=== PATIENT | male | born 1960 | race Caucasian/White ===

== ENCOUNTER 2020-06-23 10:40 | Outpatient (REF) | payer MEDICAID, SELFPAY | END 2020-06-23 10:41 | disposition home or self-care (01) | LOC: HO.LAB 10:40 | PROVIDERS: PCP Family Medicine; Visit Provider Internal Medicine | DX: Z20.828 Contact with and (suspected) exposure to other viral communicable diseases (principal) | CPT/HCPCS: C9803; U0003 ==

== ENCOUNTER 2020-09-19 00:33 | Emergency (ER) | payer MEDICAID, SELFPAY ==
--- NOTE | ~2020-09-19 | XR_ITS ---
EXAMINATION: CHEST 1 VIEW CLINICAL INFORMATION: Shortness of breath. COMPARISON: 07/22/2019. TECHNIQUE: An AP view of the chest is provided. FINDINGS: The cardiac silhouette is not enlarged. The mediastinal and hilar contours are unremarkable. There are neither pleural effusions nor pneumothoraces. There is mild atelectasis at each lung base. There are no consolidations. The osseous structures are unremarkable. XR/XR chest 1V IMPRESSION: No consolidations. Mild bibasilar atelectasis.
[2020-09-19 03:09] VITALS: BP 134/84; PULSE 80; RESP 18; TEMP 36.7; O2SAT 95; BMI 29.5
--- NOTE | 2020-09-19 03:33 | ED.GENADULT ---
HPI - General Adult General Chief complaint: General Medical Stated complaint: Trapped gas/Sob Time Seen by Provider: 09/19/20 03:32 Source: patient Mode of arrival: ambulatory Limitations: no limitations History of Present Illness HPI narrative: 60-year-old male presented with burping that is causing shortness of breath, patient stated that symptoms started 6 hours ago, lasted for about 10 minutes, now he feels better, decline chest pain, but was associated gasping for air and shortness of breath, pain resolved spontaneously, nothing made the pain worse or better, patient had similar presentation in the past he said it happen about once a year. Patient also complaining of constipation for the past 3 days, no abdominal pain, no nausea, no vomiting. Related Data Allergies Allergy/AdvReac Type Severity Reaction Status Date / Time No Known Allergies Allergy Unverified 04/30/20 15:32 Review of Systems Review of Systems: All other systems are reviewed and are negative Constitutional: Reports as per HPI and Reports no additional constitutional complaints Eyes: Reports as per HPI and Reports no additional eye complaints Reports system reviewed and no additional complaints, except as documented Cardiovascular: Reports as per HPI and Reports no additional cardiovascular complaints Respiratory: Reports as per HPI and Reports no additional respiratory complaints Gastrointestinal: Reports as per HPI and Reports no additional gastrointestinal complaints Genitourinary: Reports no additional female genitourinary complaints Musculoskeletal: Reports no additional musculoskeletal complaints Skin/Breast: Reports system reviewed and no additional complaints, except as docu Psychiatric: Reports no additional psychiatric complaints Endocrine: Reports no additional endocrine complaints Hematologic/Lymphatic: Reports no additional hematologic/lymphatic complaints Allergic/Immunologic: Reports no additional allergic/immunologic complaints Reports system reviewed and no additional complaints, except as documented and Reports Abnormal speech present [facility] Past Medical History Medical History COVID-19 High cholesterol Social History Social History Advance Directives: No Advance Directives Information Provided: No Physical Exam Vital Signs: Vital Signs: Last Vital Signs Temp 98.1 F 09/19/20 03:09 Pulse 80 09/19/20 03:09 Resp 18 09/19/20 03:09 BP 134/84 09/19/20 03:09 Pulse Ox 95 09/19/20 03:09 Body Mass Index 29.5 Vital signs have been reviewed as normal and appeared to be correct. Blood pressure in the high range. Heart rate normal. Respiration rate normal. Temperature normal. Oxygen saturation normal. Appearance: Alert. Oriented X3. No acute distress. Head: Normal external exam. Normocephalic. Atraumatic. No Mota signs noted. No raccoon eyes noted Eyes: PERRLA. EOMI. Conjunctiva and sclera normal. Eyelids normal. ENT: TM's Normal. Pharynx normal. Uvula midline. Moist mucous membranes. No trismus noted. No drooling noted. No muffled voice noted. Neck: Normal inspection. Neck supple. FROM. No adenopathy. Thyroid Normal. No meningeal signs. No neck mass noted. CVS: Normal heart rate and rhythm. Heart sound normal. No murmurs noted. Pulses normal throughout. Respiratory: No respiratory distress. Painless inspiration. Breath sounds normal. No wheezes/rales/rhonchi noted. Chest nontender. No accessory muscle usage noted or decreased air movement noted. Abdomen: Soft and nontender. Bowel sounds normal in all 4 quadrants. No distention noted. No organomegaly noted. No visible injury noted. Back: No CVA tenderness. Full range of motion noted. Skin: Skin warm and dry. Normal skin color. Normal skin turgor. No rashes/lesions/lacerations noted. Extremities: No lower extremity edema. Extremities exhibit normal range of motion. Extremities nontender. Neuro: Oriented X 3. No motor deficit. No sensory deficit. Reflexes normal. Course Course Course Narrative: Assessment and plan. 60-year-old male presented after having burping that made him short of breath for about 10 minutes, patient gets this episode once a year normally today was concerned, patient had cardiac workup was unremarkable with unremarkable chest x-ray, patient now is asymptomatic. constipation with no abd pain, or N/V. Medical Decision Making Lab Data Lab results reviewed: Yes I reviewed the patient's lab results. Result diagrams: 09/19/20 04:47 09/19/20 04:47 Labs: Lab Results 09/19/20 09/19/20 09/19/20 Range/Units 04:47 04:47 04:47 WBC 7.9 (4.8-10.8) X10*3/uL RBC 4.89 (4.60-5.80) X10*6/uL Hgb 14.5 (14.0-18.0) g/dl Hct 42.0 (42-52) % MCV 85.9 (80-98) fL MCH 29.7 (27.0-33.0) pg MCHC 34.5 (31.0-36.0) g/dl RDW 12.5 (11.0-16.0) % Plt Count 297 (160-400) X10*3/uL MPV 9.4 (9.4-12.4) fL Immature Gran % (Auto) 0.5 H (0.0-0.4) % Neut % (Auto) 57.6 (45-73) % Lymph % (Auto) 29.2 (20-40) % [place] % (Auto) 7.7 (2-11) % Eos % (Auto) 4.4 H (0-4) % Baso % (Auto) 0.6 (0-2) % Lymph # (Auto) 2.3 (1.2-4.9) X10*3/uL [place] # (Auto) 0.6 (0.1-1.2) X10*3/uL Eos # (Auto) 0.4 (0.0-0.4) X10*3/uL Baso # (Auto) 0.1 (0.0-0.2) X10*3/uL Abs Immat Gran (auto) 0.04 H (0.00-0.03) X10*3/uL Absolute Neuts (auto) 4.5 (2.0-8.3) X10*3/uL Absolute Nucleated RBC 0.000 (0.0-0.012) X10*3/uL Nucleated RBC % (auto) 0.0 (0.0-0.2) /100WBC Sodium 137 (135-145) mmol/L Potassium 3.7 (3.3-5.1) mmol/L Chloride 105 (96-108) mmol/L Carbon Dioxide 22 (22-29) mmol/L Anion Gap 14 (12-20) BUN 16 (9-16) mg/dL Creatinine 0.87 (0.5-1.4) mg/dL Estim Creat Clear Calc 93.6 Estimated GFR > 60 Random Glucose 104 (60-115) mg/dL Calcium 8.3 L (8.4-10.2) mg/dL Total Bilirubin 0.3 (0.0-1.0) mg/dL Direct Bilirubin 0.2 (0.0-0.5) mg/dL AST 21 (5-37) U/L ALT 27 (0-40) U/L Alkaline Phosphatase 79 (39-117) U/L Troponin I High Sens < 3.5 (<3.5-35.0) ng/L B-Natriuretic Peptide < 10 (<100) pg/mL Total Protein 6.8 (6.5-8.0) g/dL Albumin 4.0 (3.5-5.0) g/dL Lipase 24 (8-78) U/L Urine Color Urine Appearance Urine pH (5.0-8.0) Ur Specific [place] (1.005-1.025) Urine Protein (NEG-TRACE) MG/DL Urine Glucose (UA) (NEG) MG/DL Urine Ketones (NEG) MG/DL Urine Blood (NEG) Urine Nitrite (NEG) Ur Leukocyte Esterase (NEG) Urine RBC (0) /HPF Urine WBC (0-4) /HPF Ur Squamous Epith Cells /LPF Urine Bacteria /LPF Urine Mucus /LPF 09/19/20 Range/Units 05:04 WBC (4.8-10.8) X10*3/uL RBC (4.60-5.80) X10*6/uL Hgb (14.0-18.0) g/dl Hct (42-52) % MCV (80-98) fL MCH (27.0-33.0) pg MCHC (31.0-36.0) g/dl RDW (11.0-16.0) % Plt Count (160-400) X10*3/uL MPV (9.4-12.4) fL Immature Gran % (Auto) (0.0-0.4) % Neut % (Auto) (45-73) % Lymph % (Auto) (20-40) % [place] % (Auto) (2-11) % Eos % (Auto) (0-4) % Baso % (Auto) (0-2) % Lymph # (Auto) (1.2-4.9) X10*3/uL [place] # (Auto) (0.1-1.2) X10*3/uL Eos # (Auto) (0.0-0.4) X10*3/uL Baso # (Auto) (0.0-0.2) X10*3/uL Abs Immat Gran (auto) (0.00-0.03) X10*3/uL Absolute Neuts (auto) (2.0-8.3) X10*3/uL Absolute Nucleated RBC (0.0-0.012) X10*3/uL Nucleated RBC % (auto) (0.0-0.2) /100WBC Sodium (135-145) mmol/L Potassium (3.3-5.1) mmol/L Chloride (96-108) mmol/L Carbon Dioxide (22-29) mmol/L Anion Gap (12-20) BUN (9-16) mg/dL Creatinine (0.5-1.4) mg/dL Estim Creat Clear Calc Estimated GFR Random Glucose (60-115) mg/dL Calcium (8.4-10.2) mg/dL Total Bilirubin (0.0-1.0) mg/dL Direct Bilirubin (0.0-0.5) mg/dL AST (5-37) U/L ALT (0-40) U/L Alkaline Phosphatase (39-117) U/L Troponin I High Sens (<3.5-35.0) ng/L B-Natriuretic Peptide (<100) pg/mL Total Protein (6.5-8.0) g/dL Albumin (3.5-5.0) g/dL Lipase (8-78) U/L Urine Color YELLOW Urine Appearance CLEAR Urine pH 6.0 (5.0-8.0) Ur Specific [place] 1.020 (1.005-1.025) Urine Protein NEG (NEG-TRACE) MG/DL Urine Glucose (UA) NEG (NEG) MG/DL Urine Ketones NEG (NEG) MG/DL Urine Blood NEG (NEG) Urine Nitrite NEG (NEG) Ur Leukocyte Esterase NEG (NEG) Urine RBC 0 (0) /HPF Urine WBC 0-2 (0-4) /HPF Ur Squamous Epith Cells TRACE /LPF Urine Bacteria NONE /LPF Urine Mucus TRACE /LPF Imaging Data Chest x-ray: Radiologist's impression: No consolidations. Mild bibasilar atelectasis. Discharge Plan Discharge Clinical Impression: Atypical chest pain Constipation Qualifiers: Constipation type: unspecified constipation type Qualified Code(s): K59.00 - Constipation, unspecified Patient Disposition: Home, Self-Care Instructions: Constipation (ED) Referrals: Natalie Posadas MD [Primary Care Provider] - 2 days
[2020-09-19 04:00] VITALS: BP 126/81; PULSE 73; RESP 16; O2SAT 98
[2020-09-19 04:50] LABS: MANUAL DIFF FLAG NO
[2020-09-19 04:52] LABS: Basophils Absolute Auto 0.1 X10*3/uL (0.0-0.2); Basophils Percent Auto 0.6 % (0-2); Eosinophils Absolute Auto 0.4 X10*3/uL (0.0-0.4); Eosinophils Percent Auto 4.4 % (0-4); Hemoglobin 14.5 g/dl (14.0-18.0); Imm Gran Abs Auto 0.04 X10*3/uL (0.00-0.03); Imm Gran Pct Auto 0.5 % (0.0-0.4); Lymphocytes Absolute Auto 2.3 X10*3/uL (1.2-4.9); Lymphocytes Percent Auto 29.2 % (20-40); Mean Corpuscular HGB Conc 34.5 g/dl (31.0-36.0); Mean Corpuscular Hemoglobin 29.7 pg (27.0-33.0); Mean Corpuscular Volume 85.9 fL (80-98); Mean Platelet Volume 9.4 fL (9.4-12.4); Monocytes Absolute Auto 0.6 X10*3/uL (0.1-1.2); Monocytes Percent Auto 7.7 % (2-11); Neutrophils Absolute Auto 4.5 X10*3/uL (2.0-8.3); Neutrophils Percent Auto 57.6 % (45-73); Platelet Count 297 X10*3/uL (160-400); Red Blood Count 4.89 X10*6/uL (4.60-5.80); Red Cell Distribution Width 12.5 % (11.0-16.0); White Blood Count 7.9 X10*3/uL (4.8-10.8)
[2020-09-19] MEDS: Milk of Magnesia 30 ML ORAL.SUSP PO (04:59)
[2020-09-19] MEDS: 0.9 % Sodium Chloride 1,000 ML 999 ML IVCONT (05:00)
[2020-09-19 05:09] LABS: Appearance Urine CLEAR; Color Urine YELLOW; Glucose Urine UA NEG (NEG); Leukocyte Esterase Urine NEG (NEG); Nitrite Urine NEG (NEG); UACC CULT NO; Urine Blood NEG (NEG); Urine Ketones NEG (NEG); Urine Protein NEG (NEG-TRACE)
[2020-09-19 05:13] LABS: Alanine Aminotransferase 27 U/L (0-40); Alkaline Phosphatase 79 U/L (39-117); Anion Gap 14 (12-20); Aspartate Amino Transferase 21 U/L (5-37); Bilirubin Direct 0.2 mg/dL (0.0-0.5); Bilirubin Total 0.3 mg/dL (0.0-1.0); Blood Urea Nitrogen 16 mg/dL (9-16); Calcium 8.3 mg/dL (8.4-10.2); Carbon Dioxide 22 mmol/L (22-29); Chloride 105 mmol/L (96-108); Creatinine Clr Calc Pharmacy 93.6; Estimated Glomerular Filt Rate > 60; Glucose Random 104 mg/dL (60-115); Lipase 24 U/L (8-78); Potassium 3.7 mmol/L (3.3-5.1); Sodium 137 mmol/L (135-145); Total Protein 6.8 g/dL (6.5-8.0)
[2020-09-19 05:14] LABS: WBC Urine 0-2 /HPF (0-4)
[2020-09-19 05:15] LABS: Mucus Urine TRACE /LPF; RBC Urine 0 /HPF (0); Squamous Epithelial Cell Urine TRACE /LPF
[2020-09-19 05:18] LABS: B Type Natriuretic Peptide < 10 pg/mL (<100); Troponin-I High Sensitivity < 3.5 ng/L (<3.5-35.0)
[2020-09-19 06:00] VITALS: BP 124/76; PULSE 68; RESP 18; TEMP 36.7; O2SAT 97
== END 2020-09-19 07:00 | disposition home or self-care (01) ==
PROVIDERS: Emergency Provider Emergency Medicine; PCP Family Medicine
DX: R07.89 Other chest pain (principal); K59.00 Constipation, unspecified; Z86.16 Personal history of COVID-19
CPT/HCPCS: 36415; 71045; 80048; 80076; 81001; 83690; 83880; 84484; 85025; 96360; 99284

== ENCOUNTER 2021-12-06 11:47 | Emergency (ER) | payer MEDICAID, SELFPAY ==
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
--- NOTE | ~2021-12-06 | XR_ITS ---
EXAMINATIONS: XR hand wrist LT CLINICAL INFORMATION: Reason for Exam fall, hand pain COMPARISON: None VIEWS: Frontal lateral and oblique scaphoid view FINDINGS: There is no evidence of acute fracture or dislocation. The distal radius is intact. The radiocarpal, intercarpal and carpal/metacarpal joints are normal. Ulnar styloid is intact. The scapholunate joint is normal. The lunate is properly positioned. The oibsio-gays-yihzircc access is normal. The scaphoid bone is a properly articulating. XR/XR hand wrist LT IMPRESSION: No fracture or dislocation.
--- NOTE | ~2021-12-06 | XR_ITS ---
EXAMINATION: XR knee LT 4V CLINICAL INFORMATION: Reason for Exam left knee pain COMPARISON: None available at the time of this dictation. TECHNIQUE: frontal, lateral, tunnel and patella sunrise views FINDINGS: BONES: No fracture or dislocation is present. JOINTS: Narrowing of joint spaces and developed osteophytes from the edges of articular surfaces suggest degenerative osteoarthritis. SOFT TISSUE: Normal XR/XR knee LT 4V IMPRESSION: Mild DJD. No fracture or dislocation.
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
[2021-12-06 12:03] VITALS: BP 119/63; PULSE 96; RESP 19; TEMP 36.8; O2SAT 95; BMI 33.0
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
[2021-12-06 13:46] LABS: MANUAL DIFF FLAG NO
[2021-12-06 13:49] LABS: Basophils Percent Auto 0.4 % (0-2); Eosinophils Absolute Auto 0.2 X10*3/uL (0.0-0.4); Eosinophils Percent Auto 1.6 % (0-4); Hematocrit 42.6 % (42.0-52.0); Hemoglobin 14.5 g/dl (14.0-18.0); Imm Gran Abs Auto 0.04 X10*3/uL (0.00-0.03); Imm Gran Pct Auto 0.4 % (0.0-0.4); Lymphocytes Absolute Auto 1.6 X10*3/uL (1.2-4.9); Lymphocytes Percent Auto 16.8 % (20-40); Mean Corpuscular Hemoglobin 29.3 pg (27.0-33.0); Mean Corpuscular Volume 86.1 fL (80.0-98.0); Mean Platelet Volume 9.6 fL (9.4-12.4); Monocytes Absolute Auto 0.6 X10*3/uL (0.1-1.2); Monocytes Percent Auto 6.3 % (2-11); Neutrophils Percent Auto 74.5 % (45-73); Platelet Count 286 X10*3/uL (160-400); Red Blood Count 4.95 X10*6/uL (4.60-5.80); Red Cell Distribution Width 12.8 % (11.0-16.0); White Blood Count 9.4 X10*3/uL (4.8-10.8)
[2021-12-06 14:05] LABS: Alanine Aminotransferase 30 U/L (0-40); Albumin Level 4.2 g/dL (3.5-5.0); Alkaline Phosphatase 96 U/L (39-117); Anion Gap 10 (12-20); Aspartate Amino Transferase 25 U/L (5-37); Bilirubin Total 0.5 mg/dL (0.0-1.0); Blood Urea Nitrogen 18 mg/dL (9-16); Calcium 9.5 mg/dL (8.4-10.2); Carbon Dioxide 26 mmol/L (22-29); Chloride 110 mmol/L (96-108); Creatinine Clr Calc Pharmacy 92.2; Estimated Glomerular Filt Rate > 60; Glucose Random 111 mg/dL (60-115); INTERNATIONAL NORM RATIO 1.1 (0.9-1.1); Potassium 4.1 mmol/L (3.3-5.1); Prothrombin Time 12.4 SEC (9.9-13.0); Sodium 142 mmol/L (135-145)
[2021-12-06 14:23] VITALS: BP 118/77; PULSE 85; RESP 19; TEMP 36.8; O2SAT 96
[2021-12-06] MEDS: Morphine Sulfate 2 MG/ML CARTRIDGE IVPUSH (14:57)
[2021-12-06] MEDS: iohexoL 350 MG/ML 100 ML INFUS..BTL IV (15:07)
[2021-12-06 15:37] VITALS: BP 129/84; PULSE 83; RESP 20; TEMP 36.8; O2SAT 95
== END 2021-12-06 16:48 | disposition home or self-care (01) ==
PROVIDERS: Physician Assistant; Emergency Provider Emergency Medicine; PCP Family Medicine
DX: S89.92XA Unspecified injury of left lower leg, initial encounter (principal); S49.92XA Unspecified injury of left shoulder and upper arm, initial encounter; S30.811A Abrasion of abdominal wall, initial encounter; R10.32 Left lower quadrant pain; M25.522 Pain in left elbow; M19.012 Primary osteoarthritis, left shoulder; M25.562 Pain in left knee; M25.512 Pain in left shoulder; M54.2 Cervicalgia; V29.40XA Motorcycle driver injured in collision with unspecified motor vehicles in traffic accident, initial encounter; Y93.9 Activity, unspecified; Y92.410 Unspecified street and highway as the place of occurrence of the external cause; Y99.9 Unspecified external cause status
CPT/HCPCS: 36415; 70450; 71260; 72125; 73030; 73080; 73110; 73130; 73564; 74177; 80053; 83735; 85025; 85610; 96374; 99284; J2270; Q9967

== ENCOUNTER 2022-02-17 11:14 | Emergency (ER) | payer OTHER, MEDICAID, SELFPAY ==
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
[2022-02-17 12:07] VITALS: BP 106/64; PULSE 94; RESP 18; TEMP 36.7; O2SAT 96; BMI 32.3
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
[2022-02-17 16:46] VITALS: BP 129/85; PULSE 71; RESP 18; TEMP 36.4; O2SAT 99
== END 2022-02-17 16:55 | disposition home or self-care (01) ==
PROVIDERS: Emergency Provider Emergency Medicine; PCP Family Medicine
DX: M25.561 Pain in right knee (principal); M25.562 Pain in left knee; Z79.899 Other long term (current) drug therapy
CPT/HCPCS: 73560; 99283

== ENCOUNTER 2022-03-07 17:04 | Emergency (ER) | payer MEDICAID, SELFPAY ==
--- NOTE | ~2022-03-07 | XR_ITS ---
EXAMINATION: XR CHEST CLINICAL INFORMATION: Chest pain COMPARISON: Chest x-ray 09/19/2020 TECHNIQUE: Frontal view of the chest was obtained. FINDINGS: Mild curvilinear subsegmental atelectasis or scarring in the left lower lung. No airspace consolidation. No pleural effusion or pneumothorax. Cardiomediastinal silhouette is within normal limits. No evidence pulmonary edema. Suggestion of mild bronchial wall thickening in the right lower lung. No acute osseous injury. XR/XR chest 1V IMPRESSION: 1. Suggestion of mild bronchial wall thickening in the right lower lung. No airspace consolidation or effusions.
--- NOTE | 2022-03-07 17:10 | ECG_ITS ---
Test Reason : cp Blood Pressure : / mmHG Vent. Rate : 097 BPM Atrial Rate : 097 BPM P-R Int : 200 ms QRS Dur : 084 ms QT Int : 342 ms P-R-T Axes : 053 -77 071 degrees QTc Int : 434 ms Normal sinus rhythm Possible Left atrial enlargement Left axis deviation Possible Lateral infarct , age undetermined Abnormal ECG When compared with ECG of 22-JUL-2019 20:12, No significant change was found Referred By: Generic ED Physician Electronically Signed By:SANCHEZ STOKES
[2022-03-07 17:15] VITALS: BP 107/67; PULSE 91; RESP 18; TEMP 36.7; O2SAT 95; BMI 33.2
[2022-03-07 17:26] LABS: MANUAL DIFF FLAG NO
[2022-03-07 17:29] LABS: Basophils Percent Auto 0.4 % (0-2); Eosinophils Absolute Auto 0.2 X10*3/uL (0.0-0.4); Eosinophils Percent Auto 2.5 % (0-4); Hematocrit 42.6 % (42.0-52.0); Hemoglobin 14.5 g/dl (14.0-18.0); Imm Gran Abs Auto 0.06 X10*3/uL (0.00-0.03); Imm Gran Pct Auto 0.9 % (0.0-0.4); Lymphocytes Absolute Auto 1.5 X10*3/uL (1.2-4.9); Lymphocytes Percent Auto 21.3 % (20-40); Mean Corpuscular Hemoglobin 29.2 pg (27.0-33.0); Mean Corpuscular Volume 85.9 fL (80.0-98.0); Mean Platelet Volume 9.6 fL (9.4-12.4); Monocytes Absolute Auto 0.7 X10*3/uL (0.1-1.2); Monocytes Percent Auto 9.4 % (2-11); Neutrophils Absolute Auto 4.5 x10*3/uL (2.0-8.3); Neutrophils Percent Auto 65.5 % (45-73); Platelet Count 272 X10*3/uL (160-400); Red Blood Count 4.96 X10*6/uL (4.60-5.80); Red Cell Distribution Width 12.8 % (11.0-16.0); White Blood Count 6.9 X10*3/uL (4.8-10.8)
[2022-03-07 17:43] LABS: Alanine Aminotransferase 80 U/L (0-40); Albumin Level 4.5 g/dL (3.5-5.0); Alkaline Phosphatase 155 U/L (39-117); Anion Gap 12 (12-20); Aspartate Amino Transferase 56 U/L (5-37); Bilirubin Total 0.5 mg/dL (0.0-1.0); Blood Urea Nitrogen 11 mg/dL (9-16); Calcium 8.8 mg/dL (8.4-10.2); Carbon Dioxide 25 mmol/L (22-29); Chloride 106 mmol/L (96-108); Estimated Glomerular Filt Rate > 60; Glucose Random 166 mg/dL (60-115); Potassium 3.7 mmol/L (3.3-5.1); Sodium 139 mmol/L (135-145); Total Protein 7.5 g/dL (6.5-8.0)
[2022-03-07 17:45] LABS: COVID-19 Test Negative (Negative)
[2022-03-07 17:49] LABS: Troponin-I High Sensitivity < 3.5 ng/L (<3.5-35.0)
--- NOTE | 2022-03-07 20:20 | ED.CHESTPAIN ---
HPI - Chest Pain General Chief Complaint: Chest Pain Stated Complaint: chest pain/possible pneumonia/possible tumor Time Seen by Provider: 03/07/22 20:15 Source: patient Mode of arrival: ambulatory Limitations: no limitations History of Present Illness HPI narrative: Patient is a 61 year old male presenting to the emergency department today with chest pain when he coughs. Patient states that when he coughs, the center of his chest hurts. Patient denies any dizziness, lightheadedness, abdominal pain, nausea, vomiting, fever, chills, blurry vision, double vision, loss of vision, difficulty breathing, shortness of breath, back pain, night sweats, pain with urination, increased urinary frequency, increased urinary urgency, blood in his urine or stool, syncope or a near syncopal episode, recent trauma or falls, bowel incontinence, bladder incontinence, bowel retention, bladder retention, or any other complaints at this time. Pain radiation: none Treatment prior to arrival: none Related Data Previous Rx's Medication Instructions Recorded acetaminophen 650 mg 650 mg PO Q8H 5 days #15 tabs 02/17/22 tablet,extended release (Tylenol 8 Hour) ibuprofen 800 mg tablet 800 mg PO Q8H #60 tabs 02/17/22 Allergies Allergy/AdvReac Type Severity Reaction Status Date / Time No Known Allergies Allergy Verified 02/17/22 12:07 Review of Systems Constitutional: Constitutional: Reports no additional constitutional complaints, Denies chills, Denies fever(s) and Denies night sweats Eyes: Eyes: Reports no additional eye complaints, Denies blurry vision, Denies change in vision, Denies diplopia, Denies eye discharge, Denies loss of vision and Denies eye pain ENT: Denies dizziness Cardiovascular: Cardiovascular: Reports no additional cardiovascular complaints, Reports chest pain (with cough), Denies lightheadedness, Denies Loss of Consciousness and Denies dyspnea Respiratory: Respiratory: Reports no additional respiratory complaints, Reports cough and Denies dyspnea Gastrointestinal: Gastrointestinal: Reports no additional gastrointestinal complaints, Denies abdominal pain, Denies melena, Denies hematochezia, Denies change in bowel habits and Denies change in stool character Genitourinary: Genitourinary: Reports no additional male genitourinary complaints, Denies hematuria, Denies oliguria, Denies difficulty urinating, Denies dysuria, Denies urinary frequency, Denies urinary hesitancy, Denies urinary incontinence and Denies urinary urgency Musculoskeletal: Musculoskeletal: Reports no additional musculoskeletal complaints, Denies numbness and Denies tingling Neurologic: Denies dizziness, Denies loss of vision, Denies numbness and Denies tingling Psychiatric: Psychiatric: Reports no additional psychiatric complaints Endocrine: Endocrine: Reports no additional endocrine complaints Hematologic/Lymphatic: Hematologic/Lymphatic: Reports no additional hematologic/lymphatic complaints Allergic/Immunologic: Allergic/Immunologic: Reports no additional allergic/immunologic complaints [facility] Past Medical History Attestation statement: The following information was validated with the patient. Source: old records reviewed Medical History COVID-19 High cholesterol Social History Social History Alcohol intake: never Advance Directives: No Advance Directives Information Provided: No Physical Exam Vital Signs: Vital Signs: Last Vital Signs Temp 98.5 F 03/07/22 20:25 Pulse 83 03/07/22 20:25 Resp 18 03/07/22 20:25 BP 117/73 03/07/22 20:25 Pulse Ox 97 03/07/22 20:25 O2 Del Method 03/07/22 20:25 BMI result Body Mass Index 33.2 Const: General: cooperative, no acute distress, alert and awake Nutritional Appearance: well nourished Orientation/consciousness: patient oriented x3 Limitations: no limitations HEENT: Head: Yes normal to inspection and Yes atraumatic Ears: hearing grossly normal bilaterally and external ears normal General nose exam: Normal external nose present, no nasal discharge noted and no epistaxis Face and sinus: Yes normal facial exam, No abrasion and No laceration Mouth: Normal oral and palatal mucosa present, no drooling and no muffled voice Eyes: General: appearance normal, both eyes and all related structures Periorbital: periorbital findings normal Eyelids: Yes eyelids normal Conjunctivae: conjunctivae normal Pupils: Equal, round and reactive pupils present EOM: EOMs intact bilaterally Neck: Neck: Yes normal visual inspection, Yes full ROM and Yes no lymphadenopathy Chest: Chest palpation & inspection: normal inspection of the chest Resp: Effort & Inspection: normal respiratory effort and able to speak in complete sentences Auscultation: clear to auscultation bilaterally Cardio: Rate: regular rate Rhythm: regular rhythm GI: Inspection: Yes normal to inspection Neuro: General: patient oriented x3 and moves all extremities Cranial nerves: Yes Equal, round and reactive pupils present Cognition (Neuro): normal cognition Motor exam (neuro): 5/5 motor strength present throughout Sensory Exam: Normal double simultaneous stimulation for sensation Coordination: [id number] test normal Extrem: General: Yes normal to inspection, Yes full ROM and Yes capillary refill normal Psych: Appearance: grossly normal Mental Status: mental status grossly normal Affect: normal affect Attitude: cooperative Thought process: Normal thought process present Thought content: Normal thought content present Insight: Good insight present (Psych) MDM - Chest Pain MDM Narrative Medical decision making narrative: Patient is a 61 year old male presenting to the emergency department today with chest pain after coughing. Patient's physical exam was unremarkable. Patient's blood work showed slightly elevated LFTs but was otherwise unremarkable.Patient's EKG was unremarkable. Patient's chest x-ray showed no acute process. I explained my physical exam findings as well as all test results to the patient. I answered all questions asked by the patient. I stressed the importance of the patient taking his medication as prescribed. I stressed the importance of the patient following up with his primary care provider. I stressed the importance of the patient returning to the emergency department immediately if his symptoms were to worsen or if he were to develop any dizziness, shortness of breath, difficulty breathing, chest pain, blurry vision, loss of vision, nausea, vomiting, abdominal pain, fever, chills, back pain, or any other complaints. Patient verbalized agreement and understanding with this treatment plan and discharge. Differential Diagnosis Differential diagnosis: Likely atypical chest pain and costochondritis Medical Records Data Attestation: I reviewed the patient's medical records. Lab Data Attestation: I reviewed the patient's lab results. Result diagrams: 03/07/22 17:21 03/07/22 17:21 Labs: Lab Results 03/07/22 03/07/22 03/07/22 Range/Units 17:18 17:18 17:21 WBC 6.9 (4.8-10.8) X10*3/uL RBC 4.96 (4.60-5.80) X10*6/uL Hgb 14.5 (14.0-18.0) g/dl Hct 42.6 (42.0-52.0) % MCV 85.9 (80.0-98.0) fL MCH 29.2 (27.0-33.0) pg MCHC 34.0 (31.0-36.0) g/dl RDW 12.8 (11.0-16.0) % Plt Count 272 (160-400) X10*3/uL MPV 9.6 (9.4-12.4) fL Immature Gran % (Auto) 0.9 H (0.0-0.4) % Neut % (Auto) 65.5 (45-73) % Lymph % (Auto) 21.3 (20-40) % [place] % (Auto) 9.4 (2-11) % Eos % (Auto) 2.5 (0-4) % Baso % (Auto) 0.4 (0-2) % Lymph # (Auto) 1.5 (1.2-4.9) X10*3/uL [place] # (Auto) 0.7 (0.1-1.2) X10*3/uL Eos # (Auto) 0.2 (0.0-0.4) X10*3/uL Baso # (Auto) 0.0 (0.0-0.2) X10*3/uL Abs Immat Gran (auto) 0.06 H (0.00-0.03) X10*3/uL Absolute Neuts (auto) 4.5 (2.0-8.3) x10*3/uL Absolute Nucleated RBC 0.000 (0.0-0.012) X10*3/uL Nucleated RBC % (auto) 0.0 (0.0-0.2) /100WBC Sodium (135-145) mmol/L Potassium (3.3-5.1) mmol/L Chloride (96-108) mmol/L Carbon Dioxide (22-29) mmol/L Anion Gap (12-20) BUN (9-16) mg/dL Creatinine (0.5-1.4) mg/dL Estim Creat Clear Calc Estimated GFR Random Glucose (60-115) mg/dL Calcium (8.4-10.2) mg/dL Total Bilirubin (0.0-1.0) mg/dL AST (5-37) U/L ALT (0-40) U/L Alkaline Phosphatase (39-117) U/L Troponin I High Sens < 3.5 (<3.5-35.0) ng/L Total Protein (6.5-8.0) g/dL Albumin (3.5-5.0) g/dL COVID-19 (ARGELIA) Negative (Negative) COVID-19 Clin Com See Note 03/07/22 Range/Units 17:21 WBC (4.8-10.8) X10*3/uL RBC (4.60-5.80) X10*6/uL Hgb (14.0-18.0) g/dl Hct (42.0-52.0) % MCV (80.0-98.0) fL MCH (27.0-33.0) pg MCHC (31.0-36.0) g/dl RDW (11.0-16.0) % Plt Count (160-400) X10*3/uL MPV (9.4-12.4) fL Immature Gran % (Auto) (0.0-0.4) % Neut % (Auto) (45-73) % Lymph % (Auto) (20-40) % [place] % (Auto) (2-11) % Eos % (Auto) (0-4) % Baso % (Auto) (0-2) % Lymph # (Auto) (1.2-4.9) X10*3/uL [place] # (Auto) (0.1-1.2) X10*3/uL Eos # (Auto) (0.0-0.4) X10*3/uL Baso # (Auto) (0.0-0.2) X10*3/uL Abs Immat Gran (auto) (0.00-0.03) X10*3/uL Absolute Neuts (auto) (2.0-8.3) x10*3/uL Absolute Nucleated RBC (0.0-0.012) X10*3/uL Nucleated RBC % (auto) (0.0-0.2) /100WBC Sodium 139 (135-145) mmol/L Potassium 3.7 (3.3-5.1) mmol/L Chloride 106 (96-108) mmol/L Carbon Dioxide 25 (22-29) mmol/L Anion Gap 12 (12-20) BUN 11 (9-16) mg/dL Creatinine 0.81 (0.5-1.4) mg/dL Estim Creat Clear Calc 105.0 Estimated GFR > 60 Random Glucose 166 H D (60-115) mg/dL Calcium 8.8 D (8.4-10.2) mg/dL Total Bilirubin 0.5 (0.0-1.0) mg/dL AST 56 H (5-37) U/L ALT 80 H (0-40) U/L Alkaline Phosphatase 155 H D (39-117) U/L Troponin I High Sens (<3.5-35.0) ng/L Total Protein 7.5 (6.5-8.0) g/dL Albumin 4.5 (3.5-5.0) g/dL COVID-19 (ARGELIA) (Negative) COVID-19 Clin Com Imaging Data Chest x-ray: Attestation: I personally reviewed and interpreted this imaging study as follows: My impression: No acute process. Radiologist's impression: EXAMINATION: XR CHEST CLINICAL INFORMATION: Chest pain COMPARISON: Chest x-ray 09/19/2020 TECHNIQUE: Frontal view of the chest was obtained. FINDINGS: Mild curvilinear subsegmental atelectasis or scarring in the left lower lung. No airspace consolidation. No pleural effusion or pneumothorax. Cardiomediastinal silhouette is within normal limits. No evidence pulmonary edema. Suggestion of mild bronchial wall thickening in the right lower lung. No acute osseous injury. XR/XR chest 1V IMPRESSION: ? 1. Suggestion of mild bronchial wall thickening in the right lower lung. No airspace consolidation or effusions. ? Dictated By: Payam Pa Signed By: Electronically signed by Payam?Thierno 03/07/22 8128 ECG Data ECG #1: Attestation: I personally reviewed and interpreted this ECG as follows: ECG interpretation date: 03/07/22 ECG interpretation time: 17:13 Prior ECG tracings: available for review Interpretation: Vent. Rate: 097 BPM ? ? Atrial Rate: 097 BPM P-R Int: 200 ms? QRS Dur: 084 ms QT Int: 342 ms ? ? ? P-R-T Axes: 053 -77 071 degrees QTc Int: 434 ms ? Normal sinus rhythm Possible Left atrial enlargement Left axis deviation Possible Lateral infarct , age undetermined Abnormal ECG When compared with ECG of 22-JUL-2019 20:12, No significant change was found DD/ [id number] Discharge Plan Discharge Clinical Impression: Atypical chest pain, Viral illness Patient Disposition: Home, Self-Care Instructions: Viral Syndrome (ED) Additional Instructions: Follow up with your primary care provider. Return to the emergency department immediately if your symptoms worsen or if you develop any dizziness, shortness of breath, difficulty breathing, chest pain, blurry vision, loss of vision, nausea, vomiting, abdominal pain, fever, chills, back pain, or any other complaints. Prescriptions: No Action ibuprofen 800 mg tablet 800 mg PO Q8H Qty: 60 0RF acetaminophen [Tylenol 8 Hour] 650 mg tablet extended release 650 mg PO Q8H 5 Days Qty: 15 0RF Referrals: Natalie Posadas MD [Primary Care Provider] - (Follow up with your PCP. ) Print Language: Turkmen
[2022-03-07 20:25] VITALS: BP 117/73; PULSE 83; RESP 18; TEMP 36.9; O2SAT 97
== END 2022-03-07 20:59 | disposition home or self-care (01) ==
PROVIDERS: Emergency Provider Emergency Medicine; PCP Family Medicine
DX: B34.9 Viral infection, unspecified (principal); R07.89 Other chest pain; Z20.822 Contact with and (suspected) exposure to COVID-19; Z79.899 Other long term (current) drug therapy
CPT/HCPCS: 71045; 80053; 84484; 85025; 87635; 93005; 99283; 99284

== ENCOUNTER → 2022-04-06 22:47 | Outpatient (REF) | payer MEDICAID, SELFPAY | LOC: HO.SL 22:47 | PROVIDERS: PCP Family Medicine; Visit Provider Family Medicine | DX: G47.33 Obstructive sleep apnea (adult) (pediatric) (principal) | CPT/HCPCS: 95810 ==

== ENCOUNTER → 2022-04-24 19:30 | Outpatient (REF) | payer MEDICAID, SELFPAY | LOC: HO.SL 19:30 | PROVIDERS: PCP Family Medicine; Visit Provider Family Medicine | DX: G47.33 Obstructive sleep apnea (adult) (pediatric) (principal) | CPT/HCPCS: 95811 ==

== ENCOUNTER 2022-09-20 17:30 | Outpatient (REF) | payer MEDICAID, SELFPAY ==
--- NOTE | ~2022-09-20 | MR_ITS ---
EXAMINATION: MR BRAIN WITHOUT AND WITH CONTRAST CLINICAL INFORMATION: Chronic right-sided headache. Occipital headache. COMPARISON: CT head from 12/06/2021. TECHNIQUE: MRI of the brain was obtained using routine sequences without and following the administration of 10 mL of Gadavist intravenous contrast. FINDINGS: No focal restricted diffusion is demonstrated to suggest acute or subacute cerebral ischemia. No evidence of acute or chronic hemorrhagic products on heme-sensitive imaging. Scattered periventricular and deep white matter T2 FLAIR hyperintensities consistent with mild underlying microangiopathy. Proportional prominence of the ventricles and sulcal spaces without evidence of obstructive hydrocephalus. No abnormal mass effect. No midline shift. Normal appearance of the pituitary gland. Normal positioning of the cerebellar tonsils. There appears to be fusiform aneurysmal dilatation of the supraclinoid segment of the right ICA. Otherwise, normal arterial and venous vascular flow voids are present. No abnormal contrast enhancement. Normal, homogeneous marrow signal. Mild mucosal thickening of the paranasal sinuses. No signal abnormalities within the mastoids. MR/MR head/brain wo/w con IMPRESSION: 1. No acute intracranial abnormalities. No abnormal intracranial enhancement. 2. Mild underlying microangiopathy and generalized cerebral volume loss. 3. Apparent fusiform aneurysmal dilatation of the supraclinoid segment of the right ICA. If clinically indicated, this may be better characterized with dedicated MRA or CTA.
== END 2022-09-20 17:31 | disposition home or self-care (01) ==
LOC: HO.MRI 17:30
PROVIDERS: PCP Family Medicine; Visit Provider Family Medicine
DX: R51.9 Headache, unspecified (principal); G47.31 Primary central sleep apnea
CPT/HCPCS: 70553; A9585

== ENCOUNTER 2022-09-29 19:28 | Outpatient (REF) | payer MEDICAID, SELFPAY ==
--- NOTE | ~2022-09-29 | MR_ITS ---
EXAMINATION: MRA HEAD WITHOUT CONTRAST CLINICAL INFORMATION: Carotid artery aneurysm. COMPARISON: Head MRA September 20, 2022 TECHNIQUE: MRA of the head was performed without contrast utilizing 3-D [id number] technique. FINDINGS: The bilateral internal carotid arteries demonstrate fusiform ectasia. The supraclinoid right ICA demonstrates short segment fusiform aneurysmal dilatation measuring up to 7 mm best seen on series 3 image 71/64. The right M1 segment is normal in caliber without stenosis. Fusiform dilatation is also seen involving the left [employer] and left supraclinoid ICA and M1 MCA segment junction. There is fusiform aneurysmal dilatation of the inferior division of the left M2 MCA segment. There is a small saccular aneurysm measuring 2 mm projecting medially from the left MCA bifurcation. The intradural vertebral arteries and basilar artery appear patent. There is no abnormal arterialized flow on the source images. No mass effect is seen. A diffusion sequence was also acquired and appears normal. MR/MR angio head wo con IMPRESSION: Fusiform aneurysmal dilatation of the supraclinoid right ICA measuring up to 7 mm. Fusiform aneurysmal dilatation also seen involving the left supraclinoid ICA and left M1 MCA segment junction, and inferior division of the left M2 MCA segment. Small 2 mm saccular aneurysm projecting medially from the left MCA bifurcation.
== END 2022-09-29 19:29 | disposition home or self-care (01) ==
LOC: HO.MRI 19:28
PROVIDERS: PCP Family Medicine; Visit Provider Family Medicine
DX: I67.1 Cerebral aneurysm, nonruptured (principal)
CPT/HCPCS: 70544

== ENCOUNTER → 2022-11-16 19:30 | Outpatient (REF) | payer MEDICAID, SELFPAY | LOC: HO.SL 19:30 | PROVIDERS: PCP Family Medicine; Visit Provider Family Medicine | DX: G47.33 Obstructive sleep apnea (adult) (pediatric) (principal) | CPT/HCPCS: 95811 ==

== ENCOUNTER 2023-09-28 11:57 | Outpatient (REF) | payer MEDICAID, SELFPAY ==
[2023-09-28 13:32] LABS: Estimated Average Glucose 114 mg/dL; Hemoglobin A1C 150.3819 umol/L; Hemoglobin A1c % 5.6 % (<6.0)
[2023-09-28 13:54] LABS: Alanine Aminotransferase 18 U/L (0-40); Albumin Level 4.3 g/dL (3.5-5.0); Alkaline Phosphatase 84 U/L (39-117); Anion Gap 11 (12-20); Aspartate Amino Transferase 15 U/L (5-37); Bilirubin Total 0.4 mg/dL (0.0-1.0); Blood Urea Nitrogen 14 mg/dL (9-16); Calcium 9.3 mg/dL (8.4-10.2); Carbon Dioxide 25 mmol/L (22-29); Chloride 108 mmol/L (96-108); Estimated Glomerular Filt Rate > 60; Glucose Random 88 mg/dL (60-115); Potassium 3.7 mmol/L (3.3-5.1); Sodium 140 mmol/L (135-145); Total Protein 7.5 g/dL (6.5-8.0)
== END 2023-09-28 11:58 | disposition home or self-care (01) ==
LOC: HO.HHCL 11:57
PROVIDERS: Visit Provider Family Medicine
DX: G47.31 Primary central sleep apnea (principal); E03.9 Hypothyroidism, unspecified; R73.03 Prediabetes
CPT/HCPCS: 36415; 80053; 83036; 84439; 84443

== ENCOUNTER 2023-10-04 09:07 | Outpatient (REF) | payer MEDICAID, SELFPAY ==
[2023-10-04 12:04] LABS: Cholesterol 169 mg/dL (<200); HDL Cholesterol 40 mg/dL (>40); LDL Cholesterol Calculated 107 mg/dL (<100); Triglycerides 113 mg/dL (<150)
[2023-10-04 12:25] LABS: Reflex LDLD? No
== END 2023-10-04 09:08 | disposition home or self-care (01) ==
LOC: HO.HHCL 09:07
PROVIDERS: Visit Provider Family Medicine
DX: E78.5 Hyperlipidemia, unspecified (principal); K21.9 Gastro-esophageal reflux disease without esophagitis
CPT/HCPCS: 36415; 80061; 87338

== ENCOUNTER 2024-06-19 11:35 | Emergency (ER) | payer MEDICAID, SELFPAY ==
--- NOTE | ~2024-06-19 | CT_ITS ---
EXAMINATION: CT ANGIOGRAM NECK. CT ANGIOGRAM BRAIN. CLINICAL INFORMATION: Headache. COMPARISON: Correlated to MRA brain dated September 29, 2022 TECHNIQUE: Contiguous axial images through the brain using 5 mm collimation without IV contrast. Sagittal and coronal reformatted images acquired. Contiguous axial images from the thoracic aortic arch to the cerebral vertex using 3.0 and 0.6 mm collimation following the IV contrast administration. Total of 70 cc Omnipaque 350 strength given IV without reported immediate complications. Sagittal and coronal reformatted images acquired. Maximum intensity projections. The degree of stenosis determined by NASCET criteria. This CT examination was performed using dose optimization techniques as appropriate, variously including the following: *Automated exposure control *Adjustment of mA and/or kV according to patient size (this includes techniques or standardized protocols for targeted exams where dose is matched to indication/reason for exam; i.e. extremities or head) *Use of iterative reconstruction technique DLP: 2351 mGy-cm FINDINGS: CT non-IV brain: No acute intracranial hemorrhage, mass effect, midline shift, hydrocephalus or herniation. Guzman-white matter differentiation is normal. Posterior cranial fossa contents demonstrated no acute intracranial hemorrhage or mass effect. Bony calvarium is intact. Skull base is intact. No air-fluid levels in the included paranasal sinuses. Tympanic cavities and mastoid cells are aerated. Edentulus, maxilla. CT angiogram neck: Thoracic aortic arch is patent without focal stenosis or intimal flap. 3.8 cm diameter of the distal main pulmonary artery. Right CCA: Normal patency. No focal stenosis. No intimal flap. Right ICA: Normal patency. Tortuosity. No focal stenosis. No intimal flap. Left CCA: Normal patency. No focal stenosis. No intimal flap. Tortuosity. Left ICA: Tortuosity. No focal stenosis. No intimal flap. V1 and V2 segments of the vertebral arteries are patent coordinating directly from the subclavian arteries without focal stenosis or intimal flap. Codominant vertebral arteries. CT angiogram brain: Anterior cerebral circulation: ICAs: 6 mm dilatation of the supraclinoid segment right ICA. 5 mm dilatation of the supraclinoid segment, left ICA. No focal stenosis. No intimal flap. MCA's: 3 mm saccular abnormality at the bifurcation/trifurcation the left MCA. No focal stenosis. No intimal flap. ACAs: No focal stenosis or abrupt cut off. No vascular abnormality. Anterior communicant artery is patent. Ophthalmic arteries are patent bilaterally. Posterior communicating arteries are robust and patent, bilaterally. Posterior cerebral circulation: V3/V4 segments of the vertebral arteries are patent without focal stenosis or intimal flap. Posterior inferior cerebellar arteries are patent without vascular abnormality. Basilar artery is patent without focal stenosis or intimal flap. Superior cerebellar arteries are patent. biztalk developer: Hypoplastic/atrophic P1 segments bilaterally. No focal stenosis or abrupt cut off. Ancillary findings: Normal patency of the main cerebral venous sinuses. No abnormal enhancement within the intra-axial or the extra-axial compartment of the cranium. Bilateral pulmonary patchy groundglass. Cervical spondylosis C3-4. ` CT/CT angio head neck IMPRESSION: Stable, 6 mm, fusiform aneurysm, supraclinoid segments both ICA. Stable, 3 mm saccular aneurysm, bifurcation/trifurcation left MCA. No high degree stenosis or dissection in the vessels of the neck. 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 No acute intracranial hemorrhage or acute brain abnormality by CT. Electronically signed by: Cornell Hope MD 06/19/2024 01:00 PM EST
[2024-06-19 11:42] VITALS: BP 124/77; PULSE 80; RESP 16; TEMP 36.4; O2SAT 98; BMI 31.5
--- NOTE | 2024-06-19 11:46 | ECG_ITS ---
Test Reason : HEADACHE Blood Pressure : / mmHG Vent. Rate : 073 BPM Atrial Rate : 073 BPM P-R Int : 230 ms QRS Dur : 092 ms QT Int : 386 ms P-R-T Axes : 045 -77 069 degrees QTc Int : 425 ms Sinus rhythm with 1st degree A-V block Left axis deviation Nonspecific T wave abnormality Abnormal ECG When compared with ECG of 07-MAR-2022 17:13, WA interval has increased Referred By: Leatha Gutierrez Electronically Signed By:LAURA MANRIQUE MD
--- NOTE | 2024-06-19 11:48 | ED.HA ---
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 His is present at bedside. Patients headache worsened when he woke up this morning. Endorses acute worsening blurry vision this morning as well. Patient called his PCP and was instructed to the ED since he has a history of aneurysms in the brain. They were concerned about one of these aneurysms acutely rupturing. He also endorses posterior right sided neck pain that is present every time he gets a headache. Endorses a constant sensation of dizziness that does not change with position. Denies any trauma, recent falls, or photophobia. He took tramadol today and ibuprofen yesterday to help with the pain which has had little effect. Denies N/V, abd pain, SOB or chest pain. Related Data Home Medications ?Medication ?Instructions ?Recorded ?Confirmed atorvastatin 10 mg tablet 10 mg PO BEDTIME 08/01/22 blood pressure monitor (Blood 08/01/22 Pressure Kit) ergocalciferol (vitamin D2) 1,000 1,250 mcg PO QWEEK 08/01/22 unit capsule hydrocortisone 1 % topical cream 1 appl topical TID PRN 08/01/22 (Anti-Itch (hydrocortisone)) lidocaine 5 % topical patch 1 patch topical DAILY 08/01/22 (Lidoderm) melatonin 3 mg capsule 3 mg PO BEDTIME PRN 08/01/22 naloxone 4 mg/actuation nasal 4 mg intranasal Q2M PRN 08/01/22 spray (Narcan) polyvinyl alcohol 1.4 % eye drops 1 drp ophthalmic (eye) BID-QID PRN 08/01/22 (Artificial Tears (polyvinyl alcohol)) tizanidine 4 mg capsule 4 mg PO .q6-8hrs PRN 08/01/22 tramadol 50 mg tablet 50 mg PO Q8H PRN 08/01/22 Previous Rx's ?Medication ?Instructions ?Recorded acetaminophen 650 mg 650 mg PO Q8H 5 days #15 tabs 02/17/22 tablet,extended release (Tylenol 8 Hour) ibuprofen 800 mg tablet 800 mg PO Q8H #60 tabs 02/17/22 Allergies Allergy/AdvReac Type Severity Reaction Status Date / Time No Known Allergies Allergy Verified 06/19/24 11:44 Review of Systems Constitutional: Constitutional: Reports no additional constitutional complaints, Denies chills, Denies fever(s), Denies frequent falls, Reports headache(s), Denies night sweats and Denies weakness Eyes: Eyes: Reports blurry vision, Denies change in vision, Denies diplopia, Denies eye discharge, Denies loss of vision and Denies eye pain ENT: Reports dizziness, Reports headache(s) and Reports neck pain (posterior ) Cardiovascular: Cardiovascular: Reports no additional cardiovascular complaints, Denies chest pain, Denies lightheadedness, Denies Loss of Consciousness and Denies dyspnea Respiratory: Respiratory: Reports no additional respiratory complaints and Denies dyspnea Gastrointestinal: Gastrointestinal: Reports no additional gastrointestinal complaints, Denies abdominal pain, Denies melena, Denies hematochezia, Denies change in bowel habits and Denies change in stool character Genitourinary: Genitourinary: Reports no additional male genitourinary complaints, Denies hematuria, Denies oliguria, Denies difficulty urinating, Denies dysuria, Denies urinary frequency, Denies urinary hesitancy, Denies urinary incontinence and Denies urinary urgency Musculoskeletal: Musculoskeletal: Reports no additional musculoskeletal complaints, Reports neck pain (posterior ), Denies numbness and Denies tingling Neurologic: Reports dizziness, Denies frequent falls, Reports headache(s), Denies lack of coordination, Denies loss of vision, Denies numbness, Denies seizure-like activity, Denies Sensory deficit (Neuro), Denies tingling and Denies weakness Psychiatric: Psychiatric: Reports no additional psychiatric complaints Endocrine: Endocrine: Reports no additional endocrine complaints Hematologic/Lymphatic: Hematologic/Lymphatic: Reports no additional hematologic/lymphatic complaints Allergic/Immunologic: Allergic/Immunologic: Reports no additional allergic/immunologic complaints PMFSH Past Medical History Attestation statement: The following information was validated with the patient. (patient's validated all information provided by the patient) Source: old records reviewed, obtained from family (patient's provided additional history and confirmed the history provided by the patient.) and nursing notes reviewed Medical History High cholesterol COVID-19 Social History Social History Alcohol intake: former Smoked in Last 30 Days: No Advance Directives: No Do you have a plan to hurt others: No Plan Physical Exam Vital Signs: Vital Signs: Last Vital Signs Temp 97.7 F 06/19/24 13:40 Pulse 69 06/19/24 13:40 Resp 18 06/19/24 13:40 BP 118/78 06/19/24 13:40 Pulse Ox 95 06/19/24 13:40 O2 Del Method Room Air 06/19/24 13:40 BMI result Body Mass Index 31.5 Const: General: cooperative, no acute distress, alert and awake Nutritional Appearance: well nourished Orientation/consciousness: patient oriented x3 Limitations: no limitations HEENT: Head: Yes normal to inspection and Yes atraumatic Ears: hearing grossly normal bilaterally and external ears normal General nose exam: Normal external nose present, no nasal discharge noted and no epistaxis Face and sinus: Yes normal facial exam, No abrasion and No laceration Mouth: Normal oral and palatal mucosa present, no drooling and no muffled voice Eyes: General: appearance normal, both eyes and all related structures Periorbital: periorbital findings normal Eyelids: Yes eyelids normal Conjunctivae: conjunctivae normal Pupils: Equal, round and reactive pupils present EOM: EOMs intact bilaterally Neck: Neck: Yes normal visual inspection, Yes full ROM and Yes no lymphadenopathy Chest: Chest palpation & inspection: normal inspection of the chest Resp: Effort & Inspection: normal respiratory effort and able to speak in complete sentences GI: Inspection: Yes normal to inspection Neuro: General: patient oriented x3 and moves all extremities Cranial nerves: Yes Equal, round and reactive pupils present Cognition (Neuro): normal cognition Motor exam (neuro): 5/5 motor strength present throughout, Pronator motor function not present, no tremors and no fasciculations noted Sensory Exam: Normal double simultaneous stimulation for sensation; No Sensory deficit (Neuro) Coordination: [id number] test normal and Romberg test negative Romberg Test: Negative Pupils: Normal pupillary reactivity/response: bilateral Extrem: General: Yes normal to inspection, Yes full ROM and Yes capillary refill normal Psych: Appearance: grossly normal Mental Status: mental status grossly normal Affect: normal affect Attitude: cooperative Thought process: Normal thought process present Thought content: Normal thought content present Insight: Good insight present (Psych) Course Course Course Narrative: This is a Rapid Medical Examination (RME) performed by Mitzi Gutierrez PA-C in triage. Full HPI, ROS, assessment and treatment plan per primary provider in the Main ED. 64 yo male here for eval of worst WATSON of life which woke him from his sleep at 0630 this morning. located posteriorly. no thinners. assoc sensitivity to light and sound. + PEERLA. exam nonfocal. Plan: labs, imaging Medications Administered Discontinued Medications Generic Name Dose Route Start Last Admin Trade Name Kayley PRN Reason Stop Dose Admin Hydromorphone HCl 1 mg 06/19/24 13:28 06/19/24 13:36 Hydromorphone Hcl 1 Mg/Ml Syringe IVPUSH 06/19/24 13:29 1 mg ONCE ONE Administration Protocol Iohexol 100 ml 06/19/24 12:01 06/19/24 12:01 Iohexol 350 Mg/Ml 100 Ml Infus..Btl IV 06/19/24 12:02 70 ml ONCE ONE Administration Medical Decision Making Medical Decision Making [facility] Narrative: Patient is a 64 year old assigned male at with a history of multiple aneurysms presenting to the emergency department today with a headache. Patient's physical exam was unremarkable. Patient's blood work was unremarkable. Patient's CT and CTA of the head and neck showed no acute change in the patient's known, multiple, stable, aneurysms. I explained my physical exam findings as well as all test results to the patient and the patient's . I answered all questions asked by the patient and the patient's . Patient received IV Dilaudid which, upon re-evaluation, he stated it helped his symptoms significantly. I stressed the importance of the patient taking his medication as directed (either prescribed or as the over the counter packaging recommends). I stressed the importance of the patient following up with his primary care provider. I stressed the importance of the patient returning to the emergency department immediately if his symptoms were to worsen or if he were to develop any dizziness, shortness of breath, difficulty breathing, chest pain, blurry vision, loss of vision, nausea, vomiting, abdominal pain, fever, chills, back pain, or any other complaints. Patient and the patient's verbalized agreement and understanding with this treatment plan and discharge. Differential Diagnosis Differential Diagnoses: The differential diagnosis associated with the presentation includes Headache Aneurysmal rupture Admission/Observation Consideration of admission/observation: Escalation of care including admission/observation considered Patient would have been admitted to the hospital had his work up had any findings where hospital admission was appropriate and his clinical presentation warranted hospital admission. Lab Data [facility] Lab Attestation statement: I reviewed the patient's lab results. My interpretation of these results are in the [facility] Rationale portion of this note. 06/19/24 11:58 06/19/24 11:58 Labs: Lab Results 06/19/24 Range/Units 11:58 WBC 7.6 (4.8-10.8) X10*3/uL RBC 5.30 (4.60-5.80) X10*6/uL Hgb 15.7 (14.0-18.0) g/dl Hct 45.5 (42.0-52.0) % MCV 85.8 (80.0-98.0) fL MCH 29.6 (27.0-33.0) pg MCHC 34.5 (31.0-36.0) g/dl RDW 12.8 (11.0-16.0) % Plt Count 437 H D (160-400) X10*3/uL MPV 8.9 L (9.4-12.4) fL Immature Gran % (Auto) 0.8 H (0.0-0.4) % Neut % (Auto) 58.1 (45-73) % Lymph % (Auto) 29.2 (20-40) % Emanuel % (Auto) 7.7 (2-11) % Eos % (Auto) 3.3 (0-4) % Baso % (Auto) 0.9 (0-2) % Lymph # (Auto) 2.2 (1.2-4.9) X10*3/uL Emanuel # (Auto) 0.6 (0.1-1.2) X10*3/uL Eos # (Auto) 0.3 (0.0-0.4) X10*3/uL Baso # (Auto) 0.1 (0.0-0.2) X10*3/uL Abs Immat Gran (auto) 0.06 H (0.00-0.03) X10*3/uL Absolute Neuts (auto) 4.4 (2.0-8.3) x10*3/uL Absolute Nucleated RBC 0.000 (0.0-0.012) X10*3/uL Nucleated RBC % (auto) 0.0 (0.0-0.2) /100WBC Hold Purple Top SEE NOTE PT 12.3 (10.9-12.4) SEC INR 1.1 (0.9-1.1) Sodium 139 (135-145) mmol/L Potassium 3.9 (3.3-5.1) mmol/L Chloride 105 (96-108) mmol/L Carbon Dioxide 23 (22-29) mmol/L Anion Gap 15 (12-20) BUN 14 (9-16) mg/dL Creatinine 0.93 (0.5-1.4) mg/dL Estim Creat Clear Calc 85.8 Estimated GFR > 60 Random Glucose 107 (60-115) mg/dL Calcium 9.5 (8.4-10.2) mg/dL Magnesium 2.0 (1.6-2.6) mg/dL Total Bilirubin 0.8 (0.0-1.0) mg/dL AST 27 (5-37) U/L ALT 34 (0-40) U/L Alkaline Phosphatase 89 (39-117) U/L Troponin I High Sens < 2.7 (<3.5-35.0) ng/L Total Protein 7.6 (6.5-8.0) g/dL Albumin 4.4 (3.5-5.0) g/dL Lipase 19 (8-78) U/L Independent Interpretation I performed an independent interpretation of an: CT Scan Interpretation: My interpretation is in agreement with the radiologist's impression of this imaging study. EXAMINATION: CT ANGIOGRAM NECK. CT ANGIOGRAM BRAIN. CLINICAL INFORMATION: Headache. COMPARISON: Correlated to MRA brain dated September 29, 2022 TECHNIQUE: Contiguous axial images through the brain using 5 mm collimation without IV contrast. Sagittal and coronal reformatted images acquired. Contiguous axial images from the thoracic aortic arch to the cerebral vertex using 3.0 and 0.6 mm collimation following the IV contrast administration. Total of 70 cc Omnipaque 350 strength given IV without reported immediate complications. Sagittal and coronal reformatted images acquired. Maximum intensity projections. The degree of stenosis determined by NASCET criteria. This CT examination was performed using dose optimization techniques as appropriate, variously including the following: *Automated exposure control *Adjustment of mA and/or kV according to patient size (this includes techniques or standardized protocols for targeted exams where dose is matched to indication/reason for exam; i.e. extremities or head) *Use of iterative reconstruction technique DLP: 2351 mGy-cm FINDINGS: CT non-IV brain: No acute intracranial hemorrhage, mass effect, midline shift, hydrocephalus or herniation. Guzman-white matter differentiation is normal. Posterior cranial fossa contents demonstrated no acute intracranial hemorrhage or mass effect. Bony calvarium is intact. Skull base is intact. No air-fluid levels in the included paranasal sinuses. Tympanic cavities and mastoid cells are aerated. Edentulus, maxilla. CT angiogram neck: Thoracic aortic arch is patent without focal stenosis or intimal flap.3.8 cm diameter of the distal main pulmonary artery. Right CCA: Normal patency. No focal stenosis. No intimal flap. Right ICA: Normal patency. Tortuosity. No focal stenosis. No intimal flap. Left CCA: Normal patency. No focal stenosis. No intimal flap. Tortuosity. Left ICA: Tortuosity. No focal stenosis. No intimal flap. V1 and V2 segments of the vertebral arteries are patent coordinating directly from the subclavian arteries without focal stenosis or intimal flap. Codominant vertebral arteries. CT angiogram brain: Anterior cerebral circulation: ICAs: 6 mm dilatation of the supraclinoid segment right ICA. 5 mm dilatation of the supraclinoid segment, left ICA. No focal stenosis. No intimal flap. MCA's: 3 mm saccular abnormality at the bifurcation/trifurcation the left MCA. No focal stenosis. No intimal flap. ACAs: No focal stenosis or abrupt cut off. No vascular abnormality. Anterior communicant artery is patent. Ophthalmic arteries are patent bilaterally. Posterior communicating arteries are robust and patent, bilaterally. Posterior cerebral circulation: V3/V4 segments of the vertebral arteries are patent without focal stenosis or intimal flap. Posterior inferior cerebellar arteries are patent without vascular abnormality. Basilar artery is patent without focal stenosis or intimal flap. Superior cerebellar arteries are patent. 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 No focal stenosis or abrupt cut off. Ancillary findings: Normal patency of the main cerebral venous sinuses. No abnormal enhancement within the intra-axial or the extra-axial compartment of the cranium. Bilateral pulmonary patchy groundglass. Cervical spondylosis C3-4. CT/CT angio head neck IMPRESSION: Stable, 6 mm, fusiform aneurysm, supraclinoid segments both ICA. Stable, 3 mm saccular aneurysm, bifurcation/trifurcation left MCA. No high degree stenosis or dissection in the vessels of the neck. 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 No acute intracranial hemorrhage or acute brain abnormality by CT. Electronically signed by: Cornell Hope MD 06/19/2024 01:00 PM [facility] Dictated By: Cornell Dang MD Signed By: Electronically signed by Cornell Martinez MD 06/19/24 1300 Radiology Impression Discussion of test interpretation with radiology: I have reviewed the radiologist's reading. Critical Care Time Critical Care Time Critical Care Time: Yes Total Critical Care Time: 34 Attestation: I spent 34 minutes of Critical Care Time with this patient. This does not include time spent on separately reported billable procedures. Discharge Plan Discharge Clinical Impression: Headache, Aneurysm Patient Disposition: Home, Self-Care Instructions: Acute Headache (DC) Additional Instructions: All of you aneurysms are STABLE and the same as they have always been. Follow up with your primary care provider. Return to the emergency department immediately if your symptoms worsen or if you develop any dizziness, shortness of breath, difficulty breathing, chest pain, blurry vision, loss of vision, nausea, vomiting, abdominal pain, fever, chills, back pain, or any other complaints. Prescriptions: No Action ibuprofen 800 mg tablet 800 mg PO Q8H Qty: 60 0RF acetaminophen [Tylenol 8 Hour] 650 mg tablet extended release 650 mg PO Q8H 5 Days Qty: 15 0RF ergocalciferol (vitamin D2) 1,000 unit capsule 1,250 mcg PO QWEEK atorvastatin 10 mg tablet 10 mg PO BEDTIME (DME) blood pressure monitor [Blood Pressure Kit] Kit See Rx Instructions .ROUTE Rx Instructions: As directed polyvinyl alcohol [Artificial Tears (polyvin alc)] 1.4 % drops 1 drp ophthalmic (eye) BID-QID PRN melatonin 3 mg capsule 3 mg PO BEDTIME PRN tizanidine 4 mg capsule 4 mg PO .q6-8hrs PRN lidocaine [Lidoderm] 5 % adhesive patch,medicated 1 patch topical DAILY Rx Instructions: leave on most painful area for up to 12 hrs hydrocortisone [Anti-Itch (HC)] 1 % cream 1 appl topical TID PRN naloxone [Narcan] 4 mg/actuation spray,non-aerosol 4 mg intranasal Q2M PRN Rx Instructions: spray 1 dose into ONE nostril; alternate nostrils w each dose until help arrives tramadol 50 mg tablet 50 mg PO Q8H PRN Referrals: Natalie Posadas MD [Primary Care Provider] - Interventions: ED Discharge Assessment Last Done: 06/19/24 13:40 Discharge Date/Time: 06/19/24 13:41 Print Language: Salvadorean
--- NOTE | 2024-06-19 11:57 | PC.NURSE ---
Brought from triage to ED 6 with patient reporting awoke with worst headache of his life. 20g IV placed in right AC, brought to CT. gait even and steady, speech clear and appropriate. Reports sensitivity to lights and sounds. States had the headache yesterday but woke up today and it was much worse. Denies vision changes
[2024-06-19] MEDS: iohexoL 350 MG/ML 100 ML INFUS..BTL IV (12:01)
[2024-06-19 12:06] LABS: MANUAL DIFF FLAG NO
[2024-06-19 12:11] LABS: Basophils Absolute Auto 0.1 X10*3/uL (0.0-0.2); Basophils Percent Auto 0.9 % (0-2); Eosinophils Absolute Auto 0.3 X10*3/uL (0.0-0.4); Eosinophils Percent Auto 3.3 % (0-4); Hematocrit 45.5 % (42.0-52.0); Hemoglobin 15.7 g/dl (14.0-18.0); Imm Gran Abs Auto 0.06 X10*3/uL (0.00-0.03); Imm Gran Pct Auto 0.8 % (0.0-0.4); Lymphocytes Absolute Auto 2.2 X10*3/uL (1.2-4.9); Lymphocytes Percent Auto 29.2 % (20-40); Mean Corpuscular HGB Conc 34.5 g/dl (31.0-36.0); Mean Corpuscular Hemoglobin 29.6 pg (27.0-33.0); Mean Corpuscular Volume 85.8 fL (80.0-98.0); Mean Platelet Volume 8.9 fL (9.4-12.4); Monocytes Absolute Auto 0.6 X10*3/uL (0.1-1.2); Monocytes Percent Auto 7.7 % (2-11); Neutrophils Absolute Auto 4.4 x10*3/uL (2.0-8.3); Neutrophils Percent Auto 58.1 % (45-73); Platelet Count 437 X10*3/uL (160-400); Red Cell Distribution Width 12.8 % (11.0-16.0); White Blood Count 7.6 X10*3/uL (4.8-10.8)
[2024-06-19 12:17] LABS: INTERNATIONAL NORM RATIO 1.1 (0.9-1.1); Prothrombin Time 12.3 SEC (10.9-12.4)
[2024-06-19 12:28] LABS: Alanine Aminotransferase 34 U/L (0-40); Albumin Level 4.4 g/dL (3.5-5.0); Alkaline Phosphatase 89 U/L (39-117); Anion Gap 15 (12-20); Aspartate Amino Transferase 27 U/L (5-37); Bilirubin Total 0.8 mg/dL (0.0-1.0); Blood Urea Nitrogen 14 mg/dL (9-16); Calcium 9.5 mg/dL (8.4-10.2); Carbon Dioxide 23 mmol/L (22-29); Chloride 105 mmol/L (96-108); Creatinine Clr Calc Pharmacy 85.8; Estimated Glomerular Filt Rate > 60; Glucose Random 107 mg/dL (60-115); Lipase 19 U/L (8-78); Potassium 3.9 mmol/L (3.3-5.1); Sodium 139 mmol/L (135-145); Total Protein 7.6 g/dL (6.5-8.0)
[2024-06-19 12:41] LABS: Troponin-I High Sensitivity < 2.7 ng/L (<3.5-35.0)
[2024-06-19 13:29] VITALS: BP 118/78; PULSE 69; RESP 17; TEMP 36.5; O2SAT 95
[2024-06-19 13:36] VITALS: RESP 20
[2024-06-19] MEDS: HYDROmorphone HCl 1 MG/ML SYRINGE IVPUSH (13:36)
[2024-06-19 13:40] VITALS: BP 118/78; PULSE 69; RESP 18; TEMP 36.5; O2SAT 95
== END 2024-06-19 13:41 | disposition home or self-care (01) ==
PROVIDERS: Physician Assistant Medical; Emergency Provider Emergency Medicine; PCP Family Medicine
DX: R51.9 Headache, unspecified (principal); I72.9 Aneurysm of unspecified site; E78.5 Hyperlipidemia, unspecified; Z79.02 Long term (current) use of antithrombotics/antiplatelets; Z79.899 Other long term (current) drug therapy
CPT/HCPCS: 36415; 70496; 70498; 80053; 83690; 83735; 84484; 85025; 85610; 93005; 96374; 99284; J1171; Q9967

== ENCOUNTER → 2024-06-19 11:46 | Outpatient (BNV) | payer MEDICAID, SELFPAY | PROVIDERS: Emergency Provider Emergency Medicine; PCP Family Medicine; Visit Provider Internal Medicine Cardiovascular Disease | DX: R94.31 Abnormal electrocardiogram [ECG] [EKG] (principal) | CPT/HCPCS: 93010 ==

== ENCOUNTER 2024-08-21 13:49 | Outpatient (AMB) | payer MEDICAID, SELFPAY ==
--- NOTE | 2024-08-21 13:51 | MHC.OFFVIS ---
Vital Signs 08/21/24 14:02 Height 5 ft 6 in Weight 198 lb 2 oz BMI 32.0 BP 131/81 Blood Pressure Location Lt brachial Position Sitting Pulse 84 Intake Visit Reasons: repeat colonoscopy Intake Note: This patient presents for recall colonoscopy screening. Pt c/o; reports no rectal bleeding, pain or constipation. 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 Required: No Accompanied by: Spouse Allergies No Known Allergies Allergy (Verified 08/21/24 14:03) Medication List - Last Reconciled 08/21/24 by See Chong MD acetaminophen ER (Tylenol 8 Hour) 650 mg PO Q8H 5 days atorvastatin 10 mg PO BEDTIME blood pressure monitor (Blood Pressure Kit) As directed ergocalciferol (vitamin D2) 1,250 mcg PO QWEEK hydrocortisone 1% (Anti-Itch (hydrocortisone)) 1 appl topical TID PRN ibuprofen 800 mg PO Q8H lidocaine 5% (Lidoderm) 1 patch topical DAILY melatonin 3 mg PO BEDTIME PRN naloxone 4 mg/actuation (Narcan) 4 mg intranasal Q2M PRN polyvinyl alcohol 1.4% (Artificial Tears (polyvinyl alcohol)) 1 drp ophthalmic (eye) BID-QID PRN tizanidine 4 mg PO .q6-8hrs PRN tramadol 50 mg PO Q8H PRN HPI HPI repeat colonoscopy: Details: 64-year-old male here to schedule for screening colonoscopy. His last colonoscopy was in 2014. He had a small adenoma at that time. He currently denies any significant GI complaints. He says he has good bowel movements. He denies any family history of colon cancer He has other medical problems including an intracranial aneurysm and is being followed closely by a neurosurgeon. She does describe chronic headaches. He also has hypertension and sleep apnea. He says he does not use his CPAP all the time. [facility] Medical History (Updated 08/21/24 @ 14:12 by See Chong MD) Colon cancer screening High cholesterol COVID-19 Surgical History Hx of hernia repair (~09/16/14) History of back surgery History of colonoscopy (~06/04/15) Family History Father Diabetes mellitus Mother Diabetes mellitus Other Bone cancer Family history unknown Throat cancer Social History Alcohol intake: former Review of Systems Const Denies chills and Denies fever(s) Card Denies chest pain, Denies dyspnea and Denies dyspnea on exertion Resp Denies cough, Denies dyspnea and Denies dyspnea on exertion GI Denies hematochezia and Denies change in bowel habits Denies hematuria and Denies difficulty urinating Musc Denies back pain and Denies limited range of motion Neuro Denies focal weakness and Denies convulsions Psych Denies depression and Denies mood swings Physical Exam Vital Signs: Last Vital Signs Pulse 84 08/21/24 14:02 BP 131/81 08/21/24 14:02 BMI result Body Mass Index 32.0 Const General: comfortable and no acute distress Nutritional Appearance: overweight Orientation/consciousness: patient oriented x3 Neck Neck: Yes no lymphadenopathy Resp Auscultation: clear to auscultation bilaterally Cardio Rhythm: regular rhythm GI Other: Has a protuberant abdomen Palpation (GI): Soft to palpation, nontender and no guarding Neuro General: patient oriented x3 Assessment & Plan Assessment & Plan (1) Colon cancer screening: Code(s): Z12.11 - Encounter for screening for malignant neoplasm of colon Category: Medical Plan: He is due for colon cancer screening. I explained the technique of colonoscopy. I explained the risks including but not limited to bleeding and perforation, as well as the benefits and alternatives. He understands and wants to proceed. Coding Level of Care Code New Pt Level 3 (38987) Diagnoses Colon cancer screening Z12.11
[2024-08-21 14:02] VITALS: BP 131/81; PULSE 84; BMI 32.0
== END 2024-08-21 14:08 | disposition home or self-care (01) ==
PROVIDERS: PCP Family Medicine; Visit Provider Surgery
DX: Z12.11 Encounter for screening for malignant neoplasm of colon (principal)
CPT/HCPCS: 99203

== ENCOUNTER → 2024-08-21 13:49 | Outpatient (BNVA) | payer MEDICAID, SELFPAY | PROVIDERS: PCP Family Medicine; Visit Provider Surgery | DX: Z12.11 Encounter for screening for malignant neoplasm of colon (principal) | CPT/HCPCS: 99202 ==

== ENCOUNTER 2024-08-29 07:22 | Outpatient (REF) | payer MEDICAID, SELFPAY | END 2024-08-29 07:23 | disposition home or self-care (01) | LOC: HO.HKASLDS 07:22 | PROVIDERS: PCP Family Medicine; Visit Provider Physician Assistant Medical | DX: G25.81 Restless legs syndrome (principal); G47.00 Insomnia, unspecified; Z86.69 Personal history of other diseases of the nervous system and sense organs | CPT/HCPCS: 99212 ==

== ENCOUNTER 2024-08-29 07:22 | Outpatient (AMB) | payer MEDICAID, SELFPAY ==
--- NOTE | 2024-08-29 08:26 | HO.NEPHOV ---
Vital Signs 08/29/24 08:30 Height 5 ft 6 in Weight 201 lb 6 oz BMI 32.5 BP 110/60 Blood Pressure Location Lt brachial Pulse 69 Pulse Source Pulse Oximeter Pulse Oximetry (%) 98 Oxygen Delivery Method Room Air Intake Visit Reasons: NPV / CONSTANTINO Intake Note: Patient presents for a new patient evaluation for CONSTANTINO. Patient is scheduled for a Colonscopy and will need Neurology clearance. 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 He has daily occipital headaches, which migrate to the top of the head, he takes Tramadol 50mg, Motrin 800mg, and has some relief for a couple of hours, but they always come back. When he is emotionally agitated, they are severe. He has a history of stable aneurysms. He complaints of bodily aches, and daily excessive fatigue. He has insomnia go to bed at 10pm and has difficulty falling asleep until midnight to 3am. He usually takes a nap for 1 hour daily. He denies snoring, gasps for air sometimes, denies apneas or abnormal sleep behaviors. He has anxiety, and removes his mask. His memory is poor, forgets where his bike is placed, and brings the incorrect items home when he goes shopping, despite asking him to bring a specific named items. He still does all his finances. helps him with all his ADL, bathing, dressing, cooking, cleaning. Will send him to RLS tingling, numbness, muscle spasm, daily but worse at night, Labs: EkG CT [facility] Medical History (Updated 08/29/24 @ 09:12 by Pam Lazcano PA-C) Colon cancer screening High cholesterol COVID-19 Surgical History Hx of hernia repair (~02/03/15) History of back surgery History of colonoscopy (~06/04/15) Family History Father Diabetes mellitus Mother Diabetes mellitus Other Bone cancer Family history unknown Throat cancer Social History Alcohol intake: former Physical Exam Vital Signs: Last Vital Signs Pulse 69 08/29/24 08:30 BP 110/60 08/29/24 08:30 Pulse Ox 98 08/29/24 08:30 Oxygen Delivery Method Room Air 08/29/24 08:30 BMI result Body Mass Index 32.5 Results Reviewed Nephrology Results: Hgb 15.7 g/dl (14.0-18.0) 06/19/24 WBC 7.6 X10*3/uL (4.8-10.8) 06/19/24 Plt Count 437 X10*3/uL (160-400) H 06/19/24 Sodium 139 mmol/L (135-145) 06/19/24 Potassium 3.9 mmol/L (3.3-5.1) 06/19/24 Chloride 105 mmol/L (96-108) 06/19/24 Carbon Dioxide 23 mmol/L (22-29) 06/19/24 BUN 14 mg/dL (9-16) 06/19/24 Creatinine 0.93 mg/dL (0.5-1.4) 06/19/24 Calcium 9.5 mg/dL (8.4-10.2) 06/19/24 Assessment & Plan Assessment & Plan (1) RLS (restless legs syndrome): Code(s): G25.81 - Restless legs syndrome Category: Medical (2) Insomnia: Code(s): G47.00 - Insomnia, unspecified Category: Medical Qualifiers: Insomnia type: unspecified Qualified Code(s): G47.00 - Insomnia, unspecified (3) Hx of migraines: Code(s): Z86.69 - Personal history of other diseases of the nervous system and sense organs Category: Medical Orders: Orders Ferritin Today G2.81 - Restless legs syndrome Vitamin B12 and Folate Today G2. - Restless legs syndrome Vitamin D 25-OH Total Today G2. - Restless legs syndrome Methylmalonic Acid Today G2.81 - Restless legs syndrome Homocysteine Today G25.81 - Restless legs syndrome RT home sleep study Today G25.81 - Restless legs syndrome, G47.00 - Insomnia, unspecified Medications: New melatonin-pyridoxal phos (B6) 2.5 mg- 338 mcg one tablet at night 1 tab sublingual BEDTIME 30 tabs 1RF Z86.69 - Personal history of other diseases of the nervous system and sense organs gabapentin take one to three capsules at bedtime for restless leg syndrome. Do not exceed 300mg per night. 100 mg PO BEDTIME 30 caps 1RF Restless Legs Syndrome MDD 300mg G25.81 - Restless legs syndrome magnesium oxide may take one tablet at bedtime for restless leg syndrome 400 mg PO DAILY 30 tabs 1RF restless legs MDD 400mg G25.81 - Restless legs syndrome Coding Level of Care Code Est Pt Level 4 (50240) Diagnoses RLS (restless legs syndrome) G25.81 Insomnia, unspecified type G47.00 Insomnia type: unspecified Hx of migraines Z86.69 Time Spent (min) 30 Sleep Questionnaire Difficulty falling asleep: Yes Difficulty staying asleep?: Yes Number of arousals: 2-3 Snoring: No Witnessed apneas: No Gasping arousals: Yes Nocturia: Yes GERD: Yes (Belches loudly.) Vivid dreams: Yes Acting out dreams: Yes Abnormal behavior in sleep: No Abnormal movements in sleep: Yes (He moves his legs all the time.) Morning headaches: Yes (sometimes in the afternoon, or evening.) Excessive daytime sleepiness: Yes Daytime naps: Yes Restless legs: Yes Hallucinations: No Sleep paralysis: Yes Drop attacks: No Sleep Study: Yes (2022) CPAP: Yes
[2024-08-29 08:30] VITALS: BP 110/60; PULSE 69; O2SAT 98; BMI 32.5
[2024-08-29 09:19] VITALS: BMI 32.5
--- NOTE | 2024-08-29 09:19 | MHC.OFFVIS ---
Vital Signs 08/29/24 08:30 08/29/24 09:19 Height 5 ft 6 in Weight 201 lb 6 oz BMI 32.5 32.5 BP 110/60 Blood Pressure Location Lt brachial Pulse 69 Pulse Source Pulse Oximeter Pulse Oximetry (%) 98 Oxygen Delivery Method Room Air Intake Visit Reasons: NPV / CONSTANTINO Allergies No Known Allergies Allergy (Verified 08/29/24 08:28) Medication List - Last Reconciled 08/29/24 by Pam Lazcano PA-C acetaminophen ER (Tylenol 8 Hour) 650 mg PO Q8H 5 days atorvastatin 10 mg PO BEDTIME blood pressure monitor (Blood Pressure Kit) As directed gabapentin 100 mg PO BEDTIME MDD 300mg ibuprofen 800 mg PO Q8H tramadol 50 mg PO Q8H PRN HPI Comments Details: 64 [place] old male here for sleep evaluation per PCP. History of stable aneurysm, MRA 03/2024, CTA Head and Neck 01/2024 L. MCA Internal Carotids, Bifurcation, not a high degree of stenosis. He is having daily migraines, takes tramadol 50mg and motrin 800mg, they subside for a couple of hours, and then begin in the occipital lobe and migrate to the top of his head, they are sharp like a knife. He goes to bed at 10pm, but has difficulty falling asleep, he falls asleep between midnigtht to 3am, says he has insomnia so he watches TV. Excessive daytime fatigue. He feels claustrophobic and does not use his mask at night, says he has trouble and needs a new mask and is willing to try another one that fits better. He denies vision changes, and has low pressure glaucoma, vertigo, dizziness, balance or gait issues. He had an MRA [facility] 03/2024, shows stable 6mm aneurysm at the LMCA. RLS: His legs cause him to stay up at night, numbness, tingling, pain and a prickling sensation. He often has to get up and jumps out of the chair or bed to straighten his legs d/t pain. Will f/u after HST, to evaluate for PLMD disorder if it does not improve with Gabapentin. [facility] Medical History Colon cancer screening High cholesterol COVID-19 Surgical History Hx of hernia repair (~09/16/14) History of back surgery History of colonoscopy (~06/04/15) Family History Father Diabetes mellitus Mother Diabetes mellitus Other Bone cancer Family history unknown Throat cancer Social History Alcohol intake: former Physical Exam Vital Signs: Last Vital Signs Pulse 69 08/29/24 08:30 BP 110/60 08/29/24 08:30 Pulse Ox 98 08/29/24 08:30 Oxygen Delivery Method Room Air 08/29/24 08:30 BMI result Body Mass Index 32.5 Const General: cooperative, comfortable and no acute distress Nutritional Appearance: average body habitus Orientation/consciousness: patient oriented x3 Eyes Pupils: Equal, round and reactive pupils present Neck Neck: Yes full ROM (pain on extension >flexion) and Yes supple Resp Effort & Inspection: normal respiratory effort and able to speak in complete sentences Neuro General: patient oriented x3 and moves all extremities Cranial nerves: Yes CN's II-XII intact bilaterally, Yes Facial sensation intact/muscles of mastication intact, Yes Equal, round and reactive pupils present, Yes Normal accommodation reflex present, Yes Bilaterally intact EOM present, Yes Nystagmus not present, Yes Normal facial strength present, Yes Midline tongue present, Yes Ability to bilaterally rotate head present (Discomfort with ROM to L.) and Yes Ability to bilaterally elevate shoulders present Cognition (Neuro): normal cognition Gait exam (Neuro): Normal gait present Motor exam (neuro): 5/5 motor strength present throughout and Normal motor muscle tone present throughout Deep tendon reflexes (DTR's): Right triceps reflex intensity grade: 2+, Left triceps reflex intensity grade: 2+, Rt Biceps (C5, C6): 2+, Left biceps reflex intensity grade: 2+, Right brachioradialis reflex intensity grade: 2+, Left brachioradialis reflex intensity grade: 2+, Right patellar reflex intensity grade: 2+, Left patellar reflex intensity grade: 2+, Right ankle reflex intensity grade: 2+ and Left ankle reflex intensity grade: 2+ Coordination: [id number] test normal Psych Appearance: grossly normal Speech and movement: Normal speech and movement present Affect: normal affect Attitude: cooperative Thought content: Normal thought content present Insight: Good insight present (Psych) Judgement: Good judgement present (Psych) Results Reviewed Results Reviewed: MrA aneurysm 07/2024 stable - CT January 2024 aneurysm Bifurcation 3mm in L. MCA no high degree of stenosis Assessment & Plan Assessment & Plan (1) RLS (restless legs syndrome): Code(s): G25.81 - Restless legs syndrome Category: Medical (2) Insomnia: Code(s): G47.00 - Insomnia, unspecified Category: Medical Qualifiers: Insomnia type: unspecified Qualified Code(s): G47.00 - Insomnia, unspecified (3) Hx of migraines: Code(s): Z86.69 - Personal history of other diseases of the nervous system and sense organs Category: Medical Plan Migraines Continue taking Tramadol, stop taking motrin daily as it can cause GI Bleeds. RLS Start Gabapentin 100-300mg PO as needed at bedtime, you may take 1-3 capsules based on your symptoms. HST Repeat home sleep study, as evaluation of sleep is needed. Insomnia Melatonin + B6 daily at bedtime with Magnesium 400mg PO. Follow up in 3 months after HST. Orders: Orders Ferritin Today G25.81 - Restless legs syndrome Vitamin B12 and Folate Today G25.81 - Restless legs syndrome Vitamin D 25-OH Total Today G25.81 - Restless legs syndrome Methylmalonic Acid Today G25.81 - Restless legs syndrome Homocysteine Today G25.81 - Restless legs syndrome RT home sleep study Today G25.81 - Restless legs syndrome, G47.00 - Insomnia, unspecified Medications: New melatonin-pyridoxal phos (B6) 2.5 mg- 338 mcg one tablet at night 1 tab sublingual BEDTIME 30 tabs 1RF Z86.69 - Personal history of other diseases of the nervous system and sense organs gabapentin take one to three capsules at bedtime for restless leg syndrome. Do not exceed 300mg per night. 100 mg PO BEDTIME 30 caps 1RF Restless Legs Syndrome MDD 300mg G25.81 - Restless legs syndrome magnesium oxide may take one tablet at bedtime for restless leg syndrome 400 mg PO DAILY 30 tabs 1RF restless legs MDD 400mg G25.81 - Restless legs syndrome Coding Level of Care Code Est Pt Level 4 (92426) Diagnoses RLS (restless legs syndrome) G25.81 Insomnia, unspecified type G47.00 Insomnia type: unspecified Hx of migraines Z86.69
== END 2024-08-29 09:08 | disposition home or self-care (01) ==
PROVIDERS: PCP Family Medicine; Visit Provider Physician Assistant Medical
DX: G25.81 Restless legs syndrome (principal); G47.00 Insomnia, unspecified; Z86.69 Personal history of other diseases of the nervous system and sense organs
CPT/HCPCS: 99214

== ENCOUNTER 2024-09-25 10:45 | Outpatient (REF) | payer MEDICAID, SELFPAY ==
--- OUTSIDE RECORDS SUMMARY | 2024-09-25 12:34 | XMS_ITS | Encounter Summary ---
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 Role Phone Natalie Posadas MD Primary Care Provider [phone] Reason for Visit * Reason Comments Med Refill Encounter Details Date Type Department Care Team (Late Contact Info) Description 04/24/2023 Refill [facility] MEDICINE [address] [place] [address] [phone] Natalie Posadas MD [address] [place] [address] [phone] Pain Social History Tobacco Use Types Packs/Day Years Used Date Smoking Tobacco: Every Day Cigarettes 2 30 Smokeless Tobacco: Never Depression Answer Date Recorded Patient Health Questionnaire-9 Score 0 09/15/2022 Depression Answer Date Recorded Patient Health Questionnaire-2 Score 0 09/15/2022 Sex and Gender Information Value Date Recorded Sex Assigned at Male 06/13/2022 10:16 AM EDT Legal Sex Male 10:16 AM EDT Gender Identity Male 06/13/2022 10:16 AM EDT Sexual Orientation Straight 08/12/2022 9: 04 AM EST documented as of this encounter Plan of Treatment Upcoming Encounters Date Type Department Care Team (Late Contact Info) Description 10/07/2024 10:30 AM EST Office Visit [address] [phone] Natalie Posadas MD [address] [place] [address] [phone] 10/16/2024 9:15 AM EST Office Visit [address] [phone] Natalie Posadas MD [address] [place] [address] 10/25/2024 10:30 AM EDT Office Visit [facility] OPTOMETRY [address] [place] [address], OD [address] [place] [address] 11/26/2024 10:00 AM EDT Clinical Support [facility] PEDS [address] [place], [place] [phone] Jing Washington, [place] [address] [place] [address] documented as of this encounter Visit Diagnoses Diagnosis Pain Generalized pain documented in this encounter Additional Health Concerns Assessment Noted Time PHQ-9 Depression Total Score: 0 09/15/19 23 11:23 AM EST documented as of this encounter Care Teams Lettuce Cutter Relationship Specialty Start Date End Date Natalie Posadas MD [address] [place] [address] PCP - General Family Medicine 08/14/18 documented as of this encounter
--- OUTSIDE RECORDS SUMMARY | 2024-09-25 12:34 | XMS_ITS | Encounter Summary ---
Author Organization [employer] Address [address] [facility] 7t [place] [address] Care Team Providers Care Eyelet Riveter Name Role Phone Natalie Posadas MD Primary Care Provider [phone] Reason for Visit * Reason Comments Care Coordination SDOH/pt1 Encounter Details Date Type Department Care Team (Latest Contact Info) Description 09/03/2024 Patient Outreach [facility] [address] [place], [place] [phone] Natalie Posadas MD 230 [place], [place] [phone] Care Coordination (SDOH/pt1) Social History Tobacco Use Types Packs/Day Years Used Date Smoking Tobacco: Former Cigarettes 2 30 Smokeless Tobacco: Never Alcohol Use Standard Drinks/Week Comments Not Currently 0 (1 standard drink = 0.6 oz pur e alcohol) Depression Answer Date Recorded Patient Health Questionnaire-9 Score 3 08/06/2024 Patient Health Questionnaire-9 Score 3 08/06/2024 Last PHQ-9: Questionnaire Data Not on file 1 10/07/2023 Housing Stability Answer Date Recorded What is your housing situation today? I have jessica kendall 09/28/[address] you li ve. Do you have problems with any of the following? None of the above 09/28/2023 Food Insecurity Answer Date Recorded Within the past 12 months, y ou worried that your food would run out before you got money to buy more: Never True 09/28/2023 Within the past 12 months,th e food you bought just didn't last and you didn't have enough money to get more: Never True Transportation Answer Date Recorded In the past 12 months, has l ack of transportation kept you from medical appts, meetings, work or from getting things needed for daily living? No 09/28/2023 Utilities Answer Date Recorded In the past 12 months, has t he electric, gas, oil or water company threatened to shut off services in your home? No 09/28/2023 Depression Answer Date Recorded Patient Health Questionnaire-2 Score 2 08/06/2024 Sex and Gender Information Value Date Recorded Sex Assigned at Male 06/13/2022 10:16 AM EDT Legal Sex Male 10:16 AM EDT Gender Identity Male 06/13/2022 10:16 AM EDT Sexual Orientation Straight 08/12/2022 9: 04 AM EST documented as of this encounter Progress Notes * Deann Villalobos - 09/03/2024 12:26 PM EST CHW Deann Villalobos submitted PT1 to for the [facility], once approved will help schedule pt1 for appt on 09/11/24 for RN Visit. CHW will remind patient of appt. No other SDOH needed atthis time. documented in this encounter Plan of Treatment Upcoming Encounters Date Type Department Care Team (Late st Contact Info) Description 10/07/2024 10:30 AM EST Office Visit [facility] [address] [place] [address] Natalie Posadas MD [address] [place] [address] 10/16/2024 9:15 AM EST Office Visit [facility] [address] [place] [address] Natalie Posadas MD [address] [place] [address] 10/25/2024 10:30 AM EDT Office Visit [facility] [address] [place] [address], OD 230 [place] [address] 11/26/2024 10:00 AM EDT Clinical Support [facility] 505 [place] [address] Jing Washington, RN 505 [place] [address] documented as of this encounter Visit Diagnoses Not on filedocumented in this encounter Additional Health Concerns Assessment Noted Time PHQ-9 Depression Total Score: 3 08/06/ 24 8:58 AM EST documented as of this encounter Care Teams Eyelet Riveter Relationship Specialty Start Date End Date Natalie Posadas MD [address] [place] [address] PCP - General Family Medicine 08/14/18 documented as of this encounter
--- OUTSIDE RECORDS SUMMARY | 2024-09-25 12:34 | XMS_ITS | Encounter Summary ---
Author Organization [employer] Address [address] 7[address] [place] [address] Care Team Providers Care Awning Installer Name Role Phone Natalie Posadas MD Primary Care Provider [phone] Encounter Details Date Type Department Care Team ([facility] st Contact Info) Description 08/16/2024 Orders Only [facility] [address] [place], [place] [phone] Natalie Posadas MD 230 [place], [place] [phone] Elevated BP without diagnosis of hypertension (Primary Dx) Social History Tobacco Use Types Packs/Day Years [...] Description 10/07/2024 10:30 AM EST Office Visit [facility] [address] [place] [phone] Natalie Posadas MD 230 [place] [address] 10/16/2024 9:15 AM EST Office Visit [facility] [address] [place] [phone] Natalie Posadas MD 230 [place] [address] 10/25/2024 10:30 AM EDT Office Visit [facility] [address] [place] [address], OD 230 [place] [address] 11/26/2024 10:00 AM EDT Clinical Support [facility] 505 [place] [address] Jing Washington, CUAUHTEMOC 505 [place] [address] documented as of this encounter Visit Diagnoses Diagnosis Elevated BP without diagnosis of hypertension- Primary documented in this encounter Additional Health Concerns Assessment Noted Time PHQ-9 Depression Total Score: 3 08/06/20 8:58 AM EST documented as of this encounter Care Teams Awning Installer Relationship Specialty Start Date End Date Natalie Posadas MD [address] [place] [address] PCP - General Family Medicine 08/14/18 documented as of this encounter
--- OUTSIDE RECORDS SUMMARY | 2024-09-25 12:34 | XMS_ITS | Encounter Summary ---
Author Organization [employer] Address [address] [facility] [address] [facility] [address] 7t [place] [address] Care Team Providers Care Engine Test Cell Technician Name Role Phone Natalie Posadas MD Primary Care Provider [phone] Reason for Visit * Reason Onset Date Comments Care Management 09/25/2024 C3CM- f/u call Encounter Details Date Type Department Care Team (Late st Contact Info) Description 09/25/2024 Telephone [facility] 230 [place] [address] Madhuri Barakat RN 505 [place] [address] Care Management (C3CM- f/u call) Social History Tobacco Use Types Packs/Day Years [...] AM EST documented as of this encounter Miscellaneous Notes * Telephone Encounter - Madhuri Barakat RN - 09/25/2024 11:51 AM EST CM Madhuri Barakat RN and CHW Deann Villalobos placed outbound call to patient. Patient's name, and address confirmed. Patient states is doing well with no recent illnesses or emergency room visits.Patient states the visit with Neurology- home sleep study- is scheduled on 10/17/24. CM confirmed in [facility] that visit is on 10/17/24 at 1:00pm. Patient denies need for PT1 at this time. Per patient, colonoscopy is not yet scheduled. He states he has to complete cardiac testing prior to the colonoscopy. He states the appts are scheduled but unable to provide details at this time stating the appts are written down in his calendar which is at his home. He agrees to contact this afternoon to provide details. Patient also requesting that CM reach out to his niece, Esther Martinez, to follow up on the [employer] services request. He is unsure if she has reached out to any of [employer] agencies yet. Patient unable to provide CM with his niece's contact information. He states he will return call to this afternoon. No further questions or concerns. CM reinforced direct contact information or CHW for any additional questions or concerns. Education provided on Walk[facility]In Urgent Care located in [facility] of [facility]. Patient provided with after-hours line for [facility], , which offer night time triage service and option to transfer to supervisor contact lens provider if needed. Patient verbalizes understanding, and able to repeat back to story writer. A follow up call will be placed within 10 days, patientagrees with plan. ADELITA called General Surgery to f/u on the colonoscopy. CM spoke with Iram. She states there is anote in the patient's chart which states that Neurology is okay with going ahead with the procedure. They are waiting on clearance from PCP in order to schedule the colonoscopy. CM advised that patient is scheduled for a Pre-Op appt on 10/07 with PCP. Will follow up with the office after the Pre-Op a ppt. She verbalizes understanding. Patient will also need to complete an EKG. Patient informed to walk in to [facility] to complete, no appt needed (see RN note from 09/17/24). CM will inform patient of this when call is returned. documented in this encounter Plan of Treatment Upcoming Encounters Date Type Department Care Team (Late st Contact Info) Description 10/07/2024 10:30 AM EST Office Visit [facility] [address] [place] [address] Natalie Posadas MD 230 [place] [address] 10/16/2024 9:15 AM EST Office Visit [facility] [address] [place] [address] Natalie Posadas MD 230 [place] [address] 10/25/2024 10:30 AM EDT Office Visit [facility] [address] [place] [address] OD 230 [place] [address] 11/26/2024 10:00 AM EDT Clinical Support [facility]EDS 505 [place], [place] [phone] Jing Washington, CUAUHTEMOC 505 [place] [address] documented as of this encounter Visit Diagnoses Not on filedocumented in this encounter Additional Health Concerns Assessment Noted Time PHQ-9 Depression Total Score: 3 08/06/20 24 8:58 AM EST documented as of this encounter Care Teams Engine Test Cell Technician Relationship Specialty Start Date End Date Natalie Posadas MD [address] [place] [address] PCP - General Family Medicine 08/14/18 documented as of this encounter
--- OUTSIDE RECORDS SUMMARY | 2024-09-25 12:34 | XMS_ITS | Encounter Summary ---
Author Organization [employer] Address [address] [facility] 7t [place] [address] Care Team Providers Care Publicity Writer Name Role Phone Natalie Posadas MD Primary Care Provider [phone] Reason for Visit * Reason Comments Care Coordination Appt reminder Encounter Details Date Type Department Care Team (Latest Contact Info) Description 09/10/2024 Patient Outreach [facility] 230 [place], [place] [phone] Natalie Posadas MD 230 [place], [place] [phone] Care Coordination (Appt reminder) Social History Tobacco Use Types Packs/Day Years [...] encounter Progress Notes * Deann Villalobos - 09/10/2024 9:36 AM EST CHW Deann Villalobos placed call to patient to remind of appt reminder on 09/11/24 at 945am in [facility], PT1 will grape picker patient at 915am. Patient understood and will attend appt. documented in this encounter Plan of Treatment Upcoming Encounters Date Type Department Care Team (Late st Contact Info) Description 10/07/2024 10:30 AM EST Office Visit [facility] [address] [place] [address] Natalie Posadas MD [address] [place] [address] 10/16/2024 9:15 AM EST Office Visit [facility] [address] [place] [address] Natalie Posadas MD [address] [place] [address] 10/25/2024 10:30 AM EDT Office Visit [facility] [address] [place] [address], OD 230 [place] [address] 11/26/2024 10:00 AM EDT Clinical Support [facility] MED & PEDS 505 [place] [address] Jing Washington, RN 505 [place] [address] documented as of this encounter Visit Diagnoses Not on filedocumented in this encounter Additional Health Concerns Assessment Noted Time PHQ-9 Depression Total Score: 3 08/06/ 24 8:58 AM EST documented as of this encounter Care Teams Publicity Writer Relationship Specialty Start Date End Date Natalie Posadas MD [address] [place] [address] PCP - General Family Medicine 08/14/18 documented as of this encounter
--- OUTSIDE RECORDS SUMMARY | 2024-09-25 12:34 | XMS_ITS | Encounter Summary ---
Author Organization [employer] Address [address] [facility] [address] [address] 7t [place] [address] Care Team Providers Care Customer Support Executive Name Role Phone Natalie Posadas MD Primary Care Provider [phone] Reason for Visit * Reason Comments Med Refill Encounter Details Date Type Department Care Team ([facility] st Contact Info) Description 01/25/2024 Refill [facility] 230 [place], [place] [phone] Natalie Posadas MD 230 [place], [place] [phone] Pain Social History Tobacco Use Types Packs/Day Years Used Date Smoking Tobacco: Former Cigarettes 2 30 Smokeless Tobacco: Never Alcohol Use Standard Drinks/Week Comments Not Currently 0 (1 standard drink = 0.6 oz pur e alcohol) Depression Answer Date Recorded Patient Health Questionnaire-9 Score 7 09/28/2023 Patient Health Questionnaire-9 Score 7 09/28/2023 Last PHQ-9: Questionnaire Data Not on file 0 09/28/2023 Housing Stability Answer Date Recorded What is [...] Date Recorded Patient Health Questionnaire-2 Score 2 09/28/2023 Sex and Gender Information Value Date Recorded Sex Assigned at Male 06/13/2022 10:16 AM EDT Legal Sex Male 10:16 AM EDT Gender Identity Male 06/13/2022 10:16 AM EDT Sexual Orientation Straight 08/12/2022 9: 04 AM EST documented as of this encounter Plan of Treatment Upcoming Encounters Date Type Department Care Team (Late st Contact Info) Description 10/07/2024 10:30 AM EST Office Visit [facility] [address] [place] [address] Natalie Posadas MD 230 [place] [address] 10/16/2024 9:15 AM EST Office Visit [facility] MEDICINE [address] [place] [address] Natalie Posdaas MD 230 [place] [address] 10/25/2024 10:30 AM EDT Office Visit [facility] OPTOMETRY [address] [place] [address], OD 230 [place] [address] 11/26/2024 10:00 AM EDT Clinical Support [facility] MED [facility] PEDS 505 [place] [address] Jing Washington, CUAUHTEMOC 505 [place] [address] documented as of this encounter Visit Diagnoses Diagnosis Pain Generalized pain documented in this encounter Additional Health Concerns Assessment Noted Time PHQ-9 Depression Total Score: 7 09/28/19 24 11:21 AM EST documented as of this encounter Care Teams Customer Support Executive Relationship Specialty Start Date End Date Natalie Posadas MD 230 [place] [address] PCP - General Family Medicine 08/14/18 documented as of this encounter
--- OUTSIDE RECORDS SUMMARY | 2024-09-25 12:34 | XMS_ITS | Encounter Summary ---
Author Organization [employer] Address [address] 7t [place] [address] Care Team Providers Care Copier Technician Name Role Phone Natalie Posadas MD Primary Care Provider [phone] Encounter Details Date Type Department Care Team ([facility] st Contact Info) Description 08/31/2024 Orders Only GENERIC EXTERNAL DATA DEPARTMENT Provider, Generic External Data Social History Tobacco Use Types Packs/Day Years [...] 10/07/2024 10:30 AM EST Office Visit [facility] [address] [place] [address] Natalie Posadas MD [address] [place] [address] 10/16/2024 9:15 AM EST Office Visit [facility] [address] [place] [address] Natalie Posadas MD 230 [place] [address] 10/25/2024 10:30 AM EDT Office Visit [facility] [address] [place] [address], OD 230 [place] [address] 11/26/2024 10:00 AM EDT Clinical Support [facility] 505 [place] [address] Jing Washington, CUAUHTEMOC 505 [place] [address] documented as of this encounter Procedures Procedure Name Priority Date/Time Associated Diagnosis Comments CANCELLED CHEMISTRY Routine 08/31/2024 9 :42 AM EST VITAMIN D,25-OH,TOTAL,IA Routine 08/31/2024 9:42 AM EST VITAMIN B12/FOLATE, SERUM PANEL Routine 08/31/2024 9:42 AM EST METHYLMALONIC ACID Routine 08/31/2024 9: 42 AM EST HOMOCYSTEINE Routine 08/31/2024 9:42 AM EST FERRITIN Routine 08/31/2024 9:42 AM EST documented in this encounter Results * Methylmalonic Acid (08/31/2024 9:42 AM EST) Methylmalonic Acid 199 69 - 390 nmol/L [facility] Comment: Serum methylmalonic acid (MMA) levels are used todiagnose and monitor several rare inborn errors ofmetabolism, including methylmalonic aciduria. Theenzymatic conversion of MMA to succinic acid requiresvitamin B12 (adenosyl-cobalamin) as a cofactor. SerumMMA levels are also used for assessing functionalvitamin B12 deficiency. Vitamin B12 is essential forfetal neurodevelopment, particularly early inpregnancy. Undiagnosed maternal vitamin B12 deficiencymay be associated with adverse / outcomes,such as neural tube defects and intrauterine growthrestriction.[employer] utilized Multi-Modal Decomposition(MMD) analysis to establish first and second trimester-specific MMA reference intervals in , as givenbelow:MMA, First trimester (<13 wks gestation): 58-167 nmol/LMMA, Second trimester (13-23 wks gestation):63-241 nmol/LThis test was developed and its analytical performancecharacteristics have been determined by [employer]. It has not been cleared or approved by theFDA. This assay has been validated pursuant to the CLIAregulations and is used for clinical purposes.THIS TEST WAS PERFORMED AT:[employer]/[facility] [place], [place] ??[id number] EDWARDS MD,PHD 08/31/2024 9:42 AM EST 08/31/2024 9:42 AM EST us Generic External Data Provider LAB BLOOD ORDERAB LES Final Result [facility] [address] [place] [phone] * (ABNORMAL) Homocysteine (08/31/2024 9:42 AM EST) Pathologist [facility] Homocysteine 15.0(A) <11.4 umol/L [facility] Comment:Homocysteine is incr eased by functional deficiency offolate or vitamin B12. Testing for methylmalonic aciddifferentiates between these deficiencies. Other causesof increased homocysteine include renal failure, folateantagonists such as methotrexate and phenytoin, andexposure to nitrous oxide.Lui Castillo, et al., Lor[employer] Procurement Director Med. 1999;131(5):331-9.THIS TEST WAS PERFORMED AT:[employer] [place] [id number] ARNOLD MD 08/31/2024 9:42 AM EST 08/31/2024 9:42 AM EST us Generic External Data Provider LAB BLOOD ORDERAB LES Final Result Performing Organization Address City/[facility]/ZIP Co de Phone Number [facility] [address] [place] [phone] * Cancelled Chemistry (08/31/2024 9:42 AM EST) [facility] Cancelled Chemistry SEE NOTE [facility] Comment:NO SPECIMEN RECEIVED FOR HGB A1C 08/31/2024 9:42 AM EST 08/31/2024 9:42 AM EST us Natalie Posadas MD HISTORICAL/NON ORDERABLE LABS Fi nal Result Performing Organization Address [facility]/ZIP Co de Phone Number [facility] [address] [place] [address] [phone] * Vitamin B12 (Cobalamin) and Folate Panel, Serum (08/31/2024 9:42 AM EST) Pathologist [facility] Vitamin B12 408 200 - 900 pg/mL [facility] Comment:NORMAL 200-900 PG/ML INDETERMINATE 160-199 PG/ML DEFICIENT < 160 PG/ML Folate 8.6 > or = 4.0 ng/mL [facility] Comment:Reference Values:> o r = 4.0 ng/mL< 4.0 ng/mL suggests folate deficiency Methotrexate, aminopterin and folinic acid(leucovorin) are chemotherapeutic agents whose molecularstructures are similar to folate; therefore, the Architectfolate assay cannot be used for patients using these drugs. 08/31/2024 9:42 AM EST 08/31/2024 9:42 AM EST Generic External Data Provider LAB BLOOD ORDERAB LES Final Result Performing Organization Address [facility] Co de Phone Number [facility] [address] [place] [phone] * (ABNORMAL) Vitamin D, 25-Hydroxy, Total, Immunoassay (08/31/2024 9:42 AM EST) Vitamin D 25-OH Total 16.9(L) >30 ng/mL [facility] Comment:Health Based Referen ce Values*< 20 ng/mL [id number] ng/mL Insufficient> 30 ng/mL Sufficient*Aramis GARVIN. N Engl J Med. 2007;357:266-280Care must be taken in interpreting Vitamin D results fromdifferent laboratories and methodologies. Published datademonstrated that results from patients undergoinghemodialysis may show a negative bias when tested withvarious automated 25-OH vitamin D assays when compared toLC-MS/MS.When testing samples from patients whose predominant form ofVitamin D is Vitamin D2, such as patients receiving VitaminD2 supplementation, results that are subtherapeutic shouldbe confirmed with another method such as LC-MS/MS. 08/31/2024 9:42 AM EST 08/31/2024 9:42 AM EST Generic External Data Provider LAB BLOOD ORDERAB LES Final Result Performing Organization Address [facility] Co de Phone Number [facility] [address] [place] [phone] * Ferritin (08/31/2024 9:42 AM EST) Ferritin 149 20 - 250 ng/mL [facility] 08/31/2024 9:42 AM EST 08/31/2024 9:42 AM EST us Generic External Data Provider LAB BLOOD ORDERAB LES Final Result Performing Organization Address City/State/[facility] Co de Phone Number [facility] [address] [place] [phone] documented in this encounter Visit Diagnoses Not on filedocumented in this encounter Additional Health Concerns Assessment Noted Time PHQ-9 Depression Total Score: 3 08/06/20 24 8:58 AM EST documented as of this encounter Care Teams Copier Technician Relationship Specialty Start Date End Date Natalie Posadas MD [address] [place] [address] PCP - General Family Medicine 08/14/18 documented as of this encounter
--- OUTSIDE RECORDS SUMMARY | 2024-09-25 12:34 | XMS_ITS | Encounter Summary ---
Author Organization [employer] Address [address] 7t [place] [address] Care Team Providers Care Map Compiler Name Role Phone Natalie Posadas MD Primary Care Provider [phone] Encounter Details Date Type Department Care Team ([facility] st Contact Info) Description 09/11/2024 Telephone [facility]S [address] [place], [place] [phone] Jing Washington, RN [address] [place] [address] Social History Tobacco Use Types Packs/Day Years [...] encounter Miscellaneous Notes * Telephone Encounter - Jing Washington RN - 09/11/2024 1:42 PM EST .What AMMONIA DISTILLER Tier would you like this patient to be? Are you ok with AMMONIA DISTILLER Televisit? Tier 1 = HIGH RISK, Monthly AMMONIA DISTILLER visits Tier 2 = MODerate RISK, Q3 Month visits Tier 3 = LOW RISK = Q4-6 month visits documented in this encounter Plan of Treatment Upcoming Encounters Date Type Department Care Team (Late st Contact Info) Description 10/07/2024 10:30 AM EST Office Visit [facility] 230 [place] [address] Natalie Posadas MD [address] [place] [address] 10/16/2024 9:15 AM EST Office Visit [facility] [address] [place] [address] Natalie Posadas MD [address] [place] [address] 10/25/2024 10:30 AM EDT Office Visit [facility] OPTOMETRY [address] [place] [address], OD 230 [place] [address] 11/26/2024 10:00 AM EDT Clinical Support [facility] MED [facility]EDS [address] [place] [address] Jnig Washington, RN [address] [place] [address] documented as of this encounter Visit Diagnoses Not on filedocumented in this encounter Additional Health Concerns Assessment Noted Time PHQ-9 Depression Total Score: 3 08/06/ 24 8:58 AM EST documented as of this encounter Care Teams Map Compiler Relationship Specialty Start Date End Date Natalie Posadas MD [address] [place] [address] PCP - General Family Medicine 08/14/18 documented as of this encounter
--- OUTSIDE RECORDS SUMMARY | 2024-09-25 12:34 | XMS_ITS | Encounter Summary ---
Author Organization [employer] Address [address] 7t [place] [address] Care Team Providers Care Bone Drier Name Role Phone Natalie Posadas MD Primary Care Provider [phone] Reason for Visit * Reason Onset Date Comments Clearance needed 09/05/2024 Encounter Details Date Type Department Care Team ([facility] st Contact Info) Description 09/05/2024 Telephone [facility] MEDICINE [address] [place], [place] [phone] Natalie Posadas MD [address] [place], [place] [phone] Clearance needed Social History Tobacco Use Types Packs/Day Years [...] encounter Miscellaneous Notes * Telephone Encounter - Uzma Martinez RN - 09/17/2024 8:52 AM EST Telephone call placed to pt. Informed of results below. Informed PCP recommends another EKG. Informed it is ordered, he can walk into [facility] anytime to get it done. They do it withoutan appointment. Will fax order to them. Pt agreeable. Also informed that he needs a preop for his colonoscopy. Booked for 10/07 with PCP. Mailed appt reminder. Pt verbalized understanding and denied having any further questions or concerns at this time. Details: Pre-Op Date of surgery: TBD Surgical procedure being done: colonoscopy Type of anesthesia: General Labs needed: Provider's discretion EKG: Yes, already ordered. Pt advised to have done at [facility] Surgeon's name: Dr Weinberg Last office note from surgeon requested: available on [facility] Office Appointment scheduled for 10/07/24 with Katharina. 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 Reviewed recent EKG, 1st degree AV block. Compared to previous EKG, WA interval has prolonged. I would like him to have another EKG. Please askhim to get EKG done at [facility] because his previous 2 EKGs were done at [facility]. Please schedule pre-op. Thank you. * Telephone Encounter - Brittany Rojas RN - 09/16/2024 11:56 AM EST Incoming phone call from Thalia at [facility] General Surgery. Thalia asking about below message regarding clearance for colonoscopy. Advised her of message below from [facility] nurse India given to nurse Alvaro at [facility] General Surgery this morning. Advised her that clearance is not finalized yet and that another message was sent to PCP this AM regarding clearance. PCP still to advise on CT scan/final clearance. * Telephone Encounter - India Daniel RN - 09/16/2024 11:20 AM EST TC placed to Alvaro at [facility] General Surgery who states that the pt still does not have an appt date and time for the colonoscopy. Appt will not be made until the pt has medical clearance. RN told Alvaro the PCP only had concerns with pt CONSTANTINO and daily use of NSAIDs. Alvaro would like PCP to look at CTA of Head Neck w/ and w/o Contrast and confirm that the results are ok to go forward with the colonoscopy. Alvaro informed that this will be sent to PCP for review and advisement. * Telephone Encounter - Robbie Naranjo - 09/05/2024 4:00 PM EST TC Alvaro with [facility] General Surgery. pt will be having a Colonoscopy and Alvaro wants to know if PCPcan provide Clearance for procedure or if pt would needs a pre-op .. Date of Procedure : TBD Anesthesia : MAC Alvaro reports that her office has pt's EKG and most recent blood work . documented in this encounter Plan of Treatment Upcoming Encounters Date Type Department Care Team (Late st Contact Info) Description 10/07/2024 10:30 AM EST Office Visit [facility] MEDICINE [address] [place] [address] Natalie Posadas MD [address] [place] [address] 10/16/2024 9:15 AM EST Office Visit [facility] MEDICINE [address] [place] [address] Natalie Posadas MD [address] [place] [address] 10/25/2024 10:30 AM EDT Office Visit [facility] OPTOMETRY [address] [place] [address] SeamusCarolyn rodriguez, OD 230 [place] [address] 11/26/2024 10:00 AM EDT Clinical Support [facility] MED & PEDS 505 [place] [address] Jing Washington, CUAUHTEMOC 505 [place] [address] documented as of this encounter Visit Diagnoses Not on filedocumented in this encounter Additional Health Concerns Assessment Noted Time PHQ-9 Depression Total Score: 3 08/06/20 24 8:58 AM EST documented as of this encounter Care Teams Bone Drier Relationship Specialty Start Date End Date Natalie Posadas MD [address] [place] [address] PCP - General Family Medicine 08/14/18 documented as of this encounter
--- OUTSIDE RECORDS SUMMARY | 2024-09-25 12:34 | XMS_ITS | Encounter Summary ---
Author Organization [employer] Address [address] 7t [place] [address] Care Team Providers Care Managing Manager Name Role Phone Natalie Posadas MD Primary Care Provider [phone] Reason for Visit * Reason Comments Care Coordination pt1 Encounter Details Date Type Department Care Team (Latest Contact Info) Description 08/26/2024 Patient Outreach [facility] MEDICINE [address] [place], [place] [phone] Natalie Posadas MD 230 [place], [place] [phone] Care Coordination (pt1) Social History Tobacco Use Types Packs/Day Years [...] encounter Progress Notes * Deann Villalobos - 08/26/2024 8:16 AM EST CHW Deann Villalobos scheduled pt1 for appt for [facility]-08/29/24 at 8:30am, CHW will remind patient of appt and transportation. documented in this encounter Plan of Treatment Upcoming Encounters Date Type Department Care Team (Late st Contact Info) Description 10/07/2024 10:30 AM EST Office Visit [facility] MEDICINE [address] [place] [address] Natalie Posadas MD [address] [place] [address] 10/16/2024 9:15 AM EST Office Visit [facility] MEDICINE [address] [place] [address] Natalie Posadas MD [address] [place] [address] 10/25/2024 10:30 AM EDT Office Visit [facility] OPTOMETRY [address] [place] [address], OD 230 [place] [address] 11/26/2024 10:00 AM EDT Clinical Support [facility] CH[facility] MED & PEDS 505 [place] [address] Jing Washington, RN 505 [place] [address] documented as of this encounter Visit Diagnoses Not on filedocumented in this encounter Additional Health Concerns Assessment Noted Time PHQ-9 Depression Total Score: 3 08/06/ 24 8:58 AM EST documented as of this encounter Care Teams Managing Manager Relationship Specialty Start Date End Date Natalie Posadas MD [address] [place] [address] PCP - General Family Medicine 08/14/18 documented as of this encounter
--- OUTSIDE RECORDS SUMMARY | 2024-09-25 12:34 | XMS_ITS | Encounter Summary ---
Author Organization [employer] Address [address] 7t [place] [address] Care Team Providers Care Divine Healer Name Role Phone Natalie Posadas MD Primary Care Provider [phone] Reason for Visit * Reason Comments Med Refill Encounter Details Date Type Department Care Team (Late st Contact Info) Description 05/29/2024 Refill [facility] OPTOMETRY [address] [place] [address] Seamus, Carolyn, OD [address] [place] [address] Social History Tobacco Use Types Packs/Day Years [...] Description 10/07/2024 10:30 AM EST Office Visit [facility] MEDICINE [address] [place] [address] Natalie Posadas MD 230 [place] [address] 10/16/2024 9:15 AM EST Office Visit [facility] MEDICINE [address] [place] [address] Natalie Posadas MD 230 [place] [address] 10/25/2024 10:30 AM EDT Office Visit [facility] OPTOMETRY [address] [place] [address], OD 230 [place] [address] 11/26/2024 10:00 AM EDT Clinical Support [facility] CHC MED & PEDS 505 [place] [address] Jing Washington, CUAUHTEMOC 505 [place] [address] documented as of this encounter Visit Diagnoses Not on filedocumented in this encounter Additional Health Concerns Assessment Noted Time PHQ-9 Depression Total Score: 7 09/28/19 24 11:21 AM EST documented as of this encounter Care Teams Divine Healer Relationship Specialty Start Date End Date Natalie Posadas MD 230 [place] [address] PCP - General Family Medicine 08/14/18 documented as of this encounter
--- OUTSIDE RECORDS SUMMARY | 2024-09-25 12:34 | XMS_ITS | Encounter Summary ---
Author Organization [employer] [facility] Address [address] [place] [address] 7t [place] [address] Care Team Providers Care Crown Perforator Operator Name Role Phone Natalie Posadas MD Primary Care Provider Reason for Visit * Reason Comments Med Refill Encounter Details Date Type Department Care Team ([facility] Contact Info) Description 12/26/2022 Refill [facility] MEDICINE 230 [place] [address] Natalie Posadas MD 230 [place], [place] [phone] Pain Social History Tobacco Use Types Packs/Day [...] Orientation Straight 08/12/2022 9: 04 AM EST COVID-19 Exposure Response Date Recorded In the last 10 days, have yo u been in contact with someone who was confirmed or suspected to have Coronavirus/COVID-19? No / Unsure 12/06/2022 9:40 AM EDT documented as of this encounter Plan of Treatment Upcoming Encounters Date Type Department Care Team ([facility] Contact Info) Description 10/07/2024 10:30 AM EST Office Visit [facility] MEDICINE [address] [place] [address] Natalie Posadas MD 230 [place] [address] 10/16/2024 9:15 AM EST Office Visit [facility] MEDICINE 230 [place] [address] Natalie Posadas MD 230 [place] [address] 10/25/2024 10:30 AM EDT Office Visit [facility] OPTOMETRY [address] [place] [address] Seamus, Carolyn, OD 230 [place] [address] 11/26/2024 10:00 AM EDT Clinical Support [facility] CHC MED & PEDS 505 [place], [place] [phone] Jing Washington, RN 505 [place], [place] [phone] documented as of this encounter Visit Diagnoses Diagnosis Pain Generalized pain documented in this encounter Additional Health Concerns Assessment Noted Time PHQ-9 Depression Total Score: 0 09/15/19 23 11:23 AM EST documented as of this encounter Care Teams Crown Perforator Operator Relationship Specialty Start Date End Date Natalie Posadas MD [address] [place] [address] PCP - General Family Medicine 08/14/18 documented as of this encounter
--- OUTSIDE RECORDS SUMMARY | 2024-09-25 12:34 | XMS_ITS | Encounter Summary ---
Author Organization [employer] Address [address] 7t [place] [address] Care Team Providers Care Envelope Sealer Operator Name Role Phone Natalie Posadas MD Primary Care Provider [phone] Reason for Visit * Reason Comments Med Refill Encounter Details Date Type Department Care Team ([facility] st Contact Info) Description 03/12/2024 Refill [facility] MEDICINE 230 [place], [place] [phone] Kelly Diego ANP 230 [place], [place] [phone] Pain Social History Tobacco Use Types Packs/Day [...] Office Visit [facility] MEDICINE [address] [place] [address] Natalie Posadas MD 230 [place] [address] 10/16/2024 9:15 AM EST Office Visit [facility] MEDICINE [address] [place] [address] Natalie Posadas MD 230 [place] [address] 10/25/2024 10:30 AM EDT Office Visit [facility] OPTOMETRY [address] [place] [address], OD 230 [place] [address] 11/26/2024 10:00 AM EDT Clinical Support [facility] CHC MED & PEDS 505 [place] [address] Jing Washington, CUAUHTEMOC 505 [place] [address] documented as of this encounter Visit Diagnoses Diagnosis Pain Generalized pain documented in this encounter Additional Health Concerns Assessment Noted Time PHQ-9 Depression Total Score: 7 09/28/19 24 11:21 AM EST documented as of this encounter Care Teams Envelope Sealer Operator Relationship Specialty Start Date End Date Natalie Posadas MD 230 [place] [address] PCP - General Family Medicine 08/14/18 documented as of this encounter
--- OUTSIDE RECORDS SUMMARY | 2024-09-25 12:34 | XMS_ITS | Encounter Summary ---
Author Organization [employer] Address [address] 7t [place] [address] Care Team Providers Care Judicial Clerk Name Role Phone Natalie Posadas MD Primary Care Provider [phone] Reason for Visit * Reason Onset Date Comments Care Management 09/03/2024 C3CM- f/u call Encounter Details Date Type Department Care Team (Late st Contact Info) Description 09/03/2024 Telephone [facility] MEDICINE 230 [place] [address] Madhuri Barakat RN [address] [place], [place] [phone] Care Management (C3CM- f/u call) Social History [...] the past 12 months, has t he [employer], gas, oil or water [employer] threatened to shut off services in your [...] Telephone Encounter - Madhuri Barakat RN - 09/03/2024 12:18 PM EST CM Madhuri Barakat RN and CHW Deann Villalobos placed outbound call to patient. Patient's name, and address confirmed. Patient states is doing well with no recent illnesses or emergency room visits.Patient states he attended visit on 08/29 as scheduled. Per patient, completed blood work/ labs which were ordered by his provided. He states he is waiting on results. He also states he was prescribedmedications but has not yet started taking them. He states he plans on starting the meds today. Patient also states the provider ordered a test which he will be completing in October. He is then scheduled to f/u on 11/28/24 at 10:00am. CM will request office notes to scan into chart. Per patient, on his way to [facility] pharmacy to make refill request for ibuprofen. He states he is not sure if he is due for Rx yet but will f/u with the pharmacy to inquire. Patient reports using CPAP machine at bedtime. He states the CPAP has helped improve his sleep somewhat. Per patient, BP has been well controlled. He denies any symptoms or concerns. Patient states he is unsure if he is currently following a Urolog ist. CM will f/u on this. Patient is requesting PT1 to scheduled visit on 09/11/24. CHW will assist and will f/u with patient to update on PT1. Per patient, has not called company yet to f/u on CATEGORY DEVELOPMENT MANAGER services. He states he plans on meeting with his niece to see if she can help him with this. Patient denies any further needs or concerns at this time. No further questions or concerns. CM reinforced direct contact information or CHW for any additional questions or concerns. Education provided on Walk[facility] Ur[facility] Care located in [facility] of [facility]. Patient provided with after-hours line for [facility], , which offer night time triage service and option to transfer to environmental monitoring specialist provider if needed. Patient verbalizes understanding, and able to repeat back to hand sign writer. A follow up call will be placed within 10 days, patientagrees with plan. documented in this encounter Plan of Treatment Upcoming Encounters Date Type Department Care Team ([facility] Contact Info) Description 10/07/2024 10:30 AM EST Office Visit [facility] MEDICINE [address] [place] [address] Natalie Posadas MD 230 [place] [address] 10/16/2024 9:15 AM EST Office Visit [facility] MEDICINE 230 [place] [address] Natalie Posadas MD 230 [place] [address] 10/25/2024 10:30 AM EDT Office Visit [facility] OPTOMETRY [address] [place] [address], OD 230 [place] [address] 11/26/2024 10:00 AM EDT Clinical Support [facility] CHC MED & PEDS 505 [place], [place] [phone] Jing Washington, RN 505 [place], [place] [phone] documented as of this encounter Visit Diagnoses Not on filedocumented in this encounter Additional Health Concerns Assessment Noted Time PHQ-9 Depression Total Score: 3 08/06/20 24 8:58 AM EST documented as of this encounter Care Teams Judicial Clerk Relationship Specialty Start Date End Date Natalie Posadas MD 230 [place] [address] PCP - General Family Medicine 08/14/18 documented as of this encounter
--- OUTSIDE RECORDS SUMMARY | 2024-09-25 12:34 | XMS_ITS | Encounter Summary ---
Author Organization [facility] Address [address] [place] [address] 7t [place] [address] Care Team Providers Care Electronic Equipment Trades Worker Name Role Phone Natalie Posadas MD Primary Care Provider [phone] Reason for Visit * Reason Comments Med Refill Encounter Details Date Type Department Care Team (Late Contact Info) Description 11/21/2022 Refill [facility] [address] [place] [address] Natalie Posadas MD [address] [place], [place] [phone] Pain Social History Tobacco Use Types Packs/Day [...] suspected to have Coronavirus/COVID-19? No / Unsure 11/23/2022 10:13 AM EDT documented as of this encounter Plan of Treatment Upcoming Encounters Date Type Department Care Team ([facility] Contact Info) Description 10/07/2024 10:30 AM EST Office Visit [facility] [address] [place] [address] Natalie Posadas MD [address] [place] [address] 10/16/2024 9:15 AM EST Office Visit [facility] [address] [place] [address] Natalie Posadas MD [address] [place] [address] 10/25/2024 10:30 AM EDT Office Visit [facility] OPTOMETRY [address] [place] [address] Seamus, Carolyn, OD 230 [place] [address] 11/26/2024 10:00 AM EDT Clinical Support [facility] MED & PEDS 505 [place], [place] [phone] Jing Washington, RN [address] [place], [place] [phone] documented as of this encounter Visit Diagnoses Diagnosis Pain Generalized pain documented in this encounter Additional Health Concerns Assessment Noted Time PHQ-9 Depression Total Score: 0 09/15/19 23 11:23 AM EST documented as of this encounter Care Teams Electronic Equipment Trades Worker Relationship Specialty Start Date End Date Natalie Posadas MD [address] [place] [address] PCP - General Family Medicine 08/14/18 documented as of this encounter
--- OUTSIDE RECORDS SUMMARY | 2024-09-25 12:34 | XMS_ITS | Encounter Summary ---
Author Organization [employer] Address [address] 7t [place] [address] Care Team Providers Care Animal Rides Manager Name Role Phone Natalie Posadas MD Primary Care Provider [phone] Reason for Visit * Reason Comments Med Refill Encounter Details Date Type Department Care Team ([facility] st Contact Info) Description 01/24/2023 Refill [facility] CHC MED & PEDS [address] [place], [place] [phone] Kelly Diego, ANP 230 [place] [address] Pain Social History Tobacco Use Types Packs/Day [...] suspected to have Coronavirus/COVID-19? No / Unsure 01/23/2023 9:21 AM EDT documented as of this encounter Miscellaneous Notes * Telephone Encounter - Karin Tate RN - 01/24/2023 2:55 PM EDT Pcp reordered after today's appt documented in this encounter Plan of Treatment Upcoming Encounters Date Type Department Care Team (Late st Contact Info) Description 10/07/2024 10:30 AM EST Office Visit [facility] MEDICINE 230 [place] [address] Natalie Posadas MD [address] [place] [address] 10/16/2024 9:15 AM EST Office Visit [facility] MEDICINE [address] [place] [address] Natalie Posadas MD [address] [place] [address] 10/25/2024 10:30 AM EDT Office Visit [facility] OPTOMETRY [address] [place] [address], OD 230 [place] [address] 11/26/2024 10:00 AM EDT Clinical Support [facility] CHC MED & PEDS 505 [place] [address] Jing Washington, CUAUHTEMOC [address] [place] [address] documented as of this encounter Visit Diagnoses Diagnosis Pain Generalized pain documented in this encounter Additional Health Concerns Assessment Noted Time PHQ-9 Depression Total Score: 0 09/15/19 23 11:23 AM EST documented as of this encounter Care Teams Animal Rides Manager Relationship Specialty Start Date End Date Natalie Posadas MD [address] [place] [address] PCP - General Family Medicine 08/14/18 documented as of this encounter
--- OUTSIDE RECORDS SUMMARY | 2024-09-25 12:34 | XMS_ITS | Encounter Summary ---
Author Organization [employer] [facility] Address [address] [facility] 7t [place] [address] Care Team Providers Care Fan Blade Truer Name Role Phone Natalie Posadas MD Primary Care Provider Encounter Details Date Type Department Care Team (Late Contact Info) Description 10/14/2022 Orders Only [facility] MEDICINE 230 [place], [place] [phone] Natalie Posadas MD [address] [place], [place] [phone] Right internal carotid artery aneurysm (Primary Dx); Chronic right-sided headache; Occipital headache Social History Tobacco Use Types Packs/Day Years [...] suspected to have Coronavirus/COVID-19? No / Unsure 10/12/2022 11:00 AM EST documented as of this encounter Plan of Treatment Upcoming Encounters Date Type Department Care Team (Late Contact Info) Description 10/07/2024 10:30 AM EST Office Visit [facility] MEDICINE [address] [place] [phone] Natalie Posadas MD 230 [place] [address] 10/16/2024 9:15 AM EST Office Visit [facility] MEDICINE 230 [place] [address] Natalie Posadas MD 230 [place] [address] 10/25/2024 10:30 AM EDT Office Visit [facility] OPTOMETRY [address] [place] [address] SeamusCarolyn rodriguez, OD 230 [place] [address] 11/26/2024 10:00 AM EDT Clinical Support [facility] CHC MED & PEDS 505 [place], [place] [phone] Jing Washington, RN 505 [place] [address] documented as of this encounter Visit Diagnoses Diagnosis Right internal carotid artery aneurysm- Primary Chronic right-sided headache Occipital headache Headache documented in this encounter Additional Health Concerns Assessment Noted Time PHQ-9 Depression Total Score: 0 09/15/19 23 11:23 AM EST documented as of this encounter Care Teams Fan Blade Truer Relationship Specialty Start Date End Date Natalie Posadas MD 230 [place] [address] PCP - General Family Medicine 08/14/18 documented as of this encounter
--- OUTSIDE RECORDS SUMMARY | 2024-09-25 12:34 | XMS_ITS | Encounter Summary ---
Author Organization [employer] Address [address] [place] [address] Care Team Providers Care Court Clerk Name Role Phone Natalie Posadas MD Primary Care Provider [phone] Reason for Visit * Reason Comments Care Coordination PT1 Encounter Details Date Type Department Care Team (Latest Contact Info) Description 09/05/2024 Patient Outreach [facility] [address] [place], [place] [phone] Natalie Posadas MD [address] [place], [place] [phone] Care Coordination (PT1) Social History Tobacco Use Types Packs/Day Years [...] encounter Progress Notes * Deann Villalobos - 09/05/2024 9:42 AM EST CHW Deann Villalobos scheduled PT1 for appt on 09/11/24 at 945am in [facility], CHW will call patient with appt reminder and details, documented in this encounter Plan of Treatment Upcoming Encounters Date Type Department Care Team (Late st Contact Info) Description 10/07/2024 10:30 AM EST Office Visit [facility] [address] [place] [address] Natalie Posadas MD [address] [place] [address] 10/16/2024 9:15 AM EST Office Visit [facility] [address] [place] [address] Natalie Posadas MD [address] [place] [address] 10/25/2024 10:30 AM EDT Office Visit [facility] [address] [place] [address], OD [address] [place] [address] 11/26/2024 10:00 AM EDT Clinical Support [facility] [address] [place] [address] Jing Washington, RN [address] [place] [address] documented as of this encounter Visit Diagnoses Not on filedocumented in this encounter Additional Health Concerns Assessment Noted Time PHQ-9 Depression Total Score: 3 08/06/20 24 8:58 AM EST documented as of this encounter Care Teams Court Clerk Relationship Specialty Start Date End Date Natalie Posadas MD [address] [place] [id number] PCP - General Family Medicine 08/14/18 documented as of this encounter
--- OUTSIDE RECORDS SUMMARY | 2024-09-25 12:34 | XMS_ITS | Clinical Summary ---
Author Organization [employer] Address [address] [place] [address] Care Team Providers Care Manager Labor Delivery Name Role Phone Natalie Posadas MD Primary Care Provider [phone] Allergies No known active allergies Medications ergocalciferol (Vitamin D-2) 1.25 MG (65797 UT) capsule Take 1 capsule by mouth once a week. 08/31/19 22 Active hydrocortisone 1 % cream apply by topical route every day to the affected area(s) 12/24/19 22 Active melatonin 3 MG tablet take 1 tablet by oral route 3 hours before your sleep study. May take 1 additional tablet in 1 hour. 12/24/19 22 Active naloxone (Narcan) 4 mg/0.1 mL nasal spray Administer 0.1 mL into affected nostril(s). 02/11/20 22 Active tiZANidine (Zanaflex) 4 MG tablet Take 1 tablet by mouth every 6 (six) hours. 12/24/19 22 Active Omeprazole 20 MG tablet delayed-releas e Take 20 mg by mouth if needed each day (hearburn / acid reflux). 30 tablet 3 09/28/19 24 Active atorvastatin (Lipitor) 10 MG tabletIndicati ons:Dyslipidem ia TAKE 1 TABLET BY MOUTH AT BEDTIME 90 tablet 1 04/17/20 24 Active lidocaine (Lidoderm) 5 % patch APPLY 1 PATCH TOPICALLY TO SKIN, LEAVE ON FOR 12 HOURS AND OFF FOR 12 HOURS DIRECTED 30 patch 11 06/07/20 24 Active latanoprost (Xalatan) 0.005 % ophthalmic solution Administer 1 drop into both eyes at bedtime. 2.5 mL 11 06/10/20 24 025 Active metoclopramide (Reglan) 10 MG tabletIndicati ons:Occipital headache Take 1 tablet (10 mg) by mouth if needed in the morning, at noon, in the evening, and at bedtime (for headaches) for up to 10 days. 40 tablet 06/26/20 24 Active polyvinyl alcohol (Liquifilm Tears) 1.4 % ophthalmic solution 2 to 4 times a day as needed 08/01/20 22 Active Blood Pressure Monitor misc Check BP daily 1 each 08/16/19 25 Active traMADol (Ultram) 50 MG tabletIndicati ons:Pain Take 1 tablet (50 mg) by mouth every 12 (twelve) hours if needed for severe pain. 56 tablet 09/11/19 25 Active ibuprofen 800 MG tabletIndicati ons:Pain TAKE 1 TABLET BY MOUTH EVERY 8 HOURS NEEDED FOR PAIN OR FEVER 30 tablet 1 09/16/19 25 Active ibuprofen 800 MG tabletIndicati ons:Pain TAKE 1 TABLET BY MOUTH EVERY 8 HOURS NEEDED FOR PAIN OR FEVER 30 tablet 1 07/19/20 24 025 Discontinued traMADol (Ultram) 50 MG tabletIndicati ons:Pain TAKE 1 TABLET BY MOUTH TWICE DAILY IN THE MORNING AND AT BEDTIME NEEDED FOR SEVERE PAIN 56 tablet 08/13/20 24 025 Discontinued(Re order (will not trigger notification to Pharmacy)) Active Problems Problem Noted Date Diagnosed Date Elevated BP without diagnosis of hypertension Assessment & Plan (08/12/2024 5:52 AM EST): -Goal BP < 130/80 per ACC/AHA guideline (Treatment threshold >=140/90) -Borderline BP -Continue working on lifestyle modifications -Recommended self-monitoring BP. -Continue current medications: -Treatment Hx: -Follow up in 3-6 mo, sooner if any problem arises GERD (gastroesophageal reflux disease) Skin lesion of back 01/25/2024 Assessment & Plan (01/25/2024 11:54 AM EDT): -advised warm compresses -return if it does not resolve for possible drainage -will prescribe abx Contracture of joint of finger of left hand 05/14 Assessment & Plan (05/26/2023 6:40 AM EDT): - likely Dupuytren's contracture - pt declines treatment because it does not affect his ADL/IADLs significantly - pt is aware of treatment options Contracture of joint of finger of right hand Assessment & Plan (05/26/2023 6:40 AM EDT): - likely Dupuytren's contracture - pt declines treatment because it does not affect his ADL/IADLs significantly - pt is aware of treatment options Glaucoma 05/23/2023 Assessment & Plan (05/26/2023 9:52 AM EDT): Primary open angle and anatomical narrow angle Seen by Dr. Padilla, [facility], on 12/21/22 Prescribed latanoprost gtt Chronic right-sided headache 10/12/2022 Assessment & Plan (08/06/2024 9:33 AM EST): - improved - continue using CPAP - aneurysm is small and stable, and is followed by neurosurgeon and periodic imaging Assessment & Plan (01/25/2024 11:43 AM EDT): - improved - continue using CPAP - aneurysm is small and stable, and is followed by neurosurgeon and periodic imaging Assessment & Plan (09/30/2023 7:19 AM EST): - improved - continue using CPAP - aneurysm is small and stable, and is followed by neurosurgeon and periodic imaging Assessment & Plan (01/24/2023 2:27 PM EDT): -headache is improving -recent MRI/MRA shows small aneurysm -pt states he has family history of aneurysm -will refer to a neurosurgeon Assessment & Plan (10/12/2022 3:32 PM EST): -headache is improving -recent MRI/MRA shows small aneurysm -pt states he has family history of aneurysm -will refer to a neurosurgeon Occipital headache 10/12/2022 Assessment & Plan (08/06/2024 9:35 AM EST): - Evaluated by Neurosurgeon for Intracranial Aneurysm, initial visit in 2022, following annually. ; was recommended to follow-up in 1 year for evaluation - 03/04/24 MRA/MRV at [facility] 1. 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 2. 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 - 06/19/24 CTA at [facility] Stable, 6 mm, fusiform aneurysm, supraclinoid segments both ICA. Stable, 3 mm saccular aneurysm, bifurcation/trifurcation left MCA. No high degree stenosis or dissection in the vessels of the neck. 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 No acute intracranial hemorrhage or acute brain abnormality by CT. -His posterior headache is likely due to cervical degenerative disc disease. -Pt has been declining a referral to garnishment specialist or physical therapy. -Continue judicious use of tramadol and NSAIDs. - improve adherence to CPAP for central sleep apnea - patient is interested in seeing a neurologist for further evaluation and management of headache Assessment & Plan (06/26/2024 10:06 AM EST): Neuro exam unremarkable today No WATSON red flags: no fever, no neurologic deficit, no pattern change, no recent onset of new WATSON since hospitalization, no papilledema, WATSON not preceded by sneezing, coughing, or exercise. Pt will continue on Tramadol twice daily for pain and Ibuprofen 800 mg TID PRN Will start Reglan today 4 x daily prn for WATSON today, Also encouraged adequate hydration 2-3L Pt will f/u with PCP in 3 months for pain control Assessment & Plan (01/25/2024 11:43 AM EDT): 10/27/22, Seen by Neurosurgeon for Intracranial Aneurysm; was recommended to follow-up in 1 year for evaluation Evaluation with MRI in 3-5 years His posterior headache is likely due to cervical degenerative disc disease. Pt declined a referral to garnishment specialist or physical therapy. Continue judicious use of tramadol and NSAIDs. Assessment & Plan (09/30/2023 7:20 AM EST): 10/27/22, Seen by Neurosurgeon for Intracranial Aneurysm; was recommended to follow-up in 1 year for evaluation Evaluation with MRI in 3-5 years His posterior headache is likely due to cervical degenerative disc disease. Pt declined a referral to garnishment specialist or physical therapy. Continue judicious use of tramadol and NSAIDs. Assessment & Plan (05/26/2023 9:45 AM EDT): 10/27/22, Seen by Neurosurgeon for Intracranial Aneurysm; was recommended to follow-up in 1 year for evaluation Evaluation with MRI in 3-5 years His posterior headache is likely due to cervical degenerative disc disease. Pt declined a referral to garnishment specialist or physical therapy. Continue judicious use of tramadol and NSAIDs. Assessment & Plan (01/24/2023 2:40 PM EDT): 10/27/22, Seen by Neurosurgeon for Intracranial Aneurysm; was recommended to follow-up in 1 year for evaluation Evaluation with MRI in 3-5 years Right internal carotid artery aneurysm Assessment & Plan (08/12/2024 5:44 AM EST): -small aneurysm seen on MRI/MRA in Sep 2022 -stable appearance on MRA/MRV in February 2024 -Pt does not have HTN, does not smoke cigarette, or drink alcohol -Pt states his sister has aneurysm -Seen by neurosurgeon in Mar 2024. Recommended follow-up in 1 year and MRA in 3- 5 years. Assessment & Plan (01/25/2024 11:43 AM EDT): -small aneurysm seen on MRI/MRA in Sep 2022 -Pt does not have HTN, does not smoke cigarette, or drink alcohol -Pt states his sister has aneurysm -Seen by neurosurgeon on 10/27/22. Recommended follow-up in 1 year and MRA in 3-5 years. Assessment & Plan (09/30/2023 7:21 AM EST): -small aneurysm seen on MRI/MRA in Sep 2022 -Pt does not have HTN, does not smoke cigarette, or drink alcohol -Pt states his sister has aneurysm -Seen by neurosurgeon on 10/27/22. Recommended follow-up in 1 year and MRA in 3-5 years. Assessment & Plan (01/31/2023 4:51 PM EDT): -small aneurysm seen on MRI/MRA in Sep 2022 -Pt does not have HTN, does not smoke cigarette, or drink alcohol -Pt states his sister has aneurysm -Seen by neurosurgeon on 10/27/22. Recommended follow-up in 1 year and MRA in 3-5 years. Assessment & Plan (10/12/2022 3:34 PM EST): -small aneurysm seen on MRI/MRA in Sep 2022 -Pt does not have HTN, does not smoke cigarette, or drink alcohol -Pt states his sister has aneurysm -will refer to a neurosurgeon for further evaluation and management Vitamin D deficiency 09/15/2022 Primary central sleep apnea 09/15/2022 Assessment & Plan (08/06/2024 10:59 AM EST): - Sleep Titration Study on 04/28/22 showed Central Sleep Apnea and obstructive sleep apnea -Recommended BiPAP use (his insurance is not willing to cover the cost of BiPAP currently) -Pt had Sleep Study Titration on 11/16/22. Recommended to start CPAP at 10cm of water -Continue CPAP (finally started in Aug 2023), improve adherence -Recommended seeing sleep time study analyst so he can get a more comfortable mask for his CPAP machine Assessment & Plan (01/25/2024 11:42 AM EDT): - Sleep Titration Study on 04/28/22 showed Central Sleep Apnea and obstructive sleep apnea -Recommended BiPAP use (his insurance is not willing to cover the cost of BiPAP currently) -Pt had Sleep Study Titration on 11/16/22. Recommended to start CPAP at 10cm of water -Continue CPAP (finally started in Aug 2023) Assessment & Plan (09/30/2023 7:20 AM EST): - Sleep Titration Study on 04/28/22 showed Central Sleep Apnea and obstructive sleep apnea -Recommended BiPAP use (his insurance is not willing to cover the cost of BiPAP currently) -Pt had Sleep Study Titration on 11/16/22. Recommended to start CPAP at 10cm of water -Continue CPAP (finally started in Aug 2023) Assessment & Plan (05/26/2023 9:40 AM EDT): - Sleep Titration Study on 04/28/22 showed Central Sleep Apnea and obstructive sleep apnea -Recommended BiPAP use (his insurance is not willing to cover the cost of BiPAP currently) -Referred to Sleep Medicine Clinic. Pt was advised to reschedule appt. -Pt had Sleep Study Titration on 11/16/22. Recommended to Start CPAP at 10cm of water -Check the status of CPAP and/or appt with sleep medicine clinic Assessment & Plan (01/24/2023 2:39 PM EDT): - Sleep Titration Study on 04/28/22 showed Central Sleep Apnea and obstructive sleep apnea -Recommended BiPAP use (his insurance is not willing to cover the cost of BiPAP currently) -Referred to Sleep Medicine Clinic. Pt was advised to reschedule appt. -Pt had Sleep Study Titration on 11/16/22. Recommended to Start CPAP at 10cm of water Assessment & Plan (10/12/2022 11:49 AM EST): - Sleep Titration Study on 04/28/22 showed Central Sleep Apnea and obstructive sleep apnea -Recommended BiPAP use (his insurance is not willing to cover the cost of BiPAP currently) -Referred to Sleep Medicine Clinic. Pt was advised to reschedule appt. Assessment & Plan (09/15/2022 12:51 PM EST): - Sleep Titration Study on 04/28/22 showed Central Sleep Apnea and obstructive sleep apnea -Recommended BiPAP use (his insurance is not willing to cover the cost of BiPAP currently) -Referred to Sleep Medicine Clinic. Pt was advised to reschedule appt. Subclinical hypothyroidism 09/15/2022 Assessment & Plan (09/30/2023 7:22 AM EST): - seen by steam hoist operator on 11/19/21, their impression was subclinical hypothyroidism, no graves disease - repeat TSH was 4.69 by steam hoist operator and pt has not been on levothyroxine - recommended to consider treatment if TSH >10 Assessment & Plan (05/26/2023 9:49 AM EDT): - seen by steam hoist operator on 11/19/21, their impression was subclinical hypothyroidism, no graves disease - repeat TSH was 4.69 by steam hoist operator and pt has not been on levothyroxine - recommended to consider treatment if TSH >10 Assessment & Plan (10/12/2022 3:35 PM EST): - seen by steam hoist operator on 11/19/21, their impression was subclinical hypothyroidism, no graves disease - repeat TSH was 4.69 and pt is not on medications at this time - plan to is repeat TSH in a few months and consider treatment if TSH >10 Possibly related to his current active issue of headache, weight loss. Will recheck lab since he has lost weight Assessment & Plan (09/15/2022 1:10 PM EST): - seen by steam hoist operator on 11/19/21, their impression was subclinical hypothyroidism, no graves disease - repeat TSH was 4.69 and pt is not on medications at this time - plan to is repeat TSH in a few months and consider treatment if TSH >10 Possibly related to his current active issue of headache, weight loss. Will recheck lab since he has lost weight Tubular adenoma of colon 09/17/2015 Assessment & Plan (08/12/2024 5:44 AM EST): - last colonoscopy in 2014 and had a polypectomy, tubular adenoma - patient was recommended to repeat in 2024 by GI (we called GI office, and they recommended 2024) Assessment & Plan (09/30/2023 7:26 AM EST): - last colonoscopy in 2014 and had a polypectomy, tubular adenoma - patient was recommended to repeat in 2024 by GI (we called GI office, and they recommended 2024) BPH (benign prostatic hyperplasia) 05/14/2015 Osteoarthritis 05/14/2015 Assessment & Plan (09/30/2023 7:22 AM EST): - continue staying physically active - continue judicious and responsible use of tramadol Assessment & Plan (01/24/2023 2:26 PM EDT): - continue staying physically active - continue judicious and responsible use of tramadol Assessment & Plan (09/15/2022 12:54 PM EST): - continue staying physically active - continue judicious and responsible use of tramadol Obesity 01/12/2015 Assessment & Plan (01/24/2023 2:25 PM EDT): - continue working on lifestyle modificaitons Assessment & Plan (09/15/2022 12:55 PM EST): - continue working on lifestyle modificaitons Prediabetes 02/24/2014 Assessment & Plan (08/12/2024 5:45 AM EST): -Discussed about lifestyle modifications Assessment & Plan (09/30/2023 7:22 AM EST): - A1C 6.0% on 05/24/23. 6.1% on 10/12/22 - continue working on lifestyle modifications - annual screening Assessment & Plan (05/26/2023 9:47 AM EDT): - A1C 6.0% on 05/24/23. 6.1% on 10/12/22 - continue working on lifestyle modifications - annual screening Assessment & Plan (01/31/2023 4:52 PM EDT): - A1c 6.1% on 10/12/22, increased from 5.7% on 06/02/22 - continue working on lifestyle modifications - annual screening Assessment & Plan (10/12/2022 11:57 AM EST): - A1c 6.1% on 10/12/22, slight increase from 5.7% on 06/02/22 - continue working on lifestyle modifications Assessment & Plan (09/15/2022 12:54 PM EST): - 06/02/22 A1C 5.7% - continue working on lifestyle modifications Chronic bilateral low back pain without sciatica 05/16/2012 Assessment & Plan (09/30/2023 7:23 AM EST): - exacerbated after accidents in November and February 2022 - continue judicious and responsible use of tramadol - continue staying physically active Assessment & Plan (05/26/2023 9:50 AM EDT): - exacerbated after accidents in November and February 2022 - continue judicious and responsible use of tramadol - continue staying physically active Assessment & Plan (01/24/2023 2:25 PM EDT): - exacerbated after accidents in November and February 2022 - continue judicious and responsible use of tramadol - continue staying physically active Assessment & Plan (10/12/2022 3:35 PM EST): - seen by steam hoist operator on 11/19/21, their impression was subclinical hypothyroidism, no graves disease - repeat TSH was 4.69 and pt is not on medications at this time - plan to is repeat TSH in a few months and consider treatment if TSH >10 Assessment & Plan (09/15/2022 1:07 PM EST): - exacerbated after accidents in November and February 2022 - continue judicious and responsible use of tramadol - continue staying physically active Dyslipidemia 05/16/2012 Assessment & Plan (08/12/2024 5:46 AM EST): Current medication: atorvastatin 10 mg qhs since Apr 2019 Last lipid profile: 10/04/23, reminded about lab before next appt Treatment Hx: He reported that he gets itching when he takes simvasatin at night, but no symptom when he takes in the morning. Switched from simvastatin to atorvastatin in Apr 2019 Continue working on lifestyle modifications Assessment & Plan (09/30/2023 7:23 AM EST): Current medication: atorvastatin 10 mg qhs since Apr 2019 Last lipid profile: 06/02/22 TC 173; TG 165; HDL 37; LDL 108 Treatment Hx: He reported that he gets itching when he takes simvasatin at night, but no symptom when he takes in the morning. Switched from simvastatin to atorvastatin in Apr 2019 Continue working on lifestyle modifications Assessment & Plan (05/26/2023 9:55 AM EDT): Current medication: atorvastatin 10 mg qhs since Apr 2019 Last lipid profile: 06/02/22 TC 173; TG 165; HDL 37; LDL 108 Treatment Hx: He reported that he gets itching when he takes simvasatin at night, but no symptom when he takes in the morning. Switched from simvastatin to atorvastatin in Apr 2019 Continue working on lifestyle modifications Assessment & Plan (01/31/2023 4:52 PM EDT): Current medication: atorvastatin 10 mg qhs since Apr 2019 Last lipid profile: 06/02/22 TC 173; TG 165; HDL 37; LDL 108 Treatment Hx: He reported that he gets itching when he takes simvasatin at night, but no symptom when he takes in the morning. Switched from simvastatin to atorvastatin in Apr 2019 Continue working on lifestyle modifications Assessment & Plan (09/15/2022 12:57 PM EST): Current medication: atorvastatin 10 mg qhs since Apr 2019 Last lipid profile: 06/02/22 TC 173; TG 165; HDL 37; LDL 108 Treatment Hx: He reported that he gets itching when he takes simvasatin at night, but no symptom when he takes in the morning. Switched from simvastatin to atorvastatin in Apr 2019 Continue working on lifestyle modifications Resolved Problems Problem Noted Date Diagnosed Date Resolved Date Acute headache 06/19/2024 08/12/2024 Assessment & Plan (06/19/2024 11:18 AM EST): In light of patient's history and severity of headache I presented case to emergency room of [facility] and refer patient to the emergency room, I offer to call ambulance patient declines, he reports he will go wit his brother in law Encounters Date Type Department Care Team Description 09/25/2024 Telephone [facility] [address] [place] [address] [phone] Madhuri Barakat, RN Care Management (C3CM- f/u call) 09/18/2024 Patient Outreach [address] [address] Natalie Posadas MD Care Coordination (Appt reminder) 09/16/2024 Orders Only [address] [place] [address] Natalie Posadas MD Preop examination (Primary Dx); AV block, 1st degree 09/14/[address] [address] Natalie Posadas MD Pain 09/12/[address] [address] Madhuri Barakat RN Care Management (C3- f/u call) 09/11/2024 10:00 AM EST Clinical Support [facility] [address] [place] [address] Jing Washington, bottler helper right-sided headache 09/11/2024 Telephone [facility] [address] [place] [address] Jing Washington, [place] 09/11/2024 Refill [facility] [address] [place] [address] Jing Wahsington, [place] Pain 09/11/2024 Travel 09/10/2024 Patient Outreach [address] [address] Natalie Posadas MD Care Coordination (Appt reminder) 09/05/[address] [address] Natalie Posadas MD Clearance needed 09/05/2024 Patient Outreach [address] [address] Natalie Posadas MD Care Coordination (PT1) 09/03/2024 Patient Outreach [address] [address] Natalie Posadas MD Care Coordination (SDOH/pt1) 09/03/[address] [address] Madhuri Barakat RN Care Management (C3CM- f/u call) 08/31/2024 Orders Only GENERIC EXTERNAL DATA DEPARTMENT Provider, Generic External Data 08/29/2024 Patient Outreach [facility] [place] [address] Natalie Posadas MD Care Coordination (Appt reminder) 08/26/2024 Patient Outreach [facility] [place] [address] Natalie Posadas MD Care Coordination (pt1) 08/22/2024 Telephone [facility] [place] [address] Madhuri Baarkat RN Care Management (C3CM- f/u call) 08/21/2024 Patient Outreach [facility] [place] [address] Natalie Posadas MD Care Coordination (PT1) 08/16/2024 Orders Only [facility] [place] [address] Natalie Posadas MD Elevated BP without diagnosis of hypertension (Primary Dx) 08/12/2024 Telephone [facility] [place] [address] Natalie Posadas MD 08/12/20[address] [place] [address] Madhuri Barakat RN Care Management (C3CM- f/u call) 08/12/2024 Patient Outreach [address] [address] Natalie Posadas MD Care Coordination (SDOH) 08/07/2024 Refill [facility] [place] [address] Natalie Posadas MD Pain 08/06/2024 9:15 AM EST Office Visit [facility] [place] [address] Natalie Posadas MD Chronic right-sided headache (Primary Dx); Primary central sleep apnea; Benign prostatic hyperplasia, unspecified whether lower urinary tract symptoms present; Prediabetes; Dyslipidemia; Occipital headache; Colon cancer screening; Right internal carotid artery aneurysm; Tubular adenoma of colon; Class 1 obesity due to excess calories with serious comorbidity and body mass index (BMI) of 32.0 to 32.9 in adult; Dietary counseling; Exercise counseling; Elevated BP without diagnosis of hypertension; Vitamin D deficiency; History of Helicobacter pylori infection 08/06/2024 Telephone [facility] [address] [place] [address] Natalie Posadas MD 08/06/2024 Travel 07/31/2024 10:40 AM EST Office Visit [facility] [address] [place] [phone] Aundrea Lui NP Cough in adult patient 07/30/[address] [address] Madhuri Barakat, [place] Care Management ([facility]- f/u call) 07/26/2024 Patient Outreach [address] [address] Natalie Posadas MD Care Coordination (SDMO) 07/22/[address] [address] Madhuri Barakat RN chart prep 07/18/2024 Patient Outreach [address] [address] Natalie Posadas MD Care Coordination (CM/CHW outreach) 07/18/2024 Refill [facility] [address] [place] [address] Natalie Posadas MD Pain 07/16/2024 Refill [facility] [address] [place] [address] Natalie Posadas MD Pain 07/10/2024 Patient Outreach [facility] [address] [place] [address] Natalie Posadas MD Care Coordination (CM/CHW outreach) 07/03/2024 Refill [facility] [address] [place] [address] Natalie Posadas MD Pain 07/02/2024 Patient Outreach [facility] [address] [place] [phone] Natalie Posadas MD Care Coordination (CM/CHW outreach) 06/26/2024 9:15 AM EST Office Visit [facility] [address] [place] [address] Apryl Decker MD Occipital headache (Primary Dx) 06/26/2024 Travel from Last 3 Months Immunizations Name Administration Dates Next Due Influenza Injectable Quadriv alant Preservative Free IIV4 MDCK 07/01/2020 Influenza injectable quadriv alent preservative free 05/21/2021,08/20/2018 Influenza, IIV3, injectable 08/27/2009 Influenza, Split (incl. shelli fied surface antigen) 07/08/2013 Moderna Covid-19 Vaccine 12+ 08/17/2021,01/14/20 21,12/08/2020 Moderna Covid-19 Vaccine 6+ Bivalent 08/12/2022 Pneumococcal Conjugate PCV 20 01/24/2023 Pneumococcal Polysaccharide PPSV23 07/25/2017 TD (adult), 2 Lf tetanus tox oid, preservative free, adsorbed 09/28/2023,10/01/2008 Tdap 07/08/2013 Zoster, Recombinant 05/22/2020,03/19/2020 Family History Medical History Relation Name Comments Asthma Brother Coronary artery disease Brother Diabetes Brother Hypertension Brother Lung cancer Brother Bone cancer Mother Asthma Sister Diabetes Sister Hypertension Sister Lung cancer Sister Relation Name Status Comments Brother Mother Sister Social History Tobacco Use Types Packs/Day Years Used Date Smoking Tobacco: Former Cigarettes 2 30 Smokeless Tobacco: Never Tobacco Cessation:Counseling Given: Not Answered Alcohol Use Standard Drinks/Week Comments Not Currently [...] Orientation Straight 08/12/2022 9: 04 AM EST Last Filed Vital Signs Vital Sign Reading Time Taken Comments Blood Pressure 130/90 08/06/2024 9:37 AM EST Pulse 64 08/06/2024 9:37 AM EST Temperature 36.3 ??C (97.3 ??F) 08/06/2024 8:58 AM ES T Respiratory Rate 15 08/06/2024 8:58 AM EST Oxygen Saturation 97% 08/06/2024 8:58 AM EST Inhaled Oxygen Concentration - - Weight 90.6 kg (199 lb 12.8 oz) 08/06/2024 8:58 AM EST Height 167.6 cm (5' 6 ) 06/26/2024 9:02 AM EST Body Mass Index 32.25 06/26/2024 9:02 AM EST Plan of Treatment Upcoming Encounters Date Type Department Care Team (Late st Contact Info) Description 10/07/2024 10:30 AM EST Office Visit [facility] [address] [place] [address] Natalie Posadas MD [address] [place] [address] 10/16/2024 9:15 AM EST Office Visit [address] [address] Natalie Posadas MD [address] [place] [address] 10/25/2024 10:30 AM EDT Office Visit [facility] OPTOMETRY [address] [place] [address] Seamus, Carolyn, OD [address] [place] [address] 11/26/2024 10:00 AM EDT Clinical Support [facility] PEDS [address] [place] [address] Jing Washington, RN [address] [place] [address] Health Maintenance Due Date Last Done Comments CT Colonography 1962 FIT DNA/Cologuard 1962 FIT 1962 FOBT 1962 Sigmoidoscopy 1962 Colonoscopy 06/03/2020 06/03/2015 Colorectal Cancer Screening 06/03/2020 COVID-19 Vaccine ( season) 2024 08/12/2022, 08/17/2021, 01/13/2021, Additional history exists Influenza Vaccine (#1) 2024 , 07/01/2020, 08/20/2018, Additional history exists Diabetes: Hemoglobin A1C 09/28/2024 024, 05/24/2023, 06/02/2022, Additional history exists SDOH Screening 09/28/2024 09/28/2023 Alcohol/Substance Use Screening 08/06/2025 08/06/2024 Depression Screening 08/06/2025 08/06/2024, 08/06/20 Tobacco Screening 08/06/2025 08/06/2024 Lipid Panel 08/31/2029 08/31/2024, 09/15, 06/02/2022, Additional history exists DTaP/Tdap/Td Vaccines (3 - Td or Tdap) 09/28/2033 09/28/2023, 07/08/2013, 10/01/2008 RSV Patients and Patients Aged 60 years or older (1 - 1-dose 75+ series) 2037 Zoster Vaccines Completed 05/22/2020, 03/19/2020 HIV Screening Completed 06/02/2022 Hepatitis C Screening Completed 06/02/2022 Pneumococcal Vaccine: 50+ Years Completed 01/24/2023, 07/25/2017 HIB Vaccines Aged Out No longer eligi ble based on patient's age to complete this topic HPV Vaccines Aged Out No longer eligi ble based on patient's age to complete this topic Hepatitis A Vaccines Aged Out No long er eligible based on patient's age to complete this topic Hepatitis B Vaccines Aged Out No long er eligible based on patient's age to complete this topic IPV Vaccines Aged Out No longer eligi ble based on patient's age to complete this topic Meningococcal Vaccine Aged Out No raymundo sabrina eligible based on patient's age to complete this topic RSV under 20 months Aged Out No longe r eligible based on patient's age to complete this topic Rotavirus Vaccines Aged Out No longer eligible based on patient's age to complete this topic Procedures Procedure Name Priority Date/Time Associated Diagnosis Comments POCT STEPHEN-14 URINE DRUG SCREEN Routine 09/11/2024 9:54 AM EST Chronic right-sided headache CANCELLED CHEMISTRY Routine 08/31/2024 9 :42 AM EST METHYLMALONIC ACID Routine 08/31/2024 9: 42 AM EST HOMOCYSTEINE Routine 08/31/2024 9:42 AM EST VITAMIN B12/FOLATE, SERUM PANEL Routine 08/31/2024 9:42 AM EST VITAMIN D,25-OH,TOTAL,IA Routine 08/31/2024 9:42 AM EST FERRITIN Routine 08/31/2024 9:42 AM EST TSH W/REFLEX TO FT4 Routine 08/31/2024 9 :42 AM EST Elevated BP without diagnosis of hypertension LIPID PANEL WITH REFLEX TO DIRECT LDL Routine 08/31/2024 9:42 AM EST Dyslipidemia ALBUMIN, RANDOM URINE W/CREATININE Routine 08/31/2024 9:38 AM EST Elevated BP without diagnosis of hypertension POCT INFLUENZA B (ID NOW RAPID MOLECULAR) Routine 07/31/2024 11:39 AM EST Cough in adult patient POCT INFLUENZA A (ID NOW RAPID MOLECULAR) Routine 07/31/2024 11:37 AM EST Cough in adult patient POCT RAPID COVID ANTIGEN Routine 07/31/2024 11:36 AM EST Cough in adult patient HEMOGLOBIN A1C Routine 09/28/2023 12:00 PM EST Prediabetes ZZZ HISTORICAL HEPATITIS C AB W/REFL TO HCV RNA, QN, PCR Routine 06/02/2022 10:20 AM EDT HIV 1/2 ANTIGEN/ANTIBODY, FOURTH GENERATION W/RFL Routine 06/02/2022 10:20 AM EDT HM COLONOSCOPY Routine 06/03/2015 from Last 3 Months or Most Recently Relevant to Health Maintenance Results * POCT STEPHEN-14 Urine Drug Screen (09/11/2024 9:54 AM EST) Urine Urine specimen obtained by clean catch procedure / Unknown 09/11/2024 9:54 AM EST Narrative Jing Washington RN - 09/11/2024 9:54 AM EST negative for THC, MOP, OXY, PETER, MET, AMP, BZO, BAR, MTD, BUPG, TCA, MDMA, PCP, PPX. Lot# [id number] Exp: 07-20-25 Natalie Posadas MD POINT OF CARE TEST ENTER/EDIT OR DERABLES Final Result * Cancelled Chemistry (08/31/2024 9:42 AM EST) Cancelled Chemistry SEE NOTE [facility] Comment:NO SPECIMEN RECEIVED FOR HGB A1C 08/31/2024 9:42 AM EST 08/31/2024 9:42 AM EST Natalie Posadas MD HISTORICAL/NON ORDERABLE LABS Fi nal Result Performing Organization Address [facility]/ZIP Co de Phone Number [facility] [address] [place] [address] [phone] * (ABNORMAL) Vitamin D, 25-Hydroxy, Total, Immunoassay (08/31/2024 9:42 AM EST) Vitamin D 25-OH Total 16.9(L) >30 ng/mL [facility] Comment:Health Based Referen ce Values*< 20 ng/mL Tzafkrnpj49-52 ng/mL Insufficient> 30 ng/mL Sufficient*Aramis GARVIN. N [...] ORDERAB LES Final Result Performing Organization Address City/[facility]/ZIP Co de Phone Number [facility] [address] [place] [address] [phone] * Vitamin B12 (Cobalamin) and Folate Panel, Serum (08/31/2024 9:42 AM EST) Vitamin B12 408 200 - 900 pg/mL [facility] Comment:NORMAL 200-900 PG/ML INDETERMINATE 160-199 PG/ML DEFICIENT < 160 PG/ML Folate 8.6 > or = 4.0 ng/mL [facility] Comment:Reference Values:> o r = 4.0 ng/mL< 4.0 ng/mL suggests folate deficiency Methotrexate, aminopterin and folinic acid(leucovorin) are chemotherapeutic agents whose molecularstructures are similar to folate; therefore, the Architectfolate assay cannot be used for patients using these drugs. 08/31/2024 9:42 AM EST 08/31/2024 9:42 AM EST us Generic External Data Provider LAB BLOOD ORDERAB LES Final Result Performing Organization Address [facility] Co de Phone Number [facility] [address] [place] [phone] * TSH with Reflex to Free T4 (08/31/2024 9:42 AM EST) TSH reflex Free T4 3.18 0.32 - 4.0 uIU/mL [facility] Blood 08/31/2024 9:42 AM EST 08/31/2024 9:42 AM EST us Natalie Posadas MD LAB BLOOD ORDERABLES Final Resul t Performing Organization Address [facility] Phone Number [facility] [address] [place] [phone] * (ABNORMAL) Lipid Panel with Reflex to Direct LDL (08/31/2024 9:42 AM EST) Triglycerides 88 <150 mg/dL [facility] Comment:Desirable Triglyceri de: less than 150 mg/dLBorderline High Triglyceride 150-199 mg/dLHigh Triglyceride: 200-499 mg/dLVery High Triglyceride: greater than or equal to 5OO mg/dL Cholesterol 175 <200 mg/dL [facility] Comment:Desirable Cholestero l: less than 200 mg/dLBorderline High Cholesterol: 200-239 mg/dLHigh Cholesterol: greater than 239 mg/dL LDL Cholesterol Calculated 116(H) <100 mg/dL [facility] Comment:Desirable LDL: less than 100 mg/dLNear Optimal/Above Optimal LDL: 110- 129 mg/dLBorderline High LDL: 130-159 mg/dLHigh LDL: 160-189 mg/dLVery High LDL: greater than or equal to 190 mg/dL HDL Cholesterol 42 >40 mg/dL [facility] Comment:Desirable HDL: great er than 40 mg/dL Note: This HDL assay may give artificially low results in patients with liver disease. Blood 08/31/2024 9:42 AM EST 08/31/2024 9:42 AM EST us Natalie Posadas MD LAB BLOOD ORDERABLES Final Resul t [facility] [address] [place], [place] [phone] * Methylmalonic Acid (08/31/2024 9:42 AM EST) Methylmalonic Acid 199 69 - 390 nmol/L [facility] Comment: Serum methylmalonic acid (MMA) [...] outcomes,such as neural tube defects and intrauterine growthrestriction.[employer] utilized Multi-Modal Decomposition(MMD) analysis to establish first and second trimester-specific MMA reference intervals in , as givenbelow:MMA, First trimester (<13 wks gestation): 58-167 nmol/LMMA, Second trimester (13-23 wks gestation):63-241 nmol/LThis test was developed and its analytical performancecharacteristics have been determined by [employer]. It has not been cleared or approved by theFDA. This assay has been validated pursuant to the CLIAregulations and is used for clinical purposes.THIS TEST WAS PERFORMED AT:[id number] [place], [place] ??[id number] EDWARDS MD,PHD 08/31/2024 9:42 AM EST 08/31/2024 9:42 AM EST us Generic External Data Provider LAB BLOOD ORDERAB LES Final Result Performing Organization Address [facility]/ZIP Co de Phone Number [facility] [address] [place] [phone] * (ABNORMAL) Homocysteine (08/31/2024 9:42 AM EST) Homocysteine 15.0(A) <11.4 umol/L [facility] Comment:Homocysteine is incr eased by functional deficiency offolate or vitamin B12. Testing for methylmalonic aciddifferentiates between these deficiencies. Other causesof increased homocysteine include renal failure, folateantagonists such as methotrexate and phenytoin, andexposure to nitrous oxide.Lui Castillo, et al., [employer] Med. 1999;131(5):331-9.THIS TEST WAS PERFORMED AT:[employer] [place] [id number] ARNOLD MD 08/31/2024 9:42 AM EST 08/31/2024 9:42 AM EST us Generic External Data Provider LAB BLOOD ORDERAB LES Final Result Performing Organization Address [facility] Co de Phone Number [facility] [address] [place] [phone] * Ferritin (08/31/2024 9:42 AM EST) Ferritin 149 20 - 250 ng/mL [facility] 08/31/2024 9:42 AM EST 08/31/2024 9:42 AM EST us Generic External Data Provider LAB BLOOD ORDERAB LES Final Result Performing Organization Address City/[facility]/ZIP Co de Phone Number [facility] [address] [place] [phone] * Albumin, Random Urine W/Creatinine (08/31/2024 9:38 AM EST) Creatinine, Urine 90.15 mg/dL [facility] Microalbumin Urine <5.0 mg/L [facility] Microalbum Creatinine Ratio Ur TNP <30 ug/mg cr [facility] Comment:Unable to calculate albumin/creatinine ratio due to lowmicroalbumin or creatinine result. Urine 08/31/2024 9:38 AM EST 08/31/2024 10:30 AM EST Natalie Posadas MD LAB URINE ORDERABLES Final Resul t Performing Organization Address [facility]/ZIP Co de Phone Number [facility] [address] [place] [phone] * Influenza B (ID NOW Rapid Molecular) (07/31/2024 11:39 AM EST) Influenza B Negative Negative, Indeterminate [facility] Swab 07/31/2024 11:3 9 AM EST us Aundrea Lui NP POINT OF CARE TEST ENTER/EDIT O RDERABLES Final Result Performing Organization Address [facility] Co de Phone Number [facility] [address] [place] [phone] * Influenza A (ID NOW Rapid Molecular) (07/31/2024 11:37 AM EST) Influenza A Negative Negative, Indeterminate [facility] Swab 07/31/2024 11:3 7 AM EST us Aundrea Lui BREAST WORKER POINT OF CARE TEST ENTER/EDIT O RDERABLES Final Result Performing Organization Address [facility] Co de Phone Number [facility] [address] [place] [phone] * POCT Rapid COVID Ag (07/31/2024 11:36 AM EST) Rapid COVID Ag Negative Swab 07/31/2024 11:3 6 AM EST us Aundrea Lui NP POINT OF CARE TEST ENTER/EDIT O RDERABLES Final Result * Hemoglobin A1c (09/28/2023 12:00 PM EST) Hemoglobin A1c 5.6 <6.0 % [facility] Comment:Hemoglobin A1C Refer ence Range Adults: 4.8 - 6.0 % Non diabetic: < 6.0 % Goal: < 7.0 %Additional Action Suggested: > 8.0 %Note: Hemoglobin A1c results are invalid for patients with abnormal amounts of HbF. Blood transfusions may impact the HbA1c concentration in the patient sample. Estimated Average Glucose 114 mg/dL [facility] Comment:eAG = Estimated ave rage glucose which is %A1C expressed asaverage glucose, using the formula of the Y4Q-QefukevBykeycr Glucose study (ADAG), Diabetes Care, Vol.31,#8,Mar. 2007 Blood Venous blood specimen / Unknown 09/28/2023 12:00 PM EST 09/28/2023 1:03 PM EST Natalie Posadas MD LAB BLOOD ORDERABLES Final Resul t [facility] [address] [place] [phone] * HEPATITIS C AB W/REFL TO HCV RNA, QN, PCR (06/02/2022 10:20 AM EDT) HEPATITIS C ANTIBODY NON-REACTI VE NON-REACT GREGORY [facility]GACY LABS INDEX 0.08 <1.00 [facility] Comment: ?? HCV antibody was non-reactive. There is no laboratory ?? evidence of HCV infection. ?? In most cases, no further action is required. However, if recent HCV exposure is suspected, a test for HCV RNA (test code 19137) is suggested. ?? For additional information please refer to http://[employer]/faq/JKF08s5 (This link is being provided for informational/ educational purposes only.) ?? 06/02/2022 10:2 0 AM EDT Natalie Posadas MD HISTORICAL/NON ORDERABLE LABS Fi nal Result [facility]GACY LABS * HIV 1/2 ANTIGEN/ANTIBODY,FOURTH GENERATION W/RFL (06/02/2022 10:20 AM EDT) HIV-1/2 ANTIGEN AND ANTIBODIES, 4TH GENERATION W/ REFLEX NON-REACT GREGORY NON-REACT GREGORY [facility] Comment: HIV-1 antigen and HIV-1/HIV-2 antibodies were not detected. There is no laboratory evidence of HIV infection. ?? PLEASE NOTE: This information has been disclosed to you from records whose confidentiality may be protected by state law. ??If your state requires such protection, then the state law prohibits you from making any further disclosure of the information without the specific written consent of the person to whom it pertains, or as otherwise permitted by law. A general authorization for the release of medical or other information is NOT sufficient for this purpose. ? For additional information please refer to http://[employer]/faq/DXC918 (This link is being provided for informational/ educational purposes only.) ? The performance of this assay has not been clinically validated in patients less than 2 years old. ?? 06/02/2022 10:2 0 AM EDT Natalie Posadas MD LAB BLOOD ORDERABLES Final Resul t CONVERTED [facility]GACY LABS * Hm Colonoscopy (06/03/2015) Colonoscopy Normal Normal 06/03/2015 See Chong MD HEALTH MAINTENANCE Edited Re sult - Final from Last 3 Months or Most Recently Relevant to Health Maintenance Insurance [facility] C3 Care Teams Manager Labor Delivery Relationship Specialty Start Date End Date Natalie Posadas MD [address] [place] [phone] PCP - General Family Medicine 08/14/18
--- OUTSIDE RECORDS SUMMARY | 2024-09-25 12:34 | XMS_ITS | Encounter Summary ---
Author Organization Phone [employer] Address [address] [facility] [address] [place] [address] Care Team Providers Care Brick Setter Name Role Phone Natalie Posadas MD Primary Care Provider [phone] Reason for Visit * Reason Comments Med Refill Encounter Details Date Type Department Care Team (Late st Contact Info) Description 11/18/2022 Refill [facility] [address] [place], [place] [phone] Natalie Posadas MD [address] [place], [place] [phone] Pain Social History Tobacco Use Types Packs/Day [...] Telephone Encounter - Karin Tate RN - 11/18/2022 9:25 AM EDT Already sent to [facility] [employer] nurse * Telephone Encounter - Charity Canalesona - 11/18/2022 9:18 AM EDT Patient walked in requesting medication refill of Tramadol 50MG. He doesn't have any left and it was supposed to be refilled on the 3rd of the month. documented in this encounter Plan of Treatment Upcoming Encounters Date Type Department Care Team (Late st Contact Info) Description 10/07/2024 10:30 AM EST Office Visit [facility] [address] [place] [address] Natalie Posadas MD [address] [place] [address] 10/16/2024 9:15 AM EST Office Visit [facility] [address] [place] [address] Natalie Posadas MD [address] [place] [address] 10/25/2024 10:30 AM EDT Office Visit [facility] OPTOMETRY [address] [place] [address] Seamus, Carolyn, OD [address] [place] [address] 11/26/2024 10:00 AM EDT Clinical Support [facility] [address] [place], [place] [phone] Jing Washington, RN [address] [place] [address] documented as of this encounter Visit Diagnoses Diagnosis Pain Generalized pain documented in this encounter Additional Health Concerns Assessment Noted Time PHQ-9 Depression Total Score: 0 09/15/19 23 11:23 AM EST documented as of this encounter Care Teams Brick Setter Relationship Specialty Start Date End Date Natalie Posadas MD [address] [place] [address] PCP - General Family Medicine 08/14/18 documented as of this encounter
--- OUTSIDE RECORDS SUMMARY | 2024-09-25 12:34 | XMS_ITS | Encounter Summary ---
Author Organization [employer] Address [address] [facility] [address] [place] [address] Care Team Providers Care Rn New Graduate Name Role Phone Natalie Posadas MD Primary Care Provider [phone] Reason for Visit * Reason Comments Care Coordination Appt reminder Encounter Details Date Type Department Care Team (Latest Contact Info) Description 08/29/2024 Patient Outreach [facility] [address] [place], [place] [phone] Natalie Posadas MD [address] [place], [place] [phone] Care Coordination (Appt reminder) Social History Tobacco [...] encounter Progress Notes * Deann Villalobos - 08/29/2024 8:13 AM EST CHW Deann Villalobos placed call to patient to remind of sleep appt for today at 830 in sleep and neuro in [facility]. Patient stated nephew brought him to the appt. CHW will f/u with patient within 10 days. documented in this encounter Plan of Treatment Upcoming Encounters Date Type Department Care Team (Late st Contact Info) Description 10/07/2024 10:30 AM EST Office Visit [facility] [address] [place] [address] Natalie Posadas MD [address] [place] [address] 10/16/2024 9:15 AM EST Office Visit [facility] [address] [place] [address] Natalie Posadas MD [address] [place] [address] 10/25/2024 10:30 AM EDT Office Visit [facility] OPTOMETRY [address] [place] [address] Seamus, Carolyn, OD [address] [place] [address] 11/26/2024 10:00 AM EDT Clinical Support [facility] [address] [place] [address] Jing Washington, RN [address] [place] [address] documented as of this encounter Visit Diagnoses Not on filedocumented in this encounter Additional Health Concerns Assessment Noted Time PHQ-9 Depression Total Score: 3 08/06/20 24 8:58 AM EST documented as of this encounter Care Teams Rn New Graduate Relationship Specialty Start Date End Date Natalie Posadas MD [address] [place] [phone] PCP - General Family Medicine 08/14/18 documented as of this encounter
--- OUTSIDE RECORDS SUMMARY | 2024-09-25 12:34 | XMS_ITS | Encounter Summary ---
Author Organization [employer] Address [address] [facility] [place] [address] Care Team Providers Care [employer] Safety Program Coordinator Name Role Phone Natalie Posadas MD Primary Care Provider [phone] Reason for Visit * Reason Onset Date Comments Med Refill 09/11/2024 Encounter Details Date Type Department Care Team ([facility] Contact Info) Description 09/11/2024 Refill [facility] [address] [place], [place] [phone] Jing Washington, RN [address] [place] [address] Pain Social History Tobacco Use Types Packs/Day [...] Description 10/07/2024 10:30 AM EST Office Visit [facility] [address] [place] [phone] Natalie Posadas MD [address] [place] [address] 10/16/2024 9:15 AM EST Office Visit [facility] [address] [place] [address] Natalie Posadas MD [address] [place] [address] 10/25/2024 10:30 AM EDT Office Visit [facility] OPTOMETRY [address] [place] [address], OD [address] [place] [address] 11/26/2024 10:00 AM EDT Clinical Support [facility] [address] [place] [address] Jing Washington, [employer] [address] [place] [address] documented as of this encounter Visit Diagnoses Diagnosis Pain Generalized pain documented in this encounter Additional Health Concerns Assessment Noted Time PHQ-9 Depression Total Score: 3 08/06/20 8:58 AM EST documented as of this encounter Care Teams [employer] Safety Program Coordinator Relationship Specialty Start Date End Date Natalie Posadas MD [address] [place] [address] PCP - General Family Medicine 08/14/18 documented as of this encounter
--- OUTSIDE RECORDS SUMMARY | 2024-09-25 12:34 | XMS_ITS | Encounter Summary ---
Author Organization [employer] Address [address] 7t [place] [address] Care Team Providers Care Tag Marker Name Role Phone Natalie Posadas MD Primary Care Provider [phone] Encounter Details Date Type Department Care Team (Latest Contact Info) Description 09/11/2024 Travel Social History Tobacco Use Types Packs/Day Years [...] 10:30 AM EST Office Visit [facility] 230 [place] [address] Natalie Posadas MD 230 [place] [address] 10/16/2024 9:15 AM EST Office Visit [facility] [address] [place] [address] Natalie Posadas MD 230 [place] [address] 10/25/2024 10:30 AM EDT Office Visit [facility] [address] [place] [address] Seamus, Carolyn, OD 230 [place] [address] 11/26/2024 10:00 AM EDT Clinical Support [facility] 505 [place] [address] Jing Washington, CUAUHTEMOC 505 [place] [address] documented as of this encounter Visit Diagnoses Not on filedocumented in this encounter Additional Health Concerns Assessment Noted Time PHQ-9 Depression Total Score: 3 08/06/20 24 8:58 AM EST documented as of this encounter Care Teams Tag Marker Relationship Specialty Start Date End Date Natalie Posadas MD [address] [place] [address] PCP - General Family Medicine 08/14/18 documented as of this encounter
--- OUTSIDE RECORDS SUMMARY | 2024-09-25 12:34 | XMS_ITS | Encounter Summary ---
Author Organization [employer] Address [address] 7t [place] [address] Care Team Providers Care Hot Wound Spring Production Supervisor Name Role Phone Natalie Posadas MD Primary Care Provider [phone] Reason for Visit * Reason Comments controlled substance treatment Encounter Details Date Type Department Care Team (Latest Contact Info) Description 09/11/2024 10:00 AM EST Clinical Support [facility] 505 [place], [place] [phone] Jing Washington, CUAUHTEMOC 505 [place] [address] Chronic right-sided headache Social History Tobacco Use Types Packs/Day [...] as of this encounter Progress Notes * Jing Washington RN - 09/11/2024 10:00 AM EST 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 Prescribed tramadol 50mg PO q12h PRN. States has been taking as prescribed. Pt denies use of nicotine/ETOH/street drugs/marijuana. Currently rates pain a 03/23, states and states took Tramadol this am. States Tramadol is usually 50% effective at alleviating pain. Current pain site is headand neck. States he uses heat, Motrin PRN. No questions/ concerns at this time. 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 Rx last filled on 08/13/24. Pill count performed. Pt has 0 pills at this time, 0 expected. Medication is not overused by patient. Utox performed, negative for all tested substance, as expected. 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 P: Patient to continue taking medication only as prescribed; Next PROVISIONING ANALYST RV appointment scheduled for 11/26/24 @ 10a. F/u with PCP 10/16/24. F/U sooner PRN. Patient verbalized understanding and agreed to plan. documented in this encounter Plan of Treatment Upcoming Encounters Date Type Department Care Team (Late st Contact Info) Description 10/07/2024 10:30 AM EST Office Visit [facility] 230 [place] [address] Natalie Posadas MD 230 [place] [address] 10/16/2024 9:15 AM EST Office Visit [facility] 230 [place] [address] Natalie Posadas MD [address] [place] [address] 10/25/2024 10:30 AM EDT Office Visit [facility] OPTOMETRY [address] [place] [address] Seamus, Carolyn, OD 230 [place] [address] 11/26/2024 10:00 AM EDT Clinical Support [facility] 505 [place] [address] Jing Washington, RN 505 [place] [address] documented as of this encounter Procedures Procedure Name Priority Date/Time Associated Diagnosis Comments POCT STEPHEN-14 URINE DRUG SCREEN Routine 09/11/2024 9:54 AM EST Chronic right-sided headache documented in this encounter Results * POCT STEPHEN-14 Urine Drug Screen (09/11/2024 9:54 AM EST) Urine Urine specimen obtained by clean catch procedure / Unknown 09/11/2024 9:54 AM EST Narrative Jing Washington RN - 09/11/2024 9:54 AM EST negative for THC, MOP, OXY, PETER, MET, AMP, BZO, BAR, MTD, BUPG, TCA, MDMA, PCP, PPX. Lot# [id number] Exp: 07-20-25 Natalie Posadas MD POINT OF CARE TEST ENTER/EDIT OR DERABLES Final Result documented in this encounter Visit Diagnoses Diagnosis Chronic right-sided headache documented in this encounter Additional Health Concerns Assessment Noted Time PHQ-9 Depression Total Score: 3 08/06/20 24 8:58 AM EST documented as of this encounter Care Teams Hot Wound Spring Production Supervisor Relationship Specialty Start Date End Date Natalie Posadas MD [address] [place] [address] PCP - General Family Medicine 08/14/18 documented as of this encounter
--- OUTSIDE RECORDS SUMMARY | 2024-09-25 12:35 | XMS_ITS | Encounter Summary ---
Author Organization [employer] Address [address] 7[address] [place] [address] Care Team Providers Care Rehabilitation Program Coordinator Name Role Phone Natalie Posadas MD Primary Care Provider [phone] Encounter Details Date Type Department Care Team ([facility] st Contact Info) Description 09/16/2024 Orders Only [facility] [address] [place], [place] [phone] Natalie Posadas MD 230 [place] [address] Preop examination (Primary Dx); AV block, 1st degree Social History Tobacco Use Types Packs/Day Years [...] Description 10/07/2024 10:30 AM EST Office Visit [facility] 230 [place] [address] Natalie Posadas MD [address] [place] [address] 10/16/2024 9:15 AM EST Office Visit [facility] 230 [place] [address] Natalie Posadas MD 230 [place] [address] 10/25/2024 10:30 AM EDT Office Visit [facility] OPTOMETRY [address] [place] [address], OD 230 [place] [address] 11/26/2024 10:00 AM EDT Clinical Support [facility] 505 [place], [place] [phone] Jing Washington, CUAUHTEMOC 505 [place], [place] Scheduled Orders Name Type Priority Associated Diagnoses Orde r Schedule ECG 12 lead ECG Routine Preop examination AV block, 1st degree Ordered: 09/16/2024 documented as of this encounter Visit Diagnoses Diagnosis Preop examination- Primary Unspecified pre-operative examination AV block, 1st degree First degree atrioventricular block documented in this encounter Additional Health Concerns Assessment Noted Time PHQ-9 Depression Total Score: 3 08/06/20 24 8:58 AM EST documented as of this encounter Care Teams Rehabilitation Program Coordinator Relationship Specialty Start Date End Date Natalie Posadas MD 230 [place] [address] PCP - General Family Medicine 08/14/18 documented as of this encounter
--- OUTSIDE RECORDS SUMMARY | 2024-09-25 12:35 | XMS_ITS | Encounter Summary ---
Author Organization [employer] Address [address] 7t [place] [address] Care Team Providers Care Brazing Furnace Feeder Name Role Phone Natalie Posadas MD Primary Care Provider [phone] Reason for Visit * Reason Comments Med Refill Encounter Details Date Type Department Care Team ([facility] st Contact Info) Description 07/03/2024 Refill [facility] 230 [place], [place] [phone] Natalie Posadas MD [address] [place], [place] [phone] Pain Social History Tobacco Use Types Packs/Day [...] EST Office Visit [facility] [address] [place] [address] Natalie Posadas MD 230 [place] [address] 10/16/2024 9:15 AM EST Office Visit [facility] [address] [place] [address] Natalie Posadas MD 230 [place] [address] 10/25/2024 10:30 AM EDT Office Visit [facility] OPT[facility] [address] [place] [address], OD 230 [place] [address] 11/26/2024 10:00 AM EDT Clinical Support [facility] 505 [place] [address] Jing Washington, CUAUHTEMOC 505 [place] [address] documented as of this encounter Visit Diagnoses Diagnosis Pain Generalized pain documented in this encounter Additional Health Concerns Assessment Noted Time PHQ-9 Depression Total Score: 7 09/28/19 24 11:21 AM EST documented as of this encounter Care Teams Brazing Furnace Feeder Relationship Specialty Start Date End Date Natalie Posadas MD [address] [place] [address] PCP - General Family Medicine 08/14/18 documented as of this encounter
--- OUTSIDE RECORDS SUMMARY | 2024-09-25 12:35 | XMS_ITS | Encounter Summary ---
Author Organization [employer] Address [address] 7t [place] [address] Care Team Providers Care Tile Installer Name Role Phone Natalie Posadas MD Primary Care Provider [phone] Encounter Details Date Type Department Care Team (Late st Contact Info) Description 12/01/2023 Telephone [facility] OPTOMETRY [address] [place] [address] Seamus, Carolyn, OD [address] [place] [address] Social History Tobacco Use Types Packs/Day Years [...] encounter Miscellaneous Notes * Telephone Encounter - Yudy Ro - 12/01/2023 3:26 PM EDT Called Patient inform him about appt. At [facility] [address] Padilla Appt. 12/05/2023 @ 10:5am documented in this encounter Plan of Treatment Upcoming Encounters Date Type Department Care Team (Late st Contact Info) Description 10/07/2024 10:30 AM EST Office Visit [facility] [address] [place] [address] Natalie Posadas MD 230 [place] [address] 10/16/2024 9:15 AM EST Office Visit [facility] 230 [place] [address] Natalie Posadas MD 230 [place] [address] 10/25/2024 10:30 AM EDT Office Visit [facility] OPTOMETRY [address] [place] [address] Seamus, Carolyn, OD 230 [place] [address] 11/26/2024 10:00 AM EDT Clinical Support [facility] 505 [place] [address] Jing Washington, RN [address] [place] [address] documented as of this encounter Visit Diagnoses Not on filedocumented in this encounter Additional Health Concerns Assessment Noted Time PHQ-9 Depression Total Score: 7 09/28/19 24 11:21 AM EST documented as of this encounter Care Teams Tile Installer Relationship Specialty Start Date End Date Natalie Posadas MD 230 [place] [address] PCP - General Family Medicine 08/14/18 documented as of this encounter
--- OUTSIDE RECORDS SUMMARY | 2024-09-25 12:35 | XMS_ITS | Encounter Summary ---
Author Organization [employer] Address [address] 7t [place] [address] Care Team Providers Care Academic Registrar Name Role Phone Natalie Posadas MD Primary Care Provider [phone] Reason for Visit * Reason Comments Med Refill Encounter Details Date Type Department Care Team ([facility] st Contact Info) Description 09/14/2024 Refill [facility] 230 [place], [place] [phone] Natalie Posadas MD 230 [place], [place] [phone] Pain Social History Tobacco Use Types Packs/Day [...] EST Office Visit [facility] [address] [place] [address] Natalie Posadas MD 230 [place] [address] 10/16/2024 9:15 AM EST Office Visit [facility] [address] [place] [address] Natalie Posadas MD 230 [place] [address] 10/25/2024 10:30 AM EDT Office Visit [facility] OPTOMETRY [address] [place] [address], OD 230 [place] [address] 11/26/2024 10:00 AM EDT Clinical Support [facility] 505 [place] [address] Jing Washington, CUAUHTEMOC 505 [place] [address] documented as of this encounter Visit Diagnoses Diagnosis Pain Generalized pain documented in this encounter Additional Health Concerns Assessment Noted Time PHQ-9 Depression Total Score: 3 08/06/20 8:58 AM EST documented as of this encounter Care Teams Academic Registrar Relationship Specialty Start Date End Date Natalie Posadas MD [address] [place] [address] PCP - General Family Medicine 08/14/18 documented as of this encounter
--- OUTSIDE RECORDS SUMMARY | 2024-09-25 12:35 | XMS_ITS | Encounter Summary ---
Author Organization [employer] Address [address] 7t [place] [address] Care Team Providers Care Sap Solution Manager Consultant Name Role Phone Natalie Posadas MD Primary Care Provider [phone] Reason for Visit * Reason Comments Med Refill Encounter Details Date Type Department Care Team ([facility] st Contact Info) Description 11/24/[address] [facility] 230 [place], [place] [phone] Natalie Posadas MD 230 [place], [place] [phone] Pain Social History Tobacco Use Types Packs/Day [...] Description 10/07/2024 10:30 AM EST Office Visit [facility] [address] [place] [address] Natalie Posadas MD 230 [place] [address] 10/16/2024 9:15 AM EST Office Visit [facility] [address] [place] [address] Natalie Posadas MD 230 [place] [address] 10/25/2024 10:30 AM EDT Office Visit [facility] [address] [place] [address], OD 230 [place] [address] 11/26/2024 10:00 AM EDT Clinical Support [facility] 505 [place] [address] Jing Washington, CUAUHTEMOC 505 [place] [address] documented as of this encounter Visit Diagnoses Diagnosis Pain Generalized pain documented in this encounter Additional Health Concerns Assessment Noted Time PHQ-9 Depression Total Score: 7 09/28/19 24 11:21 AM EST documented as of this encounter Care Teams Sap Solution Manager Consultant Relationship Specialty Start Date End Date Natalie Posadas MD 230 [place] [address] PCP - General Family Medicine 08/14/18 documented as of this encounter
--- OUTSIDE RECORDS SUMMARY | 2024-09-25 12:35 | XMS_ITS | Encounter Summary ---
Author Organization [employer] Address [address] 7t [place] [address] Care Team Providers Care Knifer Up Name Role Phone Natalie Posadas MD Primary Care Provider [phone] Reason for Visit * Reason Comments Med Refill Encounter Details Date Type Department Care Team ([facility] st Contact Info) Description 09/17/2023 Refill [facility] 230 [place], [place] [phone] Natalie Posadas MD 230 [place], [place] [phone] Pain Social History Tobacco Use Types Packs/Day Years Used Date Smoking Tobacco: Every Day Cigarettes 2 30 Smokeless Tobacco: Never Depression Answer Date Recorded Patient Health Questionnaire-9 Score 0 09/15/2022 Housing Stability Answer Date Recorded What is your housing situation today? I have jessica kendall 05/31/[address] you li ve. Do you have problems with any of the following? None of the above 05/31/2023 Food Insecurity Answer Date Recorded Within the past 12 months, y ou worried that your food would run out before you got money to buy more: Never True 05/31/2023 Within the past 12 months,th e food you bought just didn't last and you didn't have enough money to get more: Never True Transportation Answer Date Recorded In the past 12 months, has l ack of transportation kept you from medical appts, meetings, work or from getting things needed for daily living? No 05/31/2023 Utilities Answer Date Recorded In the past 12 months, has t he electric, gas, oil or water company threatened to shut off services in your home? No 05/31/2023 Depression Answer Date Recorded Patient Health Questionnaire-2 [...] Description 10/07/2024 10:30 AM EST Office Visit [facility] 230 [place] [address] Natalie Posadas MD 230 [place] [address] 10/16/2024 9:15 AM EST Office Visit [address] [address] Natalie Posadas MD 230 [place] [address] 10/25/2024 10:30 AM EDT Office Visit [facility] OPT[facility] [address] [place] [address] Seamus, Carolyn, OD 230 [place] [address] 11/26/2024 10:00 AM EDT Clinical Support [facility] 505 [place] [address] Jing Washington, CUAUHTEMOC 505 [place] [address] documented as of this encounter Visit Diagnoses Diagnosis Pain Generalized pain documented in this encounter Additional Health Concerns Assessment Noted Time PHQ-9 Depression Total Score: 0 09/15/19 23 11:23 AM EST documented as of this encounter Care Teams Knifer Up Relationship Specialty Start Date End Date Natalie Posadas MD [address] [place] [address] PCP - General Family Medicine 08/14/18 documented as of this encounter
--- OUTSIDE RECORDS SUMMARY | 2024-09-25 12:35 | XMS_ITS | Encounter Summary ---
Author Organization [employer] Address [address] [facility] 7t [place] [address] Care Team Providers Care Web Administrator Name Role Phone Natalie Posadas MD Primary Care Provider [phone] Reason for Visit * Reason Comments Care Coordination Appt reminder Encounter Details Date Type Department Care Team (Latest Contact Info) Description 09/18/2024 Patient Outreach [facility] 230 [place], [place] [phone] Natalie Posadas MD 230 [place], [place] [phone] Care Coordination (Appt reminder) Social History Tobacco [...] encounter Progress Notes * Deann Villalobos - 09/18/2024 10:26 AM EST CHW Deann Villalobos placed outbound call to patient introducing herself from [facility] CM Department, in regard to remind patient of appt for 09/19/23 @ 12PM with [facility] neurology [address]. Patient's name and was confirmed. Patient is aware and confirmed will be available and has no barriers on attending this appointment. Patient verbalized understanding and agrees with plan. documented in this encounter Plan of Treatment Upcoming Encounters Date Type Department Care Team ([facility] st Contact Info) Description 10/07/2024 10:30 AM EST Office Visit [facility] [address] [place] [address] Natalie Posadas MD [address] [place] [address] 10/16/2024 9:15 AM EST Office Visit [facility] [address] [place] [address] Natalie Posadas MD 230 [place] [address] 10/25/2024 10:30 AM EDT Office Visit [facility] OPT[facility] [address] [place] [address], OD 230 [place] [address] 11/26/2024 10:00 AM EDT Clinical Support [facility] 505 [place] [address] Jing Washington, RN 505 [place] [address] documented as of this encounter Visit Diagnoses Not on filedocumented in this encounter Additional Health Concerns Assessment Noted Time PHQ-9 Depression Total Score: 3 08/06/20 24 8:58 AM EST documented as of this encounter Care Teams Web Administrator Relationship Specialty Start Date End Date Natalie Posadas MD 230 [place] [address] PCP - General Family Medicine 08/14/18 documented as of this encounter
--- OUTSIDE RECORDS SUMMARY | 2024-09-25 12:35 | XMS_ITS | Encounter Summary ---
Author Organization [employer] Address [address] 7[address] [place] [address] Care Team Providers Care Substance Abuse Therapist Name Role Phone Natalie Posadas MD Primary Care Provider [phone] Reason for Visit * Reason Comments Med Refill Encounter Details Date Type Department Care Team (Late st Contact Info) Description 09/12/2023 Refill [facility] [address] [place], [place] [phone] Natalie Posadas MD [address] [facility] [place], [place] [phone] Pain Social History Tobacco Use Types Packs/Day [...] 10:30 AM EST Office Visit [facility] 230 [place] [address] Natalie Posadas MD [address] [place] [address] 10/16/2024 9:15 AM EST Office Visit [facility] [address] [place] [address] Natalie Posadas MD [address] [place] [address] 10/25/2024 10:30 AM EDT Office Visit [facility] OPT[facility]RY [address] [place] [address], OD 230 [place] [address] 11/26/2024 10:00 AM EDT Clinical Support [facility] 505 [place] [address] Jing Washington, CUAUHTEMOC 505 [place] [address] documented as of this encounter Visit Diagnoses Diagnosis Pain Generalized pain documented in this encounter Additional Health Concerns Assessment Noted Time PHQ-9 Depression Total Score: 0 09/15/19 23 11:23 AM EST documented as of this encounter Care Teams Substance Abuse Therapist Relationship Specialty Start Date End Date Natalie Posadas MD [address] [place] [address] PCP - General Family Medicine 08/14/18 documented as of this encounter
--- OUTSIDE RECORDS SUMMARY | 2024-09-25 12:35 | XMS_ITS | Encounter Summary ---
Author Organization [employer] Address [address] 7t [place] [address] Care Team Providers Care Cash Clerk Name Role Phone Natalie Posadas MD Primary Care Provider [phone] Reason for Visit * Reason Onset Date Comments Care Management 09/12/2024 C3CM- f/u call Encounter Details Date Type Department Care Team (Late st Contact Info) Description 09/12/2024 Telephone [facility] MEDICINE [address] [place] [address] Madhuri Barakat RN [address] [place], [place] [phone] Care Management (C3CM- f/u call) Social History [...] Telephone Encounter - Madhuri Barakat RN - 09/12/2024 11:03 AM EST CM Madhuri Barakat RN placed outbound call to patient. Patient's name, and address confirmed. Patient states is doing well with no recent illnesses or emergency room visits. Patient states he was contacted with lab results from 08/29/24. He states he started the medications that were prescribed by his specialist. He denies any concerns with meds. CM informed patient the tramadol was sent to [facility] yesterday. Per patient, picked up Rx yesterday. ADELITA advised patient that GI called PCP's office recently regarding clearance for the colonoscopy. Awaiting PCP response. In regards to request for LINE PRODUCER services, patient states he is waiting to speak with his niece to see if she can call the company to help set this up. He agrees to contact CM if in need of additional assistance with obtaining the LINE PRODUCER hours. He agrees. No further questions or concerns. CM reinforced direct contact information for any additional questions or concerns. Education provided on [facility]. Patient provided with after-hours line for [facility], , which offer night time triage service and option to transfer to communications billing analyst provider if needed. Patient verbalizes understanding, and able to r epeat back to securities underwriter. A follow up call will be placed within 10 days, patient agrees with plan. documented in this encounter Plan of Treatment Upcoming Encounters Date Type Department Care Team (Late st Contact Info) Description 10/07/2024 10:30 AM EST Office Visit [facility] [address] [place] [address] Natalie Posadas MD 230 [place] [address] 10/16/2024 9:15 AM EST Office Visit [facility] [address] [place] [address] Nataile Posadas MD [address] [place] [address] 10/25/2024 10:30 AM EDT Office Visit [facility] OPTOMETRY [address] [place] [address] SeamusCarolyn rodriguez, OD 230 [place] [address] 11/26/2024 10:00 AM EDT Clinical Support [facility] MED [facility] PEDS 505 [place] [address] Jing Washington, CUAUHTEMOC 505 [place] [address] documented as of this encounter Visit Diagnoses Not on filedocumented in this encounter Additional Health Concerns Assessment Noted Time PHQ-9 Depression Total Score: 3 08/06/20 24 8:58 AM EST documented as of this encounter Care Teams Cash Clerk Relationship Specialty Start Date End Date Natalie Posadas MD 230 [place] [address] PCP - General Family Medicine 08/14/18 documented as of this encounter
[2024-09-25 14:16] LABS: Estimated Average Glucose 117 mg/dL; Hemoglobin A1C 155.7542 umol/L; Hemoglobin A1c % 5.7 % (<6.0); Total Hemoglobin (HGBA1C) 3985.7425 umol/L
[2024-09-25 14:55] LABS: Vitamin D 25-OH Total 55.3 ng/mL (>30)
== END 2024-09-25 10:46 | disposition home or self-care (01) ==
LOC: HO.HHCL 10:45
PROVIDERS: Visit Provider Family Medicine
DX: R73.03 Prediabetes (principal); E55.9 Vitamin D deficiency, unspecified
CPT/HCPCS: 36415; 82306; 83036

== ENCOUNTER → 2024-10-08 11:23 | Outpatient (REF) | payer MEDICAID, SELFPAY ==
--- NOTE | ~2024-10-08 | XR_ITS ---
EXAMINATION: XR CHEST 2 VIEWS HISTORY: exertional dyspnea, CONSTANTINO, crackles on right lung base COMPARISON: Comparison is made with the prior examination dated 03/07/2022. FINDINGS: PA and lateral views of the chest are submitted. There are linear opacities at both lung bases without change, consistent with scarring. No new focal airspace opacity is identified. There is no pleural effusion, pneumothorax, or pulmonary vascular congestion. The heart is normal in size. The bones are intact. XR/XR chest 2V IMPRESSION: Bibasilar scarring. No acute cardiopulmonary abnormality. Electronically signed by: Madi Cueva MD 10/09/2024 07:58 AM [facility]
--- NOTE | 2024-10-08 11:31 | ECG_ITS ---
Test Reason : PRE OP Blood Pressure : */* mmHG Vent. Rate : 93 BPM Atrial Rate : 93 BPM P-R Int : 214 ms QRS Dur : 94 ms QT Int : 384 ms P-R-T Axes : 48 -83 75 degrees QTcB Int : 477 ms Sinus rhythm with 1st degree A-V block Left anterior fascicular block Abnormal ECG When compared with ECG of 19-Jun-2024 12:04, QT has lengthened Referred By: Natalie Posadas Electronically Signed By: SANCHEZ STOKES
--- OUTSIDE RECORDS SUMMARY | 2024-10-08 14:01 | XMS_ITS | Encounter Summary ---
Author Organization [employer] Address [address] 7[address] [place] [address] Care Team Providers Care Whizzer Name Role Phone Natalie Posadas MD Primary Care Provider [phone] Reason for Visit * Reason Comments Med Refill Encounter Details Date Type Department Care Team ([facility] st Contact Info) Description 09/14/2024 Refill [facility] MEDICINE 230 [place], [place] [phone] Natalie Posadas MD [address] [place], [place] [phone] Pain Social History Tobacco Use Types Packs/Day [...] Care Team (Late st Contact Info) Description 10/16/2024 9:15 AM EST Office Visit [facility] MEDICINE 230 [place] [address] Natalie Posadas MD [address] [place] [address] 10/25/2024 10:30 AM EDT Office Visit [facility] OPTOMETRY [address] [place] [address] Seamus, Carolyn, OD 230 [place] [address] 11/26/2024 10:00 AM EDT Clinical Support [facility] MED & PEDS 505 [place] [address] Jing Washington, CUAUHTEMOC 505 [place] [address] documented as of this encounter Visit Diagnoses Diagnosis Pain Generalized pain documented in this encounter Additional Health Concerns Assessment Noted Time PHQ-9 Depression Total Score: 3 08/06/20 24 8:58 AM EST documented as of this encounter Care Teams Whizzer Relationship Specialty Start Date End Date Natalie Posadas MD [address] [place] [address] PCP - General Family Medicine 08/14/18 documented as of this encounter
--- OUTSIDE RECORDS SUMMARY | 2024-10-08 14:01 | XMS_ITS | Encounter Summary ---
Author Organization [employer] Address [address] 7[address] [place] [address] Care Team Providers Care Neon Glass Blower Name Role Phone Natalie Posadas MD Primary Care Provider [phone] Reason for Visit * Reason Onset Date Comments Care Management 09/12/2024 C3CM- f/u call Encounter Details Date Type Department Care Team (Late st Contact Info) Description 09/12/2024 Telephone [facility]ICINE [address] [place] [address] Madhuri Barakat RN [address] [place], [place] [phone] Care Management (C3CM- f/u call) Social History [...] PCP response. In regards to request for PAINTER SPRAY services, patient states he is waiting to speak with his niece to see if she can call the company to help set this up. He agrees to contact CM if in need of additional assistance with obtaining the PAINTER SPRAY hours. He agrees. No further questions or concerns. CM reinforced direct contact information for any additional questions or concerns. Education provided on [facility]. Patient provided with after-hours line for [facility], , which offer night time triage service and option to transfer to institutional research coordinator provider if needed. Patient verbalizes understanding, and able to r epeat back to literary writer. A follow up call will be placed within 10 days, patient agrees with plan. documented in this encounter Plan of Treatment Upcoming Encounters Date Type Department Care Team (Late st Contact Info) Description 10/16/2024 9:15 AM EST Office Visit [facility] MEDICINE [address] [place] [address] Natalie Posadas MD 230 [place] [address] 10/25/2024 10:30 AM EDT Office Visit [facility] OPTOMETRY [address] [place] [address] Seamus, Carolyn, OD 230 [place] [address] 11/26/2024 10:00 AM EDT Clinical Support [facility] MED [facility] PEDS 505 [place], [place] [phone] Jing Washington, RN 505 [place], [place] [phone] documented as of this encounter Visit Diagnoses Not on filedocumented in this encounter Additional Health Concerns Assessment Noted Time PHQ-9 Depression Total Score: 3 08/06/20 24 8:58 AM EST documented as of this encounter Care Teams Neon Glass Blower Relationship Specialty Start Date End Date Natalie Posadas MD 230 [place] [address] PCP - General Family Medicine 08/14/18 documented as of this encounter
--- OUTSIDE RECORDS SUMMARY | 2024-10-08 14:01 | XMS_ITS | Encounter Summary ---
Author Organization [employer] Address [address] 7t [place] [address] Care Team Providers Care Foreign Exchange Services Manager Name Role Phone Natalie Posadas MD Primary Care Provider [phone] Reason for Visit * Reason Onset Date Comments Care Management 09/25/2024 C3CM- f/u call Encounter Details Date Type Department Care Team (Late st Contact Info) Description 09/25/2024 Telephone [facility] MEDICINE 230 [place] [address] Madhuri Barakat RN 505 [place] [address] Care Management (C3CM- f/u call) Social History [...] is scheduled on 10/17/24. CM confirmed in [facility] that visit is on 10/17/24 at 1:00pm. [...] Esther Martinez, to follow up on the MACHINE WIPER services request. He is unsure if she has reached out to any of MACHINE WIPER agencies yet. Patient unable to provide CM with his niece's contact information. He states he will return call to this afternoon. No further questions or concerns. CM reinforced direct contact information or CHW for any additional questions or concerns. Education provided on [facility]In Urgent Care located in [facility] of [facility]. Patient provided with after-hours line for [facility], , which offer night time triage service and option to transfer to bail bonding agent provider if needed. Patient verbalizes understanding, and able to repeat back to designer/writer. A follow up call will be placed within 10 days, patientagrees with plan. CM called General Surgery to f/u on the [...] EKG. Patient informed to walk in to [facility] to complete, no appt needed (see RN note from 09/17/24). CM will inform patient of this when call is returned. documented in this encounter Plan of Treatment Upcoming Encounters Date Type Department Care Team (Late st Contact Info) Description 10/16/2024 9:15 AM EST Office Visit [facility] MEDICINE 230 [place] [address] Natalie Posadas MD 230 [place] [address] 10/25/2024 10:30 AM EDT Office Visit [facility] OPTOMETRY [address] [place] [address] Seamus, Carolyn, OD 230 [place] [address] 11/26/2024 10:00 AM EDT Clinical Support [facility] CH[facility] MED & PEDS 505 [place] [address] Jing Washington, CUAUHTEMOC 505 [place] [address] documented as of this encounter Visit Diagnoses Not on filedocumented in this encounter Additional Health Concerns Assessment Noted Time PHQ-9 Depression Total Score: 3 08/06/20 24 8:58 AM EST documented as of this encounter Care Teams Foreign Exchange Services Manager Relationship Specialty Start Date End Date Natalie Posadas MD [address] [place] [address] PCP - General Family Medicine 08/14/18 documented as of this encounter
--- OUTSIDE RECORDS SUMMARY | 2024-10-08 14:01 | XMS_ITS | Encounter Summary ---
Author Organization [employer] Address [address] 7t [place] [address] Care Team Providers Care Entry Level Recruiter Name Role Phone Natalie Posadas MD Primary Care Provider [phone] Reason for Visit * Reason Comments Med Refill Encounter Details Date Type Department Care Team ([facility] st Contact Info) Description 09/17/2023 Refill [facility] [address] [place], [place] [phone] Natalie Posadas MD 230 [place], [place] [phone] Pain Social History Tobacco Use Types Packs/Day [...] Description 10/16/2024 9:15 AM EST Office Visit [facility] [address] [place] [address] Natalie Posadas MD [address] [place] [address] 10/25/2024 10:30 AM EDT Office Visit [facility] OPTOMETRY [address] [place] [address], OD 230 [place] [address] 11/26/2024 10:00 AM EDT Clinical Support [facility] 505 [place], [place] [phone] Jing Washington, RN 505 [place] [address] documented as of this encounter Visit Diagnoses Diagnosis Pain Generalized pain documented in this encounter Additional Health Concerns Assessment Noted Time PHQ-9 Depression Total Score: 0 09/15/19 23 11:23 AM EST documented as of this encounter Care Teams Entry Level Recruiter Relationship Specialty Start Date End Date Natalie Posadas MD 230 [place] [address] PCP - General Family Medicine 08/14/18 documented as of this encounter
--- OUTSIDE RECORDS SUMMARY | 2024-10-08 14:01 | XMS_ITS | Encounter Summary ---
Author Organization [employer] Address [address] 7t [place] [address] Care Team Providers Care Roll Panner Name Role Phone Natalie Posadas MD Primary Care Provider [phone] Encounter Details Date Type Department Care Team (Late st Contact Info) Description 12/01/2023 Telephone [facility] OPTOMETRY [address] [place] [address] Seamus, Carolyn, OD [address] [place] [address] Social History Tobacco Use Types Packs/Day Years [...] Called Patient inform him about appt. At [facility] [address] Padilla Appt. 12/05/2023 @ 10:5am documented in this encounter Plan of Treatment Upcoming Encounters Date Type Department Care Team (Late st Contact Info) Description 10/16/2024 9:15 AM EST Office Visit [facility] MEDICINE 230 [place] [address] Natalie Posadas MD 230 [place] [address] 10/25/2024 10:30 AM EDT Office Visit [facility] OPTOMETRY [address] [place] [address], OD 230 [place] [address] 11/26/2024 10:00 AM EDT Clinical Support [facility] CHC MED & PEDS 505 [place] [address] Jing Washington, RN 505 [place] [address] documented as of this encounter Visit Diagnoses Not on filedocumented in this encounter Additional Health Concerns Assessment Noted Time PHQ-9 Depression Total Score: 7 09/28/19 24 11:21 AM EST documented as of this encounter Care Teams Roll Panner Relationship Specialty Start Date End Date Natalie Posadas MD [address] [place] [address] PCP - General Family Medicine 08/14/18 documented as of this encounter
--- OUTSIDE RECORDS SUMMARY | 2024-10-08 14:01 | XMS_ITS | Encounter Summary ---
Author Organization [employer] Address [address] 7t [place] [address] Care Team Providers Care Cage Clerk Name Role Phone Natalie Posadas MD Primary Care Provider [phone] Reason for Visit * Reason Comments Med Refill Encounter Details Date Type Department Care Team ([facility] st Contact Info) Description 03/12/2024 Refill [facility] [address] [place], [place] [phone] Kelly Diego ANP 230 [place], [place] [phone] Pain Social History Tobacco Use Types Packs/Day [...] Description 10/16/2024 9:15 AM EST Office Visit [facility] [address] [place] [address] Natalie Posadas MD 230 [place] [address] 10/25/2024 10:30 AM EDT Office Visit [facility] OPTOMETRY [address] [place] [address] Seamus, Carolyn, OD 230 [place] [address] 11/26/2024 10:00 AM EDT Clinical Support [facility] CH[facility] MED & PEDS 505 [place] [address] Jing Washington, RN 505 [place] [address] documented as of this encounter Visit Diagnoses Diagnosis Pain Generalized pain documented in this encounter Additional Health Concerns Assessment Noted Time PHQ-9 Depression Total Score: 7 09/28/19 24 11:21 AM EST documented as of this encounter Care Teams Cage Clerk Relationship Specialty Start Date End Date Natalie Posadas MD [address] [place] [address] PCP - General Family Medicine 08/14/18 documented as of this encounter
--- OUTSIDE RECORDS SUMMARY | 2024-10-08 14:01 | XMS_ITS | Encounter Summary ---
Author Organization [employer] Address [address] [facility] [address] [place] [address] Care Team Providers Care Software Test Engineer Name Role Phone Natalie Posadas MD Primary Care Provider [phone] Reason for Visit * Reason Comments Med Refill Encounter Details Date Type Department Care Team ([facility] st Contact Info) Description 11/24/2023 Refill [facility] MEDICINE [address] [place], [place] [phone] Natalie Posadas MD 230 [place], [place] [phone] Pain Social History Tobacco Use Types Packs/Day [...] Description 10/16/2024 9:15 AM EST Office Visit [facility] MEDICINE 230 [place] [address] Natalie Posadas MD [address] [place] [address] 10/25/2024 10:30 AM EDT Office Visit [facility] OPTOMETRY [address] [place] [address] Seamus, Carolyn, OD 230 [place] [address] 11/26/2024 10:00 AM EDT Clinical Support [facility] CHC MED & PEDS 505 [place] [address] Jing Washington, CUAUHTEMOC 505 [place] [address] documented as of this encounter Visit Diagnoses Diagnosis Pain Generalized pain documented in this encounter Additional Health Concerns Assessment Noted Time PHQ-9 Depression Total Score: 7 09/28/19 24 11:21 AM EST documented as of this encounter Care Teams Software Test Engineer Relationship Specialty Start Date End Date Natalie Posadas MD [address] [place] [address] PCP - General Family Medicine 08/14/18 documented as of this encounter
--- OUTSIDE RECORDS SUMMARY | 2024-10-08 14:01 | XMS_ITS | Encounter Summary ---
Author Organization [employer] Address [address] [place] [address] Care Team Providers Care Construction Plumber Name Role Phone Natalie Posadas MD Primary Care Provider [phone] Reason for Visit * Reason Comments Med Refill Encounter Details Date Type Department Care Team (Late st Contact Info) Description 09/12/2023 Refill [facility] MED [facility] PEDS [address] [place], [place] [phone] Natalie Posadas MD 230 [facility] [place], [place] [phone] Pain Social History Tobacco Use Types Packs/Day [...] Description 10/16/2024 9:15 AM EST Office Visit [facility] 230 [place] [address] Natalie Posadas MD 230 [place] [address] 10/25/2024 10:30 AM EDT Office Visit [facility] OPTOMETRY [address] [place] [address], OD 230 [place] [address] 11/26/2024 10:00 AM EDT Clinical Support [facility] MED [facility] PEDS 505 [place] [address] Jing Washington, RN 505 [place] [address] documented as of this encounter Visit Diagnoses Diagnosis Pain Generalized pain documented in this encounter Additional Health Concerns Assessment Noted Time PHQ-9 Depression Total Score: 0 09/15/19 23 11:23 AM EST documented as of this encounter Care Teams Construction Plumber Relationship Specialty Start Date End Date Natalie Posadas MD [address] [place] [address] PCP - General Family Medicine 08/14/18 documented as of this encounter
--- OUTSIDE RECORDS SUMMARY | 2024-10-08 14:01 | XMS_ITS | Encounter Summary ---
Author Organization [employer] Address [address] [place] [address] Care Team Providers Care Stone Derrickman And Rigger Name Role Phone Natalie Posadas MD Primary Care Provider Reason for Visit * Reason Comments controlled substance treatment Encounter Details Date Type Department Care Team (Latest Contact Info) Description 09/11/2024 10:00 AM EST Clinical Support [facility] MED & PEDS 505 [place], [place] [phone] Jing Washington, CUAUHTEMOC 505 [place] [address] Chronic right-sided headache Social History Tobacco Use [...] RN - 09/11/2024 10:00 AM EST 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 Prescribed tramadol 50mg PO q12h PRN. States has been taking as prescribed. Pt denies use of nicotine/ETOH/street drugs/marijuana. Currently rates pain a 03/23, states and states took Tramadol this am. States Tramadol is usually 50% effective at alleviating pain. Current pain site is headand neck. States he uses heat, Motrin PRN. No questions/ concerns at this time. 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 Rx last filled on 08/13/24. Pill count performed. Pt has 0 pills at this time, 0 expected. Medication is not overused by patient. Utox performed, negative for all tested substance, as expected. .Fentanyl testing: negative Lot# [id number] Exp: 07-28-25 A: HOUSE WIRER HELPER Contract Revisit: Opioid dependence related to chronic pain. P: Patient to continue taking medication only as prescribed; Next HOUSE WIRER HELPER RV appointment scheduled for 11/26/24 @ 10a. F/u with PCP 10/16/24. F/U sooner PRN. Patient verbalized understanding and agreed to plan. documented in this encounter Plan of Treatment Upcoming Encounters Date Type Department Care Team (Late st Contact Info) Description 10/16/2024 9:15 AM EST Office Visit [facility] MEDICINE 230 [place] [address] Natalie Posadas MD 230 [place] [address] 10/25/2024 10:30 AM EDT Office Visit [facility] OPTOMETRY [address] [place] [address], OD 230 [place] [address] 11/26/2024 10:00 AM EDT Clinical Support [facility] MED & PEDS [address] [place] [address] Jing Washington, RN 505 [place] [address] documented as of this encounter Procedures Procedure Name Priority Date/Time Associated Diagnosis Comments POCT STEPHEN-14 URINE DRUG SCREEN Routine 09/11/2024 9:54 AM EST Chronic right-sided headache documented in this encounter Results * POCT STEPHEN-14 Urine Drug Screen (09/11/2024 9:54 AM EST) Urine Urine specimen obtained by clean catch procedure / Unknown 09/11/2024 9:54 AM EST Narrative Jing Washington, CUAUHTEMOC - 09/11/2024 9:54 AM EST negative for THC, MOP, OXY, PETER, MET, AMP, BZO, BAR, MTD, BUPG, TCA, MDMA, PCP, PPX. Lot# [id number] Exp: 07-20-25 Natalie Posadas MD POINT OF CARE TEST ENTER/EDIT OR DERABLES Final Result documented in this encounter Visit Diagnoses Diagnosis Chronic right-sided headache documented in this encounter Additional Health Concerns Assessment Noted Time PHQ-9 Depression Total Score: 3 08/06/20 24 8:58 AM EST documented as of this encounter Care Teams Stone Derrickman And Rigger Relationship Specialty Start Date End Date Natalie Posadas MD [address] [place] [address] PCP - General Family Medicine 08/14/18 documented as of this encounter
--- OUTSIDE RECORDS SUMMARY | 2024-10-08 14:01 | XMS_ITS | Encounter Summary ---
Author Organization [employer] Address [address] [facility] 7t [place] [address] Care Team Providers Care Hair Stylist Name Role Phone Natalie Posadas MD Primary Care Provider Reason for Visit * Reason Comments Care Coordination Appt reminder Encounter Details Date Type Department Care Team (Latest Contact Info) Description 09/18/2024 Patient Outreach [facility] MEDICINE 230 [place], [place] [phone] Natalie Posadas MD 230 [place], [place] [phone] Care Coordination (Appt reminder) Social History Tobacco [...] outbound call to patient introducing herself from [facility] CM Department, in regard to remind patient of appt for 09/19/23 @ 12PM with [facility] neurology [address] [place] [address] [address]. Patient's name and was confirmed. Patient is aware and confirmed will be available and has no barriers on attending this appointment. Patient verbalized understanding and agrees with plan. documented in this encounter Plan of Treatment Upcoming Encounters Date Type Department Care Team ([facility] st Contact Info) Description 10/16/2024 9:15 AM EST Office Visit [facility] MEDICINE 230 [place] [address] Natalie Posadas MD 230 [place] [address] 10/25/2024 10:30 AM EDT Office Visit [facility] OPTOMETRY [address] [place] [address] OD 230 [place] [address] 11/26/2024 10:00 AM EDT Clinical Support [facility] CHC MED & PEDS [address] [place] [address] Jing Washington, RN 505 [place] [address] documented as of this encounter Visit Diagnoses Not on filedocumented in this encounter Additional Health Concerns Assessment Noted Time PHQ-9 Depression Total Score: 3 08/06/ 24 8:58 AM EST documented as of this encounter Care Teams Hair Stylist Relationship Specialty Start Date End Date Natalie Posadas MD [address] [place] [address] PCP - General Family Medicine 08/14/18 documented as of this encounter
--- OUTSIDE RECORDS SUMMARY | 2024-10-08 14:01 | XMS_ITS | Encounter Summary ---
Author Organization [employer] Address [address] [facility] [address] 7t [place] [address] Care Team Providers Care Professor Of Exercise Science Name Role Phone Natalie Posadas MD Primary Care Provider [phone] Encounter Details Date Type Department Care Team ([facility] st Contact Info) Description 09/16/2024 Orders Only [facility] MEDICINE 230 [place], [place] [phone] Natalie Posadas MD 230 [place] [address] Preop examination (Primary Dx); AV block, 1st [...] Description 10/16/2024 9:15 AM EST Office Visit [facility] MEDICINE 230 [place] [address] Natlaie Posadas MD 230 [place] [address] 10/25/2024 10:30 AM EDT Office Visit [facility] OPTOMETRY [address] [place] [address] Seamus, Carolyn, OD 230 [place] [address] 11/26/2024 10:00 AM EDT Clinical Support [facility] CHC MED & PEDS 505 [place], [place] [phone] Jing Washington, CUAUHTEMOC 505 [place] [address] Scheduled Orders Name Type Priority Associated Diagnoses [...] documented as of this encounter Care Teams Professor Of Exercise Science Relationship Specialty Start Date End Date Natalie Posadas MD 230 [place] [address] PCP - General Family Medicine 08/14/18 documented as of this encounter
--- OUTSIDE RECORDS SUMMARY | 2024-10-08 14:01 | XMS_ITS | Encounter Summary ---
Author Organization [employer] Address [address] [facility] [address] 7t [place] [address] Care Team Providers Care Application Coordinator Name Role Phone Natalie Posadas MD Primary Care Provider [phone] Reason for Visit * Reason Onset Date Comments Clearance needed 09/05/2024 Encounter Details Date Type Department Care Team ([facility] st Contact Info) Description 09/05/2024 Telephone [facility] MEDICINE 230 [place], [place] [phone] Natalie Posadas MD 230 [place], [place] [phone] Clearance needed Social History Tobacco Use Types [...] it is ordered, he can walk into [facility] anytime to get it done. They do [...] ordered. Pt advised to have done at [facility] Surgeon's name: Dr Weinberg Last office note from surgeon requested: available on [facility] Office Appointment scheduled for 10/07/24 with Katharina. 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 Reviewed recent EKG, 1st degree AV block. Compared to previous EKG, AR interval has prolonged. I would like him to have another EKG. Please askhim to get EKG done at [facility] because his previous 2 EKGs were done at [facility]. Please schedule pre-op. Thank you. * Telephone Encounter - Brittany Rojas RN - 09/16/2024 11:56 AM EST Incoming phone call from Thalia at [facility] General Surgery. Thalia asking about below message regarding clearance for colonoscopy. Advised her of message below from [facility] nurse India given to nurse Alvaro at [facility] General Surgery this morning. Advised her that clearance is not finalized yet and that another message was sent to PCP this AM regarding clearance. PCP still to advise on CT scan/final clearance. * Telephone Encounter - India Daniel RN - 09/16/2024 11:20 AM EST TC placed to Alvaro at [facility] General Surgery who states that the pt [...] 09/05/2024 4:00 PM EST TC Alvaro with [facility] General Surgery. pt will be having a [...] Description 10/16/2024 9:15 AM EST Office Visit [facility] MEDICINE 230 [place] [address] Natalie Posadas MD 230 [place], [place] 10/25/2024 10:30 AM EDT Office Visit [facility] OPTOMETRY [address] [place] [address], OD 230 [place] [address] 11/26/2024 10:00 AM EDT Clinical Support [facility] CHC MED & PEDS 505 [place], [place] [phone] Jing Washington, RN 505 [place] [address] documented as of this encounter Visit Diagnoses Not on filedocumented in this encounter Additional Health Concerns Assessment Noted Time PHQ-9 Depression Total Score: 3 08/06/20 24 8:58 AM EST documented as of this encounter Care Teams Application Coordinator Relationship Specialty Start Date End Date Natalie Posadas MD 230 [place], [place] PCP - General Family Medicine 08/14/18 documented as of this encounter
--- OUTSIDE RECORDS SUMMARY | 2024-10-08 14:01 | XMS_ITS | Encounter Summary ---
Author Organization [employer] Address [address] [facility] [address] 7t [place] [address] Care Team Providers Care Hydroelectric Plant Electrical Engineer Name Role Phone Natalie Posadas MD Primary Care Provider [phone] Reason for Visit * Reason Comments Med Refill Encounter Details Date Type Department Care Team (Late st Contact Info) Description 05/29/2024 Refill [facility] OPTOMETRY [address] [place] [address] Seamus, Carolyn, OD [address] [place] [address] Social History Tobacco Use Types Packs/Day Years [...] Description 10/16/2024 9:15 AM EST Office Visit [facility] MEDICINE 230 [place] [address] Natalie Posadas MD 230 [place] [address] 10/25/2024 10:30 AM EDT Office Visit [facility] OPTOMETRY [address] [place] [address] Seamus, Carolyn, OD 230 [place] [address] 11/26/2024 10:00 AM EDT Clinical Support [facility] CHC MED & PEDS 505 [place] [address] Jing Washington, RN 505 [place] [address] documented as of this encounter Visit Diagnoses Not on filedocumented in this encounter Additional Health Concerns Assessment Noted Time PHQ-9 Depression Total Score: 7 09/28/19 24 11:21 AM EST documented as of this encounter Care Teams Hydroelectric Plant Electrical Engineer Relationship Specialty Start Date End Date Natalie Posadas MD [address] [place] [address] PCP - General Family Medicine 08/14/18 documented as of this encounter
--- OUTSIDE RECORDS SUMMARY | 2024-10-08 14:01 | XMS_ITS | Encounter Summary ---
Author Organization [employer] Address [address] [facility] 7t [place] [address] Care Team Providers Care Glost Tile Shader Name Role Phone Natalie Posadas MD Primary Care Provider [phone] Reason for Visit * Reason Comments Care Coordination Appt reminder Encounter Details Date Type Department Care Team (Latest Contact Info) Description 09/10/2024 Patient Outreach [facility] MEDICINE 230 [place], [place] [phone] Natalie Posadas MD 230 [place], [place] [phone] Care Coordination (Appt reminder) Social History Tobacco [...] appt reminder on 09/11/24 at 945am in [facility], PT1 will pickling grader patient at 915am. Patient understood and will attend appt. documented in this encounter Plan of Treatment Upcoming Encounters Date Type Department Care Team (Late st Contact Info) Description 10/16/2024 9:15 AM EST Office Visit [facility] MEDICINE 230 [place] [address] Natalie Posadas MD 230 [place] [address] 10/25/2024 10:30 AM EDT Office Visit [facility] OPTOMETRY [address] [place] [address], OD 230 [place] [address] 11/26/2024 10:00 AM EDT Clinical Support [facility] CHC MED & PEDS 505 [place] [address] Jing Washington, RN 505 [place] [address] documented as of this encounter Visit Diagnoses Not on filedocumented in this encounter Additional Health Concerns Assessment Noted Time PHQ-9 Depression Total Score: 3 08/06/ 24 8:58 AM EST documented as of this encounter Care Teams Glost Tile Shader Relationship Specialty Start Date End Date Natalie Posadas MD 230 [place] [address] PCP - General Family Medicine 08/14/18 documented as of this encounter
--- OUTSIDE RECORDS SUMMARY | 2024-10-08 14:01 | XMS_ITS | Encounter Summary ---
Author Organization [employer] Address [address] [facility] [address] 7t [place] [address] Care Team Providers Care Telemetry Tech Name Role Phone Natalie Posadas MD Primary Care Provider [phone] Encounter Details Date Type Department Care Team ([facility] st Contact Info) Description 09/11/2024 Telephone [facility] CHC MED & PEDS 505 [place], [place] [phone] Jing Washington, RN 505 [place] [address] Social History Tobacco Use Types Packs/Day Years [...] RN - 09/11/2024 1:42 PM EST .What FAMILY LAW PARALEGAL Tier would you like this patient to be? Are you ok with FAMILY LAW PARALEGAL Televisit? Tier 1 = HIGH RISK, Monthly FAMILY LAW PARALEGAL visits Tier 2 = MODerate RISK, Q3 Month visits Tier 3 = LOW RISK = Q4-6 month visits documented in this encounter Plan of Treatment Upcoming Encounters Date Type Department Care Team (Late st Contact Info) Description 10/16/2024 9:15 AM EST Office Visit [facility] MEDICINE 230 [place] [address] Natalie Posadas MD 230 [place] [address] 10/25/2024 10:30 AM EDT Office Visit [facility] OPTOMETRY [address] [place] [address], SERGIO 230 [place] [address] 11/26/2024 10:00 AM EDT Clinical Support [facility] CHC MED & PEDS 505 [place], [place] [phone] Jing Washington, CUAUHTEMOC 505 [place] [address] documented as of this encounter Visit Diagnoses Not on filedocumented in this encounter Additional Health Concerns Assessment Noted Time PHQ-9 Depression Total Score: 3 08/06/20 24 8:58 AM EST documented as of this encounter Care Teams Telemetry Tech Relationship Specialty Start Date End Date Natalie Posadas MD 230 [place] [address] PCP - General Family Medicine 08/14/18 documented as of this encounter
--- OUTSIDE RECORDS SUMMARY | 2024-10-08 14:01 | XMS_ITS | Encounter Summary ---
Author Organization [employer] Address [address] [facility] [address] 7t [place] [address] Care Team Providers Care Escrow Assistant Name Role Phone Natalie Posadas MD Primary Care Provider [phone] Reason for Visit * Reason Onset Date Comments Med Refill 09/11/2024 Encounter Details Date Type Department Care Team ([facility] Contact Info) Description 09/11/2024 Refill [facility] CHC MED & PEDS 505 [place], [place] [phone] Jing Washington, RN 505 [place] [address] Pain Social History Tobacco Use Types Packs/Day [...] Description 10/16/2024 9:15 AM EST Office Visit [facility] MEDICINE 230 [place] [address] Natalie Posadas MD 230 [place] [address] 10/25/2024 10:30 AM EDT Office Visit [facility] OPTOMETRY [address] [place] [address] Seamus, Carolyn, OD 230 [place] [address] 11/26/2024 10:00 AM EDT Clinical Support [facility] CHC MED & PEDS 505 [place] [address] Jing Washington, CUAUHTEMOC 505 [place] [address] documented as of this encounter Visit Diagnoses Diagnosis Pain Generalized pain documented in this encounter Additional Health Concerns Assessment Noted Time PHQ-9 Depression Total Score: 3 08/06/20 24 8:58 AM EST documented as of this encounter Care Teams Escrow Assistant Relationship Specialty Start Date End Date Natalie Posadas MD [address] [place] [address] PCP - General Family Medicine 08/14/18 documented as of this encounter
--- OUTSIDE RECORDS SUMMARY | 2024-10-08 14:01 | XMS_ITS | Encounter Summary ---
Author Organization [employer] Address [address] [facility] [address] 7t [place] [address] Care Team Providers Care Plastic Frame Inserter Name Role Phone Natalie Posadas MD Primary Care Provider [phone] Encounter Details Date Type Department Care Team [...] 9:15 AM EST Office Visit [facility] MEDICINE 230 [place] [address] Natalie Posadas MD 230 [place] [address] 10/25/2024 10:30 AM EDT Office Visit [facility] OPTOMETRY 267 [place] [address] Seamus, Carolyn, OD 230 [place] [address] 11/26/2024 10:00 AM EDT Clinical Support [facility] CHC MED & PEDS 505 [place] [address] Jing Washington, RN 505 [place] [address] documented as of this encounter Visit Diagnoses Not on filedocumented in this encounter Additional Health Concerns Assessment Noted Time PHQ-9 Depression Total Score: 3 08/06/20 24 8:58 AM EST documented as of this encounter Care Teams Plastic Frame Inserter Relationship Specialty Start Date End Date Natalie Posadas MD 230 [place] [address] PCP - General Family Medicine 08/14/18 documented as of this encounter
--- OUTSIDE RECORDS SUMMARY | 2024-10-08 14:01 | XMS_ITS | Encounter Summary ---
Author Organization [employer] Address [address] [facility] [address] 7t [place] [address] Care Team Providers Care Soda Dialyzer Name Role Phone Natalie Posadas MD Primary Care Provider Reason for Visit * Reason Comments Med Refill Encounter Details Date Type Department Care Team ([facility] st Contact Info) Description 01/25/2024 Refill [facility] MEDICINE 230 [place], [place] [phone] Natalie Posadas MD 230 [place], [place] [phone] Pain Social History Tobacco Use Types Packs/Day [...] Description 10/16/2024 9:15 AM EST Office Visit [facility] MEDICINE 230 [place] [address] Natalie Posadas MD 230 [place] [address] 10/25/2024 10:30 AM EDT Office Visit [facility] OPTOMETRY [address] [place] [address] Seamus, Carolyn, OD 230 [place] [address] 11/26/2024 10:00 AM EDT Clinical Support [facility] CHC MED & PEDS 505 [place] [address] Jing Washington, CUAUHTEMOC 505 [place] [address] documented as of this encounter Visit Diagnoses Diagnosis Pain Generalized pain documented in this encounter Additional Health Concerns Assessment Noted Time PHQ-9 Depression Total Score: 7 09/28/19 24 11:21 AM EST documented as of this encounter Care Teams Soda Dialyzer Relationship Specialty Start Date End Date Natalie Posadas MD [address] [place] [address] PCP - General Family Medicine 08/14/18 documented as of this encounter
--- OUTSIDE RECORDS SUMMARY | 2024-10-08 14:02 | XMS_ITS | Encounter Summary ---
Author Organization [employer] [facility] Address [address] [place] [address] 7t [place] [address] Care Team Providers Care Electronic Data Processing Auditor Name Role Phone Natalie Posadas MD Primary Care Provider [phone] Reason for Visit * Reason Comments Med Refill Encounter Details Date Type Department Care Team (Late Contact Info) Description 04/24/2023 Refill [facility] MEDICINE 230 [place], [place] [phone] Natalie Posadas MD [address] [place] [address] [phone] Pain Social History Tobacco Use Types Packs/Day [...] Department Care Team (Late Contact Info) Description 10/16/2024 9:15 AM EST Office Visit [facility] MEDICINE 230 [place] [address] Natalie Posadas MD 230 [place], [place] [phone] 10/25/2024 10:30 AM EDT Office Visit [facility] [address] [place] [address], OD 230 [place] [address] 11/26/2024 10:00 AM EDT Clinical Support [facility] MED & PEDS [address] [place], [place] [phone] Jing Washington, RN 505 [place], [place] [phone] documented as of this encounter Visit Diagnoses Diagnosis Pain Generalized pain documented in this encounter Additional Health Concerns Assessment Noted Time PHQ-9 Depression Total Score: 0 09/15/19 23 11:23 AM EST documented as of this encounter Care Teams Electronic Data Processing Auditor Relationship Specialty Start Date End Date Natalie Posadas MD 230 [place] [address] PCP - General Family Medicine 08/14/18 documented as of this encounter
--- OUTSIDE RECORDS SUMMARY | 2024-10-08 14:02 | XMS_ITS | Encounter Summary ---
Author Organization [employer] [facility] Address [address] [facility] 7t [place] [address] Care Team Providers Care Motorized Squad Commanding Officer Name Role Phone Natalie Posadas MD Primary Care Provider [phone] Encounter Details Date Type Department Care Team (Late Contact Info) Description 10/14/2022 Orders Only [facility] MEDICINE 230 [place], [place] [phone] Natalie Posadas MD 230 [place], [place] [phone] Right internal carotid artery aneurysm (Primary Dx); [...] Description 10/16/2024 9:15 AM EST Office Visit [facility] MEDICINE [address] [place] [phone] Natalie Posadas MD 230 [place] [address] 10/25/2024 10:30 AM EDT Office Visit [facility] OPTOMETRY [address] [place] [address] Seamus, Carolyn, OD 230 [place] [address] 11/26/2024 10:00 AM EDT Clinical Support [facility] CHC MED & PEDS 505 [place], [place] [phone] Jing Washington, RN 505 [place] [address] documented as of this encounter Visit Diagnoses Diagnosis Right internal carotid artery aneurysm- Primary Chronic right-sided headache Occipital headache Headache documented in this encounter Additional Health Concerns Assessment Noted Time PHQ-9 Depression Total Score: 0 09/15/19 23 11:23 AM EST documented as of this encounter Care Teams Motorized Squad Commanding Officer Relationship Specialty Start Date End Date Natalie Posadas MD 230 [place] [address] PCP - General Family Medicine 08/14/18 documented as of this encounter
--- OUTSIDE RECORDS SUMMARY | 2024-10-08 14:02 | XMS_ITS | Encounter Summary ---
Author Organization [employer] Address [address] 7t [place] [address] Care Team Providers Care Delivery And Installation Subcontractor Name Role Phone Natalie Posadas MD Primary Care Provider [phone] Encounter Details Date Type Department Care Team (Latest Contact Info) Description 10/07/2024 Travel Social History Tobacco Use Types Packs/Day [...] Recorded What is your housing situation today? Not on asiya e 10/07/[address] you li ve. Do you have problems with any of the following? None of the above 10/07/2024 Food Insecurity Answer Date Recorded Within the past 12 months, y ou worried that your food would run out before you got money to buy more: Never True 10/07/2024 Within the past 12 months,th e food you bought just didn't last and you didn't have enough money to get more: Never True Transportation Answer Date Recorded In the past 12 months, has l ack of transportation kept you from medical appts, meetings, work or from getting things needed for daily living? No 10/07/2024 Utilities Answer Date Recorded In the past 12 months, has t he electric, gas, oil or water company threatened to shut off services in your home? No 10/07/2024 Depression Answer Date Recorded Patient Health Questionnaire-2 Score 2 08/06/2024 Internet Access Answer Date Recorded Internet Access Q1 Yes 10/07/2024 Internet Access Q2 Not on file 10/07/2024 Sex and Gender Information Value Date Recorded [...] [facility] MEDICINE 230 [place] [address] Natalie Posadas MD 230 [place] [address] 10/25/2024 10:30 AM EDT Office Visit [facility] OPTOMETRY [address] [place] [address] Seamus, Carolyn, OD 230 [place] [address] 11/26/2024 10:00 AM EDT Clinical Support [facility] CHC MED & PEDS 505 [place] [address] Jing Washington, RN 505 [place] [address] documented as of this encounter Visit Diagnoses Not on filedocumented in this encounter Additional Health Concerns Assessment Noted Time PHQ-9 Depression Total Score: 3 08/06/20 24 8:58 AM EST documented as of this encounter Care Teams Delivery And Installation Subcontractor Relationship Specialty Start Date End Date Natalie Posadas MD 230 [place] [address] PCP - General Family Medicine 08/14/18 documented as of this encounter
--- OUTSIDE RECORDS SUMMARY | 2024-10-08 14:02 | XMS_ITS | Encounter Summary ---
Author Organization [employer] Address [address] [facility] 7t [place] [address] Care Team Providers Care Gunnery/Ordnance Officer Name Role Phone Natalie Posadas MD Primary Care Provider [phone] Reason for Visit * Reason Comments Med Refill Encounter Details Date Type Department Care Team (Late st Contact Info) Description 11/18/2022 Refill [facility] MEDICINE 230 [place], [place] [phone] Natalie Posadas MD 230 [place], [place] [phone] Pain Social History Tobacco Use Types Packs/Day [...] 11/18/2022 9:25 AM EDT Already sent to DEFENSIVE LINE COACH nurse * Telephone Encounter - Charity Canalesona [...] Description 10/16/2024 9:15 AM EST Office Visit [facility] MEDICINE 230 [place] [address] Natalie Posadas MD 230 [place] [address] 10/25/2024 10:30 AM EDT Office Visit [facility] OPTOMETRY [address] [place] [address], OD 230 [place] [address] 11/26/2024 10:00 AM EDT Clinical Support [facility] CHC MED & PEDS 505 [place], [place] [phone] Jing Washington, RN 505 [place], [place] [phone] documented as of this encounter Visit Diagnoses Diagnosis Pain Generalized pain documented in this encounter Additional Health Concerns Assessment Noted Time PHQ-9 Depression Total Score: 0 09/15/19 23 11:23 AM EST documented as of this encounter Care Teams Gunnery/Ordnance Officer Relationship Specialty Start Date End Date Natalie Posadas MD 230 [place] [address] PCP - General Family Medicine 08/14/18 documented as of this encounter
--- OUTSIDE RECORDS SUMMARY | 2024-10-08 14:02 | XMS_ITS | Encounter Summary ---
Author Organization [employer] [facility] Address [address] [place] [address] 7t [place] [address] Care Team Providers Care Telephone Sterilizer Name Role Phone Natalie Posadas MD Primary Care Provider [phone] Reason for Visit * Reason Comments Med Refill Encounter Details Date Type Department Care Team (Late Contact Info) Description 11/21/2022 Refill [facility] MEDICINE [address] [place] [address] Natalie Posadas MD [address] [place], [place] [phone] Pain Social History Tobacco Use Types Packs/Day [...] Upcoming Encounters Date Type Department Care Team ([facility] [address] Contact Info) Description 10/16/2024 9:15 AM EST Office Visit [facility] MEDICINE [address] [place] [phone] Natalie Posadas MD [address] [place] [address] 10/25/2024 10:30 AM EDT Office Visit [facility] OPTOMETRY [address] [place] [address], OD [address] [place] [address] 11/26/2024 10:00 AM EDT Clinical Support [facility] MED [facility] PEDS [address] [place], [place] [phone] Jing Washington, RN [address] [place], [place] [phone] documented as of this encounter Visit Diagnoses Diagnosis Pain Generalized pain documented in this encounter Additional Health Concerns Assessment Noted Time PHQ-9 Depression Total Score: 0 09/15/19 23 11:23 AM EST documented as of this encounter Care Teams Telephone Sterilizer Relationship Specialty Start Date End Date Natalie Posadas MD [address] [place], [place] [phone] PCP - General Family Medicine 08/14/18 documented as of this encounter
--- OUTSIDE RECORDS SUMMARY | 2024-10-08 14:02 | XMS_ITS | Encounter Summary ---
Author Organization [employer] Address [address] [place] [address] Care Team Providers Care Sales Support Advisor Name Role Phone Natalie Posadas MD Primary Care Provider [phone] Reason for Visit * Reason Onset Date Comments Chart Prep 10/02/2024 Encounter Details Date Type Department Care Team ([facility] st Contact Info) Description 10/02/2024 Telephone [facility] MEDICINE [address] [place], [place] [phone] Natalie Posadas MD [address] [place], [place] [phone] Chart Prep Social History Tobacco Use Types Packs/Day Years [...] encounter Miscellaneous Notes * Telephone Encounter - Mily Gonzalez MA - 10/02/2024 10:27 AM EST Chart Prep Labs: not done Images: not applicable Vaccines due: Covid Due and Flu Due Referrals: General Surgery Completed, Neurology Pending appointment on 10/09/2024 @2PM, and Sleep Medicine Pending appointment on n/a requested notes by fax if an appt was kept. Screenings: Colonoscopy Overdue care gaps: SDOH documented in this encounter Plan of Treatment Upcoming Encounters Date Type Department Care Team (Late st Contact Info) Description 10/16/2024 9:15 AM EST Office Visit [facility] MEDICINE [address] [place] [address] Natalie Posadas MD [address] [place] [address] 10/25/2024 10:30 AM EDT Office Visit [facility] OPTOMETRY [address] [place] [address] OD [address] [place] [address] 11/26/2024 10:00 AM EDT Clinical Support [facility] MED & PEDS [address] [place] [address] Jing Washington, RN [address] [place] [address] documented as of this encounter Visit Diagnoses Not on filedocumented in this encounter Additional Health Concerns Assessment Noted Time PHQ-9 Depression Total Score: 3 08/06/20 24 8:58 AM EST documented as of this encounter Care Teams Sales Support Advisor Relationship Specialty Start Date End Date Natalie Posadas MD [address] [place] [phone] PCP - General Family Medicine 08/14/18 documented as of this encounter
--- OUTSIDE RECORDS SUMMARY | 2024-10-08 14:02 | XMS_ITS | Encounter Summary ---
Author Organization [employer] [facility] Address [address] [place] [address] 7t [place] [address] Care Team Providers Care Coil Cutter Name Role Phone Natalie Posadas MD Primary Care Provider [phone] Reason for Visit * Reason Comments Med Refill Encounter Details Date Type Department Care Team (Late Contact Info) Description 12/26/2022 Refill [facility] MEDICINE [address] [place] [address] Natalie Posadas MD [address] [place], [place] [phone] Pain Social History Tobacco Use Types Packs/Day [...] Upcoming Encounters Date Type Department Care Team ([facility] Contact Info) Description 10/16/2024 9:15 AM EST Office Visit [facility] MEDICINE [address] [place] [phone] Natalie Posadas MD [address] [place] [address] 10/25/2024 10:30 AM EDT Office Visit [facility] OPTOMETRY [address] [place] [address], OD [address] [place] [address] 11/26/2024 10:00 AM EDT Clinical Support [facility] MED & PEDS [address] [place], [place] [phone] Jing Washington, RN [address] [place], [place] [phone] documented as of this encounter Visit Diagnoses Diagnosis Pain Generalized pain documented in this encounter Additional Health Concerns Assessment Noted Time PHQ-9 Depression Total Score: 0 09/15/19 23 11:23 AM EST documented as of this encounter Care Teams Coil Cutter Relationship Specialty Start Date End Date Natalie Posadas MD [address] [place], [place] [phone] PCP - General Family Medicine 08/14/18 documented as of this encounter
--- OUTSIDE RECORDS SUMMARY | 2024-10-08 14:02 | XMS_ITS | Encounter Summary ---
Author Organization [employer] Address [address] [place] [address] Care Team Providers Care Spot Remover Name Role Phone Natalie Posadas MD Primary Care Provider [phone] Encounter Details Date Type Department Care Team (Late st Contact Info) Description 10/07/2024 10:30 AM EST Office Visit [facility] MEDICINE [address] [place], [place] [phone] Natalie Posadas MD [address] [place], [place] [phone] Tubular adenoma of colon (Primary Dx); Preop examination; Gastroesophageal reflux disease, unspecified whether esophagitis present; Benign prostatic hyperplasia, unspecified whether lower urinary tract symptoms present; Primary central sleep apnea; Occipital headache; Right internal carotid artery aneurysm; Dyslipidemia; Pain; Respiratory crackles at right lung base Social History Tobacco Use Types Packs/Day Years [...] AM EST documented as of this encounter Last Filed Vital Signs Vital Sign Reading Time Taken Comments Blood Pressure 116/81 10/07/2024 10:13 AM EST Pulse 92 10/07/2024 10:13 AM EST Temperature 36.2 ??C (97.1 ??F) 10/07/2024 1 0:13 AM EST Respiratory Rate 17 10/07/2024 10:1 3 AM EST Oxygen Saturation - - Inhaled Oxygen Concentration - - Weight 88.4 kg (194 lb 12.8 oz) 025 10:13 AM EST Height 167.6 cm (5' 6 ) 10/07/2024 10:1 3 AM EST Body Mass Index 31.44 10/07/2024 10:13 AM EST documented in this encounter Miscellaneous Notes * Assessment & Plan Note - Pilo Thomas - 10/07/2024 10:41 AM ESTAssociated Problem(s): Dyslipidemia Current medication: atorvastatin 10 mg qhs since Apr 2019 Last lipid profile: 10/04/23, reminded about lab before next appt Treatment Hx: He reported that he gets itching when he takes simvasatin at night, but no symptom when he takes in the morning. Switched from simvastatin to atorvastatin in Apr 2019 Continue working on lifestyle modifications * Assessment & Plan Note - Pilo Thomas - 10/07/2024 10:41 AM ESTAssociated Problem(s): Tubular adenoma of colon - last colonoscopy in 2014 and had a polypectomy, tubular adenoma - patient was recommended to repeat in 2024 by GI (we called GI office, and they recommended 2024) * Assessment & Plan Note - Pilo Thomas - 10/07/2024 10:40 AM ESTAssociated Problem(s): Right internal carotid artery aneurysm -small aneurysm seen on MRI/MRA in Sep 2022 -stable appearance on MRA/MRV in February 2024 -Pt does not have HTN, does not smoke cigarette, or drink alcohol -Pt states his sister has aneurysm -Seen by neurosurgeon in Mar 2024. Recommended follow-up in 1 year and MRA in 3- 5 years * Assessment & Plan Note - Pilo Thomas - 10/07/2024 10:40 AM ESTAssociated Problem(s): Primary central sleep apnea - Sleep Titration Study on 04/28/22 showed Central Sleep Apnea and obstructive sleep apnea -Recommended BiPAP use (his insurance is not willing to cover the cost of BiPAP currently) -Pt had Sleep Study Titration on 11/16/22. Recommended to start CPAP at 10cm of water -Continue CPAP (finally started in Aug 2023), improve adherence -Seen by sleep medicine specialist on 08/29/24 repeating home sleep study * Assessment & Plan Note - Pilo Thomas - 10/07/2024 10:39 AM ESTAssociated Problem(s): Occipital headache - Evaluated by Neurosurgeon for Intracranial Aneurysm, initial visit in 2022, following annually. ;was recommended to follow-up in 1 year for evaluation - 03/04/24 MRA/MRV at [facility] 1. 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 2. 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 - 06/19/24 CTA at [facility] Stable, 6 mm, fusiform aneurysm, supraclinoid [...] -Pt has been declining a referral to independent living specialist or physical therapy. -Continue judicious use of tramadol and NSAIDs. -Saw neurologist on 08/29/24; prescribed vitamin B6, gabapentin, and Magnesium oxide; Pt has not started medication yet, but pt was advised to try medications. - improve adherence to CPAP for central sleep apnea documented in this encounter Plan of Treatment Upcoming Encounters Date Type Department Care Team (Late st Contact Info) Description 10/16/2024 9:15 AM EST Office Visit [facility] MEDICINE [address] [place] [address] Natalie Posadas MD [address] [place] [address] 10/25/2024 10:30 AM EDT Office Visit [facility] OPTOMETRY [address] [place] [address], [place] [address] [place] [address] 11/26/2024 10:00 AM EDT Clinical Support [facility] CH[facility] MED & PEDS [address] [place] [address] Jing Washington, RN [address] [place] [address] Scheduled Orders Name Type Priority Associated Diagnoses Orde r Schedule XR Chest 2 Views Imaging Routine Respiratory crackles at right lung base Expected: 10/07/2024, Expires: 10/07/2025 documented as of this encounter Visit Diagnoses Diagnosis Tubular adenoma of colon- Primary Benign neoplasm of colon Preop examination Unspecified pre-operative examination Gastroesophageal reflux disease, unspecified whether esophagitis present Benign prostatic hyperplasia, unspecified whether lower urinary tract symptoms present Primary central sleep apnea Occipital headache Headache Right internal carotid artery aneurysm Dyslipidemia Other and unspecified hyperlipidemia Pain Generalized pain Respiratory crackles at right lung base documented in this encounter Additional Health Concerns Assessment Noted Time PHQ-9 Depression Total Score: 3 08/06/20 24 8:58 AM EST documented as of this encounter Care Teams Spot Remover Relationship Specialty Start Date End Date Natalie Posadas MD [address] [place] [address] PCP - General Family Medicine 08/14/18 documented as of this encounter
--- OUTSIDE RECORDS SUMMARY | 2024-10-08 14:02 | XMS_ITS | Clinical Summary ---
Author Organization [employer] Address [address] [place] [address] Care Team Providers Care Acid Adjuster Name Role Phone Natalie Posadas MD Primary Care Provider [phone] Allergies No known active allergies Medications ergocalciferol (Vitamin D-2) 1.25 MG (55253 UT) capsule Take 1 capsule by mouth once a week. 08/31/19 22 Active hydrocortisone 1 % cream apply by topical route every day to the affected area(s) 12/24/19 22 Active naloxone (Narcan) 4 mg/0.1 mL nasal spray Administer 0.1 mL into affected nostril(s). 02/11/20 22 Active latanoprost (Xalatan) 0.005 % ophthalmic solution Administer 1 drop into both eyes at bedtime. 2.5 mL 11 06/10/20 24 025 Active polyvinyl alcohol (Liquifilm Tears) 1.4 % ophthalmic solution 2 to 4 times a day as needed 08/01/20 22 Active Blood Pressure Monitor [facility] [place] Check BP daily 1 each 08/16/19 25 Active atorvastatin (Lipitor) 10 MG tabletIndicati ons:Dyslipidem ia TAKE 1 TABLET BY MOUTH AT BEDTIME 90 tablet 3 10/07/19 25 Active ibuprofen 800 MG tabletIndicati ons:Pain TAKE 1 TABLET BY MOUTH EVERY 8 HOURS NEEDED FOR PAIN OR FEVER. 30 tablet 1 10/07/19 25 Active traMADol (Ultram) 50 MG tabletIndicati ons:Pain Take 1 tablet (50 mg) by mouth every 12 (twelve) hours if needed for severe pain. 56 tablet 10/07/19 25 Active lidocaine (Lidoderm) 5 % patch Apply 1 patch topically Once per day. Remove & discard patch within 12 hours or as directed by MD. 30 patch 11 10/07/19 25 Active melatonin 3 MG tablet take 1 tablet by oral route 3 hours before your sleep study. May take 1 additional tablet in 1 hour. 12/24/19 025 Discontinued(Me d list cleanup (will not trigger notification to Pharmacy)) tiZANidine (Zanaflex) 4 MG tablet Take 1 tablet by mouth every 6 (six) hours. 12/24/19 025 Discontinued(Me d list cleanup (will not trigger notification to Pharmacy)) Omeprazole 20 MG tablet delayed-releas e Take 20 mg by mouth if needed each day (hearburn / acid reflux). 30 tablet 3 09/28/19 025 Discontinued(Me d list cleanup (will not trigger notification to Pharmacy)) atorvastatin (Lipitor) 10 MG tabletIndicati ons:Dyslipidem ia TAKE 1 TABLET BY MOUTH AT BEDTIME 90 tablet 1 04/17/20 025 Discontinued(Re order (will not trigger notification to Pharmacy)) lidocaine (Lidoderm) 5 % patch APPLY 1 PATCH TOPICALLY TO SKIN, LEAVE ON FOR 12 HOURS AND OFF FOR 12 HOURS DIRECTED 30 patch 11 06/07/20 025 Discontinued(Re order (will not trigger notification to Pharmacy)) metoclopramide (Reglan) 10 MG tabletIndicati ons:Occipital headache Take 1 tablet (10 mg) by mouth if needed in the morning, at noon, in the evening, and at bedtime (for headaches) for up to 10 days. 40 tablet 06/26/20 025 Discontinued(Me d list cleanup (will not trigger notification to Pharmacy)) ibuprofen 800 MG tabletIndicati ons:Pain TAKE 1 TABLET BY MOUTH EVERY 8 HOURS NEEDED FOR PAIN OR FEVER 30 tablet 1 07/19/20 24 025 Discontinued traMADol (Ultram) 50 MG tabletIndicati ons:Pain TAKE 1 TABLET BY MOUTH TWICE DAILY IN THE MORNING AND AT BEDTIME NEEDED FOR SEVERE PAIN 56 tablet 08/13/20 24 025 Discontinued(Re order (will not trigger notification to Pharmacy)) traMADol (Ultram) 50 MG tabletIndicati ons:Pain Take 1 tablet (50 mg) by mouth every 12 (twelve) hours if needed for severe pain. 56 tablet 09/11/19 25 025 Discontinued(Re order (will not trigger notification to Pharmacy)) ibuprofen 800 MG tabletIndicati ons:Pain TAKE 1 TABLET BY MOUTH EVERY 8 HOURS NEEDED FOR PAIN OR FEVER 30 tablet 1 09/16/19 25 025 Discontinued(Re order (will not trigger notification [...] anatomical narrow angle Seen by Dr. Padilla, [facility], on 12/21/22 Prescribed latanoprost gtt Chronic right-sided [...] neurosurgeon Occipital headache 10/12/2022 Assessment & Plan (10/07/2024 10:55 AM EST): - Evaluated by Neurosurgeon for Intracranial Aneurysm, initial visit in 2022, following annually. ; was recommended to follow-up in 1 year for evaluation - 03/04/24 MRA/MRV at [facility] 1. 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 2. 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 - 06/19/24 CTA at [facility] Stable, 6 mm, fusiform aneurysm, supraclinoid [...] -Pt has been declining a referral to computer support specialist or physical therapy. -Continue judicious use of tramadol and NSAIDs. -Saw neurologist on 08/29/24; prescribed vitamin B6, gabapentin, and Magnesium oxide; Pt has not started medication yet, but pt was advised to try medications. - improve adherence to CPAP for central sleep apnea Assessment & Plan (08/06/2024 9:35 AM EST): - Evaluated by Neurosurgeon for Intracranial Aneurysm, initial visit in 2022, following annually. ; was recommended to follow-up in 1 year for evaluation - 03/04/24 MRA/MRV at [facility] 1. 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 2. 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 - 06/19/24 CTA at [facility] Stable, 6 mm, fusiform aneurysm, supraclinoid [...] -Pt has been declining a referral to computer support specialist or physical therapy. -Continue judicious use [...] disc disease. Pt declined a referral to computer support specialist or physical therapy. Continue judicious use of tramadol and NSAIDs. Assessment & Plan (09/30/2023 7:20 AM EST): 10/27/22, Seen by Neurosurgeon for Intracranial Aneurysm; was recommended to follow-up in 1 year for evaluation Evaluation with MRI in 3-5 years His posterior headache is likely due to cervical degenerative disc disease. Pt declined a referral to computer support specialist or physical therapy. Continue judicious use of tramadol and NSAIDs. Assessment & Plan (05/26/2023 9:45 AM EDT): 10/27/22, Seen by Neurosurgeon for Intracranial Aneurysm; was recommended to follow-up in 1 year for evaluation Evaluation with MRI in 3-5 years His posterior headache is likely due to cervical degenerative disc disease. Pt declined a referral to computer support specialist or physical therapy. Continue judicious use of tramadol and NSAIDs. Assessment & Plan (01/24/2023 2:40 PM EDT): 10/27/22, Seen by Neurosurgeon for Intracranial Aneurysm; was recommended to follow-up in 1 year for evaluation Evaluation with MRI in 3-5 years Right internal carotid artery aneurysm Assessment & Plan (10/07/2024 10:40 AM EST): -small aneurysm seen on MRI/MRA in Sep 2022 -stable appearance on MRA/MRV in February 2024 -Pt does not have HTN, does not smoke cigarette, or drink alcohol -Pt states his sister has aneurysm -Seen by neurosurgeon in Mar 2024. Recommended follow-up in 1 year and MRA in 3- 5 years Assessment & Plan (08/12/2024 5:44 AM EST): [...] central sleep apnea 09/15/2022 Assessment & Plan (10/07/2024 10:53 AM EST): - Sleep Titration Study on [...] specialist on 08/29/24 repeating home sleep study Assessment & Plan (08/06/2024 10:59 AM EST): - Sleep Titration Study on 04/28/22 showed Central Sleep Apnea and obstructive sleep apnea -Recommended BiPAP use (his insurance is not willing to cover the cost of BiPAP currently) -Pt had Sleep Study Titration on 11/16/22. Recommended to start CPAP at 10cm of water -Continue CPAP (finally started in Aug 2023), improve adherence -Recommended seeing sleep park interpretive specialist so he can get a more comfortable [...] (09/30/2023 7:22 AM EST): - seen by applications engineer on 11/19/21, their impression was subclinical hypothyroidism, no graves disease - repeat TSH was 4.69 by applications engineer and pt has not been on levothyroxine - recommended to consider treatment if TSH >10 Assessment & Plan (05/26/2023 9:49 AM EDT): - seen by applications engineer on 11/19/21, their impression was subclinical hypothyroidism, no graves disease - repeat TSH was 4.69 by applications engineer and pt has not been on levothyroxine - recommended to consider treatment if TSH >10 Assessment & Plan (10/12/2022 3:35 PM EST): - seen by applications engineer on 11/19/21, their impression was subclinical hypothyroidism, [...] (09/15/2022 1:10 PM EST): - seen by applications engineer on 11/19/21, their impression was subclinical hypothyroidism, [...] adenoma of colon 09/17/2015 Assessment & Plan (10/07/2024 10:41 AM EST): - last colonoscopy in 2014 and had a polypectomy, tubular adenoma - patient was recommended to repeat in 2024 by GI (we called GI office, and they recommended 2024) Assessment & Plan (08/12/2024 5:44 AM EST): [...] (10/12/2022 3:35 PM EST): - seen by applications engineer on 11/19/21, their impression was subclinical hypothyroidism, [...] physically active Dyslipidemia 05/16/2012 Assessment & Plan (10/07/2024 10:41 AM EST): Current medication: atorvastatin 10 mg qhs since Apr 2019 Last lipid profile: 10/04/23, reminded about lab before next appt Treatment Hx: He reported that he gets itching when he takes simvasatin at night, but no symptom when he takes in the morning. Switched from simvastatin to atorvastatin in Apr 2019 Continue working on lifestyle modifications Assessment & Plan (08/12/2024 5:46 AM EST): [...] I presented case to emergency room of [facility] and refer patient to the emergency room, I offer to call ambulance patient declines, he reports he will go wit his brother in law Encounters Date Type Department Care Team Description 10/07/2024 10:30 AM EST Office Visit [facility] [address] [place] [phone] Natalie Posadas MD Tubular adenoma of colon (Primary Dx); Preop examination; Gastroesophageal reflux disease, unspecified whether esophagitis present; Benign prostatic hyperplasia, unspecified whether lower urinary tract symptoms present; Primary central sleep apnea; Occipital headache; Right internal carotid artery aneurysm; Dyslipidemia; Pain; Respiratory crackles at right lung base 10/07/2024 Travel 10/02/[address] [address] Natalie Posadas MD Chart Prep 09/25/[address] [address] Madhuri Barakat, CUAUHT[place]OC Care Management (C3CM- f/u call) 09/18/2024 Patient Outreach [address] [address] Natalie Posadas MD Care Coordination (Appt reminder) 09/16/2024 Orders Only [address] [address] Natalie Posadas MD Preop examination (Primary Dx); AV block, 1st degree 09/14/[address] [address] Natalie Posaads MD Pain 09/12/[address] [address] Madhuri Barakat RN Care Management (C3CM- f/u call) 09/11/2024 10:00 AM EST Clinical Support [facility] [address] [place] [address] Jing Washington, embroidery operator right-sided headache 09/11/2024 Telephone [facility] [address] [place] [address] Jing Washington, RN 09/11/2024 Refill [facility] [address] [place] [address] Jing Washington, [place] Pain 09/11/2024 Travel 09/10/2024 Patient Outreach [address] [address] Natalie Posadas MD Care Coordination (Appt reminder) 09/05/[address] [address] Natalie Posadas MD Clearance needed 09/05/2024 Patient Outreach [place] [address] [facility] [place] [address] Natalie Posadas MD Care Coordination (PT1) 09/03/2024 Patient Outreach [facility] Jose Alfredo [facility] [place] [address] Natalie Posadas MD Care Coordination (SDOH/pt1) 09/03/2024 [address] [place] [address] Madhuri Barakat RN Care Management (C3CM- f/u call) 08/31/2024 Orders Only GENERIC EXTERNAL DATA DEPARTMENT Provider, Generic External Data 08/29/2024 Patient Outreach [facility] Jose Alfredo [facility] [place] [address] Natalie Posadas MD Care Coordination (Appt reminder) 08/26/2024 Patient Outreach [address] [place] [address] Natalie Posadas MD Care Coordination (pt1) 08/22/2024 [address] [place] [address] Madhuri Barakat RN Care Management (C3CM- f/u call) 08/21/2024 Patient Outreach [address] [place] [address] Natalie Posadas MD Care Coordination (PT1) 08/16/2024 Orders Only [facility] Jose Alfredo [facility] [place] [address] Natalie Posadas MD Elevated BP without diagnosis of hypertension (Primary Dx) 08/12/[address] [address] Natalie Posadas MD 08/12/[address] [address] Madhuri Barakat RN Care Management (C3CM- f/u call) 08/12/2024 Patient Outreach [address] [address] Natalie Posadas MD Care Coordination (SDOH) 08/07/2024 Refill [facility] [address] [place] [address], [place] [address] Natalie Posadas MD Pain 08/06/2024 9:15 AM EST Office Visit [facility] [address] [place], [place] [address] [address] Natalie Posadas MD Chronic right-sided headache (Primary [...] History of Helicobacter pylori infection 08/06/2024 Telephone [facility] [address] [place] [address] Natalie Posadas MD 08/06/2024 Travel 07/31/2024 10:40 AM EST Office Visit [facility] [address] [place] [phone] Aundrea Lui NP Cough in adult patient 07/30/[address] [address] Madhuri Barakat, [place] Care Management (C3CM- f/u call) 07/26/2024 Patient Outreach [address] [address] Natalie Posadas MD Care Coordination (SDOH) 07/22/[address] [address] Madhuri Barakat RN chart prep 07/18/2024 Patient Outreach [address] [address] Natalie Posadas MD Care Coordination (CM/CHW outreach) 07/18/2024 Refill [facility] [address] [place] [address] Natalie Posadas MD Pain 07/16/2024 Refill [facility] [address] [place] [address] Natalie Posadas MD Pain 07/10/2024 Patient Outreach [place] [address] [place] [address] Natalie Posadas MD Care Coordination (CM/CHW outreach) from Last 3 Months Immunizations Name Administration [...] 10/07/2024 10:1 3 AM EST Oxygen Saturation 97% 08/06/2024 8:58 AM EST Inhaled Oxygen Concentration - - Weight 88.4 kg (194 lb 12.8 oz) 025 10:13 AM EST Height 167.6 cm (5' 6 ) 10/07/2024 10:1 3 AM EST Body Mass Index 31.44 10/07/2024 10:13 AM EST Plan of Treatment Upcoming Encounters Date Type Department Care Team (Late st Contact Info) Description 10/16/2024 9:15 AM EST Office Visit [facility] [address] [place] [address] Natalie Posadas MD [address] [place] [address] 10/25/2024 10:30 AM EDT Office Visit [facility] OPTOMETRY [address] [place] [address] OD [address] [place] [address] 11/26/2024 10:00 AM EDT Clinical Support [facility] [address] [facility] [place] [address] Jing Washington, RN [address] [place] [address] Health Maintenance Due Date Last Done Comments CT Colonography 1962 FIT DNA/Cologuard 1962 FIT 1962 FOBT 1962 Sigmoidoscopy 1962 Colonoscopy 06/03/2020 06/03/2015 Colorectal Cancer Screening 06/03/2020 COVID-19 Vaccine ( season) 2024 08/12/2022, 08/17/2021, 01/13/2021, Additional history exists Influenza Vaccine (#1) 2024 , 07/01/2020, 08/20/2018, Additional history exists SDOH Screening 09/28/2024 09/28/2023 Alcohol/Substance Use Screening 08/06/2025 08/06/2024 Depression Screening 08/06/2025 08/06/2024, 08/06/20 Tobacco Screening 08/06/2025 08/06/2024 Diabetes: Hemoglobin A1C 09/25/2025 025, 09/28/2023, 05/24/2023, Additional history exists Lipid Panel 08/31/2029 08/31/2024, 09/15, 06/02/2022, Additional [...] Procedure Name Priority Date/Time Associated Diagnosis Comments HEMOGLOBIN A1C Routine 09/25/2024 10:49 AM EST Prediabetes VITAMIN D,25-OH,TOTAL,IA Routine 09/25/2024 10:49 AM EST Vitamin D deficiency POCT STEPHEN-14 URINE DRUG SCREEN Routine 09/11/2024 [...] 11:36 AM EST Cough in adult patient ZZZ HISTORICAL HEPATITIS C AB W/REFL TO HCV RNA, QN, PCR Routine 06/02/2022 10:20 AM EDT HIV 1/2 ANTIGEN/ANTIBODY, FOURTH GENERATION W/RFL Routine 06/02/2022 10:20 AM EDT HM COLONOSCOPY Routine 06/03/2015 from Last 3 Months or Most Recently Relevant to Health Maintenance Results * Vitamin D, 25-Hydroxy, Total, Immunoassay (09/25/2024 10:49 AM EST) Only the most recent of2 resultswithin the time period is included. Vitamin D 25-OH Total 55.3 >30 ng/mL [facility] Comment:Health Based Referen ce Values*< 20 ng/mL [id number] ng/mL Insufficient> 30 ng/mL Sufficient*Aramis GARVIN. N [...] confirmed with another method such as LC-MS/MS. Blood Venous blood specimen / Unknown 09/25/2024 10:49 AM EST 09/25/2024 1:42 PM EST Natalie Posadas MD LAB BLOOD ORDERABLES Final Resul t Performing Organization Address [facility] Co de Phone Number [facility] [address] [place] [phone] * Hemoglobin A1c (09/25/2024 10:49 AM EST) Hemoglobin A1c 5.7 <6.0 % [facility] Comment:Hemoglobin A1C Refer ence Range Adults: 4.8 - 6.0 % Non diabetic: < 6.0 % Goal: < 7.0 %Additional Action Suggested: > 8.0 %Note: Hemoglobin A1c results are invalid for patients with abnormal amounts of HbF. Blood transfusions may impact the HbA1c concentration in the patient sample. Estimated Average Glucose 117 mg/dL [facility] Comment:eAG = Estimated ave rage glucose which is %A1C expressed asaverage glucose, using the formula of the Q0F-SfjwdjbVdrmemh Glucose study (ADAG), Diabetes Care, Vol.31,#8,Mar. 2007 Blood Venous blood specimen / Unknown 09/25/2024 10:49 AM EST 09/25/2024 1:42 PM EST Natalie Posadas MD LAB BLOOD ORDERABLES Final Resul t Performing Organization Address [facility] Co de Phone Number [facility] [address] [place] [phone] * POCT STEPHEN-14 Urine Drug Screen (09/11/2024 9:54 AM EST) Urine Urine specimen obtained by clean catch procedure / Unknown 09/11/2024 9:54 AM EST Narrative Jing Washington RN - 09/11/2024 9:54 AM EST negative for THC, MOP, OXY, PETER, MET, AMP, BZO, BAR, MTD, BUPG, TCA, MDMA, PCP, PPX. Lot# [id number] Exp: 07-20-25 Natalie Posadas MD POINT OF CARE TEST ENTER/EDIT OR DERABLES Final Result * Cancelled Chemistry (08/31/2024 9:42 AM EST) Cancelled Chemistry SEE NOTE [facility] Comment:NO SPECIMEN RECEIVED FOR HGB A1C 08/31/2024 9:42 AM EST 08/31/2024 9:42 AM EST Natalie Posadas MD HISTORICAL/NON ORDERABLE LABS Fi nal Result Performing Organization Address [facility]/ZIP Co de Phone Number [facility] [address] [place] [address] [phone] * Vitamin B12 (Cobalamin) and Folate Panel, Serum (08/31/2024 9:42 AM EST) Pathologist [facility] Vitamin B12 408 200 - 900 pg/mL [facility] Comment:NORMAL 200-900 PG/ML INDETERMINATE 160-199 PG/ML DEFICIENT < 160 PG/ML Folate 8.6 > or = 4.0 ng/mL [facility] Comment:Reference Values:> o r = 4.0 [...] Organization Address [facility] Co de Phone Number [facility] [address] [place] [address] [phone] * TSH with Reflex to Free T4 (08/31/2024 9:42 AM EST) TSH reflex Free T4 3.18 0.32 - 4.0 uIU/mL [facility] Blood 08/31/2024 9:42 AM EST 08/31/2024 9:42 AM EST us Natalie Posadas MD LAB BLOOD ORDERABLES Final Resul t Performing Organization Address [facility] Co de Phone Number [facility] [address] [place] [phone] * (ABNORMAL) Lipid Panel with Reflex to Direct LDL (08/31/2024 9:42 AM EST) Triglycerides 88 <150 mg/dL [facility] Comment:Desirable Triglyceri de: less than 150 mg/dLBorderline High Triglyceride 150-199 mg/dLHigh Triglyceride: 200-499 mg/dLVery High Triglyceride: greater than or equal to 5OO mg/dL Cholesterol 175 <200 mg/dL [facility] Comment:Desirable Cholestero l: less than 200 mg/dLBorderline High Cholesterol: 200-239 mg/dLHigh Cholesterol: greater than 239 mg/dL LDL Cholesterol Calculated 116(H) <100 mg/dL [facility] Comment:Desirable LDL: less than 100 mg/dLNear Optimal/Above Optimal LDL: 110- 129 mg/dLBorderline High LDL: 130-159 mg/dLHigh LDL: 160-189 mg/dLVery High LDL: greater than or equal to 190 mg/dL HDL Cholesterol 42 >40 mg/dL [facility] Comment:Desirable HDL: great er than 40 mg/dL Note: This HDL assay may give artificially low results in patients with liver disease. Blood 08/31/2024 9:42 AM EST 08/31/2024 9:42 AM EST us Natalie Posadas MD LAB BLOOD ORDERABLES Final Resul t Performing Organization Address [facility] Co de Phone Number [facility] [address] [place] [phone] * Methylmalonic Acid (08/31/2024 9:42 AM EST) Methylmalonic Acid 199 69 - 390 nmol/L [facility] Comment: Serum methylmalonic acid (MMA) levels [...] outcomes,such as neural tube defects and intrauterine growthrestriction.JRapid utilized Multi-Modal Decomposition(MMD) analysis to establish first and second trimester-specific MMA reference intervals in , as givenbelow:MMA, First trimester (<13 wks gestation): 58-167 nmol/LMMA, Second trimester (13-23 wks gestation):63-241 nmol/LThis test was developed and its analytical performancecharacteristics have been determined by [employer]. It has not been cleared or approved by theFDA. This assay has been validated pursuant to the CLIAregulations and is used for clinical purposes.THIS TEST WAS PERFORMED AT:[id number] [place], [place] ??[id number] EDWARDS MD,PHD 08/31/2024 9:42 AM EST 08/31/2024 9:42 AM EST us Generic External Data Provider LAB BLOOD ORDERAB LES Final Result [facility] [address] [place] [phone] * (ABNORMAL) Homocysteine (08/31/2024 9:42 AM EST) Homocysteine 15.0(A) <11.4 umol/L [facility] Comment:Homocysteine is incr eased by functional deficiency offolate or vitamin B12. Testing for methylmalonic aciddifferentiates between these deficiencies. Other causesof increased homocysteine include renal failure, folateantagonists such as methotrexate and phenytoin, andexposure to nitrous oxide.Lui Castillo, et al., [employer] Analyst Med. 1999;131(5):331-9.THIS TEST WAS PERFORMED AT:[employer] [place] [id number] ARNOLD MD 08/31/2024 9:42 AM EST 08/31/2024 9:42 AM EST us Generic External Data Provider LAB BLOOD ORDERAB LES Final Result Performing Organization Address [facility] Co de Phone Number [facility] [address] [place] [phone] * Ferritin (08/31/2024 9:42 AM EST) Ferritin 149 20 - 250 ng/mL [facility] 08/31/2024 9:42 AM EST 08/31/2024 9:42 AM EST us Generic External Data Provider LAB BLOOD ORDERAB LES Final Result Performing Organization Address [facility] Phone Number [facility] [address] [place] [phone] * Albumin, Random Urine W/Creatinine (08/31/2024 9:38 AM EST) Creatinine, Urine 90.15 mg/dL [facility] Microalbumin Urine <5.0 mg/L [facility] Microalbum Creatinine Ratio Ur TNP <30 ug/mg cr [facility] Comment:Unable to calculate albumin/creatinine ratio due to lowmicroalbumin or creatinine result. Urine 08/31/2024 9:38 AM EST 08/31/2024 10:30 AM EST us Natalie Posadas MD LAB URINE ORDERABLES Final Resul t Performing Organization Address [facility] de Phone Number [facility] [address] [place] [phone] * Influenza B (ID NOW Rapid Molecular) (07/31/2024 11:39 AM EST) Pathologist [facility] Influenza B Negative Negative, Indeterminate [facility] Swab 07/31/2024 11:3 9 AM EST us Aundrea Lui WAREHOUSE LOGISTICS COORDINATOR POINT OF CARE TEST ENTER/EDIT O RDERABLES Final Result Performing Organization Address [facility]/ZIP Co de Phone Number [facility] [address] [place] [address] [phone] * Influenza A (ID NOW Rapid Molecular) (07/31/2024 11:37 AM EST) [facility] Influenza A Negative Negative, Indeterminate [facility] Swab 07/31/2024 11:3 7 AM EST us Aundrea Lui WAREHOUSE LOGISTICS COORDINATOR POINT OF CARE TEST ENTER/EDIT O RDERABLES Final Result Performing Organization Address City/[facility]/ZIP Co de Phone Number [facility] [address] [place] [address] [phone] * POCT Rapid COVID Ag (07/31/2024 11:36 AM EST) [facility] Rapid COVID Ag Negative Swab 07/31/2024 11:3 6 AM EST us Aundrea Lui WAREHOUSE LOGISTICS COORDINATOR POINT OF CARE TEST ENTER/EDIT O RDERABLES Final Result * HEPATITIS C AB W/REFL TO HCV RNA, QN, PCR (06/02/2022 10:20 AM EDT) [facility] HEPATITIS C ANTIBODY NON-REACTI VE NON-REACT GREGORY CONVERTED LEGACY LABS INDEX 0.08 <1.00 CONVERTED LEGACY LABS Comment: ?? HCV antibody was non-reactive. There is no laboratory ?? evidence of HCV infection. ?? In most cases, no further action is required. However, if recent HCV exposure is suspected, a test for HCV RNA (test code 44489) is suggested. ?? For additional information please refer to http://education.[employer]/faq/FOE43g8 (This link is being provided for informational/ [...] ? For additional information please refer to http://education.[employer]/faq/TAQ735 (This link is being provided for informational/ educational purposes only.) ? The performance of this assay has not been clinically validated in patients less than 2 years old. ?? 06/02/2022 10:2 0 AM EDT Natalie Posadas MD LAB BLOOD ORDERABLES Final Resul t CONVERTED LEGACY LABS * Hm Colonoscopy (06/03/2015) Colonoscopy Normal Normal 06/03/2015 us See Chong MD HEALTH MAINTENANCE Edited Re sult - Final from Last 3 Months or Most Recently Relevant to Health Maintenance Insurance [facility] C3 Care Teams Acid Adjuster Relationship Specialty Start Date End Date Natalie Posadas MD [address] [place] [phone] PCP - General Family Medicine 08/14/18
--- OUTSIDE RECORDS SUMMARY | 2024-10-08 14:02 | XMS_ITS | Encounter Summary ---
Author Organization [employer] Address [address] [facility] [address] [facility] [address] [place] [address] Care Team Providers Care Ict Support Engineer Name Role Phone Natalie Posadas MD Primary Care Provider [phone] Reason for Visit * Reason Comments Med Refill Encounter Details Date Type Department Care Team ([facility] st Contact Info) Description 01/24/2023 Refill [facility] CHC MED & PEDS [address] [place], [place] [phone] Kelly Diego, ANP [address] [place] [address] Pain Social History Tobacco Use Types Packs/Day [...] Description 10/16/2024 9:15 AM EST Office Visit [facility] MEDICINE [address] [place] [address] Natalie Posadas MD [address] [place], [place] [phone] 10/25/2024 10:30 AM EDT Office Visit [facility] OPTOMETRY [address] [place] [address], OD [address] [place] [address] 11/26/2024 10:00 AM EDT Clinical Support [facility] CHC MED & PEDS [address] [place], [place] [phone] Jing Washington, [place] [address] [place], [place] [phone] documented as of this encounter Visit Diagnoses Diagnosis Pain Generalized pain documented in this encounter Additional Health Concerns Assessment Noted Time PHQ-9 Depression Total Score: 0 09/15/19 23 11:23 AM EST documented as of this encounter Care Teams Ict Support Engineer Relationship Specialty Start Date End Date Natalie Posadas MD [address] [place] [address] PCP - General Family Medicine 08/14/18 documented as of this encounter
--- OUTSIDE RECORDS SUMMARY | 2024-10-08 14:02 | XMS_ITS | Encounter Summary ---
Author Organization [employer] Address [address] [place] [address] Care Team Providers Care Diamond Wheel Molder Name Role Phone Natalie Posadas MD Primary Care Provider [phone] Reason for Visit * Reason Comments Med Refill Encounter Details Date Type Department Care Team ([facility] st Contact Info) Description 07/03/2024 Refill [facility] MEDICINE [address] [place], [place] [phone] Natalie Posadas MD [address] [place], [place] [phone] Pain Social History Tobacco Use Types Packs/Day [...] 9:15 AM EST Office Visit [facility] MEDICINE [address] [place] [address] Natalie Posadas MD [address] [place] [address] 10/25/2024 10:30 AM EDT Office Visit [facility] OPTOMETRY [address] [place] [address] Seamus, Carolyn, OD [address] [place] [address] 11/26/2024 10:00 AM EDT Clinical Support [facility] CHC MED & PEDS [address] [place] [address] Jing Washington, [place] [address] [place] [address] documented as of this encounter Visit Diagnoses Diagnosis Pain Generalized pain documented in this encounter Additional Health Concerns Assessment Noted Time PHQ-9 Depression Total Score: 7 09/28/19 24 11:21 AM EST documented as of this encounter Care Teams Diamond Wheel Molder Relationship Specialty Start Date End Date Natalie Posadas MD [address] [place] [phone] PCP - General Family Medicine 08/14/18 documented as of this encounter
--- OUTSIDE RECORDS SUMMARY | 2024-10-08 14:02 | XMS_ITS | Encounter Summary ---
Author Organization [employer] Address [address] [place] [address] Care Team Providers Care Wall Man Name Role Phone Natalie Posadas MD Primary Care Provider [phone] Encounter Details Date Type Department Care Team ([facility] st Contact Info) Description 08/16/2024 Orders Only [facility] MEDICINE [address] [place], [place] [phone] Natalie Poasdas MD [address] [place], [place] [phone] Elevated BP without diagnosis of hypertension (Primary [...] Description 10/16/2024 9:15 AM EST Office Visit [facility] MEDICINE [address] [place] [address] Natalie Posadas MD [address] [place] [address] 10/25/2024 10:30 AM EDT Office Visit [facility] OPTOMETRY [address] [place] [address] Seamus, Carolyn, OD [address] [place] [address] 11/26/2024 10:00 AM EDT Clinical Support [facility] CHC MED & PEDS [address] [place] [address] Jing Washington, RN [address] [place] [address] documented as of this encounter Visit Diagnoses Diagnosis Elevated BP without diagnosis of hypertension- Primary documented in this encounter Additional Health Concerns Assessment Noted Time PHQ-9 Depression Total Score: 3 08/06/20 24 8:58 AM EST documented as of this encounter Care Teams Wall Man Relationship Specialty Start Date End Date Natalie Posadas MD [address] [place] [address] PCP - General Family Medicine 08/14/18 documented as of this encounter
== END ==
LOC: HO.CARD 11:23
PROVIDERS: PCP Family Medicine; Visit Provider Family Medicine
DX: Z01.818 Encounter for other preprocedural examination (principal); R09.89 Other specified symptoms and signs involving the circulatory and respiratory systems; I44.0 Atrioventricular block, first degree
CPT/HCPCS: 71046; 93005

== ENCOUNTER → 2024-10-08 11:31 | Outpatient (BNV) | payer MEDICAID, SELFPAY | PROVIDERS: PCP Family Medicine; Visit Provider Internal Medicine | DX: I44.0 Atrioventricular block, first degree (principal); I44.4 Left anterior fascicular block | CPT/HCPCS: 93010 ==

== ENCOUNTER → 2024-10-08 11:48 | Outpatient (BNV) | payer MEDICAID, SELFPAY | PROVIDERS: PCP Family Medicine; Visit Provider Radiology Diagnostic Radiology | DX: J98.4 Other disorders of lung (principal) | CPT/HCPCS: 71046 ==

== ENCOUNTER 2024-10-14 10:01 | Outpatient (REF) | payer MEDICAID, SELFPAY ==
--- OUTSIDE RECORDS SUMMARY | 2024-10-14 11:24 | XMS_ITS | Encounter Summary ---
Author Organization [employer] Address [address] [place] [address] Care Team Providers Care Business Relationship Manager Name Role Phone Natalie Posadas MD Primary Care Provider [phone] Reason for Visit * Reason Comments Med Refill Encounter Details Date Type Department Care Team ([facility] st Contact Info) Description 09/17/2023 Refill [facility] MEDICINE [address] [place], [place] [phone] Natalie Posadas MD [address] [place], [place] [phone] Pain Social History Tobacco Use Types Packs/Day [...] Description 10/16/2024 9:15 AM EST Office Visit [facility] MEDICINE [address] [place] [address] Natalie Posadas MD [address] [place] [address] 10/25/2024 10:30 AM EDT Office Visit [facility] OPTOMETRY [address] [place] [address], OD [address] [place] [address] 11/26/2024 10:00 AM EDT Clinical Support [facility] CHC MED & PEDS [address] [place], [place] [phone] Jing Washington, RN [address] [place] [address] documented as of this encounter Visit Diagnoses Diagnosis Pain Generalized pain documented in this encounter Additional Health Concerns Assessment Noted Time PHQ-9 Depression Total Score: 0 09/15/19 23 11:23 AM EST documented as of this encounter Care Teams Business Relationship Manager Relationship Specialty Start Date End Date Natalie Posadas MD [address] [place] [address] PCP - General Family Medicine 08/14/18 documented as of this encounter
--- OUTSIDE RECORDS SUMMARY | 2024-10-14 11:24 | XMS_ITS | Encounter Summary ---
Author Organization [employer] Address [address] [facility] [address] 7t [place] [address] Care Team Providers Care Professor Of Pathology Name Role Phone Natalie Posadas MD Primary Care Provider [phone] Encounter Details Date Type Department Care Team (Late st Contact Info) Description 10/07/2024 10:30 AM EST Office Visit [facility] [address] [place], [place] [phone] Natalie Posadas MD [address] [place], [place] [phone] Tubular adenoma of colon (Primary Dx); Preop examination; Gastroesophageal reflux disease, unspecified whether esophagitis present; Benign prostatic hyperplasia, unspecified whether lower urinary tract symptoms present; Primary central sleep apnea; Occipital headache; Right internal carotid artery aneurysm; Dyslipidemia; Pain; Respiratory crackles at right lung base; Dietary counseling; Exercise counseling; Class 1 obesity due to excess calories with serious comorbidity and body mass index (BMI) of 31.0 to 31.9 in adult Social History Tobacco Use Types Packs/Day Years [...] 10:13 AM EST documented in this encounter Progress Notes * Natalie Posaads MD - 10/07/2024 10:30 AM EST Subjective Mandeep Martinez is a 64 y.o. male who has sleep apnea (both central and obstructive), BPH, dyslipidemia, prediabetes, and tubular adenoma of colon, and patient presents for preop. Background: Our last encounter was 08/06/2024. Referred to neurologist for headache and to Dr. Chong for colonoscopy. Interval history: Seen by Dr. Chong for pre-procedural appointment on 08/21/24. Scheduling for colonoscopy. Today: Date of procedure: TBD Pre-operative diagnosis: tubular adenoma of colon Procedure: Colonoscopy Provider(s): Dr. Chong Anesthesia type: Modified sedation Pt has been in their usual state of health. No recent illness, fever, chest pain, or difficulty breathing. He denies using his CPAP machine, although he is advised to do so. He still has not done H. Pylori stool antigen test. He denies riding his bike as much and contributes it to his headaches. He has not been able to do his house chores, declining function. Pt has adequate support during preoperative period for preparation and post- operative period for recovery. Past Surgical History: 09/26/2014: HERNIA REPAIR; Right Comment: inguinal 1994: LUMBAR DISC SURGERY Comment: L4-L5 Cardiac Risk History of ischemic heart disease: NO (history of myocardial infarction or a positive exercise test, current complaint of chest pain considered to be secondary to myocardial ischemia, use of nitrate therapy, or ECG with pathological Q waves): History of heart failure: NO History of cerebrovascular disease: NO Diabetes mellitus requiring treatment with insulin: NO Preoperative serum creatinine >2.0 mg/dL : NO Activity tolerance >4 METS: NO, likely 3-4 METS climb up a flight of stairs, walk up a hill, walk at ground level at 4 miles per hour, or perform heavy work around the house. Bleeding Risk: Chronic anticoagulation: NO Daily aspirin: NO Blood clotting disorder: NO Pulmonary History: CONSTANTINO BMI > 40: NO Smoking History: Denies current/former tobacco use ETOH: None Substance Use: None Personal or family history of anesthesia reaction: NO PREOPERATIVE ASSESSMENT AND PLAN: - Provider considers procedure to be low - Reviewed cardiac risk factors based on RCRI. Patient has 0 risk factors corresponding to 0.4%riskof a major cardiac event during surgery. - Pt was advised to avoid NSAIDs starting 5-7 days before surgery - Pt may safely hold all other medications day of surgery - Patient may proceed with surgery and anesthesia without further risk stratification at this time - Pt will contact health center or surgeon with questions or concerns Addendum: - His recent EKG showed rate 93, sinus rhythm with 1st degree AV block, LAFB, and QTc has lengthened. QTc 477 ms - CXR showed bilateral scarring. - The risk of perioperative complications is still low; however, we will check with his gear design engineer since QTc has been lengthening and he is not taking any medication that is known to lengthen QT. Review of Systems Constitutional: Negative for activity change, appetite change and fever. Respiratory: Negative for chest tightness and shortness of breath. Cardiovascular: Negative for chest pain. Neurological: Positive for headaches. Objective Vitals: 10/07/24 1013 BP: 116/81 Pulse: 92 Resp: 17 Temp: 97.1 ??F (36.2 ??C) TempSrc: Temporal Weight: 194 lb 12.8 oz (88.4 kg) Height: 5' 6 (1.676 m) Physical Exam Constitutional: General: He is not in acute distress. Appearance: Normal appearance. He is not ill-appearing. HENT: Head: Normocephalic and atraumatic. Mouth/Throat: Mouth: Mucous membranes are moist. Eyes: Extraocular Movements: Extraocular movements intact. Pupils: Pupils are equal, round, and reactive to light. Cardiovascular: Rate and Rhythm: Normal rate and regular rhythm. Heart sounds: No murmur heard. Pulmonary: Effort: Pulmonary effort is normal. No respiratory distress. Breath sounds: Normal breath sounds. No wheezing or rhonchi. Skin: General: Skin is warm. Neurological: Mental Status: He is alert. Mental status is at baseline. Psychiatric: Mood and Affect: Mood normal. Results: Lab Results Component Value Date NA 139 06/19/2024 K 3.9 06/19/2024 CL 105 06/19/2024 CO2 23 06/19/2024 BUN 14 06/19/2024 CREATININE 0.93 06/19/2024 CRCLCALCPH 85.8 06/19/2024 EGFR >60 06/19/2024 GLUCOSE 107 06/19/2024 TOTALBILIRUB 0.8 06/19/2024 AST 27 06/19/2024 ALT 34 06/19/2024 TOTPROTEIN 7.6 06/19/2024 ALB 4.4 06/19/2024 ALP 89 06/19/2024 Lab Results Component Value Date TRIG 88 08/31/2024 CHOL 175 08/31/2024 LDLCHOLCAL 116 (H) 08/31/2024 HDL 42 08/31/2024 Lab Results Component Value Date HGBA1C 5.7 09/25/2024 MICROALBUR <5.0 08/31/2024 CREATUR 90.15 08/31/2024 MICROALBCREU TNP 08/31/2024 Lab Results Component Value Date WBC 7.6 06/19/2024 HGB 15.7 06/19/2024 HCT 45.5 06/19/2024 PLT 437 (H) 06/19/2024 MCV 85.8 06/19/2024 The 10-year ASCVD risk score (Fauzia HELM, et al., 2019) is: 8.6% Values used to calculate the score: Age: 64 years Sex: Male Is Non- : No Diabetic: No Tobacco smoker: No Systolic Blood Pressure: 116 mmHg Is BP treated: No HDL Cholesterol: 42 mg/dL Total Cholesterol: 175 mg/dL Assessment/Plan Problem List Items Addressed This Visit BPH (benign prostatic hyperplasia) Obesity Dyslipidemia Current medication: atorvastatin 10 mg qhs since Apr 2019 Last lipid profile: 10/04/23, reminded about lab before next appt Treatment Hx: He reported that he gets itching when he takes simvasatin at night, but no symptom when he takes in the morning. Switched from simvastatin to atorvastatin in Apr 2019 Continue working on lifestyle modifications Relevant Medications atorvastatin (Lipitor) 10 MG tablet Tubular adenoma of colon - Primary - last colonoscopy in 2014 and had a polypectomy, tubular adenoma - patient was recommended to repeat in 2024 by GI (we called GI office, and they recommended 2024) Primary central sleep apnea - Sleep Titration [...] specialist on 08/29/24 repeating home sleep study Right internal carotid artery aneurysm -small aneurysm seen on MRI/MRA in Sep 2022 -stable appearance on MRA/MRV in February 2024 -Pt does not have HTN, does not smoke cigarette, or drink alcohol -Pt states his sister has aneurysm -Seen by neurosurgeon in Mar 2024. Recommended follow-up in 1 year and MRA in 3- 5 years Occipital headache - Evaluated by Neurosurgeon for Intracranial Aneurysm, initial visit in 2022, following annually. ;was recommended to follow-up in 1 year for evaluation - 03/04/24 MRA/MRV at [facility] 1. 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 2. 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 - 06/19/24 CTA at [facility] Stable, 6 mm, fusiform aneurysm, supraclinoid [...] -Pt has been declining a referral to target protection specialist or physical therapy. -Continue judicious use of tramadol and NSAIDs. -Saw neurologist on 08/29/24; prescribed vitamin B6, gabapentin, and Magnesium oxide; Pt has not started medication yet, but pt was advised to try medications. - improve adherence to CPAP for central sleep apnea GERD (gastroesophageal reflux disease) Other Visit Diagnoses Preop examination Pain Relevant Medications ibuprofen 800 MG tablet traMADol (Ultram) 50 MG tablet Respiratory crackles at right lung base Relevant Orders XR Chest 2 Views (Completed) Dietary counseling Exercise counseling No Known Allergies Current Outpatient Medications Medication Instructions atorvastatin (Lipitor) 10 MG tablet TAKE 1 TABLET BY MOUTH AT BEDTIME Blood Pressure Monitor [facility] Check BP daily ergocalciferol (Vitamin D-2) 1.25 MG (53967 UT) capsule 1 capsule, Oral, Weekly hydrocortisone 1 % cream apply by topical route every day to the affected area(s) ibuprofen 800 MG tablet TAKE 1 TABLET BY MOUTH EVERY 8 HOURS NEEDED FOR PAIN OR FEVER. latanoprost (Xalatan) 0.005 % ophthalmic solution 1 drop, Both Eyes, Nightly lidocaine (Lidoderm) 5 % patch 1 patch, Apply externally, Daily, Remove & discard patch within 12 hours or as directed by MD. naloxone (Narcan) 4 mg/0.1 mL nasal spray 0.1 mL, Nasal polyvinyl alcohol (Liquifilm Tears) 1.4 % ophthalmic solution 2 to 4 times a day as needed traMADol (ULTRAM) 50 mg, Oral, Every 12 hours PRN Follow-up: 3 months or sooner if any problem arises. Scribe Attestation: IPilo, am serving as a scribe to document services personally performed by Natalie Posadas MD,based on the patient's response to questions by provider and provides statements to me. Physicians Attestation: INatalie, have reviewed the information by the scribe, Laurel Puentes, for accuracy and agree with its content. documented in this encounter Miscellaneous Notes * [...] study * Assessment & Plan Note - Plio Thomas - 10/07/2024 10:39 AM ESTAssociated Problem(s): Occipital headache - Evaluated by Neurosurgeon for Intracranial Aneurysm, initial visit in 2022, following annually. ;was recommended to follow-up in 1 year for evaluation - 03/04/24 MRA/MRV at [facility] 1. 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 2. 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 - 06/19/24 CTA at [facility] Stable, 6 mm, fusiform aneurysm, supraclinoid [...] -Pt has been declining a referral to target protection specialist or physical therapy. -Continue judicious use [...] Description 10/16/2024 9:15 AM EST Office Visit [facility] [address] [place] [address] Natalie Posadas MD [address] [place] [address] 10/25/2024 10:30 AM EDT Office Visit [facility] [address] [place] [address], OD [address] [place] [address] 11/26/2024 10:00 AM EDT Clinical Support [facility] [address] [place] [address] Jing [place], CUAUHTEMOC [address] [place] [address] documented as of this encounter Procedures Procedure Name Priority Date/Time Associated Diagnosis Comments XR CHEST 2 VIEWS Routine 10/08/2024 11:4 8 AM EST Respiratory crackles at right lung base documented in this encounter Results * XR Chest 2 Views (10/08/2024 11:48 AM EST) Anatomical Region Laterality Modality Chest Radiographic Sana ging 10/08/2024 11:4 8 AM EST Narrative 10/09/2024 8:01 AM EST ? [facility] ?[address] ?[place] [address] ?XRay Report ? Signed ? Patient: Juan,Mandeep ?MR#: [id number] ? : 1960 ?Acct:[id number] ? Age/Sex: 64 / M ?ADM Date: 02/25/25 ? Loc: HO.CARD ? Attending Dr: Natalie Posadas MD ? Ordering Physician: Natalie Posadas MD ?? Date of Service: 10/08/24 ?? Procedure(s): XR chest 2V ?? Accession Number(s): [id number] ? cc: Natalie Posadas MD ? EXAMINATION: ??XR CHEST 2 VIEWS ? HISTORY: exertional dyspnea, CONSTANTINO, crackles on right lung base ? COMPARISON: Comparison is made with the prior examination dated ?? 03/07/2022. ? FINDINGS: ??PA and lateral views of the chest are submitted. There are ?? linear opacities at both lung bases without change, consistent with ?? scarring. No new focal airspace opacity is identified. ??There is no ?? pleural effusion, pneumothorax, or pulmonary vascular congestion. ??The ?? heart is normal in size. ??The bones are intact. ? XR/XR chest 2V ?? IMPRESSION: ?? Bibasilar scarring. No acute cardiopulmonary abnormality. ? Electronically signed by: ??Madi Cueva MD ??10/09/2024 07:58 AM EST ? Dictated By: ?Madi Cueva MD ? Signed By: ?<Electronically signed by Madi Cueva MD in OV> ?10/09/24 0758 ? DD/ 1148 ? TD/TT: 10/08/24 1155 ? Vending Route Driver: ? Procedure Note Annalisa, Image - 10/09/2024 [place] [address] XRay Report Signed Patient: Kaleb Martinez#: [id number] : 1960cct:[id number] Age/Sex: 64 / MADM Date: 10/08/24 Loc: [facility] Attending Dr: Natalie Posadas MD Ordering Physician: Natalie Posadas MD Date of Service: 10/08/24 Procedure(s): XR chest 2V Accession Number(s): [id number] cc: Natalie Posadas MD EXAMINATION: XR CHEST 2 VIEWS HISTORY: exertional dyspnea, CONSTANTINO, crackles on right lung base COMPARISON: Comparison is made with the prior examination dated 03/07/2022. FINDINGS: PA and lateral views of the chest are submitted. There are linear opacities at both lung bases without change, consistent with scarring. No new focal airspace opacity is identified. There is no pleural effusion, pneumothorax, or pulmonary vascular congestion. The heart is normal in size. The bones are intact. XR/XR chest 2V IMPRESSION: Bibasilar scarring. No acute cardiopulmonary abnormality. Electronically signed by: Madi Cueva MD 10/09/2024 07:58 AM EST RP Dictated By: Madi Cueva MD Signed By: <Electronically signed by Madi Cueva MD in OV> 10/09/24 0758 DD/ 1148 TD/TT: 10/08/24 1155 Vending [address] Driver: Natalie Posadas MD IMG XR PROCEDURES Final Result documented in this encounter Visit Diagnoses Diagnosis Tubular adenoma of colon- Primary Benign neoplasm of colon Preop examination Unspecified pre-operative examination Gastroesophageal reflux disease, unspecified whether esophagitis present Benign prostatic hyperplasia, unspecified whether lower urinary tract symptoms present Primary central sleep apnea Occipital headache Headache Right internal carotid artery aneurysm Dyslipidemia Other and unspecified hyperlipidemia Pain Generalized pain Respiratory crackles at right lung base Dietary counseling Dietary surveillance and counseling Exercise counseling Class 1 obesity due to excess calories with serious comorbidity and body mass index (BMI) of 31.0 to 31.9 in adult documented in this encounter Additional Health Concerns Assessment Noted Time PHQ-9 Depression Total Score: 3 08/06/20 24 8:58 AM EST documented as of this encounter Care Teams Professor Of Pathology Relationship Specialty Start Date End Date Natalie Posadas MD [address] [place] [address] PCP - General Family Medicine 08/14/18 documented as of this encounter
--- OUTSIDE RECORDS SUMMARY | 2024-10-14 11:24 | XMS_ITS | Encounter Summary ---
Author Organization [employer] Address [address] [facility] 7t [place] [address] Care Team Providers Care Pest Control Applicator Name Role Phone Natalie Posadas MD Primary Care Provider [phone] Reason for Referral * Consultation (Urgent) - Authorized Specialty Diagnoses / Procedures Referred By Ever diaz Referred To Contact Cardiology Diagnoses Prolonged QT interval Preop examination Natalie Posadas MD [address] [place] [address] Phone: tel: fax: [facility] Referral ID Status Reason Start Date Expiration Date Visits Requested Visits Authorized [id number] Authorized Specialty Services Required 10/11/2024 10/11/2025 6 6 Reason for Visit * Reason Onset Date Comments Referral 10/11/2024 Encounter Details Date Type Department Care Team ([facility] st Contact Info) Description 10/11/[address] [facility] [address] [place] [address] Natalie Posadas MD [address] [place], [place] [phone] Referral Social History Tobacco Use Types Packs/Day Years [...] encounter Miscellaneous Notes * Telephone Encounter - India Daniel RN - 10/11/2024 2:06 PM EST TC placed to pt with [facility] language interpreter #[id number] to inform of PCP message regarding pt preoperative EKG.Pt informed of the findings including a prolonged QT wave. Pt advised that due to these findings a referral has been placed by PCP to [facility] cardiology for further review. Pt instructed to use CPAP machine nightly and have BASICP and MG labs drawn before next appt with PCP on 10/16/2024. Pt stated understanding to this information and had no further questions. * Telephone Encounter - Natalie Posadas MD - 10/11/2024 12:27 PM EST Preop EKG showed 1st degree AV block and prolonged QTc. He had 1st degree AV block in his last EKG in Jun 2024, but QT has lengthened He is not on any medication that can cause prolonged QT. Will refer to field sales representative for further work-up. documented in this encounter Plan of Treatment Upcoming Encounters Date Type Department Care Team (Late st Contact Info) Description 10/16/2024 9:15 AM EST Office Visit [facility] [address] [place] [address] Natalie Posadas MD [address] [place] [address] 10/25/2024 10:30 AM EDT Office Visit [facility] [address] [place] [address], OD [address] [place] [address] 11/26/2024 10:00 AM EDT Clinical Support [facility] [address] [place], [place] [phone] Jing Washington, RN [address] [place] [address] Scheduled Referrals Name Type Priority Associated Diagnoses Orde r Schedule Referral to Cardiology Outpatient Referral Urgent Prolonged QT interval Preop examination Expected: 10/11/2024 (Approximate), Expires: 10/11/2025 documented as of this encounter Visit Diagnoses Diagnosis Prolonged QT interval- Primary Nonspecific abnormal electrocardiogram (ECG) (EKG) Preop examination Unspecified pre-operative examination documented in this encounter Additional Health Concerns Assessment Noted Time PHQ-9 Depression Total Score: 3 08/06/20 24 8:58 AM EST documented as of this encounter Care Teams Pest Control Applicator Relationship Specialty Start Date End Date Natalie Posadas MD [address] [place] [address] PCP - General Family Medicine 08/14/18 documented as of this encounter
--- OUTSIDE RECORDS SUMMARY | 2024-10-14 11:24 | XMS_ITS | Encounter Summary ---
Author Organization [employer] [facility] Address [address] [place] [address] 7t [place] [address] Care Team Providers Care Teacher Theater Arts Name Role Phone Natalie Posadas MD Primary Care Provider [phone] Reason for Visit * Reason Comments Med Refill Encounter Details Date Type Department Care Team (Late Contact Info) Description 04/24/2023 Refill [facility] [address] [place], [place] [phone] Natalie Posadas MD [address] [place] [phone] Pain Social History Tobacco Use Types Packs/Day [...] 10/16/2024 9:15 AM EST Office Visit [facility] [address] [place] [address] Natalie Posadas MD [address] [place], [place] [phone] 10/25/2024 10:30 AM EDT Office Visit [facility] [address] [place] [address], OD [address] [place] [address] 11/26/2024 10:00 AM EDT Clinical Support [facility] [address] [place], [place] [phone] Jing Washington, RN [address] [place], [place] [phone] documented as of this encounter Visit Diagnoses Diagnosis Pain Generalized pain documented in this encounter Additional Health Concerns Assessment Noted Time PHQ-9 Depression Total Score: 0 09/15/19 23 11:23 AM EST documented as of this encounter Care Teams Teacher Theater Arts Relationship Specialty Start Date End Date Natalie Posadas MD [address] [place] [address] PCP - General Family Medicine 08/14/18 documented as of this encounter
--- OUTSIDE RECORDS SUMMARY | 2024-10-14 11:24 | XMS_ITS | Encounter Summary ---
Author Organization [employer] Address [address] [facility] [address] [place] [address] Care Team Providers Care Investigative Agent Name Role Phone Natalie Posadas MD Primary Care Provider [phone] Reason for Visit * Reason Comments Med Refill Encounter Details Date Type Department Care Team ([facility] st Contact Info) Description 01/24/2023 Refill [facility] [address] [place], [place] [phone] Kelly Diego, ANP [address] [place] [address] Pain Social History Tobacco Use Types Packs/Day [...] Description 10/16/2024 9:15 AM EST Office Visit [facility] [address] [place] [address] Natalie Posadas MD [address] [place], [place] [phone] 10/25/2024 10:30 AM EDT Office Visit [facility] [address] [place] [address], OD [address] [place] [address] 11/26/2024 10:00 AM EDT Clinical Support [facility] [address] [place], [place] [phone] Jing Washington, CUAUHTEMOC [address] [place], [place] [phone] documented as of this encounter Visit Diagnoses Diagnosis Pain Generalized pain documented in this encounter Additional Health Concerns Assessment Noted Time PHQ-9 Depression Total Score: 0 09/15/19 23 11:23 AM EST documented as of this encounter Care Teams Investigative Agent Relationship Specialty Start Date End Date Natalie Posadas MD [address] [place] [address] PCP - General Family Medicine 08/14/18 documented as of this encounter
--- OUTSIDE RECORDS SUMMARY | 2024-10-14 11:24 | XMS_ITS | Encounter Summary ---
Author Organization [employer] Address [address] [facility] [address] [place] [address] Care Team Providers Care Cone Picker Name Role Phone Natalie Posadas MD Primary Care Provider [phone] Reason for Visit * Reason Comments Care Coordination Appt reminder Encounter Details Date Type Department Care Team (Latest Contact Info) Description 09/18/2024 Patient Outreach [facility] [address] [place], [place] [phone] Natalie Posadas MD [address] [place], [place] [phone] Care Coordination (Appt reminder) Social History Tobacco [...] outbound call to patient introducing herself from [facility] CM Department, in regard to remind patient of appt for 09/19/23 @ 12PM with [facility] neurology [address] [place] [address] [address]. Patient's name and was confirmed. Patient is aware and confirmed will be available and has no barriers on attending this appointment. Patient verbalized understanding and agrees with plan. documented in this encounter Plan of Treatment Upcoming Encounters Date Type Department Care Team ([facility] st Contact Info) Description 10/16/2024 9:15 AM EST Office Visit [facility] [address] [place] [address] Natalie Posadas MD [address] [place] [address] 10/25/2024 10:30 AM EDT Office Visit [facility] [address] [place] [address] OD [address] [place] [address] 11/26/2024 10:00 AM EDT Clinical Support [facility] [address] [place] [address] Jing [place], RN [address] [place] [address] documented as of this encounter Visit Diagnoses Not on filedocumented in this encounter Additional Health Concerns Assessment Noted Time PHQ-9 Depression Total Score: 3 08/06/ 24 8:58 AM EST documented as of this encounter Care Teams Cone Picker Relationship Specialty Start Date End Date Natalie Posadas MD [address] [place] [address] PCP - General Family Medicine 08/14/18 documented as of this encounter
--- OUTSIDE RECORDS SUMMARY | 2024-10-14 11:24 | XMS_ITS | Encounter Summary ---
Author Organization [employer] Address [address] 7t [place] [address] Care Team Providers Care Bag End Sewer Name Role Phone Natalie Posadas MD Primary Care Provider [phone] Reason for Visit * Reason Onset Date Comments Chart Prep 10/02/2024 Encounter Details Date Type Department Care Team ([facility] st Contact Info) Description 10/02/2024 Telephone [facility] MEDICINE 230 [place], [place] [phone] Natalie Posadas MD 230 [place], [place] [phone] Chart Prep Social History Tobacco Use Types [...] 10/16/2024 9:15 AM EST Office Visit [facility] MEDICINE 230 [place] [address] Natalie Posadas MD 230 [place] [address] 10/25/2024 10:30 AM EDT Office Visit [facility] OPTOMETRY [address] [place] [address] OD 230 [place] [address] 11/26/2024 10:00 AM EDT Clinical Support [facility] CHC MED & PEDS 505 [place] [address] Jing Washington, RN 505 [place] [address] documented as of this encounter Visit Diagnoses Not on filedocumented in this encounter Additional Health Concerns Assessment Noted Time PHQ-9 Depression Total Score: 3 08/06/20 24 8:58 AM EST documented as of this encounter Care Teams Bag End Sewer Relationship Specialty Start Date End Date Natalie Posadas MD [address] [place] [address] PCP - General Family Medicine 08/14/18 documented as of this encounter
--- OUTSIDE RECORDS SUMMARY | 2024-10-14 11:24 | XMS_ITS | Encounter Summary ---
Author Organization [employer] Address [address] [facility] 7t [place] [address] Care Team Providers Care Laborer Construction Or Leak Gang Name Role Phone Natalie Posadas MD Primary Care Provider [phone] Reason for Visit * Reason Onset Date Comments Care Management 10/09/2024 C3CM- f/u call Encounter Details Date Type Department Care Team ([facility] st Contact Info) Description 10/09/2024 Telephone [facility] MEDICINE 230 [place] [address] Natalie Posadas MD 230 [place], [place] [phone] Care Management (C3CM- f/u call) Social History [...] Telephone Encounter - Madhuri Barakat RN - 10/09/2024 12:27 PM EST CM Madhuri Barakat RN and TYSON Villalobos placed outbound call to patient. Patient's name, and address confirmed. Patient c/o daily headaches. He reports taking tylenol, which he states provides relief for just a couple of hours and then symptoms return. Patient confirms attending Pre-Op apptwith PCP on 10/07/24. He states he completed an EKG and chest CXR yesterday at [facility] and has a f/u appt scheduled with PCP on 10/16/24 at 9:15am. He denies any barriers to attending visit. Patient denies any respiratory symptoms. He denies CP, SOB, cough, dizziness, nausea, vomiting or other symptoms atthis time. Per patient, will be getting in touch with his niece today so that she can f/u with CM re garding request for ENTRY LEVEL MACHINE OPERATOR services. CM reminded patient of his scheduled home sleep study on 10/17/24 at 1:00pm. Also informed patient that he is scheduled for his f/u with [facility] on 11/28/24 at 10:00am. Patient states he has written these down and denies any barriers to attending thosevisits. No further questions or concerns. CM reinforced direct contact information or CHW for any additional questions or concerns. Education provided on Walk-In Urgent Care located in [facility]. Patient provided with after-hours line for [facility], , which offer night time triage service and option to transfer to transcription manager provider if needed. Patient verbalizes understanding, and able to repeat back to creative services writer. A follow up call will be placed within 10 days, patientagrees with plan. CM received v/m from Esther Martinez, patient's niece. CM returned call to the number provided [phone]. No answer. Left v/m requesting return call. documented in this encounter Plan of Treatment Upcoming Encounters Date Type Department Care Team ([facility] st Contact Info) Description 10/16/2024 9:15 AM EST Office Visit [facility] MEDICINE [address] [place], [place] [phone] Natalie Posadas MD 230 [place] [address] 10/25/2024 10:30 AM EDT Office Visit [facility] OPTOMETRY [address] [place], [place] [phone] Carolyn [address], OD 230 [place] [address] 11/26/2024 10:00 AM EDT Clinical Support [facility] CHC MED & PEDS 505 [place], [place] [phone] Jing Washington, CUAUHTEMOC 505 [place], [place] [phone] documented as of this encounter Visit Diagnoses Not on filedocumented in this encounter Additional Health Concerns Assessment Noted Time PHQ-9 Depression Total Score: 3 08/06/ 24 8:58 AM EST documented as of this encounter Care Teams Laborer Construction Or Leak Gang Relationship Specialty Start Date End Date Natalie Posadas MD 230 [place] [address] PCP - General Family Medicine 08/14/18 documented as of this encounter
--- OUTSIDE RECORDS SUMMARY | 2024-10-14 11:24 | XMS_ITS | Encounter Summary ---
Author Organization [employer] Address [address] 7[address] [place] [address] Care Team Providers Care Grocery Packer Name Role Phone Natalie Posadas MD Primary Care Provider [phone] Reason for Visit * Reason Onset Date Comments Clearance needed 09/05/2024 Encounter Details Date Type Department Care Team ([facility] st Contact Info) Description 09/05/2024 Telephone [facility] MEDICINE 230 [place], [place] [phone] Natalie Posadas MD 230 [place], [place] [phone] Clearance needed Social History Tobacco Use Types [...] it is ordered, he can walk into [facility] anytime to get it done. They [...] ordered. Pt advised to have done at [facility] Surgeon's name: Dr Weinberg Last office note from surgeon requested: available on [facility] Office Appointment scheduled for 10/07/24 with Katharina. 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 Reviewed recent EKG, 1st degree AV block. Compared to previous EKG, [place] interval has prolonged. I would like him to have another EKG. Please askhim to get EKG done at [facility] because his previous 2 EKGs were done at [facility]. Please schedule pre-op. Thank you. * Telephone Encounter - Brittany Rojas RN - 09/16/2024 11:56 AM EST Incoming phone call from Thalia at [facility] General Surgery. Thalia asking about below message regarding clearance for colonoscopy. Advised her of message below from [facility] nurse India given to nurse Alvaro at [facility] General Surgery this morning. Advised her that clearance is not finalized yet and that another message was sent to PCP this AM regarding clearance. PCP still to advise on CT scan/final clearance. * Telephone Encounter - India Daniel RN - 09/16/2024 11:20 AM EST TC placed to Alvaro at [facility] General Surgery who states that the pt [...] 09/05/2024 4:00 PM EST TC Alvaro with [facility] General Surgery. pt will be having a [...] Description 10/16/2024 9:15 AM EST Office Visit [facility] MEDICINE 230 [place] [address] Natalie Posadas MD 230 [place], [place] 10/25/2024 10:30 AM EDT Office Visit [facility] OPTOMETRY [address] [place] [address], OD 230 [place] [address] 11/26/2024 10:00 AM EDT Clinical Support [facility] CHC MED & PEDS 505 [place], [place] [phone] Jing Washington, RN 505 [place] [address] documented as of this encounter Visit Diagnoses Not on filedocumented in this encounter Additional Health Concerns Assessment Noted Time PHQ-9 Depression Total Score: 3 08/06/20 24 8:58 AM EST documented as of this encounter Care Teams Grocery Packer Relationship Specialty Start Date End Date Natalie Posadas MD 230 [place], [place] PCP - General Family Medicine 08/14/18 documented as of this encounter
--- OUTSIDE RECORDS SUMMARY | 2024-10-14 11:24 | XMS_ITS | Encounter Summary ---
Author Organization [employer] Address [address] 7t [place] [address] Care Team Providers Care Operations Controller Name Role Phone Natalie Posadas MD Primary Care Provider [phone] Reason for Visit * Reason Comments Med Refill Encounter Details Date Type Department Care Team (Late st Contact Info) Description 05/29/2024 Refill [facility] OPTOMETRY [address] [place] [address] Seamus, Carolyn, OD [address] [place] [address] Social History Tobacco Use Types Packs/Day Years [...] Visit [facility] MEDICINE 230 [place] [address] Natalie Posadas MD 230 [place] [address] 10/25/2024 10:30 AM EDT Office Visit [facility] OPTOMETRY [address] [place] [address] Seamus, Carolyn, OD 230 [place] [address] 11/26/2024 10:00 AM EDT Clinical Support [facility] CHC MED & PEDS 505 [place] [address] Jing Washington, RN 505 [place] [address] documented as of this encounter Visit Diagnoses Not on filedocumented in this encounter Additional Health Concerns Assessment Noted Time PHQ-9 Depression Total Score: 7 09/28/19 24 11:21 AM EST documented as of this encounter Care Teams Operations Controller Relationship Specialty Start Date End Date Natalie Posadas MD [address] [place] [address] PCP - General Family Medicine 08/14/18 documented as of this encounter
--- OUTSIDE RECORDS SUMMARY | 2024-10-14 11:24 | XMS_ITS | Encounter Summary ---
Author Organization [employer] Address [address] 7t [place] [address] Care Team Providers Care Cryptographer Name Role Phone Natalie Posadas MD Primary Care Provider [phone] Encounter Details Date Type Department Care Team [...] Description 10/16/2024 9:15 AM EST Office Visit [facility] MEDICINE 230 [place] [address] Natalie Posadas MD 230 [place] [address] 10/25/2024 10:30 AM EDT Office Visit [facility] OPTOMETRY 267 [place] [address] Seamus, Carolyn, OD 230 [place] [address] 11/26/2024 10:00 AM EDT Clinical Support [facility] CHC MED & PEDS 505 [place] [address] Jing Washington, RN 505 [place] [address] documented as of this encounter Visit Diagnoses Not on filedocumented in this encounter Additional Health Concerns Assessment Noted Time PHQ-9 Depression Total Score: 3 08/06/20 24 8:58 AM EST documented as of this encounter Care Teams Cryptographer Relationship Specialty Start Date End Date Natalie Posadas MD 230 [place] [address] PCP - General Family Medicine 08/14/18 documented as of this encounter
--- OUTSIDE RECORDS SUMMARY | 2024-10-14 11:24 | XMS_ITS | Encounter Summary ---
Author Organization [employer] [facility] Address [address] [place] [address] 7t [place] [address] Care Team Providers Care Furnace Charger Name Role Phone Natalie Posadas MD Primary Care Provider Reason for Visit * Reason Comments Med Refill Encounter Details Date Type Department Care Team (Late Contact Info) Description 12/26/2022 Refill [facility] MEDICINE 230 [place] [address] Natalie Posadas MD 230 [place], [place] [phone] Pain Social History Tobacco Use Types Packs/Day [...] Upcoming Encounters Date Type Department Care Team ([facility] Contact Info) Description 10/16/2024 9:15 AM EST Office Visit [facility] MEDICINE [address] [place] [address] Natalie Posadas MD 230 [place] [address] 10/25/2024 10:30 AM EDT Office Visit [facility] OPTOMETRY [address] [place] [address], OD 230 [place] [address] 11/26/2024 10:00 AM EDT Clinical Support [facility] CHC MED & PEDS 505 [place], [place] [phone] Jing Washington, RN 505 [place], [place] [phone] documented as of this encounter Visit Diagnoses Diagnosis Pain Generalized pain documented in this encounter Additional Health Concerns Assessment Noted Time PHQ-9 Depression Total Score: 0 09/15/19 23 11:23 AM EST documented as of this encounter Care Teams Furnace Charger Relationship Specialty Start Date End Date Natalie Posadas MD 230 [place], [place] [phone] PCP - General Family Medicine 08/14/18 documented as of this encounter
--- OUTSIDE RECORDS SUMMARY | 2024-10-14 11:24 | XMS_ITS | Encounter Summary ---
Author Organization [employer] Address [address] [facility] [address] 7t [place] [address] Care Team Providers Care Stone Breaker Name Role Phone Natalie Posadas MD Primary Care Provider [phone] Reason for Visit * Reason Comments Med Refill Encounter Details Date Type Department Care Team ([facility] st Contact Info) Description 09/14/2024 Refill [facility] MEDICINE 230 [place], [place] [phone] Natalie Posadas MD 230 [place], [place] [phone] Pain Social History Tobacco Use Types Packs/Day [...] Description 10/16/2024 9:15 AM EST Office Visit [facility] MEDICINE 230 [place] [address] Natalie Posadas MD 230 [place] [address] 10/25/2024 10:30 AM EDT Office Visit [facility] OPTOMETRY [address] [place] [address] Seamus, Carolyn, OD 230 [place] [address] 11/26/2024 10:00 AM EDT Clinical Support [facility] CHC MED & PEDS 505 [place] [address] Jing Washington, CUAUHTEMOC 505 [place] [address] documented as of this encounter Visit Diagnoses Diagnosis Pain Generalized pain documented in this encounter Additional Health Concerns Assessment Noted Time PHQ-9 Depression Total Score: 3 08/06/20 24 8:58 AM EST documented as of this encounter Care Teams Stone Breaker Relationship Specialty Start Date End Date Natalie Posadas MD [address] [place] [address] PCP - General Family Medicine 08/14/18 documented as of this encounter
--- OUTSIDE RECORDS SUMMARY | 2024-10-14 11:24 | XMS_ITS | Encounter Summary ---
Author Organization [employer] Address [address] 7t [place] [address] Care Team Providers Care Inspector Type Name Role Phone Natalie Posadas MD Primary Care Provider [phone] Encounter Details Date Type Department Care Team ([facility] st Contact Info) Description 10/11/2024 Telephone [facility] MEDICINE 230 [place], [place] [phone] Natalie Posadas MD 230 [place] [address] Social History Tobacco Use Types Packs/Day Years [...] Telephone Encounter - Madhuri Barakat RN - 10/11/2024 11:24 AM EST CM received call from patient's niece, Esther. She states she did not receive the list of A&P MECHANIC agencynames that was mailed out to patient. CM provided her with local agency names and contact information. Advised that she please contact the respective offices to inquire on services and set up an apptfor evaluation. She agrees. She states she will not be the A&P MECHANIC for the patient as she has back issue s and will not be fully able to assist patient with needs. She states the plan is for her son to bethe patient's A&P MECHANIC. She agrees to f/u with CM if in need of additional assistance. documented in this encounter Plan of Treatment Upcoming Encounters Date Type Department Care Team (Late st Contact Info) Description 10/16/2024 9:15 AM EST Office Visit [facility] MEDICINE 230 [place] [address] Natalie Posadas MD 230 [place] [address] 10/25/2024 10:30 AM EDT Office Visit [facility] OPTOMETRY [address] [place] [address], OD 230 [place] [address] 11/26/2024 10:00 AM EDT Clinical Support [facility] CHC MED & PEDS 505 [place] [address] Jing Washington, RN 505 [place] [address] documented as of this encounter Visit Diagnoses Not on filedocumented in this encounter Additional Health Concerns Assessment Noted Time PHQ-9 Depression Total Score: 3 08/06/20 24 8:58 AM EST documented as of this encounter Care Teams Inspector Type Relationship Specialty Start Date End Date Natalie Posadas MD 230 [place] [address] PCP - General Family Medicine 08/14/18 documented as of this encounter
--- OUTSIDE RECORDS SUMMARY | 2024-10-14 11:24 | XMS_ITS | Encounter Summary ---
Author Organization [employer] Address [address] [facility] 7t [place] [address] Care Team Providers Care Pipeline Systems Operator Name Role Phone Natalie Posadas MD Primary Care Provider [phone] Reason for Visit * Reason Onset Date Comments Care Management 09/25/2024 C3CM- f/u call Encounter Details Date Type Department Care Team (Late st Contact Info) Description 09/25/[address] [facility] MEDICINE 230 [place] [address] Madhuri Barakat RN 505 [place] [address] Care Management (C3CM- f/u call) Social History [...] is scheduled on 10/17/24. CM confirmed in [facility] that visit is on 10/17/24 at 1:00pm. 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 He is unsure if she has reached out to any of CORRECTIONAL FOOD SERVICE SUPERVISOR agencies yet. Patient unable to provide CM with his niece's contact information. He states he will return call to this afternoon. No further questions or concerns. CM reinforced direct contact information or CHW for any additional questions or concerns. Education provided on Walk-In Urgent Care located in [facility]. Patient provided with after-hours line for [facility], , which offer night time triage service and option to transfer to electrical tryout person provider if needed. Patient verbalizes understanding, and able to repeat back to mortgage or loan underwriter. A follow up call will be [...] EKG. Patient informed to walk in [facility] to complete, no appt needed (see RN note from 09/17/24). CM will inform patient of this when call is returned. documented in this encounter Plan of Treatment Upcoming Encounters Date Type Department Care Team (Late st Contact Info) Description 10/16/2024 9:15 AM EST Office Visit [facility] MEDICINE 230 [place] [address] Natalie Posadas MD 230 [place] [address] 10/25/2024 10:30 AM EDT Office Visit [facility] OPTOMETRY [address] [place] [address] Seamus, Carolyn, OD 230 [place] [address] 11/26/2024 10:00 AM EDT Clinical Support [facility] CHC MED & PEDS 505 [place] [address] Jing Washington, CUAUHTEMOC 505 [place] [address] documented as of this encounter Visit Diagnoses Not on filedocumented in this encounter Additional Health Concerns Assessment Noted Time PHQ-9 Depression Total Score: 3 08/06/20 24 8:58 AM EST documented as of this encounter Care Teams Pipeline Systems Operator Relationship Specialty Start Date End Date Natalie Posadas MD 230 [place] [address] PCP - General Family Medicine 08/14/18 documented as of this encounter
--- OUTSIDE RECORDS SUMMARY | 2024-10-14 11:24 | XMS_ITS | Encounter Summary ---
Author Organization [facility] Address [address] [place] [address] 7t [place] [address] Care Team Providers Care Lining Feller Blindstitch Name Role Phone Natalie Posadas MD Primary Care Provider [phone] Reason for Visit * Reason Comments Med Refill Encounter Details Date Type Department Care Team (Late Contact Info) Description 11/21/2022 Refill [facility] MEDICINE 230 [place] [address] Natalie Posadas MD 230 [place], [place] [phone] Pain Social History Tobacco Use Types Packs/Day [...] Upcoming Encounters Date Type Department Care Team ([facility] Contact Info) Description 10/16/2024 9:15 AM EST Office Visit [facility] MEDICINE [address] [place] [address] Natalie Posadas MD 230 [place] [address] 10/25/2024 10:30 AM EDT Office Visit [facility] OPTOMETRY [address] [place] [address], OD 230 [place] [address] 11/26/2024 10:00 AM EDT Clinical Support [facility] CHC MED & PEDS 505 [place], [place] [phone] Jing Washington, RN 505 [place], [place] [address] documented as of this encounter Visit Diagnoses Diagnosis Pain Generalized pain documented in this encounter Additional Health Concerns Assessment Noted Time PHQ-9 Depression Total Score: 0 09/15/19 23 11:23 AM EST documented as of this encounter Care Teams Lining Feller Blindstitch Relationship Specialty Start Date End Date Natalie Posadas MD 230 [place], [place] [phone] PCP - General Family Medicine 08/14/18 documented as of this encounter
--- OUTSIDE RECORDS SUMMARY | 2024-10-14 11:24 | XMS_ITS | Encounter Summary ---
Author Organization [employer] Address [address] 7t [place] [address] Care Team Providers Care School Curriculum Developer Name Role Phone Natalie Posadas MD Primary Care Provider [phone] Reason for Visit * Reason Comments Med Refill Encounter Details Date Type Department Care Team ([facility] st Contact Info) Description 01/25/2024 Refill [facility] MEDICINE 230 [place], [place] [phone] Natalie Posadas MD 230 [place], [place] [phone] Pain Social History Tobacco Use Types Packs/Day [...] Description 10/16/2024 9:15 AM EST Office Visit [facility] MEDICINE 230 [place] [address] Natalie Posadas MD 230 [place] [address] 10/25/2024 10:30 AM EDT Office Visit [facility] OPTOMETRY [address] [place] [address] Seamus, Carolyn, OD 230 [place] [address] 11/26/2024 10:00 AM EDT Clinical Support [facility] CHC MED & PEDS 505 [place] [address] Jing Washington, CUAUHTEMOC 505 [place] [address] documented as of this encounter Visit Diagnoses Diagnosis Pain Generalized pain documented in this encounter Additional Health Concerns Assessment Noted Time PHQ-9 Depression Total Score: 7 09/28/19 24 11:21 AM EST documented as of this encounter Care Teams School Curriculum Developer Relationship Specialty Start Date End Date Natalie Posadas MD [address] [place] [address] PCP - General Family Medicine 08/14/18 documented as of this encounter
--- OUTSIDE RECORDS SUMMARY | 2024-10-14 11:24 | XMS_ITS | Encounter Summary ---
Author Organization [employer] Address [address] 7t [place] [address] Care Team Providers Care Engineer Exhauster Name Role Phone Natalie Posadas MD Primary Care Provider [phone] Encounter Details Date Type Department Care Team (Late st Contact Info) Description 12/01/2023 Telephone [facility] OPTOMETRY [address] [place] [address] Seamus, Carolyn, OD [address] [place] [address] Social History Tobacco Use Types Packs/Day Years [...] Called Patient inform him about appt. At [facility] [address] Padilla Appt. 12/05/2023 @ 10:5am documented in this encounter Plan of Treatment Upcoming Encounters Date Type Department Care Team (Late st Contact Info) Description 10/16/2024 9:15 AM EST Office Visit [facility] MEDICINE [address] [place] [address] Natalie Posadas MD 230 [place] [address] 10/25/2024 10:30 AM EDT Office Visit [facility] OPTOMETRY [address] [place] [address], OD 230 [place] [address] 11/26/2024 10:00 AM EDT Clinical Support [facility] CHC MED & PEDS 505 [place] [address] Jing Washington, RN 505 [place] [address] documented as of this encounter Visit Diagnoses Not on filedocumented in this encounter Additional Health Concerns Assessment Noted Time PHQ-9 Depression Total Score: 7 09/28/19 24 11:21 AM EST documented as of this encounter Care Teams Engineer Exhauster Relationship Specialty Start Date End Date Natalie Posadas MD 230 [place] [address] PCP - General Family Medicine 08/14/18 documented as of this encounter
--- OUTSIDE RECORDS SUMMARY | 2024-10-14 11:24 | XMS_ITS | Encounter Summary ---
Author Organization [employer] Address [address] 7[address] [place] [address] Care Team Providers Care Auto Parts Handler Name Role Phone Natalie Posadas MD Primary Care Provider [phone] Encounter Details Date Type Department Care Team ([facility] st Contact Info) Description 08/16/2024 Orders Only [facility] MEDICINE 230 [place], [place] [phone] Natalie Posadas MD 230 [place], [place] [phone] Elevated BP without diagnosis of hypertension (Primary [...] Description 10/16/2024 9:15 AM EST Office Visit [facility] MEDICINE 230 [place] [address] Natalie Posadas MD 230 [place] [address] 10/25/2024 10:30 AM EDT Office Visit [facility] OPTOMETRY [address] [place] [address] Seamus, Carolyn, OD 230 [place] [address] 11/26/2024 10:00 AM EDT Clinical Support [facility] CHC MED & PEDS 505 [place] [address] Jing Washington, RN 505 [place] [address] documented as of this encounter Visit Diagnoses Diagnosis Elevated BP without diagnosis of hypertension- Primary documented in this encounter Additional Health Concerns Assessment Noted Time PHQ-9 Depression Total Score: 3 08/06/20 24 8:58 AM EST documented as of this encounter Care Teams Auto Parts Handler Relationship Specialty Start Date End Date Natalie Posadas MD [address] [place] [address] PCP - General Family Medicine 08/14/18 documented as of this encounter
--- OUTSIDE RECORDS SUMMARY | 2024-10-14 11:24 | XMS_ITS | Encounter Summary ---
Author Organization [employer] Address [address] [address] 7t [place] [address] Care Team Providers Care Cattyman Name Role Phone Natalie Posadas MD Primary Care Provider [phone] Reason for Visit * Reason Comments Med Refill Encounter Details Date Type Department Care Team ([facility] st Contact Info) Description 11/24/2023 Refill [facility] MEDICINE 230 [place], [place] [phone] Natalie Posadas MD 230 [place], [place] [phone] Pain Social History Tobacco Use Types Packs/Day [...] EST Office Visit [facility] MEDICINE 230 [place] [address] Natalie Posadas MD 230 [place] [address] 10/25/2024 10:30 AM EDT Office Visit [facility] OPTOMETRY [address] [place] [address] Seamus, Carolyn, OD 230 [place] [address] 11/26/2024 10:00 AM EDT Clinical Support [facility] CHC MED & PEDS 505 [place] [address] Jing Washington, CUAUHTEMOC 505 [place] [address] documented as of this encounter Visit Diagnoses Diagnosis Pain Generalized pain documented in this encounter Additional Health Concerns Assessment Noted Time PHQ-9 Depression Total Score: 7 09/28/19 24 11:21 AM EST documented as of this encounter Care Teams Cattyman Relationship Specialty Start Date End Date Natalie Posadas MD [address] [place] [address] PCP - General Family Medicine 08/14/18 documented as of this encounter
--- OUTSIDE RECORDS SUMMARY | 2024-10-14 11:24 | XMS_ITS | Encounter Summary ---
Author Organization [employer] Address [address] 7[address] [place] [address] Care Team Providers Care Lip Reading Teacher Name Role Phone Natalie Posadas MD Primary Care Provider [phone] Reason for Visit * Reason Comments Med Refill Encounter Details Date Type Department Care Team (Late st Contact Info) Description 09/12/2023 Refill [facility] CHC MED & PEDS [address] [place], [place] [phone] Natalie Posadas MD 230 [facility] [place], [place] [phone] Pain Social History Tobacco Use Types Packs/Day [...] Description 10/16/2024 9:15 AM EST Office Visit [facility] MEDICINE 230 [place] [address] Natalie Posadas MD 230 [place] [address] 10/25/2024 10:30 AM EDT Office Visit [facility] OPTOMETRY [address] [place] [address], OD 230 [place] [address] 11/26/2024 10:00 AM EDT Clinical Support [facility] CHC MED & PEDS 505 [place] [address] Jing Washington, RN 505 [place] [address] documented as of this encounter Visit Diagnoses Diagnosis Pain Generalized pain documented in this encounter Additional Health Concerns Assessment Noted Time PHQ-9 Depression Total Score: 0 09/15/19 23 11:23 AM EST documented as of this encounter Care Teams Lip Reading Teacher Relationship Specialty Start Date End Date Natalie Posadas MD 230 [place] [address] PCP - General Family Medicine 08/14/18 documented as of this encounter
--- OUTSIDE RECORDS SUMMARY | 2024-10-14 11:24 | XMS_ITS | Encounter Summary ---
Author Organization [employer] Address [address] [facility] [address] 7t [place] [address] Care Team Providers Care Office Rep Name Role Phone Natalie Posadas MD Primary Care Provider [phone] Encounter Details Date Type Department Care Team ([facility] st Contact Info) Description 10/11/2024 Orders Only [facility] [place] MEDICINE 230 [place], [place] [phone] Natalie Posadas MD 230 [place] [address] Prolonged QT interval (Primary Dx); 1st degree AV block Social History Tobacco Use Types Packs/Day Years [...] Upcoming Encounters Date Type Department Care Team ([facility] st Contact Info) Description 10/16/2024 9:15 AM EST Office Visit [facility] MEDICINE 230 [place] [address] Natalie Posadas MD 230 [place] [address] 10/25/2024 10:30 AM EDT Office Visit [facility] OPTOMETRY [address] [place] [address], OD 230 [place] [address] 11/26/2024 10:00 AM EDT Clinical Support [facility] CHC MED & PEDS 505 [place], [place] [phone] Jing Washington, CUAUHTEMOC 505 [place] [address] Scheduled Orders Name Type Priority Associated Diagnoses Orde r Schedule Magnesium Lab Routine Prolonged QT interval Expected: 10/11/2024 (Approximate), Expires: 10/11/2025 Basic Metabolic Panel Lab Routine Prolonged QT interval Expected: 10/11/2024 (Approximate), Expires: 10/11/2025 documented as of this encounter Visit Diagnoses Diagnosis Prolonged QT interval- Primary Nonspecific abnormal electrocardiogram (ECG) (EKG) 1st degree AV block documented in this encounter Additional Health Concerns Assessment Noted Time PHQ-9 Depression Total Score: 3 08/06/20 24 8:58 AM EST documented as of this encounter Care Teams Office Rep Relationship Specialty Start Date End Date Natalie Posadas MD 230 [place] [address] PCP - General Family Medicine 08/14/18 documented as of this encounter
--- OUTSIDE RECORDS SUMMARY | 2024-10-14 11:24 | XMS_ITS | Encounter Summary ---
Author Organization [employer] Address [address] 7t [place] [address] Care Team Providers Care Materials Management Clerk Name Role Phone Natalie Posadas MD Primary Care Provider [phone] Reason for Visit * Reason Comments Med Refill Encounter Details Date Type Department Care Team ([facility] st Contact Info) Description 03/12/2024 Refill [facility] MEDICINE 230 [place], [place] [phone] Kelly Diego ANP 230 [place], [place] [phone] Pain Social History Tobacco Use Types Packs/Day [...] 10/16/2024 9:15 AM EST Office Visit [facility] MEDICINE 230 [place] [address] Natalie Posadas MD 230 [place] [address] 10/25/2024 10:30 AM EDT Office Visit [facility] OPTOMETRY [address] [place] [address] Seamus, Carolyn, OD 230 [place] [address] 11/26/2024 10:00 AM EDT Clinical Support [facility] CHC MED & PEDS 505 [place] [address] Jing Washington, RN 505 [place] [address] documented as of this encounter Visit Diagnoses Diagnosis Pain Generalized pain documented in this encounter Additional Health Concerns Assessment Noted Time PHQ-9 Depression Total Score: 7 09/28/19 24 11:21 AM EST documented as of this encounter Care Teams Materials Management Clerk Relationship Specialty Start Date End Date Natalie Posadas MD [address] [place] [address] PCP - General Family Medicine 08/14/18 documented as of this encounter
--- OUTSIDE RECORDS SUMMARY | 2024-10-14 11:24 | XMS_ITS | Encounter Summary ---
Author Organization [employer] Address [address] [facility] 7t [place] [address] Care Team Providers Care Quality Assurance/R&D Lab Technician Name Role Phone Natalie Posadas MD Primary Care Provider [phone] Reason for Visit * Reason Comments Care Coordination SDOH f/u Encounter Details Date Type Department Care Team (Latest Contact Info) Description 10/09/2024 Patient Outreach [facility] MEDICINE 230 [place], [place] [phone] Natalie Posadas MD 230 [place], [place] [phone] Care Coordination (SDOH f/u) Social History Tobacco Use Types Packs/Day Years [...] encounter Progress Notes * Deann Villalobos - 10/09/2024 12:39 PM EST CHW Deann Villalobos/ADELITA Barakat RN placed outbound call to patient to follow up on SDOH needs.Patient's name, and address confirmed. Patient states is doing well. No SDOH needed at this time. No further questions or concerns. CHW reinforced direct contact information or CM for any additional questions or concerns and extended clinic hours on Mondays and Wednesdays, and Walk-In Urgent Care Located in [facility] of [facility]. Patient provided with after-hours line for [facility], , which offer nighttime triage service and option to transfer to j2ee application developer provider ifneeded. Patient verbalizes understanding, and able to repeat back to news writer. A follow up call will be placed within 10 days, patient agrees with plan. documented in this encounter Plan of Treatment Upcoming Encounters Date Type Department Care Team (Late st Contact Info) Description 10/16/2024 9:15 AM EST Office Visit [facility] MEDICINE 230 [place] [address] Natalie Posadas MD 230 [place], [place] [phone] 10/25/2024 10:30 AM EDT Office Visit [facility] OPTOMETRY [address] [place] [address], OD 230 [place] [address] 11/26/2024 10:00 AM EDT Clinical Support [facility] CHC MED & PEDS 505 [place], [place] [phone] Jing Washington, CUAUHTEMOC 505 [place], [place] documented as of this encounter Visit Diagnoses Not on filedocumented in this encounter Additional Health Concerns Assessment Noted Time PHQ-9 Depression Total Score: 3 08/06/ 24 8:58 AM EST documented as of this encounter Care Teams Quality Assurance/R&D Lab Technician Relationship Specialty Start Date End Date Natalie Posadas MD 230 [place] [address] PCP - General Family Medicine 08/14/18 documented as of this encounter
--- OUTSIDE RECORDS SUMMARY | 2024-10-14 11:24 | XMS_ITS | Encounter Summary ---
Author Organization [employer] Address [address] 7t [place] [address] Care Team Providers Care Staffing Rn Name Role Phone Natalie Posadas MD Primary Care Provider [phone] Reason for Visit * Reason Onset Date Comments chart prep 10/09/2024 Encounter Details Date Type Department Care Team ([facility] st Contact Info) Description 10/09/2024 Telephone [facility] MEDICINE 230 [place], [place] [phone] Amarilis Barakat MA chart prep Social History Tobacco Use Types Packs/Day Years [...] encounter Miscellaneous Notes * Telephone Encounter - Amarilis Barakat MA - 10/09/2024 4:13 PM EST ..chart Prep Labs: not done Images: not applicable Vaccines due: Covid Due and Flu Due Referrals: Sleep Medicine Pending appointment on Screenings: Colonoscopy Overdue care gaps: SDOH documented in this encounter Plan of Treatment Upcoming Encounters Date Type Department Care Team (Late st Contact Info) Description 10/16/2024 9:15 AM EST Office Visit [facility] MEDICINE 230 [place] [address] Natalie Posadas MD 230 [place] [address] 10/25/2024 10:30 AM EDT Office Visit [facility] OPTOMETRY [address] [place] [address], OD 230 [place] [address] 11/26/2024 10:00 AM EDT Clinical Support [facility] CHC MED & PEDS 505 [place] [address] Jing Washington, RN 505 [place] [address] documented as of this encounter Visit Diagnoses Not on filedocumented in this encounter Additional Health Concerns Assessment Noted Time PHQ-9 Depression Total Score: 3 08/06/20 24 8:58 AM EST documented as of this encounter Care Teams Staffing Rn Relationship Specialty Start Date End Date Natalie Posadas MD 230 [place] [address] PCP - General Family Medicine 08/14/18 documented as of this encounter
--- OUTSIDE RECORDS SUMMARY | 2024-10-14 11:24 | XMS_ITS | Encounter Summary ---
Author Organization [employer] Address [address] [place] [address] Care Team Providers Care Safe Expert Name Role Phone Natalie Posadas MD Primary Care Provider [phone] Encounter Details Date Type Department Care Team ([facility] st Contact Info) Description 09/16/2024 Orders Only [facility] MEDICINE 230 [place], [place] [phone] Natalie Posadas MD 230 [place], [place] [phone] Preop examination (Primary Dx); AV block, 1st [...] 10/16/2024 9:15 AM EST Office Visit [facility] MEDICINE 230 [place] [address] Natalie Posadas MD 230 [place] [address] 10/25/2024 10:30 AM EDT Office Visit [facility] OPTOMETRY [address] [place] [address] Seamus, Carolyn, OD 230 [place] [address] 11/26/2024 10:00 AM EDT Clinical Support [facility] CHC MED & PEDS 505 [place], [place] [phone] Jing Washington, CUAUHTEMOC 505 [place] [address] Scheduled Orders Name Type Priority Associated Diagnoses [...] documented as of this encounter Care Teams Safe Expert Relationship Specialty Start Date End Date Natalie Posadas MD 230 [place] [address] PCP - General Family Medicine 08/14/18 documented as of this encounter
--- OUTSIDE RECORDS SUMMARY | 2024-10-14 11:25 | XMS_ITS | Encounter Summary ---
Author Organization [employer] Address [address] [facility] 7t [place] [address] Care Team Providers Care Foster Winder Name Role Phone Natalie Posadas MD Primary Care Provider [phone] Reason for Visit * Reason Comments Med Refill Encounter Details Date Type Department Care Team (Late st Contact Info) Description 11/18/2022 Refill [facility] MEDICINE 230 [place], [place] [phone] Natalie Posadas MD 230 [place], [place] [phone] Pain Social History Tobacco Use Types Packs/Day [...] 11/18/2022 9:25 AM EDT Already sent to FINISH CLEANER nurse * Telephone Encounter - Charity Canalesona [...] Description 10/16/2024 9:15 AM EST Office Visit [facility] MEDICINE 230 [place] [address] Natalie Posadas MD 230 [place] [address] 10/25/2024 10:30 AM EDT Office Visit [facility] OPTOMETRY [address] [place] [address], OD 230 [place] [address] 11/26/2024 10:00 AM EDT Clinical Support [facility] CHC MED & PEDS 505 [place], [place] [phone] Jing Washington, RN 505 [place], [place] [phone] documented as of this encounter Visit Diagnoses Diagnosis Pain Generalized pain documented in this encounter Additional Health Concerns Assessment Noted Time PHQ-9 Depression Total Score: 0 09/15/19 23 11:23 AM EST documented as of this encounter Care Teams Foster Winder Relationship Specialty Start Date End Date Natalie Posadas MD 230 [place] [address] PCP - General Family Medicine 08/14/18 documented as of this encounter
--- OUTSIDE RECORDS SUMMARY | 2024-10-14 11:25 | XMS_ITS | Encounter Summary ---
Author Organization [employer] Address [address] [facility] [place] [address] Care Team Providers Care Iron Carrier Name Role Phone Natalie Posadas MD Primary Care Provider Reason for Visit * Reason Comments Med Refill Encounter Details Date Type Department Care Team ([facility] st Contact Info) Description 07/03/2024 Refill [facility] MEDICINE 230 [place], [place] [phone] Natalie Posadas MD 230 [place], [place] [phone] Pain Social History Tobacco Use Types Packs/Day [...] Description 10/16/2024 9:15 AM EST Office Visit [facility] MEDICINE 230 [place] [address] Natalie Posadas MD 230 [place] [address] 10/25/2024 10:30 AM EDT Office Visit [facility] OPTOMETRY [address] [place] [address] Seamus, Carolyn, OD 230 [place] [address] 11/26/2024 10:00 AM EDT Clinical Support [facility] CHC MED & PEDS 505 [place] [address] Jing Washington, CUAUHTEMOC 505 [place] [address] documented as of this encounter Visit Diagnoses Diagnosis Pain Generalized pain documented in this encounter Additional Health Concerns Assessment Noted Time PHQ-9 Depression Total Score: 7 09/28/19 24 11:21 AM EST documented as of this encounter Care Teams Iron Carrier Relationship Specialty Start Date End Date Natalie Posadas MD [address] [place] [address] PCP - General Family Medicine 08/14/18 documented as of this encounter
--- OUTSIDE RECORDS SUMMARY | 2024-10-14 11:25 | XMS_ITS | Clinical Summary ---
Author Organization [employer] Address [address] [facility] [address] [place] [address] Care Team Providers Care Orthotics Prosthetics Assistant Name Role Phone Natalie Posadas MD Primary Care Provider [phone] Allergies No known active allergies Medications ergocalciferol (Vitamin D-2) 1.25 MG (05460 UT) capsule Take 1 capsule by mouth [...] needed 08/01/20 22 Active Blood Pressure Monitor [facility] Check BP daily 1 each 08/16/19 25 [...] or as directed by MD. 30 patch 10/07/19 25 Active melatonin 3 MG tablet [...] Discontinued traMADol (Ultram) 50 MG tabletIndicati ons:Pain Take 1 tablet (50 mg) by mouth every 12 (twelve) hours if needed for severe pain. 56 tablet 09/11/19 025 Discontinued(Re order (will not trigger notification [...] anatomical narrow angle Seen by Dr. Padilla, [facility], on 12/21/22 Prescribed latanoprost gtt Chronic right-sided [...] year for evaluation - 03/04/24 MRA/MRV at [facility] 1. 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 2. 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 - 06/19/24 CTA at [facility] Stable, 6 mm, fusiform [...] -Pt has been declining a referral to fulfillment specialist or physical therapy. -Continue judicious use [...] year for evaluation - 03/04/24 MRA/MRV at [facility] 1. 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 2. 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 - 06/19/24 CTA at [facility] Stable, 6 mm, fusiform [...] -Pt has been declining a referral to fulfillment specialist or physical therapy. -Continue judicious use [...] disc disease. Pt declined a referral to fulfillment specialist or physical therapy. Continue judicious use of tramadol and NSAIDs. Assessment & Plan (09/30/2023 7:20 AM EST): 10/27/22, Seen by Neurosurgeon for Intracranial Aneurysm; was recommended to follow-up in 1 year for evaluation Evaluation with MRI in 3-5 years His posterior headache is likely due to cervical degenerative disc disease. Pt declined a referral to fulfillment specialist or physical therapy. Continue judicious use of tramadol and NSAIDs. Assessment & Plan (05/26/2023 9:45 AM EDT): 10/27/22, Seen by Neurosurgeon for Intracranial Aneurysm; was recommended to follow-up in 1 year for evaluation Evaluation with MRI in 3-5 years His posterior headache is likely due to cervical degenerative disc disease. Pt declined a referral to fulfillment specialist or physical therapy. Continue judicious use [...] Aug 2023), improve adherence -Recommended seeing sleep technical training specialist so he can get a more [...] (09/30/2023 7:22 AM EST): - seen by electrical cad designer on 11/19/21, their impression was subclinical hypothyroidism, no graves disease - repeat TSH was 4.69 by electrical cad designer and pt has not been on levothyroxine - recommended to consider treatment if TSH >10 Assessment & Plan (05/26/2023 9:49 AM EDT): - seen by electrical cad designer on 11/19/21, their impression was subclinical hypothyroidism, no graves disease - repeat TSH was 4.69 by electrical cad designer and pt has not been on levothyroxine - recommended to consider treatment if TSH >10 Assessment & Plan (10/12/2022 3:35 PM EST): - seen by electrical cad designer on 11/19/21, their impression was subclinical hypothyroidism, [...] (09/15/2022 1:10 PM EST): - seen by electrical cad designer on 11/19/21, their impression was subclinical hypothyroidism, [...] (10/12/2022 3:35 PM EST): - seen by electrical cad designer on 11/19/21, their impression was subclinical hypothyroidism, [...] I presented case to emergency room of [facility] and refer patient to the emergency room, I offer to call ambulance patient declines, he reports he will go wit his brother in law Encounters Date Type Department Care Team Description 10/11/2024 Telephone [facility] [address] [place] [address] Natalie Posadas MD Referral 10/11/2024 Orders Only [facility] [address] [place] [address] Natalie Posadas MD Prolonged QT interval (Primary Dx); 1st degree AV block 10/11/2024 Telephone [facility] [address] [place] [address] Natalie Posadas MD 10/09/2024 Telephone [facility] [address] [place] [address] Amarilis Barakat MA chart prep 10/09/2024 Patient Outreach [address] [address] Natalie Posadas MD Care Coordination ([facility] f/u) 10/09/[address] [address] Natalie Posadas MD Care Management (C3CM- f/u call) 10/07/2024 10:30 AM EST Office Visit [address] [address] Natalie Posadas MD Tubular adenoma of colon [...] (BMI) of 31.0 to 31.9 in adult 10/07/2024 Travel 10/02/[address] [address] Natalie Posadas MD Chart Prep 09/25/[address] [address] Madhuri Barakat RN Care Management (C3- f/u call) 09/18/2024 Patient Outreach [address] [address] Natalie Posadas MD Care Coordination (Appt reminder) 09/16/2024 Orders Only [address] [address] Natalie Posadas MD Preop examination (Primary Dx); AV block, 1st degree 09/14/[address] [address] Natalie Posadas MD Pain 09/12/[address] [address] Madhuri Barakat RN Care Management (C3CM- f/u call) 09/11/2024 10:00 AM EST Clinical Support [facility] [address] [place] [address] Jing Washington, back shoe operator right-sided headache 09/11/2024 Telephone [facility] [address] [place] [address] Jing Washington, RN 09/11/2024 Refill [facility] [address] [place] [address] Jing Washington, [place] Pain 09/11/2024 Travel 09/10/2024 Patient Outreach [address] [address] Natalie Posadas MD Care Coordination (Appt reminder) 09/05/[address] [address] Natalie Posadas MD Clearance needed 09/05/2024 Patient Outreach [address] [address] Natalie Posadas MD Care Coordination (PT1) 09/03/2024 Patient Outreach [address] [address] Natalie Posadas MD Care Coordination (SDOH/pt1) 09/03/[address] [address] Madhuri Barakat RN Care Management (C3CM- f/u call) 08/31/2024 Orders Only GENERIC EXTERNAL DATA DEPARTMENT Provider, Generic External Data 08/29/2024 Patient Outreach [address] [address] Natalie Posadas MD Care Coordination (Appt reminder) 08/26/2024 Patient Outreach [address] [address] Natalie Posadas MD Care Coordination (pt1) 08/22/[address] [address] Madhuri Barakat RN Care Management (C3CM- f/u call) 08/21/2024 Patient Outreach [address] [address] Natalie Posadas MD Care Coordination (PT1) 08/16/2024 Orders Only [address] [address] Natalie Posadas MD Elevated BP without diagnosis of hypertension (Primary Dx) 08/12/[address] [address] Natalie Posadas MD 08/12/[address] [address] Madhuri Barakat, RN Care Management (C3CM- f/u call) 08/12/2024 Patient Outreach [address] [address] Natalie Posadas MD Care Coordination (SDOH) 08/07/[address] [address] Natalie Posadas MD Pain 08/06/2024 9:15 AM EST Office Visit [address] [address] Natalie Posadas MD Chronic right-sided headache (Primary [...] History of Helicobacter pylori infection 08/06/[address] [phone] Natalie Posadas MD 08/06/2024 Travel 07/31/2024 10:40 AM EST Office Visit [facility] [address] [place] [phone] Aundrea Lui, NELY Cough in adult patient 07/30/[address] [address] Madhuri Barakat RN Care Management (C3CM- f/u call) 07/26/2024 Patient Outreach [facility] [address] [place] [address] Natalie Posadas MD Care Coordination ([facility]) 07/22/2024 Telephone [facility] [address] [place] [address] Madhuri Barakat RN chart prep 07/18/2024 Patient Outreach [facility] [address] [place] [address] [phone] Natalie Posadas MD Care Coordination (CM/CHW outreach) 07/18/2024 Refill [facility] [address] [place] [address] Natalie Posadas MD Pain 07/16/2024 Refill [facility] [address] [place] [address] Natalie Posadas MD Pain from Last 3 Months Immunizations Name Administration [...] Visit [facility] [address] [place] [address] Natalie Posadas MD [address] [place] [address] 10/25/2024 10:30 AM EDT Office Visit [facility] [address] [place] [address], OD [address] [place] [address] 11/26/2024 10:00 AM EDT Clinical Support [facility] [address] [place], [place] [phone] Jing Washington, RN [address] [place] [address] Health Maintenance Due Date Last Done Comments CT Colonography 1960 FIT DNA/Cologuard 1960 FIT 1960 FOBT 1960 Sigmoidoscopy 1960 Colonoscopy 06/03/2020 06/03/2015 Colorectal Cancer Screening 06/03/2020 COVID-19 Vaccine ( season) 2024 08/12/2022, 08/17/2021, 01/13/2021, Additional history exists Influenza Vaccine (#1) 2024 , 07/01/2020, 08/20/2018, Additional history exists SDOH Screening 09/28/2024 09/28/2023 Alcohol/Substance Use Screening 08/06/2025 08/06/2024 Depression Screening 08/06/2025 08/06/2024, 08/06/20 24 Diabetes: Hemoglobin A1C 09/25/2025 025, 09/28/2023, 05/24/2023, Additional history exists Tobacco Screening 10/11/2025 10/11/2024 Lipid Panel 08/31/2029 08/31/2024, /08/2023, 06/02/2022, Additional history exists DTaP/Tdap/Td Vaccines (3 [...] EST Respiratory crackles at right lung base HEMOGLOBIN A1C Routine 09/25/2024 10:49 AM EST [...] Recently Relevant to Health Maintenance Results * XR Chest 2 Views (10/08/2024 11:48 AM EST) Anatomical Region Laterality Modality Chest Radiographic Sana ging 10/08/2024 11:4 8 AM EST Narrative 10/09/2024 8:01 AM EST ? [facility] ?[address] ?[place] [address] ?XRay Report ? Signed ? Patient: Juan,Mandeep ?MR#: [id number] ? : 1960 ?Acct:[id number] ? Age/Sex: 64 / M ?ADM Date: 10/08/24 ? Loc: HO.CARD ? Attending Dr: Natalie Posadas MD ? Ordering Physician: Natalie Posadas MD ?? Date of Service: 10/08/24 ?? Procedure(s): XR chest 2V ?? Accession Number(s): [id number] ? cc: Natalie Posadas MD ? EXAMINATION: [...] ??Madi Cueva MD ??10/09/2024 07:58 AM EST ?? RP ? Dictated By: ?Madi Cueva MD ? Signed By: ?<Electronically signed by Madi Cueva MD in OV> ?10/09/24 0758 ? DD/ 1148 ? TD/TT: 10/08/24 1155 ? Station Helper: ? Procedure Note John Fang - 10/09/[address] [address] XRay Report Signed Patient: Mandeep Martinez#: [id number] : 2Acct:[id number] Age/Sex: 64 / MADM Date: 10/08/24 Loc: HO.CARD Attending Dr: Natalie Posadas MD Ordering Physician: Natalie Posadas MD Date of Service: 10/08/24 Procedure(s): XR chest 2V Accession Number(s): [id number] cc: Natalie Posadas MD EXAMINATION: XR CHEST [...] 10/09/24 0758 DD/ 1148 TD/TT: 10/08/24 1155 Station Helper: Natalie Posadas MD IMG XR PROCEDURES Final Result * Vitamin D, 25-Hydroxy, Total, Immunoassay (09/25/2024 10:49 AM EST) Only the most recent of2 resultswithin the time period is included. Vitamin D 25-OH Total 55.3 >30 ng/mL [facility] Comment:Health Based Referen ce Values*< 20 ng/mL Iuqsujsos41-22 ng/mL Insufficient> 30 ng/mL Sufficient*Aramis GARVIN. N [...] Resul t Performing Organization Address [facility] Co de Phone Number [facility] [address] [place] [phone] * Hemoglobin A1c (09/25/2024 10:49 AM EST) Hemoglobin A1c 5.7 <6.0 % [facility] Comment:Hemoglobin A1C Refer ence Range Adults: 4.8 - 6.0 % Non diabetic: < 6.0 % Goal: < 7.0 %Additional Action Suggested: > 8.0 %Note: Hemoglobin A1c results are invalid for patients with abnormal amounts of HbF. Blood transfusions may impact the HbA1c concentration in the patient sample. Estimated Average Glucose 117 mg/dL [facility] Comment:eAG = Estimated ave rage glucose which is %A1C expressed asaverage glucose, using the formula of the Q2O-BcfrfksYbkugpb Glucose study (ADAG), Diabetes Care, Vol.31,#8,Aug. 2007 Blood Venous blood specimen / Unknown 09/25/2024 10:49 AM EST 09/25/2024 1:42 PM EST us Natalie Posadas MD LAB BLOOD ORDERABLES Final Resul t Performing Organization Address [facility] Co de Phone Number [facility] [address] [place] [phone] * POCT STEPHEN-14 Urine Drug Screen (09/11/2024 9:54 AM EST) Urine Urine specimen obtained by clean catch procedure / Unknown 09/11/2024 9:54 AM EST Narrative Jing Washington RN - 09/11/2024 9:54 AM EST negative for THC, MOP, OXY, PETER, MET, AMP, BZO, BAR, MTD, BUPG, TCA, MDMA, PCP, PPX. Lot# [id number] Exp: 07-20-25 Natalie Posadas MD POINT OF CARE TEST ENTER/EDIT OR DERABLES Final Result * Cancelled Chemistry (08/31/2024 9:42 AM EST) Cancelled Chemistry SEE NOTE [facility] Comment:NO SPECIMEN RECEIVED FOR HGB A1C 08/31/2024 9:42 AM EST 08/31/2024 9:42 AM EST Natalie Posadas MD HISTORICAL/NON ORDERABLE LABS Fi nal Result Performing Organization Address [facility]/ZIP Co de Phone Number [facility] [address] [place] [address] [phone] * Vitamin B12 (Cobalamin) and Folate Panel, Serum (08/31/2024 9:42 AM EST) Vitamin B12 408 200 - 900 pg/mL [facility] Comment:NORMAL 200-900 PG/ML INDETERMINATE 160-199 PG/ML DEFICIENT < 160 PG/ML Folate 8.6 > or = 4.0 ng/mL [facility] Comment:Reference Values:> o r = 4.0 ng/mL< 4.0 ng/mL suggests folate deficiency Methotrexate, aminopterin and folinic acid(leucovorin) are chemotherapeutic agents whose molecularstructures are similar to folate; therefore, the Architectfolate assay cannot be used for patients using these drugs. 08/31/2024 9:42 AM EST 08/31/2024 9:42 AM EST Generic External Data Provider LAB BLOOD ORDERAB LES Final Result Performing Organization Address [facility]/ZIP Co de Phone Number [facility] [address] [place] [address] [phone] * TSH with Reflex to Free T4 (08/31/2024 9:42 AM EST) TSH reflex Free T4 3.18 0.32 - 4.0 uIU/mL [facility] Blood 08/31/2024 9:42 AM EST 08/31/2024 9:42 AM EST Natalie Posadas MD LAB BLOOD ORDERABLES Final Resul t Performing Organization Address [facility] Co de Phone Number [facility] [address] [place] [phone] * (ABNORMAL) Lipid Panel with Reflex to Direct LDL (08/31/2024 9:42 AM EST) Triglycerides 88 <150 mg/dL [facility] Comment:Desirable Triglyceri de: less than 150 mg/dLBorderline High Triglyceride 150-199 mg/dLHigh Triglyceride: 200-499 mg/dLVery High Triglyceride: greater than or equal to 5OO mg/dL Cholesterol 175 <200 mg/dL [facility] Comment:Desirable Cholestero l: less than 200 mg/dLBorderline High Cholesterol: 200-239 mg/dLHigh Cholesterol: greater than 239 mg/dL LDL Cholesterol Calculated 116(H) <100 mg/dL [facility] Comment:Desirable LDL: less than 100 mg/dLNear Optimal/Above Optimal LDL: 110- 129 mg/dLBorderline High LDL: 130-159 mg/dLHigh LDL: 160-189 mg/dLVery High LDL: greater than or equal to 190 mg/dL HDL Cholesterol 42 >40 mg/dL [facility] Comment:Desirable HDL: great er than 40 mg/dL Note: This HDL assay may give artificially low results in patients with liver disease. Blood 08/31/2024 9:42 AM EST 08/31/2024 9:42 AM EST Natalie Posadas MD LAB BLOOD ORDERABLES Final Resul t Performing Organization Address [facility]/ZIP Co de Phone Number [facility] [address] [place] [phone] * Methylmalonic Acid (08/31/2024 9:42 AM EST) Methylmalonic Acid 199 69 - 390 nmol/L [facility] Comment: Serum methylmalonic acid (MMA) [...] outcomes,such as neural tube defects and intrauterine growthrestriction.[employer] utilized Multi-Modal Decomposition(MMD) analysis to establish first and second trimester-specific MMA reference intervals in , as givenbelow:MMA, First trimester (<13 wks gestation): 58-167 nmol/LMMA, Second trimester (13-23 wks gestation):63-241 nmol/LThis test was developed and its analytical performancecharacteristics have been determined by [employer]. It has not been cleared or approved by theFDA. This assay has been validated pursuant to the CLIAregulations and is used for clinical purposes.THIS TEST WAS PERFORMED AT:[employer] [place], [place] ??[id number] EDWARDS MD,PHD 08/31/2024 9:42 AM EST 08/31/2024 9:42 AM EST us Generic External Data Provider LAB BLOOD ORDERAB LES Final Result [facility] [address] [place] [address] [phone] * (ABNORMAL) Homocysteine (08/31/2024 9:42 AM EST) Homocysteine 15.0(A) <11.4 umol/L [facility] Comment:Homocysteine is incr eased by functional deficiency offolate or vitamin B12. Testing for methylmalonic aciddifferentiates between these deficiencies. Other causesof increased homocysteine include renal failure, folateantagonists such as methotrexate and phenytoin, andexposure to nitrous oxide.Lui Castillo, et al., Lor[employer] Med. 1999;131(5):331-9.THIS TEST WAS PERFORMED AT:[employer] [place] [id number] ARNOLD MD 08/31/2024 9:42 AM EST 08/31/2024 9:42 AM EST us Generic External Data Provider LAB BLOOD ORDERAB LES Final Result Performing Organization Address [facility] Number [facility] [address] [place] [address] [phone] * Ferritin (08/31/2024 9:42 AM EST) Ferritin 149 20 - 250 ng/mL [facility] 08/31/2024 9:42 AM EST 08/31/2024 9:42 AM EST us [facility] External Data Provider LAB BLOOD ORDERAB LES Final Result Performing Organization Address [facility] [address] [place] [phone] * Albumin, Random Urine W/Creatinine (08/31/2024 9:38 AM EST) Creatinine, Urine 90.15 mg/dL [facility] Microalbumin Urine <5.0 mg/L [facility] Microalbum Creatinine Ratio Ur TNP <30 ug/mg cr [facility] Comment:Unable to calculate albumin/creatinine ratio due to lowmicroalbumin or creatinine result. Urine 08/31/2024 9:38 AM EST 08/31/2024 10:30 AM EST us Natalie Posadas MD LAB URINE ORDERABLES Final Resul t Performing Organization Address [facility]/ZIP Co de Phone Number [facility] [address] [place] [address] [phone] * Influenza B (ID NOW Rapid Molecular) (07/31/2024 11:39 AM EST) Pathologist [facility] Influenza B Negative Negative, Indeterminate [facility] Swab 07/31/2024 11:3 9 AM EST us Aundrea Appram STEREOTYPER POINT OF CARE TEST ENTER/EDIT O RDERABLES Final Result Performing Organization Address [facility] Co de Phone Number [facility] [address] [place] [phone] * Influenza A (ID NOW Rapid Molecular) (07/31/2024 11:37 AM EST) [facility] Influenza A Negative Negative, Indeterminate [facility] Swab 07/31/2024 11:[address] [facility] Appra STEREOTYPER POINT OF CARE TEST ENTER/EDIT O RDERABLES Final Result Performing Organization Address City/[facility]/ZIP Co de Phone Number [facility] [address] [place] [phone] * POCT Rapid COVID Ag (07/31/2024 11:36 AM EST) [facility] Rapid COVID Ag Negative Swab 07/31/2024 11:3 6 AM EST Aundrea Appram STEREOTYPER POINT OF CARE TEST ENTER/EDIT O RDERABLES Final Result * HEPATITIS C AB W/REFL TO HCV RNA, QN, PCR (06/02/2022 10:20 AM EDT) [facility] HEPATITIS C ANTIBODY NON-REACTI VE NON-REACT GREGORY [facility]Y LABS INDEX 0.08 <1.00 [facility] Comment: ?? HCV antibody was non-reactive. There is no laboratory ?? evidence of HCV infection. ?? In most cases, no further action is required. However, if recent HCV exposure is suspected, a test for HCV RNA (test code 53439) is suggested. ?? For additional information please refer to [email or web address]/faq/XFG68f8 (This link is being provided for informational/ educational purposes only.) ?? 06/02/2022 10:2 0 AM EDT Natalie Posadas MD HISTORICAL/NON ORDERABLE LABS Fi nal Result Performing Organization Address [facility]/State/ZIP Co de Phone Number CONVERTED LEGACY LABS * HIV 1/2 ANTIGEN/ANTIBODY,FOURTH [...] ? For additional information please refer to [email or web address]/faq/SQX689 (This link is being provided for informational/ educational purposes only.) ? The performance of this assay has not been clinically validated in patients less than 2 years old. ?? 06/02/2022 10:2 0 AM EDT us Natalie Posadas MD LAB BLOOD ORDERABLES Final Resul t Performing Organization Address [facility]/State/ZIP Co de Phone Number CONVERTED LEGACY LABS * Hm Colonoscopy (06/03/2015) Colonoscopy Normal Normal 06/03/2015 See Chong MD HEALTH MAINTENANCE Edited Re sult - Final from Last 3 Months or Most Recently Relevant to Health Maintenance [facility] Care Teams Orthotics Prosthetics Assistant Relationship Specialty Start Date End Date Natalie Poasdas MD [address] [place] [phone] PCP - General Family Medicine 08/14/18
--- OUTSIDE RECORDS SUMMARY | 2024-10-14 11:25 | XMS_ITS | Encounter Summary ---
Author Organization [employer] [facility] Address [address] [place] [address] Care Team Providers Care Quarry Boss Name Role Phone Natalie Posadas MD Primary Care Provider [phone] Encounter Details Date Type Department Care Team (Late Contact Info) Description 10/14/2022 Orders Only [facility] [address], [place] [phone] Natalie Posadas MD [address] [place], [place] [phone] Right internal carotid artery aneurysm (Primary Dx); [...] Description 10/16/2024 9:15 AM EST Office Visit [facility] [address] [place] [address] [phone] Natalie Posadas MD [address] [place] [address] 10/25/2024 10:30 AM EDT Office Visit [facility] [address] [place] [address] Seamus, Carolyn, OD [address] [place] [address] 11/26/2024 10:00 AM EDT Clinical Support [facility] [address] [place], [place] [phone] Jing Washington, RN [address] [place] [address] documented as of this encounter Visit Diagnoses Diagnosis Right internal carotid artery aneurysm- Primary Chronic right-sided headache Occipital headache Headache documented in this encounter Additional Health Concerns Assessment Noted Time PHQ-9 Depression Total Score: 0 09/15/19 23 11:23 AM EST documented as of this encounter Care Teams Quarry Boss Relationship Specialty Start Date End Date Natalie Posadas MD [address] [place] [address] PCP - General Family Medicine 08/14/18 documented as of this encounter
[2024-10-14 12:02] LABS: Anion Gap 11 (12-20); Blood Urea Nitrogen 15 mg/dL (9-16); Calcium 9.3 mg/dL (8.4-10.2); Carbon Dioxide 27 mmol/L (22-29); Chloride 108 mmol/L (96-108); Estimated Glomerular Filt Rate > 60; Glucose Random 94 mg/dL (60-115); Magnesium 2.1 mg/dL (1.6-2.6); Potassium 4.1 mmol/L (3.3-5.1); Sodium 142 mmol/L (135-145)
== END 2024-10-14 10:02 | disposition home or self-care (01) ==
LOC: HO.HHCL 10:01
PROVIDERS: Visit Provider Family Medicine
DX: R94.31 Abnormal electrocardiogram [ECG] [EKG] (principal)
CPT/HCPCS: 36415; 80048; 83735

== ENCOUNTER → 2024-10-17 12:22 | Outpatient (REF) | payer MEDICAID, SELFPAY | LOC: HO.SL 12:22 | PROVIDERS: PCP Family Medicine; Visit Provider Physician Assistant Medical | DX: G25.81 Restless legs syndrome (principal); G47.00 Insomnia, unspecified | CPT/HCPCS: 95806 ==

== ENCOUNTER 2024-11-14 15:26 | Emergency (ER) | payer MEDICAID, SELFPAY ==
[2024-11-14 16:04] VITALS: BP 132/75; PULSE 99; RESP 20; TEMP 36.4; O2SAT 95; BMI 30.9
--- NOTE | 2024-11-14 16:04 | ED_ITS ---
HPI - General Adult General Chief complaint: Wound/Laceration Stated complaint: left forearm wound Time Seen by Provider: 11/14/24 19:58 Source: patient Mode of arrival: ambulatory Limitations: no limitations History of Present Illness ED Provider: SHAHIDA LOPEZ narrative: 64 yo male with PMH HLD, migraines, insomnia, RLS with laceration from putty knife that was clean it slipped and cut the L forearm. Tdap in last 2 years. He has no numbness, weakness. This was accidental. Not on thinners MD complaint: laceration Onset (ago): hour(s) (5) Location: left and upper extremity Radiation: non-radiation Severity: mild Relieving factors: none Exacerbating factors: movement Associated symptoms: denies other symptoms Treatments prior to arrival: none Related Data Home Medications ?Medication ?Instructions ?Recorded ?Confirmed atorvastatin 10 mg tablet 10 mg PO BEDTIME 08/01/22 08/29/24 blood pressure monitor (Blood 08/01/22 Pressure Kit) tramadol 50 mg tablet 50 mg PO Q8H PRN 08/01/22 08/29/24 Previous Rx's ?Medication ?Instructions ?Recorded acetaminophen 650 mg 650 mg PO Q8H 5 days #15 tabs 02/17/22 tablet,extended release (Tylenol 8 Hour) ibuprofen 800 mg tablet 800 mg PO Q8H #60 tabs 02/17/22 gabapentin 100 mg capsule 100 mg PO BEDTIME Restless Legs 08/29/24 Syndrome #30 caps magnesium oxide 400 mg PO DAILY restless legs #30 08/29/24 tabs melatonin 2.5 mg-pyridoxal 1 tab sublingual BEDTIME #30 tabs 08/29/24 phosphate(vit B6) 338 mcg sublingual tablet cholecalciferol (vitamin D3) 25 25 mcg PO DAILY #30 caps 09/03/24 mcg (1,000 unit) capsule vitamin B complex (Vitamins B 1 tab PO DAILY b12 defiicency #30 09/03/24 Complex tablet) tabs Allergies Allergy/AdvReac Type Severity Reaction Status Date / Time No Known Allergies Allergy Verified 11/14/24 16:06 Review of Systems Review of Systems: Constitutional : No Fever, No Chills, Cardiovascular : No Chest Pain, No SOB Respiratory : No Dyspnea Gastrointestinal : No abdominal pain Musculoskeletal : No Joint Swelling Skin : No rash, positive skin laceration Neuro : No Weakness, No Numbness Psych : No SI/HI All other systems reviewed and are negative [facility] Past Medical History Medical History Colon cancer screening High cholesterol COVID-19 Surgical History Hx of hernia repair (~09/16/14) History of back surgery History of colonoscopy (~06/04/15) Family History Family History Father Diabetes mellitus Mother Diabetes mellitus Other Bone cancer Family history unknown Throat cancer Social History Social History Alcohol intake: former Do you have a plan to hurt others: No Plan Physical Exam ED Vital Signs: Vital Signs - 24 hr 11/14/24 16:04 Temperature 97.6 F Pulse Rate 99 Respiratory Rate 20 Blood Pressure 132/75 Pulse Oximetry 95 Oxygen Delivery Method Room Air BMI result Body Mass Index 30.9 Appearance: Alert. Oriented X3. No acute distress. Eyes: Pupils equal, round and reactive to light. ENT: Pharynx normal. Neck: Normal inspection. CVS: Pulses normal. Respiratory: No respiratory distress. Abdomen: atraumatic Skin: Skin warm and dry. Normal skin color. Extremities: No lower extremity edema. L forearm anterior mid forearm 5cm superficial laceration no muscle or tendon involved has chronic 4th/5th digit contractures - pulse intact, small bleeding vessel superficial ooze not pulsating Neuro: Oriented X 3. No motor deficit. No sensory deficit. CN2-12 intact Course Course Course Narrative: This is a rapid medical exam performed by Javier Don NP: Additional HPI, ROS, PE not included below will be deferred to primary provider. 11/14/24 16:10 Patient is a 64-year-old male presenting with Complaint of laceration to left forearm. States he accidentally cut himself with a knife. states the knife was brand new. Unknown last tetanus. Laceration initially appeared superficial but will require sutures. Tdap ordered. Plan: tdap, sutures Procedures Laceration Laceration 1: Site: upper extremity Side (If applicable): left Size (cm): 5 Description: linear and stellate Depth: simple, single layer Local Anesthetic: lidocaine 1% Amount of anesthesia used (mL): 4 Pre-repair: wound explored, irrigated extensively and deep structures intact Skin layer closed with: other (vicryl one internal stitch to stop bleeding vessel, rest nylon 5-0) Size (cm): 5-0 Number of sutures: 5 Technique: simple, interrupted Medical Decision Making Medical Decision Making MDM Narrative: 64 yo male with PMH HLD, migraines, insomnia, RLS here with accidental L forearm laceration NV intact small oozing bleeding vessel will close with internal stitch then close rest of laceration. He has no other trauma. He is NV intact. Differential Diagnosis Differential Diagnoses: The differential diagnosis associated with the presentation includes laceration no signs of tendon/muscle/NV injury External Record Review External record reviewed: Outpatient record Discharge Plan Discharge Clinical Impression: Laceration Patient Disposition: Home, Self-Care Instructions: Care For Your Stitches (ED), Laceration (ED) Additional Instructions: keep clean and dry okay to shower in 24 hours monitor for redness, yellow drainage, fevers or any other concerns stitches out in 7 days Prescriptions: No Action cholecalciferol (vitamin D3) 25 mcg (1,000 unit) capsule 25 mcg PO DAILY Qty: 30 3RF Rx Instructions: Take one capsule daily. vitamin B complex [Vitamins B Complex] Tablet 1 tab PO DAILY MDD 1 tablet daily Qty: 30 3RF ibuprofen 800 mg tablet 800 mg PO Q8H Qty: 60 0RF acetaminophen [Tylenol 8 Hour] 650 mg tablet extended release 650 mg PO Q8H 5 Days Qty: 15 0RF atorvastatin 10 mg tablet 10 mg PO BEDTIME (DME) blood pressure monitor [Blood Pressure Kit] Kit See Rx Instructions .ROUTE Rx Instructions: As directed tramadol 50 mg tablet 50 mg PO Q8H PRN gabapentin 100 mg capsule 100 mg PO BEDTIME MDD 300mg Qty: 30 1RF Rx Instructions: take one to three capsules at bedtime for restless leg syndrome. Do not exceed 300mg per night. melatonin-pyridoxal phos (B6) 2.5 mg- 338 mcg tablet, sublingual 1 tab sublingual BEDTIME Qty: 30 1RF Rx Instructions: one tablet at night magnesium oxide 400 mg magnesium tablet 400 mg PO DAILY MDD 400mg Qty: 30 1RF Rx Instructions: may take one tablet at bedtime for restless leg syndrome Print Language: Vietnamese
[2024-11-14 20:27] VITALS: BP 130/69; PULSE 98; RESP 20; TEMP 37.1; O2SAT 94
[2024-11-14] MEDS: Lidocaine HCl 1 % MPF 5 ML VIAL SUBCUT (20:37)
[2024-11-14 20:43] VITALS: BP 130/69; PULSE 98; RESP 20; TEMP 37.1; O2SAT 94
== END 2024-11-14 20:45 | disposition home or self-care (01) ==
PROVIDERS: Emergency Provider Emergency Medicine; PCP Family Medicine
DX: S51.812A Laceration without foreign body of left forearm, initial encounter (principal); W27.8XXA Contact with other nonpowered hand tool, initial encounter; Y93.89 Activity, other specified; Y92.9 Unspecified place or not applicable; Y99.9 Unspecified external cause status
CPT/HCPCS: 12032; 99283; 99284; J2003

== ENCOUNTER 2025-01-21 12:53 | Outpatient (AMB) | payer MEDICAID, SELFPAY ==
--- NOTE | 2025-01-21 12:59 | MHC.OFFVIS ---
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 an EKG in September shows a corrected QT of 477 milliseconds. Another EKG prior to that showed corrected QT interval of 425 milliseconds. Patient himself denies any clear-cut issues like coronary disease or myocardial infarction or cardiomyopathy. At the age of [age], he apparently had some surgery on his left chest but he does not know what it is. He has got no clear-cut exertional angina but gets very rare chest pains somewhat randomly. His main concern is rather exertional fatigue/shortness of breath. Even after short period of activity he feels this way. Hence he is concerned. [facility] Medical History Colon cancer screening High cholesterol COVID-19 Surgical History Hx of hernia repair (~09/16/14) History of back surgery History of colonoscopy (~06/04/15) Family History Father Diabetes mellitus Mother Diabetes mellitus Other Bone cancer Family history unknown Throat cancer Social History (Updated 01/21/25 @ 13:02 by Nanda Hightower) Alcohol intake: former Patient Tobacco Use Status: Former Tobacco user Review of Systems Const Reports fatigue, Reports lethargy and Denies weakness ENT Denies dizziness Card Denies chest pain, Denies chest pain with activity, Denies syncope, Denies rapid heart rate, Denies pedal edema, Denies edema, Denies leg edema, Denies lightheadedness, Denies palpitations, Denies dyspnea, Reports dyspnea on exertion and Denies orthopnea Resp Denies cough, Denies dyspnea and Reports dyspnea on exertion GI Denies hematochezia and Denies change in stool character Musc Denies abnormal gait, Denies muscle cramps, Denies muscle weakness, Denies numbness, Denies radiating pain into limb and Denies tingling Neuro Denies abnormal gait, Denies dizziness, Denies syncope, Denies numbness, Denies tingling and Denies weakness Endo Reports fatigue and Denies palpitations Physical Exam Vital Signs: Last Vital Signs Pulse 70 01/21/25 13:00 BP 118/68 01/21/25 13:00 BMI result Body Mass Index 30.7 Const General: comfortable and no acute distress Orientation/consciousness: patient oriented x3 HEENT Other: Unremarkable Head: Yes normal to inspection Neck Neck: Yes normal visual inspection Chest Chest palpation & inspection: normal inspection of the chest Resp Auscultation: clear to auscultation bilaterally Cardio Palpation: normal PMI Heart sounds: S1 normal heart sound present, S2 normal heart sound present, no gallops, no murmurs and no rubs GI Palpation (GI): Soft to palpation Back/Spine/Pelvis Other: unremarkable Skin General skin exam: no rashes or lesions noted Neuro General: patient oriented x3 Extrem General: Yes normal to inspection Psych Mental Status: mental status grossly normal Assessment & Plan Assessment & Plan (1) SOB (shortness of breath): Code(s): R06.02 - Shortness of breath Category: Medical (2) Fatigue: Code(s): R53.83 - Other fatigue Category: Medical Plan In the EKG from September, sinus rhythm at 93/Min; prolonged VA to 214 millisecond; left anterior fascicular block; borderline prolonged corrected QT at 477 milliseconds. Prior to this, they seem to be in the normal range. No specific workup for the above finding. With regard to his concern for exertional shortness of breath/fatigue, we will were, for any cardiomyopathy or ischemic heart disease. Echocardiogram/stress test is being ordered. Follow-up after the above. Discussion Notes I discussed with the patient the potential cardiovascular origins of his symptoms. We reviewed the plan to pursue a cardiac ultrasound and stress test as preliminary diagnostic evaluations. The benefits of clarifying his cardiac function were emphasized, particularly in the context of his reported symptoms. I explained that these tests would help determine if any interventions might be needed thereafter. There was a mutual understanding of proceeding with the recommended tests, and no additional treatment strategies were confirmed until further results. Patient was informed and verbally consented to the use of an ambient scribe for clinic note documentation during this visit. Orders: Orders NM cardiolite stress test Today R06.02 - Shortness of breath, R07.2 - Precordial pain CA echo transthoracic complete Today R06.02 - Shortness of breath CA stress test Today R06.02 - Shortness of breath, R07.2 - Precordial pain Patient Instructions: - Complete the cardiac ultrasound and stress test as discussed. - Report any increase in fatigue or new symptoms immediately. - Keep track of symptoms related to exertion and rest. - Follow recommendations for managing sleep apnea as advised by your regular healthcare provider. Coding Level of Care Code New Pt Level 4 (80154) Complex EM visit Add On G2211 Diagnoses SOB (shortness of breath) R06.02 Fatigue R53.83
[2025-01-21 13:00] VITALS: BP 118/68; PULSE 70; BMI 30.7
--- OUTSIDE RECORDS SUMMARY | 2025-01-21 15:05 | XMS_ITS | Encounter Summary ---
Author Organization [employer] Address [address] [place] [address] Care Team Providers Care Postpartum Rn Name Role Phone Natalie Posadas MD Primary Care Provider [phone] Reason for Visit * Reason Comments Med Refill Encounter Details Date Type Department Care Team (Late st Contact Info) Description 05/29/2024 Refill [facility] OPTOMETRY [address] [place] [address] Seamus, Carolyn, OD [address] [place] [address] Social History Tobacco Use Types Packs/Day Years [...] Care Team (Late st Contact Info) Description 01/28/2025 3:30 PM EDT Office Visit [facility] OPTOMETRY [address] [place] [address], OD [address] [place] [address] 04/03/2025 2:00 PM EDT Clinical Support [facility] MED & PEDS [address] [place], [place] [id number] Jing Washington, RN [address] [place], [place] [phone] 04/28/2025 9:00 AM EDT Office Visit [facility] OPTOMETRY [address] [place] [address], OD [address] [place] [address] documented as of this encounter Visit Diagnoses Not on filedocumented in this encounter Additional Health Concerns Assessment Noted Time PHQ-9 Depression Total Score: 7 09/28/19 24 11:21 AM EST documented as of this encounter Care Teams Postpartum Rn Relationship Specialty Start Date End Date Natalie Posadas MD [address] [place] [address] PCP - General Family Medicine 08/14/18 documented as of this encounter
== END 2025-01-21 13:18 | disposition home or self-care (01) ==
PROVIDERS: PCP Family Medicine; Visit Provider Internal Medicine
DX: R06.02 Shortness of breath (principal); R53.83 Other fatigue
CPT/HCPCS: 99214

== ENCOUNTER → 2025-01-21 12:53 | Outpatient (BNVA) | payer MEDICAID, SELFPAY | PROVIDERS: PCP Family Medicine; Visit Provider Internal Medicine | DX: R06.02 Shortness of breath (principal) | CPT/HCPCS: 99212 ==

== ENCOUNTER 2025-02-20 13:58 | Outpatient (AMB) | payer MEDICAID, SELFPAY ==
--- OUTSIDE RECORDS SUMMARY | 2025-02-20 14:05 | XMS_ITS | Encounter Summary ---
Author Organization [employer] Address [address] [place] [address] Care Team Providers Care Plan Nurse Name Role Phone Natalie Posadas MD Primary Care Provider [phone] Madhuri Barakat RN Unavailable Deann Villalobos Unavailable Reason for Visit * Reason Comments Med Refill Encounter Details Date Type Department Care Team (Late st Contact Info) Description 05/29/2024 Refill [facility] OPTOMETRY [address] [place] [address] Seamus, Carolyn, OD [address] [place] [address] Social History Tobacco Use Types Packs/Day Years [...] Care Team (Late st Contact Info) Description 03/07/2025 11:30 AM EDT Medication Management [facility] MEDICINE [address] [place] [address] Laura Ordonez, PharmD [address] [place] [address] 04/03/2025 2:00 PM EDT Clinical Support [facility] CHC MED & PEDS [address] [place] [address] Jing Washington, RN [address] [place] [address] 07/28/2025 10:30 AM EST Office Visit [facility] OPTOMETRY [address] [place] [address], OD [address] [place] [address] documented as of this encounter Visit Diagnoses Not on filedocumented in this encounter Additional Health Concerns Assessment Noted Time PHQ-9 Depression Total Score: 7 09/28/19 24 11:21 AM EST documented as of this encounter Care Teams Plan Nurse Relationship Specialty Start Date End Date Natalie Posadas MD [address] [place] [address] PCP - General Family Medicine 08/14/18 Madhuri Barakat, [employer] [address] [place] [id number] Registered Nurse Family Medicine 02/04/25 Deann Villalobos 02/04/25 Ari Parish Window Glazier Helper[employer]isher Hot Strip 02/12/25 documented as of this encounter
--- NOTE | 2025-02-20 14:26 | MHC.OFFVIS ---
Intake Visit Reasons: occipital headache Allergies No Known Allergies Allergy (Verified 11/14/24 16:06) Medication List - Last Reconciled 02/20/25 by Komal Varghese MD atorvastatin 10 mg PO BEDTIME blood pressure monitor (Blood Pressure Kit) As directed ergocalciferol (vitamin D2) 1,250 mcg PO QWEEK hydrocortisone 1% 1 appl topical TID PRN ibuprofen 800 mg PO Q8H latanoprost 0.005% 1 drp ophthalmic (eye) BEDTIME lidocaine 5% patches topical magnesium oxide 400 mg PO DAILY MDD 400mg melatonin 3 mg PO BEDTIME PRN metoclopramide HCl 10 mg PO QID naloxone 0.4 mg IM Q2M PRN omeprazole 20 mg PO DAILY PRN tizanidine 4 mg PO TID PRN tramadol 50 mg PO Q8H PRN HPI Comments Details: 64 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 He said that this was happening for last couple of years. He did not drink alcohol. He was not diabetic and denied hypertension. He was taking medicines for headaches. He was living with his . I had noticed that he has already seeing a neurologist in [place] for headaches and sleep disorder. Apparently he was given a mask probably for obstructive sleep apnea and he said that he was not using it. I also noticed that he had a CAT scan of brain in 2021 in an MRI of brain in 2022 and then a CTA. MRI in CTA of brain did not reveal any significant brain parenchymal abnormality. CTA revealed couple of 2-3 mm fusiform aneurysm of internal carotid artery area. [facility] Medical History (Updated 02/20/25 @ 14:41 by Komal Varghese MD) Acute headache Skin lesion of back GERD (gastroesophageal reflux disease) Contracture of joint of finger of left hand Glaucoma Occipital headache Chronic right-sided headache Right internal carotid artery aneurysm Subclinical hypothyroidism Primary central sleep apnea Tubular adenoma of colon BPH (benign prostatic hyperplasia) Obesity Prediabetes Dyslipidemia Chronic bilateral low back pain without sciatica Colon cancer screening High cholesterol COVID-19 Surgical History Hx of hernia repair (~09/16/14) History of back surgery History of colonoscopy (~06/04/15) Family History Father Diabetes mellitus Mother Diabetes mellitus Other Bone cancer Family history unknown Throat cancer Social History (Updated 01/21/25 @ 13:02 by Nanda Hightower) Alcohol intake: former Patient Tobacco Use Status: Former Tobacco user Review of Systems Const Details: Constitutional:?No fever, chills, fatigue, weight loss, or night sweats. HEENT:?No headache, vision changes, hearing loss, nasal congestion, sore throat. Cardiovascular:?No chest pain, palpitations, orthopnea, PND, or leg swelling. Respiratory:?No cough, shortness of breath, wheezing, or hemoptysis. Gastrointestinal:?No nausea, vomiting, abdominal pain, diarrhea, or constipation. Genitourinary:?No dysuria, frequency, incontinence, or hematuria. Musculoskeletal:?No joint pain, stiffness, weakness, or muscle aches. Neurological:? Complain of headaches every day for about a year also complain of forgetfulness Psychiatric:?No anxiety, depression, mood swings, sleep disturbance, or hallucinations. Endocrine:?No heat/cold intolerance, polydipsia, polyuria, or hair/skin changes. Hematologic/Lymphatic:?No easy bruising, bleeding, or lymphadenopathy. Integumentary (Skin):?No rash, lesions, itching, or color changes. Allergic/Immunologic:?No seasonal allergies, hives, or recurrent infections. Physical Exam Neuro Other: Mental Status: Alert and oriented to person, place, and time. Normal attention. Normal spontaneous speech, fluency, and comprehension. Cranial Nerves: CN II: Visual penny full to confrontation, visual acuity intact. CN III, IV, : Pupils equal, round, reactive to light and accommodation. Extraocular movements are normal. CN V: Facial sensation is normal. CN VII: Facial movements symmetrical. CN VIII: Hearing intact to bedside conversation is normal. CN IX, X: Palate elevates symmetrically. CN XI: Shoulder shrug and head turn symmetrical. CN XII: Tongue midline without atrophy or fasciculations. Motor: Bulk and tone normal in all extremities. No significant muscle weakness in arms and legs. No drift. Reflexes: Deep tendon reflexes 2+ and symmetric. Plantar response down-going bilaterally. Coordination: [id number] and [id number] testing normal. No dysmetria. Gait and Station: No obvious gait abnormality. No ataxia or instability. Sensory: Intact to light touch, pinprick, and vibration. Romberg is negative. Extrapyramidal: Full facial expressions and blinking. No rigidity. Movements are appropriate with no tremor or abnormality. Speech: Normal; no dysarthria or tremor. Assessment & Plan Assessment & Plan (1) MCI (mild cognitive impairment): Code(s): G31.84 - Mild cognitive impairment of uncertain or unknown etiology Category: Medical (2) Chronic daily headache: Code(s): R51.9 - Headache, unspecified Category: Medical Plan Impression: 1. Chronic daily headaches with neck pain. It is probably combination of migraine and musculoskeletal pain syndrome. I suggest adding small dose of an SSRI. 2. Mild cognitive impairment with normal looking head CT and MRI of brain during last few years. Laboratories also did not reveal any obvious explanation. 3. Sleep disorder, probably obstructive sleep apnea as he said that he was advised to take a mask with the machine, which she was not using. This might be contributing to his cognitive issues. 4. Couple of tiny cerebral aneurysms, which are asymptomatic and do not require any intervention. Medications: New sertraline 25 mg PO DAILY 30 tabs 0RF 30 days Coding Level of Care Code New Pt Level 4 (10258) Diagnoses MCI (mild cognitive impairment) G31.84 Chronic daily headache R51.9
== END 2025-02-20 14:54 | disposition home or self-care (01) ==
LOC: HO.HSM 13:58
PROVIDERS: PCP Family Medicine; Visit Provider Psychiatry & Neurology Neurology
DX: G31.84 Mild cognitive impairment of uncertain or unknown etiology (principal); R51.9 Headache, unspecified
CPT/HCPCS: 99204

== ENCOUNTER → 2025-02-20 13:58 | Outpatient (BNVA) | payer MEDICAID, SELFPAY | PROVIDERS: PCP Family Medicine; Visit Provider Psychiatry & Neurology Neurology | DX: G31.84 Mild cognitive impairment of uncertain or unknown etiology (principal); R51.9 Headache, unspecified | CPT/HCPCS: 99202 ==

== ENCOUNTER 2025-02-28 09:29 | Outpatient (AMB) | payer MEDICAID, SELFPAY ==
--- OUTSIDE RECORDS SUMMARY | 2025-02-28 09:35 | XMS_ITS | Encounter Summary ---
Author Organization [employer] Address [address] [place] [address] Care Team Providers Care Spa Manager Name Role Phone Natalie Posadas MD Primary Care Provider [phone] Madhuri Barakat RN Unavailable [phone] Deann Villalobos Unavailable Reason for Visit * Reason Comments Med Refill Encounter Details Date Type Department Care Team (Late st Contact Info) Description 05/29/2024 Refill [facility] OPTOMETRY [address] [place] [address] Seamus, Carolyn, OD [address] [place] [address] Social History Tobacco Use Types Packs/Day Years [...] Description 03/07/2025 11:30 AM EDT Medication Management [facility] MEDICINE [address] [place] [id number] Laura Ordonez, PharmD [address] [place] [address] 04/03/2025 2:00 PM EDT Clinical Support [facility] CHC MED & PEDS [address] [place] [address] Jing Washington, [employer] [address] [place] [address] 04/16/2025 9:15 AM EDT Office Visit [facility] MEDICINE [address] [place] [address] Natalie Posadas MD [address] [place] [address] 07/28/2025 10:30 AM EST Office Visit [facility] OPTOMETRY [address] [place] [address], OD [address] [place] [address] documented as of this encounter Visit Diagnoses Not on filedocumented in this encounter Additional Health Concerns Assessment Noted Time PHQ-9 Depression Total Score: 7 09/28/19 24 11:21 AM EST documented as of this encounter Care Teams Spa Manager Relationship Specialty Start Date End Date Natalie Posadas MD [address] [place] [address] PCP - General Family Medicine 08/14/18 Madhuri Barakat RN [address] [place] [address] Registered Nurse Family Medicine 02/04/25 Deann Villalobos 02/04/25 Ari Parish Manager CorporateGas Pipe Layer 02/12/25 documented as of this encounter
[2025-02-28 10:09] VITALS: PULSE 87; O2SAT 96; BMI 32.3
--- NOTE | 2025-02-28 10:09 | MHC.OFFVIS ---
Vital Signs 02/28/25 10:09 Height 5 ft 6 in Weight 200 lb BMI 32.3 Pulse 87 Pulse Source Pulse Oximeter Pulse Oximetry (%) 96 Oxygen Delivery Method Room Air Intake Visit Reasons: Follow up Intake Note: Patient presents follow up RLS/insomnia. Labs/HST in chart.(AHI-25, MOY-67%. APAP 5-20). Allergies No Known Allergies Allergy (Verified 02/28/25 10:12) HPI Comments Details: 64 yea old male f/u for sleep apnea evaluation. MRA 03/2024 History of stable 6mm LMCA, CTA Head and Neck 01/2024 L. MCA /ICA, Bifurcation not a high degree of stenosis. 10/2024 HST c/w AHI is 25 and O2 Nadirs to 67% started APAP trial on [id number]. 11/2024- 02/2025 Compliance Report He has daily migraines, sharp knife like pain, begins in the occipital region migrates to the frontal area, he takes tramadol 50mg, they subside for a couple of hours and always return. He has glaucoma photo/phono phobia, with vision changes of black fuzzy squiggles. He has an uncomfortable grittiness in the morning, the eyes are shut closed. He has dizziness and vertigo as if the room spins. Denies n/v, gait and balance difficulties. Prodrome to migraines : Auras with bursts of lights that signals onset of migraines. He goes to bed at 10pm, and has difficulty falling asleep, he falls asleep between midnight to 3am, says he has insomnia so he watches TV and then has chronic fatigue the next day. The mask makes him feel claustrophobic, and he pulls the mask off at night. Will try using his apap machine again with a new mask that fits better. He says the pressures are high for him and he can not breath, feels like he is being smothered by air. RLS symptoms, with numbness, tingline and a prickling sensation they keep him up all night. He jumps out of the chair or bed to stretch his legs d/t pain. His mood is anxious and takes sertraline daily 25mg po in the AM. [facility] Medical History (Updated 03/02/25 @ 22:01 by Pam Lazcano PA-C) RLS (restless legs syndrome) Acute headache Skin lesion of back GERD (gastroesophageal reflux disease) Contracture of joint of finger of left hand Glaucoma Occipital headache Chronic right-sided headache Right internal carotid artery aneurysm Subclinical hypothyroidism Primary central sleep apnea Tubular adenoma of colon BPH (benign prostatic hyperplasia) Obesity Prediabetes Dyslipidemia Chronic bilateral low back pain without sciatica Colon cancer screening High cholesterol COVID-19 Surgical History Hx of hernia repair (~09/16/14) History of back surgery History of colonoscopy (~06/04/15) Family History Father Diabetes mellitus Mother Diabetes mellitus Other Bone cancer Family history unknown Throat cancer Social History Alcohol intake: former Patient Tobacco Use Status: Former Tobacco user Physical Exam Vital Signs: Last Vital Signs Pulse 87 02/28/25 10:09 Pulse Ox 96 02/28/25 10:09 Oxygen Delivery Method Room Air 02/28/25 10:09 BMI result Body Mass Index 32.3 Const General: cooperative, no acute distress and anxious Nutritional Appearance: average body habitus Orientation/consciousness: patient oriented x3 HEENT Throat: Yes other ([place] score of 3) Eyes Conjunctivae: conjunctival abnormal Sclerae: scleral abnormal Pupils: Equal, round and reactive pupils present Neck Neck: Yes full ROM (pain on extension >flexion) and Yes supple Resp Effort & Inspection: normal respiratory effort and able to speak in complete sentences Neuro General: patient oriented x3 and moves all extremities Cranial nerves: Yes Equal, round and reactive pupils present, Yes Normal accommodation reflex present, Yes Bilaterally intact EOM present, Yes Nystagmus not present, Yes Normal facial strength present, Yes Midline tongue present, Yes Ability to bilaterally rotate head present (Discomfort with ROM to L.) and Yes Ability to bilaterally elevate shoulders present Cognition (Neuro): normal cognition Gait exam (Neuro): Normal gait present Motor exam (neuro): 5/5 motor strength present throughout and Normal motor muscle tone present throughout Psych Appearance: grossly normal Mental Status: mental status grossly normal Affect: Anxious affect present Attitude: cooperative Thought process: Normal thought process present Thought content: Normal thought content present Results Reviewed Results Reviewed: 10/2024 HST c/w AHI 25/hr and Oxygen Nadirs to 65%. Titration completed in 2022 recommend starting patient on cpap [id number] and Medium airfit N20 mask, monitor for compliance. October 2023 LMCA stable 6mm aneurysm. Assessment & Plan Assessment & Plan (1) Hx of migraines: Comment: start sumatriptan for acute/ episodic headaches Code(s): Z86.69 - Personal history of other diseases of the nervous system and sense organs Category: Medical (2) Disease of eye characterized by increased eye pressure: Comment: Grittiness and painful in the AM. Glaucoma? refer to software test specialist. 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 Continue melatonin 3mg to 6mg po qhs 3 hours prior to bedtime. Chronic Migraines Continue taking Tramadol 50 mg po qhs, stop taking motrin daily as it can cause GI Bleeds. Acute migraines may start sumatriptan 50mg po prn episodic headaches, may take one more tablet w/in 2 hours if headache does not abort. Do not exceed 100mg po in a 24 hour period. Eye pain refer to Eyes Nose throat specialist as patine has ocular pressure in the AM upon wakening with grittiness. RLS/PLMD Start Gabapentin 300mg PO qhs at bedtime. Orders: Referrals Ear/Nose/Throat Referral H40.059 - Ocular hypertension, unspecified eye Medications: New gabapentin take 300mg po qhs at bedtime for restless legs syndrome symptoms. 300 mg (3 x 100 mg) PO BEDTIME 270 caps 0RF RLS 3 months MDD 300mg G25.81 - Restless legs syndrome sumatriptan succinate take 1 tab at onset of headache; if no relief may repeat 1 tab after at least 2 hrs; max = 4 tabs/24 hr orally; 12 tabs 0RF headaches MDD 2 tablet Z86.69 - Personal history of other diseases of the nervous system and sense organs Patient Instructions: Sleep Hygiene provided: set a scheduled bedtime and wake time to help regulate the circadian rhythm and balance the release of pituitary hormones. Sleep in a dark room, temperatures below 68 degrees, and no devices n bed. Limit caffeinated products 6 hours prior to bed, and limit fluids 2-4 hours prior to bed. Gentle night yoga, diffusing essential oils, and playing soft music can be relaxing. Significant portion of this visit was spent providing patient education re: CONSTANTINO and cpap/ apap/ mask use along with sleep hygiene. Eye pain with increased pressure and grittiness in the AM/ f/u with your software test specialist. Coding Level of Care Code Est Pt Level 4 (43497) Complex EM visit Add On G2211 Diagnoses Hx of migraines Z86.69 Disease of both eyes characterized by increased eye pressure H40.053 Laterality: bilateral RLS (restless legs syndrome) G25.81 Insomnia, unspecified type G47.00 Insomnia type: unspecified Time Spent (min) 30 Comment Evaluation of CONSTANTINO / patient education
== END 2025-02-28 11:35 | disposition home or self-care (01) ==
LOC: HO.HSMS 09:29
PROVIDERS: Visit Provider Physician Assistant Medical
DX: Z86.69 Personal history of other diseases of the nervous system and sense organs (principal); H40.053 Ocular hypertension, bilateral; G25.81 Restless legs syndrome; G47.00 Insomnia, unspecified
CPT/HCPCS: 99214

== ENCOUNTER → 2025-02-28 09:29 | Outpatient (BNVA) | payer MEDICAID, SELFPAY | PROVIDERS: Visit Provider Physician Assistant Medical | DX: G47.00 Insomnia, unspecified (principal); G25.81 Restless legs syndrome; H40.053 Ocular hypertension, bilateral; Z86.69 Personal history of other diseases of the nervous system and sense organs | CPT/HCPCS: 99212 ==

== ENCOUNTER → 2025-03-14 07:37 | Outpatient (REF) | payer MEDICAID, SELFPAY ==
--- NOTE | ~2025-03-14 | NM_ITS ---
EXERCISE MYOCARDIAL PERFUSION STUDY INDICATION: Chest pain TECHNIQUE: The patient was brought in for an exercise perfusion study on 03/14/2025. Patient performed exercise as per Hang protocol and was injected 30 mCi of sestamibi once target heart rate was achieved. Images were obtained using the SPECT gamma camera interlaced with the gating device. Images were obtained in supine position. Resting perfusion study was performed on 03/19/2025. Patient was administered 30 mCi of sestamibi intravenously at rest. Images were then obtained in supine position. Total DLP 145 mGy-cm. Images were processed with the software and compared side to side in short axis, horizontal long axis and vertical long axis views. FINDINGS: Raw aquisition reviewed. Arms by the patient's side. The stress perfusion study showed decreased tracer uptake in the lateral wall. There is improved uptake with CT attenuation correction suggestive of soft tissue attenuation artifact. The gated study shows normal LV systolic function with calculated LVEF of 68%. LV cavity is normal in size. The gated study shows normal wall thickening and contraction of segments. Resting study shows mildly decreased tracer uptake in the lateral wall. There is improvement with CT attenuation correction suggestive of soft tissue attenuation artifact. Gating at rest reveals normal wall motion with ejection fraction at 67%. The findings are consistent with lateral fixed defect. Probably from soft tissue attenuation artifact. No clear reversible defects. NM/NM cardiolite stress test IMPRESSION: 1. Myocardial perfusion imaging study shows probably normal myocardial perfusion. 2. Gated LVEF is 68% during stress and 67% during rest. 3. Transient ischemic dilatation not present. EKG component of the test reported separately. Electronically signed by: Zain Albarran MD 03/21/2025 12:42 PM EDT
--- NOTE | 2025-03-14 07:40 | CA_ITS ---
Acquisition Time: 2025-03-14 10:00:13 Total Exercise Time: 00:06:45 Test Indications: PRECORDIAL PAIN Medications: SEE MED LIST Protocol: CARSON Max HR: 134 BPM 84% of Pred: 158 BPM Max BP: 150/68 mmHG Max Work Load: 7.0 METS Exercise stress test with exercise 6 mins 45 secs of Carson Protcol held at Stage 2, achieving 84% MPHR, with reports of SOB, no chest pain, without any arrythmias, with normotensive response to exercise. Without any EKG changes meeting criteria for ischemia. In recovery, breathing slowly returned to baseline. Nuclear images pending. Test reviewed with Dr. Venegas. Referred By: Zain Albarran Electronically Signed By: Aden Walsh
--- NOTE | 2025-03-14 07:40 | CA_ITS ---
Transthoracic Echocardiogram Patient (Last, First, Middle): Mandeep Martinez, Gender: Male Date of : 1960 Age: 64 Procedure Date: 03/14/2025 Procedure Type: Transthoracic Echocardiogram Location: OP Height: 167.64 cm Weight: 90.72 kg BSA: 2.00 m2 Heart Rate: bpm BP: 118 / 70 mmHg Machinist First Class: TO Referring MD: Zain Albarran MD Cyanide Furnace Operator: Austin Venegas MD Symptoms: R06.02 - Shortness of breath Study Quality: Fair/Contrast ECG Rhythm: Sinus Conclusions: - 1. Normal LV ejection fraction of 55-60% with grade 1 diastolic dysfunction 2. Normal cardiac valvular Dopplers 3. Normal calculated RV systolic pressure 4. No gross pericardial effusion Findings Procedure Information Contrast agent, definity, is being given per protocol without apparent complications. Left Ventricle Normal left ventricular size, thickness, and systolic function. The visually estimated ejection fraction is between 55-60%. Spectral Doppler is indicative of an impaired relaxation filling pattern. E/E prime ratio is <8, consistent with normal filling pressures. Evidence suggests grade I (mild) diastolic dysfunction. Right Ventricle Normal right ventricular cavity size and systolic function. Atria The left atrium is normal in size. Interatrial shunt cannot be excluded. The right atrium was not well visualized. Aortic Valve The aortic valve was not well visualized. There is no aortic valve stenosis. There is no aortic valve regurgitation. Mitral Valve There is mild anterior mitral leaflet thickening. There is trace mitral valve regurgitation. There is no mitral valve stenosis. Pulmonic Valve The pulmonic valve was not well visualized. Tricuspid Valve Likely normal tricuspid valve structure and function. There is trace tricuspid valve regurgitation. The right ventricular systolic pressure is normal. The right ventricular systolic pressure is 18 mmHg. Normal right atrial pressure. There is no evidence of pulmonary hypertension. Great Vessels The aorta was not well visualized. The pulmonary artery was not well visualized. There is no dilatation of the ascending aorta measuring 3.30 cm. Venous The inferior vena cava is normal in size and collapses greater than 50% with inspiration. Pericardium/Pleural There is no evidence of pericardial effusion. Prior Study Comparison No significant change compared to prior study dated: 11/16/2016. Measurements 2D Linear Measurements IVSd: 1.05 0.6-0.9/0.6-1.0 cm LVIDd: 3.87 3.9-5.3/4.2-5.9 cm LVIDd Index: 1.94 2.4-3.2/2.2-3.1 cm/m2 LVIDs: 3.01 2.0-3.6 cm LVPWd: 1.04 0.7-1.1 cm LV Mass: 159.90 67-162/88-224 g LV Mass Index: 79.95 43-95/49-115 g/m2 LVOT Diam: 2.40 3.0+(-)1.3 cm Mitral Valve MV Pk E: 0.47 MV PK A: 0.59 MV Decel Time: 204.00 E/A: 0.80 E'Lateral: 6.74 E'Medial: 5.44 E/E' Med: 8.70 E/E' Lat: 7.00 PHT: 60.00 MVA PHT: 3.67 Decel Huron: 2.31 Aortic Valve AoV Pk Jhoan: 0.86 AoV Mn Jhoan: 0.64 AoV VTI: 0.17 AoV Pk Grad: 3.00 Aov Mn Grad: 2.00 EDIS Cont.VTI: 5.17 AI Pk Jhoan: 3.28 AI Huron: 1.01 LVOT LVOT Pk Jhoan: 0.88 LVOT Mn Jhoan: 0.55 LVOT VTI: 0.19 LVOT Pk Grad: 3.00 LVOT Mn Grad: 1.00 LVOT Diam: 2.40 LVOT Area: 4.52 Diastolic Function MV Pk E: 0.47 MV Pk A: 0.59 E/A: 0.80 E'Medial: 5.44 E/E' Med: 8.70 E' Laterial: 6.74 E/E' Lat: 7.00 Right Ventricle TAPSE (mm): 15.20 TVS' Jhoan: 8.92 Tricuspid Valve TR Pk Jhoan: 1.94 TR Pk Grad: 15.00 RA Press: 3.00 RVSP: 18.00 Great Vessels Aorta Sinus of Valsalva: 3.43 2.0-3.5 cm Ao Asc: 3.30 2.1-3.4 cm Updated in Other Vendor System with Status of Final Austin Venegas MD electronically signed on 03/14/2025 3:03:00 PM with status of Final
--- OUTSIDE RECORDS SUMMARY | 2025-03-14 07:40 | XMS_ITS | Encounter Summary ---
Author Organization [employer] Address [address] [place] [address] Care Team Providers Care Marketing Editor Name Role Phone Natalie Posadas MD Primary Care Provider [phone] Madhuri Barakat RN Unavailable [phone] Deann Villalobos Unavailable Reason for Visit * Reason Comments Med Refill Encounter Details Date Type Department Care Team (Late st Contact Info) Description 05/29/2024 Refill [facility] [address] [place] [address] Seamus, Carolyn, OD [address] [place] [address] Social History Tobacco Use Types Packs/Day Years [...] Care Team (Late st Contact Info) Description 03/21/2025 1:00 PM EDT Office Visit [facility] [address] [place] [phone] Ana Angela OD [address] [place] [phone] 04/03/2025 2:00 PM EDT Clinical Support [facility] [address] [place] [address] Jing Washington, RN [address] [place] [address] 04/11/2025 11:00 AM EDT Medication Management [facility] [address] [place] [phone] Laura Ordonez, DavidD [address] [place] [phone] 04/16/2025 9:15 AM EDT Office Visit [facility] [address] [place] [phone] Natalie Posadas MD [address] [place] [address] 07/28/2025 10:30 AM EST Office Visit [facility] [address] [place] [phone], OD [address] [place], [place] [phone] documented as of this encounter Visit Diagnoses Not on filedocumented in this encounter Additional Health Concerns Assessment Noted Time PHQ-9 Depression Total Score: 7 09/28/19 24 11:21 AM EST documented as of this encounter Care Teams Marketing Editor Relationship Specialty Start Date End Date Natalie Posadas MD [address] [place], [place] [phone] PCP - General Family Medicine 08/14/18 Madhuri Barakat RN [address] [place] [phone] Registered Nurse Family Medicine 02/04/25 Deann Villalobos 02/04/25 Ari Parish Tool Filer HandRecruiting Team Lead 02/12/25 documented as of this encounter
== END ==
LOC: HO.CARD 07:37
PROVIDERS: PCP Family Medicine; Visit Provider Internal Medicine
DX: R07.2 Precordial pain (principal); R06.02 Shortness of breath
CPT/HCPCS: 78452; 93017; 93306; A9500; J0280; J2785; Q9957

== ENCOUNTER → 2025-03-14 07:40 | Outpatient (BNV) | payer MEDICAID, SELFPAY | PROVIDERS: PCP Family Medicine | DX: R06.02 Shortness of breath (principal); I51.89 Other ill-defined heart diseases | CPT/HCPCS: 78452; 93016; 93018; 93350; 93352 ==

== ENCOUNTER 2025-04-22 13:19 | Outpatient (AMB) | payer MEDICAID, SELFPAY ==
--- NOTE | 2025-04-22 14:13 | A.OFFVIS_ITS ---
Vital Signs 04/22/25 14:14 Height 5 ft 6 in Weight 201 lb 0.985 oz BMI 32.4 BP 116/66 Blood Pressure Location Lt brachial Position Sitting Pulse 69 Pulse Source Monitor Intake Visit Reasons: 3 mth f/up echo/ mibi HS Manager Of Digital Required: No Accompanied by: Self / Same As Patient Allergies No Known Allergies Allergy (Verified 04/22/25 14:16) Medication List - Last Reconciled 04/22/25 by Aden Walsh NP atorvastatin 10 mg PO BEDTIME blood pressure monitor (Blood Pressure Kit) As directed ergocalciferol (vitamin D2) 1,250 mcg PO QWEEK 3 months MDD 1250mcg gabapentin 300 mg (3 x 100 mg) PO BEDTIME 3 months MDD 300mg hydrocortisone 1% 1 appl topical TID PRN ibuprofen 800 mg PO Q8H latanoprost 0.005% 1 drp ophthalmic (eye) BEDTIME lidocaine 5% patches topical magnesium oxide 400 mg PO DAILY MDD 400mg mecobalamin (vitamin B12) 1,000 mcg PO DAILY 3 months MDD 1000 mcg melatonin 3 mg PO BEDTIME PRN metoclopramide HCl 10 mg PO QID naloxone 0.4 mg IM Q2M PRN omeprazole 20 mg PO DAILY PRN sertraline 25 mg PO DAILY sumatriptan succinate take 1 tab at onset of headache; if no relief may repeat 1 tab after at least 2 hrs; max = 4 tabs/24 hr orally; MDD 2 tablet tizanidine 4 mg PO TID PRN tramadol 50 mg PO Q8H PRN HPI Comments Details: This is a 64-year-old male patient coming in for a follow-up visit. Patient with a history of dyslipidemia, obesity, and sleep apnea who was previously referred for evaluation of prolonged QT. Patient underwent a stress test and an echocardiogram for further evaluation as patient had reported some fatigue and shortness of breath. Today, patient reports feeling well overall without any ex ertional symptoms of chest pain, shortness of breath, palpitations, dizziness, orthopnea, PND, leg edema, presyncope, or syncope. Patient notes that he was diagnosed with sleep apnea about a year ago but is not being treated. Patient states that he is not following anybody for this. Patient is otherwise reporting compliance with all his medications. [facility] Medical History RLS (restless legs syndrome) Acute headache Skin lesion of back GERD (gastroesophageal reflux disease) Contracture of joint of finger of left hand Glaucoma Occipital headache Chronic right-sided headache Right internal carotid artery aneurysm Subclinical hypothyroidism Primary central sleep apnea Tubular adenoma of colon BPH (benign prostatic hyperplasia) Obesity Prediabetes Dyslipidemia Chronic bilateral low back pain without sciatica Colon cancer screening High cholesterol COVID-19 Surgical History Hx of hernia repair (~09/16/14) History of back surgery History of colonoscopy (~06/04/15) Family History Father Diabetes mellitus Mother Diabetes mellitus Other Bone cancer Family history unknown Throat cancer Social History Alcohol intake: former Patient Tobacco Use Status: Former Tobacco user Physical Exam Vital Signs: Last Vital Signs Pulse 69 04/22/25 14:14 BP 116/66 04/22/25 14:14 BMI result Body Mass Index 32.4 Const General: cooperative, healthy appearing, comfortable and no acute distress Orientation/consciousness: patient oriented x3 HEENT Head: Yes normal to inspection Neck Neck: Yes normal visual inspection, Yes trachea midline and Yes supple Chest Chest palpation & inspection: normal inspection of the chest Resp Effort & Inspection: normal respiratory effort Auscultation: clear to auscultation bilaterally, no crackles, no rales, no rhonchi and no wheezes Cardio Jugular venous distension: no JVD Palpation: normal PMI Rate: regular rate Rhythm: regular rhythm Heart sounds: S1 normal heart sound present, S2 normal heart sound present, no click, no gallops, no murmurs and no rubs Peripheral pulses: Peripheral pulses 2+ throughout GI Inspection: Yes normal to inspection Palpation (GI): Soft to palpation Auscultation: normal bowel sounds Skin General skin exam: no rashes or lesions noted Neuro General: patient oriented x3 Extrem General: Yes normal to inspection, No no pedal edema and No calf tenderness Psych Appearance: grossly normal Mental Status: mental status grossly normal Speech and movement: Normal speech and movement present Office Procedures EKG Details: EKG today showed sinus rhythm with first-degree AV block, rate 69 beats per minute, right superior axis deviation, pulmonary disease pattern, VA interval at 02:26 milliseconds, nonspecific T-wave abnormality, [place]. [id number], Complete Assessment & Plan Assessment & Plan (1) SOB (shortness of breath): Code(s): R06.02 - Shortness of breath Category: Medical (2) CONSTANTINO (obstructive sleep apnea): Code(s): G47.33 - Obstructive sleep apnea (adult) (pediatric) Category: Medical Plan 03/14/2025-echo study showed a normal LV systolic function with an ejection fraction between 55-60% with grade 1 diastolic dysfunction. 03/14/2025-patient underwent myocardial perfusion study that showed normal perfusion. Given above findings and resolution of his symptoms, no further indication for testing at this time. Blood pressure within normal limits. Advised monitoring blood pressures with a goal less than 130/80. 11/04/2024-sleep study was positive for severe sleep apnea. For the management of sleep apnea, we will refer patient out to pulmonology. Emphasized on the importance of being appropriately treated with CPAP therapy. Patient verbalizes understanding. Continue statin therapy. Advised heart healthy diet, regular exercise, losing weight, med compliance, and management of vascular risk factors. Patient will follow-up on an as-needed basis. In the interim, patient will call the office with any concerns or change in symptoms. This note was generated using voice recognition software. While every effort has been made to ensure accuracy and proper ornamental iron worker helper, there may be occasional errors that could affect the content or meaning of the described symptoms. Orders: Orders AMB EKG-In Office Today R94.31 - Abnormal electrocardiogram [ECG] [EKG] Referrals Pulmonology Referral G47.33 - Obstructive sleep apnea (adult) (pediatric), R06.02 - Shortness of breath Coding Level of Care Code Est Pt Level 4 (84660) Complex EM visit Add On G2211 Diagnoses SOB (shortness of breath) R06.02 CONSTANTINO (obstructive sleep apnea) G47.33 CPT Codes EKG - CPT: [id number], Complete ([id number]) Time Spent (min) 32 Comment Time spent in reviewing the chart, test results, assessment, counseling and documentation.
[2025-04-22 14:14] VITALS: BP 116/66; PULSE 69; BMI 32.4
--- OUTSIDE RECORDS SUMMARY | 2025-04-22 15:44 | XMS_ITS | Encounter Summary ---
Author Organization [employer] Address [address] [facility] 7t [place] [address] Care Team Providers Care Procurement Representative Name Role Phone Natalie Posadas MD Primary Care Provider [phone] Madhuri Barakat RN Unavailable [phone] Deann Villalobos Unavailable Reason for Referral * Consultation (Routine) - Pending Review Specialty Diagnoses / Procedures Referred By Contivy diaz Referred To Contact Pharmacy Diagnoses Chronic right-sided headache Occipital headache Natalie Posadas MD [address] [place] [address] Phone: tel: fax: Referral ID Status Reason Start Date Expiration Date Visits Requested Visits Authorized [id number] Pending Review Continuity of Care 02/13/2025 02/13/2026 6 6 Scheduling Instructions Medbox Encounter Details Date Type Department Care Team (Late st Contact Info) Description 02/13/2025 Orders Only [facility] MEDICINE [address] [place] [address] [phone] Natalie Posadas MD [address] [place], [place] [phone] Dyslipidemia (Primary Dx); Vitamin D deficiency; Prediabetes; Chronic right-sided headache; Occipital headache Social History Tobacco Use Types Packs/Day Years Used Date Smoking Tobacco: Former Cigarettes 2 30 Smokeless Tobacco: Never Alcohol Use Standard Drinks/Week Comments Not Currently 0 (1 standard drink = 0.6 oz pur e alcohol) Depression Answer Date Recorded Patient Health Questionnaire-9 Score 8 02/10/2025 Patient Health Questionnaire-9 Score 8 02/10/2025 Last PHQ-9: Questionnaire Data Not on file 0 02/10/2025 Housing Stability Answer Date Recorded What is your housing situation today? I have jessica kendall 10/16/[address] you li ve. Do you have problems with any of the following? None of the above 10/16/2024 Food Insecurity Answer Date Recorded Within the [...] from getting things needed for daily living? Yes, it has kept me from medical appointments or getting medications. 02/17/2025 Utilities Answer Date Recorded In the past 12 months, has t he electric, gas, oil or water company threatened to shut off services in your home? No 10/07/2024 Depression Answer Date Recorded Patient Health Questionnaire-2 Score 1 02/10/2025 Internet Access Answer Date Recorded Internet Access [...] Care Team (Late st Contact Info) Description 07/01/2025 2:30 PM EST Clinical Support [facility] CHC MED & PEDS [address] [place] [address] Jing Washington, CUAUHTEMOC [address] [place], [place] 07/28/2025 10:30 AM EST Office Visit [facility] OPTOMETRY [address] [place] [address], OD 230 [place] [address] Scheduled Referrals Name Type Priority Associated Diagnoses Orde r Schedule Referral to Pharmacy MTM Outpatient Referral Routine Chronic right-sided headache Occipital headache Ordered: 02/13/2025 documented as of this encounter Procedures Procedure Name Priority Date/Time Associated Diagnosis Comments STRESS TEST WITH MYOCARDIAL PERFUSION Routine 03/14/2025 10:06 AM EDT documented in this encounter Results * Stress test with myocardial perfusion (03/14/2025 10:06 AM EDT) 03/14/2025 10:0 6 AM EDT Narrative [facility] - 03/21/2025 12:45 PM EDT [facility] [address] [place] [id number] Nuclear Medicine Report Signed Patient: Mandeep Martinez MR#: [id number] : 1960 Acct:[id number] Age/Sex: 64 / M ADM Date: 03/14/25 Loc: HOShereeCARD Attending Dr: Zain Albarran MD Ordering Physician: Zain Albarran MD Date of Service: 03/14/25 Procedure(s): NM cardiolite stress test Accession Number(s): [id number] cc: Natalie Posadas MD; Zain Albarran MD EXERCISE MYOCARDIAL PERFUSION STUDY INDICATION: Chest pain TECHNIQUE: The patient was brought in for an exercise perfusion study on 03/14/2025. Patient performed exercise as per Hang protocol and was injected 30 mCi of sestamibi once target heart rate was achieved. Images were obtained using the SPECT gamma camera interlaced with the gating device. Images were obtained in supine position. Resting perfusion study was performed on 03/19/2025. Patient was administered 30 mCi of sestamibi intravenously at rest. Images were then obtained in supine position. Total DLP 145 mGy-cm. Images were processed with the software and compared side to side in short axis, horizontal long axis and vertical long axis views. FINDINGS: Raw aquisition reviewed. Arms by the patient's side. The stress perfusion study showed decreased tracer uptake in the lateral wall. There is improved uptake with CT attenuation correction suggestive of soft tissue attenuation artifact. The gated study shows normal LV systolic function with calculated LVEF of 68%. LV cavity is normal in size. The gated study shows normal wall thickening and contraction of segments. Resting study shows mildly decreased tracer uptake in the lateral wall. There is improvement with CT attenuation correction suggestive of soft tissue attenuation artifact. Gating at rest reveals normal wall motion with ejection fraction at 67%. The findings are consistent with lateral fixed defect. Probably from soft tissue attenuation artifact. No clear reversible defects. NM/NM cardiolite stress test IMPRESSION: 1. Myocardial perfusion imaging study shows probably normal myocardial perfusion. 2. Gated LVEF is 68% during stress and 67% during rest. 3. Transient ischemic dilatation not present. EKG component of the test reported separately. Electronically signed by: Zain Albarran MD 03/21/2025 12:42 PM EDT RP Dictated By: Zain Albarran MD Signed By: <Electronically signed by Zain Albarran MD in OV> 03/21/25 1242 DD/ 1006 TD/TT: 03/19/25 0820 Toll Line Inspector: Procedure Note Donotuseinterpreter, Image - 03/21/2025 [place] [id number] Nuclear Medicine Report Signed Patient: Kaleb Martinez#: [id number] : 1960cct:[id number] Age/Sex: 64 / MADM Date: 03/14/25 Loc: .CARD Attending Dr: Zain Albarran MD Ordering Physician: Zain Albarran MD Date of Service: 03/14/25 Procedure(s): NM cardiolite stress test Accession Number(s): [id number] cc: Natalie Posadas MD; Zain Albarran MD EXERCISE MYOCARDIAL PERFUSION STUDY INDICATION: Chest pain TECHNIQUE: The patient was brought in for an exercise perfusion study on 03/14/2025. Patient performed exercise as per Hang protocol and was injected 30 mCi of sestamibi once target heart rate was achieved. Images were obtained using the SPECT gamma camera interlaced with the gating device. Images were obtained in supine position. Resting perfusion study was performed on 03/19/2025. Patient was administered 30 mCi of sestamibi intravenously at rest. Images were then obtained in supine position. Total DLP 145 mGy-cm. Images were processed with the software and compared side to side in short axis, horizontal long axis and vertical long axis views. FINDINGS: Raw aquisition reviewed. Arms by the patient's side. The stress perfusion study showed decreased tracer uptake in the lateral wall. There is improved uptake with CT attenuation correction suggestive of soft tissue attenuation artifact. The gated study shows normal LV systolic function with calculated LVEF of 68%. LV cavity is normal in size. The gated study shows normal wall thickening and contraction of segments. Resting study shows mildly decreased tracer uptake in the lateral wall. There is improvement with CT attenuation correction suggestive of soft tissue attenuation artifact. Gating at rest reveals normal wall motion with ejection fraction at 67%. The findings are consistent with lateral fixed defect. Probably from soft tissue attenuation artifact. No clear reversible defects. NM/NM cardiolite stress test IMPRESSION: 1. Myocardial perfusion imaging study shows probably normal myocardial perfusion. 2. Gated LVEF is 68% during stress and 67% during rest. 3. Transient ischemic dilatation not present. EKG component of the test reported separately. Electronically signed by: Zain Albarran MD 03/21/2025 12:42 PM EDT Dictated By: Zain Albarran MD Signed By: <Electronically signed by Zain Albarran MD inOV> 03/21/25 1242 DD/ 1006 TD/TT: 03/19/25 0820 Toll Line Inspector: us [facility] External Provider CV STRE SS PROCEDURES Final Result [facility] [address] [place] [address] documented in this encounter Visit Diagnoses Diagnosis Dyslipidemia- Primary Other and unspecified hyperlipidemia Vitamin D deficiency Prediabetes Other abnormal glucose Chronic right-sided headache Occipital headache Headache documented in this encounter Additional Health Concerns Assessment Noted Time PHQ-9 Depression Total Score: 8 02/11/20 25 12:57 PM EDT documented as of this encounter Care Teams Procurement Representative Relationship Specialty Start Date End Date Natalie Posadas MD [address] [place] [address] PCP - General Family Medicine 08/14/18 Madhuri Barakat, CUAUHTEMOC [address] [place] [address] Registered Nurse Family Medicine 02/04/25 Deann Villalobos 02/04/25 Ari Parish Designated BrokerSpa Therapist 02/12/25 documented as of this encounter
--- OUTSIDE RECORDS SUMMARY | 2025-04-22 15:44 | XMS_ITS | Encounter Summary ---
Author Organization [employer] Address [address] [facility] [address] [place] [address] Care Team Providers Care Char Filter Tank Tender Name Role Phone Natalie Posadas MD Primary Care Provider [phone] Madhuri Barakat RN Unavailable [phone] Deann Villalobos Unavailable Encounter Details Date Type Department Care Team (Late st Contact Info) Description 12/01/2023 Telephone C OPTOMETRY [address] [place] [address], OD [address] [place] [address] Social History Tobacco Use Types Packs/Day Years [...] Called Patient inform him about appt. At [address] Padilla Appt. 12/05/2023 @ 10:5am documented in this encounter Plan of Treatment Upcoming Encounters Date Type Department Care Team (Late st Contact Info) Description 07/01/2025 2:30 PM EST Clinical Support [facility] CHC MED & PEDS [address] [place] [address] Jing Washington, RN [address] [place] [address] 07/28/2025 10:30 AM EST Office Visit [facility] OPTOMETRY [address] [place] [address], OD [address] [place] [address] documented as of this encounter Visit Diagnoses Not on filedocumented in this encounter Additional Health Concerns Assessment Noted Time PHQ-9 Depression Total Score: 7 09/28/19 24 11:21 AM EST documented as of this encounter Care Teams Char Filter Tank Tender Relationship Specialty Start Date End Date Natalie Posadas MD [address] [place] [address] PCP - General Family Medicine 08/14/18 Madhuri Barakat, CUAUHTEMOC [address] [place] [address] Registered Nurse Family Medicine 02/04/25 Deann Villalobos 02/04/25 Ari Parish Geriatric Nurse AssistantFrame Hand 02/12/25 documented as of this encounter
--- OUTSIDE RECORDS SUMMARY | 2025-04-22 15:44 | XMS_ITS ---
Author Organization [employer] Address [address] [facility] 7t [place] [address] Care Team Providers Care Barrel Liner Name Role Phone Natalie Posadas MD Primary Care Provider Madhuri Barakat RN Unavailable [phone] Deann Villalobos Unavailable CM Complex Status:Enrolled (Active) Start date:02/04/2025 Enrollment date:02/10/2025 Enrollment reason:Referred by provider Overview Provider Referral- Pt complains of headache. Seen by neurologist and neurosurgeon. Pt does not try CPAP and frequentlymisses appt. Case Team Name Relationship Phone Madhuri Barakat RN(Responsible Staff) Registered Nurse [phone] Continued Care and Services Coordination
--- OUTSIDE RECORDS SUMMARY | 2025-04-22 15:44 | XMS_ITS | Encounter Summary ---
Author Organization [employer] Address [address] [facility] [address] 7t [place] [address] Care Team Providers Care Decorating Kiln Operator Name Role Phone Natalie Posadas MD Primary Care Provider [phone] Madhuri Barakat RN Unavailable [phone] Deann Villalobos Unavailable Reason for Visit * Reason Comments Med Refill Encounter Details Date Type Department Care Team ([facility] st Contact Info) Description 03/12/2024 Refill [facility]INE 230 [place] [address] Kelly Diego ANP 230 [place], [place] [phone] Pain Social History Tobacco Use Types Packs/Day [...] Description 07/01/2025 2:30 PM EST Clinical Support [facility] CHC MED & PEDS 505 [place] [address] Jing Washington RN 505 [place] [address] 07/28/2025 10:30 AM EST Office Visit [facility] OPTOMETRY [address] [place] [address], OD 230 [place] [address] documented as of this encounter Visit Diagnoses Diagnosis Pain Generalized pain documented in this encounter Additional Health Concerns Assessment Noted Time PHQ-9 Depression Total Score: 7 09/28/19 24 11:21 AM EST documented as of this encounter Care Teams Decorating Kiln Operator Relationship Specialty Start Date End Date Natalie Posadas MD [address] [place] [address] PCP - General Family Medicine 08/14/18 Madhuri Barakat, CUAUHTEMOC [address] [place] [address] Registered Nurse Family Medicine 02/04/25 Deann Villalobos 02/04/25 Ari Parish Clinical Exercise PhysiologistPusher Runner 02/12/25 documented as of this encounter
--- OUTSIDE RECORDS SUMMARY | 2025-04-22 15:44 | XMS_ITS | Encounter Summary ---
Author Organization [employer] Address [address] [place] [address] 7t [place] [address] Care Team Providers Care Game Technician Name Role Phone Natalie Posadas MD Primary Care Provider [phone] Madhuri Barakat RN Unavailable [phone] Deann Villalobos Unavailable Reason for Visit * Reason Comments Med Refill Encounter Details Date Type Department Care Team (Late st Contact Info) Description 04/24/2023 Refill [facility] MED[facility]INE [address] [place] [address] Natalie Posadas MD [address] [place] [address] Pain Social History Tobacco Use Types Packs/Day [...] Description 07/01/2025 2:30 PM EST Clinical Support [facility] CHC MED & PEDS [address] [place] [address] Jing Washington, RN [address] [place] [address] 07/28/2025 10:30 AM EST Office Visit [facility] OPTOMETRY [address] [place] [address], OD 230 [place] [address] documented as of this encounter Visit Diagnoses Diagnosis Pain Generalized pain documented in this encounter Additional Health Concerns Assessment Noted Time PHQ-9 Depression Total Score: 0 09/15/19 23 11:23 AM EST documented as of this encounter Care Teams Game Technician Relationship Specialty Start Date End Date Natalie Posadas MD [address] [place] [address] PCP - General Family Medicine 08/14/18 Madhuri Barakat, CUAUHTEMOC [address] [place] [address] Registered Nurse Family Medicine 02/04/25 Deann Villalobos 02/04/25 Ari Parish Senior EditorHeating Operators Engineer 02/12/25 documented as of this encounter
--- OUTSIDE RECORDS SUMMARY | 2025-04-22 15:44 | XMS_ITS | Encounter Summary ---
Author Organization [employer] Address [address] [facility] [address] 7t [place] [address] Care Team Providers Care Structures Technician Name Role Phone Natalie Posadas MD Primary Care Provider [phone] Madhuri Barakat RN Unavailable [phone] Deann Villalobos Unavailable Encounter Details Date Type Department Care Team (Late st Contact Info) Description 09/16/2024 Orders Only [facility] MEDICINE [address] [place], [place] [phone] Natalie Posadas MD [address] [place], [place] [phone] Preop examination (Primary Dx); AV block, 1st [...] Description 07/01/2025 2:30 PM EST Clinical Support [facility] CHC MED & PEDS [address] [place] [address] Jing Washington RN 505 [place] [address] 07/28/2025 10:30 AM EST Office Visit [facility] OPTOMETRY [address] [place] [address], OD [address] [place] [address] Scheduled Orders Name Type Priority Associated Diagnoses [...] documented as of this encounter Care Teams Structures Technician Relationship Specialty Start Date End Date Natalie Posadas MD [address] [place] [address] PCP - General Family Medicine 08/14/18 Madhuri Barakat RN [address] [place] [address] Registered Nurse Family Medicine 02/04/25 Deann Villalobos 02/04/25 Ari Parish Auto Body StraightenerModern Greek Studies Professor 02/12/25 documented as of this encounter
--- OUTSIDE RECORDS SUMMARY | 2025-04-22 15:44 | XMS_ITS | Encounter Summary ---
Author Organization [employer] Address [address] [facility] [address] 7[address] [place] [address] Care Team Providers Care Trucking Manager Name Role Phone Natalie Posadas MD Primary Care Provider [phone] Madhuri Barakat RN Unavailable [phone] Deann Villalobos Unavailable Reason for Visit * Reason Comments Med Refill Encounter Details Date Type Department Care Team (Late st Contact Info) Description 09/12/2023 Refill [facility] MED & PEDS [address] [place], [place] [phone] Natalie Posadas MD 230 [place] [address] Pain Social History Tobacco Use Types Packs/Day [...] Description 07/01/2025 2:30 PM EST Clinical Support [facility] CHC MED & PEDS [address] [place] [address] Jing Washington RN 505 [place] [address] 07/28/2025 10:30 AM EST Office Visit [facility] OPTOMETRY [address] [place] [address] Seamus, Carolyn, OD [address] [place] [address] documented as of this encounter Visit Diagnoses Diagnosis Pain Generalized pain documented in this encounter Additional Health Concerns Assessment Noted Time PHQ-9 Depression Total Score: 0 09/15/19 23 11:23 AM EST documented as of this encounter Care Teams Trucking Manager Relationship Specialty Start Date End Date Natalie Posadas MD [address] [place] [address] PCP - General Family Medicine 08/14/18 Madhuri Barakat, CUAUHTEMOC [address] [place] [address] Registered Nurse Family Medicine 02/04/25 Deann Villalobos 02/04/25 Ari Parish Screen Printing Loader UnloaderTool And Die Machinist 02/12/25 documented as of this encounter
--- OUTSIDE RECORDS SUMMARY | 2025-04-22 15:44 | XMS_ITS | Encounter Summary ---
Author Organization [employer] Address 75 [facility] 7t [place] [address] Care Team Providers Care Php Mysql Developer Name Role Phone Natalie Posadas MD Primary Care Provider [phone] Madhuri Barakat RN Unavailable [phone] Deann Villalobos Unavailable Reason for Referral * Consultation (Routine) - Closed Specialty Diagnoses / Procedures Referred By Contac t Referred To Contact Pharmacy Diagnoses Dyslipidemia Elevated BP without diagnosis of hypertension H. pylori infection Prediabetes Natalie Posadas MD [address] [place] [address] Phone: tel: fax: Referral ID Status Reason Start Date Expiration Date V isits Requested Visits Authorized [id number] Closed Continuity of Care 10/18/2024 10/18/2025 6 6 Scheduling Instructions Patient is requesting medbox organization. Thank you. Also, we recently prescribed H. Pylori eradication treatment. If this treatment can be organized in the box, that would be great, but it is okay if he already picked up. Thank you again. Encounter Details Date Type Department Care Team (Late st Contact Info) Description 10/18/2024 Orders Only [facility] MEDICINE [address] [place], [place] [phone] Natalie Posadas MD [address] [place], [place] [phone] Dyslipidemia (Primary Dx); Elevated BP without diagnosis of hypertension; H. pylori infection; Prediabetes Social History Tobacco Use Types Packs/Day Years [...] Upcoming Encounters Date Type Department Care Team ([facility] st Contact Info) Description 07/01/2025 2:30 PM EST Clinical Support [facility] MED & PEDS [address] [place] [address] Jing Washington, RN [address] [place] [address] 07/28/2025 10:30 AM EST Office Visit [facility] OPTOMETRY [address] [place] [address], OD [address] [place] [address] Scheduled Referrals Name Type Priority Associated Diagnoses Orde r Schedule Referral to Pharmacy MTM Outpatient Referral Routine Dyslipidemia Elevated BP without diagnosis of hypertension H. pylori infection Prediabetes Ordered: 10/18/2024 documented as of this encounter Visit Diagnoses Diagnosis Dyslipidemia- Primary Other and unspecified hyperlipidemia Elevated BP without diagnosis of hypertension H. pylori infection Helicobacter pylori (H. pylori) Prediabetes Other abnormal glucose documented in this encounter Additional Health Concerns Assessment Noted Time PHQ-9 Depression Total Score: 3 08/06/20 24 8:58 AM EST documented as of this encounter Care Teams Php Mysql Developer Relationship Specialty Start Date End Date Natalie Posadas MD [address] [place] [address] PCP - General Family Medicine 08/14/18 Madhuri Barakat, CUAUHTEMOC [address] [place] [address] Registered Nurse Family Medicine 02/04/25 Deann Villalobos 02/04/25 Ari Parish Cooler ServicerCoal Digger 02/12/25 documented as of this encounter
--- OUTSIDE RECORDS SUMMARY | 2025-04-22 15:44 | XMS_ITS ---
Author Organization [employer] Address [address] [facility] 7t [place] [address] Care Team Providers Care Numerologist Name Role Phone Natalie Posadas MD Primary Care Provider [phone] Madhuri Barakat RN Unavailable [phone] Deann Villalobos Unavailable CHW Complex Status:Enrolled (Active) Start date:02/04/2025 Enrollment date:02/17/2025 Enrollment reason:Referred by provider Overview Pt complains of headache. Seen by neurologist and neurosurgeon. Pt does not try CPAP and frequentlymisses appt. Please outreach for enrollment. Case Team Name Relationship Phone Deann Villalobos(Responsible Staff) [phone] Continued Care and Services Coordination
--- OUTSIDE RECORDS SUMMARY | 2025-04-22 15:44 | XMS_ITS | Encounter Summary ---
Author Organization [employer] Address [address] [facility] [address] [place] [address] Care Team Providers Care Flow Coordinator Name Role Phone Natalie Posadas MD Primary Care Provider [phone] Madhuri Barakat RN Unavailable [phone] Deann Villalobos Unavailable Reason for Visit * Reason Comments Med Refill Encounter Details Date Type Department Care Team (Late st Contact Info) Description 09/17/2023 Refill [facility] MEDICINE 230 [place], [place] [phone] Natalie Posadas MD [address] [place], [place] [phone] Pain Social History Tobacco Use Types Packs/Day [...] Description 07/01/2025 2:30 PM EST Clinical Support [facility] CHC MED & PEDS 505 [place] [address] Jing Washington, CUAUHTEMOC 505 [place] [address] 07/28/2025 10:30 AM EST Office Visit [facility] OPTOMETRY [address] [place] [address] Seamus, Carolyn, OD 230 [place] [address] documented as of this encounter Visit Diagnoses Diagnosis Pain Generalized pain documented in this encounter Additional Health Concerns Assessment Noted Time PHQ-9 Depression Total Score: 0 09/15/19 23 11:23 AM EST documented as of this encounter Care Teams Flow Coordinator Relationship Specialty Start Date End Date Natalie Posadas MD [address] [place] [address] PCP - General Family Medicine 08/14/18 Madhuri Barakat, CUAUHTEMOC [address] [place] [address] Registered Nurse Family Medicine 02/04/25 Deann Villalobos 02/04/25 Ari Parish Underground MinerHealth Care Marketing Manager 02/12/25 documented as of this encounter
--- OUTSIDE RECORDS SUMMARY | 2025-04-22 15:44 | XMS_ITS | Encounter Summary ---
Author Organization [employer] Address [address] [place] [address] Care Team Providers Care Wig Sales Consultant Name Role Phone Natalie Posadas MD Primary Care Provider [phone] Madhuri Barakat RN Unavailable [phone] Deann Villalobos Unavailable Reason for Visit * Reason Comments Med Refill Encounter Details Date Type Department Care Team (Late st Contact Info) Description 11/24/2023 Refill [facility] MEDICINE [address] [place], [place] [phone] Natalie Posadas MD 230 [place], [place] [phone] Pain Social History Tobacco Use Types Packs/Day [...] Description 07/01/2025 2:30 PM EST Clinical Support [facility] CHC MED & PEDS 505 [place] [address] Jing Washington RN 505 [place] [address] 07/28/2025 10:30 AM EST Office Visit [facility] OPTOMETRY [address] [place] [address], OD 230 [place] [address] documented as of this encounter Visit Diagnoses Diagnosis Pain Generalized pain documented in this encounter Additional Health Concerns Assessment Noted Time PHQ-9 Depression Total Score: 7 09/28/19 24 11:21 AM EST documented as of this encounter Care Teams Wig Sales Consultant Relationship Specialty Start Date End Date Natalie Posadas MD [address] [place] [address] PCP - General Family Medicine 08/14/18 Madhuri Barakat, CUAUHTEMOC 505 [place] [address] Registered Nurse Family Medicine 02/04/25 Deann Villalobos 02/04/25 Ari Parish Industrial Automation EngineerPatient Office Rep 02/12/25 documented as of this encounter
--- OUTSIDE RECORDS SUMMARY | 2025-04-22 15:44 | XMS_ITS | Encounter Summary ---
Author Organization [employer] Address [address] 7[address] [place] [address] Care Team Providers Care Licensed Mortgage Loan Officer Name Role Phone Natalie Posadas MD Primary Care Provider [phone] Madhuri Barakat RN Unavailable [phone] Deann Villalobos Unavailable Encounter Details Date Type Department Care Team (Late st Contact Info) Description 11/13/2024 Orders Only [facility] MEDICINE 230 [place], [place] [phone] Natalie Posadas MD 230 [place], [place] [phone] Social History Tobacco Use Types Packs/Day Years [...] Description 07/01/2025 2:30 PM EST Clinical Support [facility] CHC MED & PEDS 505 [place] [address] Jing Washington RN 505 [place] [address] 07/28/2025 10:30 AM EST Office Visit [facility] OPTOMETRY [address] [place] [address] Seamus, Carolyn, OD 230 [place] [address] documented as of this encounter Visit Diagnoses Not on filedocumented in this encounter Additional Health Concerns Assessment Noted Time PHQ-9 Depression Total Score: 3 08/06/20 24 8:58 AM EST documented as of this encounter Care Teams Licensed Mortgage Loan Officer Relationship Specialty Start Date End Date Natalie Posadas MD [address] [place] [address] PCP - General Family Medicine 08/14/18 Madhuri Barakat, CUAUHTEMOC 505 [place] [address] Registered Nurse Family Medicine 02/04/25 Deann Villalobos 02/04/25 Ari Parish Interactive Account ManagerAssociate Vice President 02/12/25 documented as of this encounter
--- OUTSIDE RECORDS SUMMARY | 2025-04-22 15:44 | XMS_ITS | Encounter Summary ---
Author Organization [employer] Address [address] 7t [place] [address] Care Team Providers Care Instructional Resource Teacher Name Role Phone Natalie Posadas MD Primary Care Provider [phone] Madhuri Barakat RN Unavailable [phone] Deann Villalobos Unavailable Reason for Visit * Reason Comments Med Refill Encounter Details Date Type Department Care Team (Late st Contact Info) Description 04/16/2025 Refill [facility] OPTOMETRY [address] [place] [address] Seamus, Carolyn, OD [address] [place] [address] Social History Tobacco Use Types Packs/Day Years [...] Description 07/01/2025 2:30 PM EST Clinical Support [facility] CHC MED & PEDS 505 [place] [address] Jing Washington RN 505 [place] [address] 07/28/2025 10:30 AM EST Office Visit [facility] OPTOMETRY [address] [place] [address] Seamus, Carolyn, OD 230 [place] [address] documented as of this encounter Visit Diagnoses Not on filedocumented in this encounter Additional Health Concerns Assessment Noted Time PHQ-9 Depression Total Score: 8 02/11/20 25 12:57 PM EDT documented as of this encounter Care Teams Instructional Resource Teacher Relationship Specialty Start Date End Date Natalie Posadas MD 230 [place] [address] PCP - General Family Medicine 08/14/18 Madhuri Barakat, CUAUHTEMOC NPI: [id number] [place] [id number] Registered Nurse Family Medicine 02/04/25 Deann Villalobos 02/04/25 Ari Parish [employer] Electrical EngineerMortgage Accounting Clerk 02/12/25 documented as of this encounter
--- OUTSIDE RECORDS SUMMARY | 2025-04-22 15:44 | XMS_ITS | Encounter Summary ---
Author Organization [employer] Address [address] 7t [place] [address] Care Team Providers Care Motor Winder Name Role Phone Natalie Posadas MD Primary Care Provider [phone] Madhuri Barakat RN Unavailable [phone] Deann Villalobos Unavailable Reason for Visit * Reason Comments Med Refill Encounter Details Date Type Department Care Team (Late st Contact Info) Description 05/29/2024 Refill [facility] OPTOMETRY [address] [place] [address] Seamus, Carolyn, OD [address] [place] [address] Social History Tobacco Use Types Packs/Day Years [...] Description 07/01/2025 2:30 PM EST Clinical Support [facility] CHC MED & PEDS 505 [place] [address] Jing Washington RN 505 [place] [address] 07/28/2025 10:30 AM EST Office Visit [facility] OPTOMETRY [address] [place] [address], OD 230 [place] [address] documented as of this encounter Visit Diagnoses Not on filedocumented in this encounter Additional Health Concerns Assessment Noted Time PHQ-9 Depression Total Score: 7 09/28/19 24 11:21 AM EST documented as of this encounter Care Teams Motor Winder Relationship Specialty Start Date End Date Natalie Posadas MD 230 [place] [address] PCP - General Family Medicine 08/14/18 Madhuri Barakat, CUAUHTEMOC 505 [place] [address] Registered Nurse Family Medicine 02/04/25 Deann Villalobos 02/04/25 Ari Parish Conservation Of Resources CommissionerRim Turning Machine Operator 02/12/25 documented as of this encounter
--- OUTSIDE RECORDS SUMMARY | 2025-04-22 15:44 | XMS_ITS | Encounter Summary ---
Author Organization [employer] Address [address] [place] [address] Care Team Providers Care Health Care Specialist Name Role Phone Natalie Posadas MD Primary Care Provider Madhuri Barakat RN Unavailable [phone] Deann Villalobos Unavailable Reason for Visit * Reason Comments Med Refill Encounter Details Date Type Department Care Team (Late st Contact Info) Description 01/25/2024 Refill [facility] MEDICINE 230 [place], [place] [phone] Natalie Posadas MD 230 [place], [place] [phone] Pain Social History Tobacco Use Types Packs/Day [...] 2:30 PM EST Clinical Support [facility] CHC MED & PEDS 505 [place] [address] Jing Washington RN 505 [place] [address] 07/28/2025 10:30 AM EST Office Visit [facility] OPTOMETRY [address] [place] [address], OD 230 [place] [address] documented as of this encounter Visit Diagnoses Diagnosis Pain Generalized pain documented in this encounter Additional Health Concerns Assessment Noted Time PHQ-9 Depression Total Score: 7 09/28/19 24 11:21 AM EST documented as of this encounter Care Teams Health Care Specialist Relationship Specialty Start Date End Date Natalie Posadas MD 230 [place] [address] PCP - General Family Medicine 08/14/18 Madhuri Barakat, CUAUHTEMOC 505 [place] [address] Registered Nurse Family Medicine 02/04/25 Deann Villalobos 02/04/25 Ari Parish Fur TrimmerLicensed Physical Therapist 02/12/25 documented as of this encounter
--- OUTSIDE RECORDS SUMMARY | 2025-04-22 15:44 | XMS_ITS | Encounter Summary ---
Author Organization [employer] Address [address] [place] [address] Care Team Providers Care Life Trainer Name Role Phone Natalie Posadas MD Primary Care Provider [phone] Madhuri Barakat RN Unavailable [phone] Deann Villalobos Unavailable Encounter Details Date Type Department Care Team (Late st Contact Info) Description 10/11/[address] [facility] MEDICINE 230 [place] [address] Natalie Posadas MD 230 [place], [place] [phone] Prolonged QT interval (Primary Dx); 1st degree [...] Upcoming Encounters Date Type Department Care Team ([facility] st Contact Info) Description 07/01/2025 2:30 PM EST Clinical Support [facility] CHC MED & PEDS 505 [place] [address] Jing Washington, RN 505 [place] [address] 07/28/2025 10:30 AM EST Office Visit [facility] OPTOMETRY [address] [place] [address] Seamus, Carolyn, OD [address] [place] [address] documented as of this encounter Procedures Procedure Name Priority Date/Time Associated Diagnosis Comments MAGNESIUM Routine 10/14/2024 10:03 AM EST Prolonged QT interval BASIC METABOLIC PANEL Routine 10/14/2024 10:03 AM EST Prolonged QT interval documented in this encounter Results * (ABNORMAL) Basic Metabolic Panel (10/14/2024 10:03 AM EST) Sodium 142 135 - 145 mmol/L [facility] Potassium 4.1 3.3 - 5.1 mmol/L [facility] Chloride 108 96 - 108 mmol/L [facility] Carbon Dioxide 27 22 - 29 mmol/L [facility] Anion Gap 11(L) 12 - 20 [facility] Urea Nitrogen (BUN) 15 9 - 16 mg/dL [facility] Creatinine, Serum 0.80 0.5 - 1.4 mg/dL [facility] Estimated Glomerular Filt Rate >60 [facility] Comment:Chronic Kidney Disea se: Estimated GFR < 60 mL/min/[id number] Kidney Disease: Estimated GFR < 15 mL/min/1.73m2 Glucose 94 60 - 115 mg/dL [facility] Calcium 9.3 8.4 - 10.2 mg/dL [facility] Blood Venous blood specimen / Unknown 10/14/2024 10:03 AM EST 10/14/2024 11:36 AM EST Natalie Posadas MD LAB BLOOD ORDERABLES Final Resul t Performing Organization Address City/[facility]/ZIP Co de Phone Number [facility] [address] [place] [phone] * Magnesium (10/14/2024 10:03 AM EST) Magnesium 2.1 1.6 - 2.6 mg/dL [facility] Blood Venous blood specimen / Unknown 10/14/2024 10:03 AM EST 10/14/2024 11:36 AM EST Natalie Posadas MD LAB BLOOD ORDERABLES Final Resul t Performing Organization Address City/[facility]/ZIP Co de Phone Number [facility] [address] [place] [phone] documented in this encounter Visit Diagnoses Diagnosis Prolonged QT interval- Primary Nonspecific abnormal electrocardiogram (ECG) (EKG) 1st degree AV block documented in this encounter Additional Health Concerns Assessment Noted Time PHQ-9 Depression Total Score: 3 08/06/20 24 8:58 AM EST documented as of this encounter Care Teams Life Trainer Relationship Specialty Start Date End Date Natalie Posadas MD 230 [place] [address] PCP - General Family Medicine 08/14/18 Madhuri Barakat, CUAUHTEMOC 505 [place] [address] Registered Nurse Family Medicine 02/04/25 Deann Villalobos 02/04/25 Ari Parish Client DirectorMaid Supervisor 02/12/25 documented as of this encounter
--- OUTSIDE RECORDS SUMMARY | 2025-04-22 15:45 | XMS_ITS | Encounter Summary ---
Author Organization [employer] Address [address] [facility] [address] 7t [place] [address] Care Team Providers Care Merchant Patroller Name Role Phone Natalie Posadas MD Primary Care Provider [phone] Madhuri Barakat RN Unavailable [phone] Deann Villalobos Unavailable Reason for Visit * Reason Comments Med Refill Encounter Details Date Type Department Care Team (Late st Contact Info) Description 11/21/2022 Refill [facility] MEDICINE 230 [place] [address] Natalie Posadas MD 230 [place] [address] Pain Social History Tobacco Use Types Packs/Day [...] Department Care Team (Late Contact Info) Description 07/01/2025 2:30 PM EST Clinical Support [facility] CHC MED & PEDS 505 [place] [address] Jing Washington, CUAUHTEMOC 505 [place] [address] 07/28/2025 10:30 AM EST Office Visit [facility] OPTOMETRY [address] [place] [address] Seamus, Carolyn, OD 230 [place] [address] documented as of this encounter Visit Diagnoses Diagnosis Pain Generalized pain documented in this encounter Additional Health Concerns Assessment Noted Time PHQ-9 Depression Total Score: 0 09/15/19 23 11:23 AM EST documented as of this encounter Care Teams Merchant Patroller Relationship Specialty Start Date End Date Natalie Posadas MD 230 [place] [address] PCP - General Family Medicine 08/14/18 Madhuri Barakat, CUAUHTEMOC 505 [place] [address] Registered Nurse Family Medicine 02/04/25 Deann Villalobos 02/04/25 Ari Parish Outreach AssistantSales Coordinator 02/12/25 documented as of this encounter
--- OUTSIDE RECORDS SUMMARY | 2025-04-22 15:45 | XMS_ITS | Encounter Summary ---
Author Organization [employer] Address [address] [facility] [place] [address] Care Team Providers Care Sales Force Administrator Name Role Phone Natalie Posadas MD Primary Care Provider [phone] Madhuri Barakat RN Unavailable [phone] Deann Villalobos Unavailable Reason for Visit * Reason Comments Med Refill Encounter Details Date Type Department Care Team (Late st Contact Info) Description 03/11/2025 Refill [facility] MEDICINE 230 [place], [place] [phone] Natalie Posadas MD 230 [place], [place] [phone] Pain Social History Tobacco Use Types Packs/Day [...] Description 07/01/2025 2:30 PM EST Clinical Support [facility] CHC MED & PEDS 505 [place] [address] Jing Washington RN 505 [place] [address] 07/28/2025 10:30 AM EST Office Visit [facility] OPTOMETRY [address] [place] [address] Seamus, Carolyn, OD 230 [place] [address] documented as of this encounter Visit Diagnoses Diagnosis Pain Generalized pain documented in this encounter Additional Health Concerns Assessment Noted Time PHQ-9 Depression Total Score: 8 02/11/20 25 12:57 PM EDT documented as of this encounter Care Teams Sales Force Administrator Relationship Specialty Start Date End Date Natalie Posadas MD [address] [place] [address] PCP - General Family Medicine 08/14/18 Madhuri Barakat RN [address] [place] [address] Registered Nurse Family Medicine 02/04/25 Deann Villalobos 02/04/25 Ari Parish Electronic ImagerDerrick Barge Operator 02/12/25 documented as of this encounter
--- OUTSIDE RECORDS SUMMARY | 2025-04-22 15:45 | XMS_ITS | Clinical Summary ---
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 Test Reliability: Good reliability. No false negatives/positives. 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 No obvious progression noted. Will monitor with a complete eye exam in 6 months. us Carolyn Mcarthurfo OD OPHTH VISUAL FIELD Final Resu lt * Hemoglobin A1c (09/25/2024 10:49 AM EST) Hemoglobin A1c 5.7 <6.0 % [facility] Comment:Hemoglobin A1C Refer ence Range Adults: 4.8 - 6.0 % Non diabetic: < 6.0 % Goal: < 7.0 %Additional Action Suggested: > 8.0 %Note: Hemoglobin A1c results are invalid for patients with abnormal amounts of HbF. Blood transfusions may impact the HbA1c concentration in the patient sample. Estimated Average Glucose 117 mg/dL [facility] Comment:eAG = Estimated ave rage glucose which is %A1C expressed asaverage glucose, using the formula of the [id number] Glucose study (ADAG), Diabetes Care, Vol.31,#8,Mar. 2007 Blood Venous blood specimen / Unknown 09/25/2024 10:49 AM EST 09/25/2024 1:42 PM EST us Natalie Posadas MD LAB BLOOD ORDERABLES Final Resul t [facility] [address] [place] [phone] * (ABNORMAL) Lipid Panel with Reflex to Direct LDL (08/31/2024 9:42 AM EST) Triglycerides 88 <150 mg/dL [facility] Comment:Desirable Triglyceri de: less than 150 mg/dLBorderline High Triglyceride 150-199 mg/dLHigh Triglyceride: 200-499 mg/dLVery High Triglyceride: greater than or equal to 5OO mg/dL Cholesterol 175 <200 mg/dL [facility] Comment:Desirable Cholestero l: less than 200 mg/dLBorderline High Cholesterol: 200-239 mg/dLHigh Cholesterol: greater than 239 mg/dL LDL Cholesterol Calculated 116(H) <100 mg/dL [facility] Comment:Desirable LDL: less than 100 mg/dLNear Optimal/Above Optimal LDL: 110- 129 mg/dLBorderline High LDL: 130-159 mg/dLHigh LDL: 160-189 mg/dLVery High LDL: greater than or equal to 190 mg/dL HDL Cholesterol 42 >40 mg/dL [facility] Comment:Desirable HDL: great er than 40 mg/dL Note: This HDL assay may give artificially low results in patients with liver disease. Blood 08/31/2024 9:42 AM EST 08/31/2024 9:42 AM EST Natalie Posadas MD LAB BLOOD ORDERABLES Final Resul t [facility] [address] [place] [address] [phone] * HEPATITIS C AB W/REFL TO HCV RNA, QN, PCR (06/02/2022 10:20 AM EDT) HEPATITIS C ANTIBODY NON-REACTI VE NON-REACT GREGORY [facility] INDEX 0.08 <1.00 [facility] Comment: HCV antibody was non-reactive. There is no laboratory evidence of HCV infection. In most cases, no further action is required. However, if recent HCV exposure is suspected, a test for HCV RNA (test code 39269) is suggested. For additional information please refer to http://education.Assurely/faq/TWT68y0 (This link is being provided for informational/ educational purposes only.) 06/02/2022 10:2 0 AM EDT Natalie Posadas MD HISTORICAL/NON ORDERABLE LABS Fi nal Result Performing Organization Address City/[facility] Co de Phone Number [facility]VERT[facility]GACY LABS * HIV 1/2 ANTIGEN/ANTIBODY,FOURTH GENERATION W/RFL (06/02/2022 10:20 AM EDT) HIV-1/2 ANTIGEN AND ANTIBODIES, 4TH GENERATION W/ REFLEX NON-REACT GREGORY NON-REACT GREGORY [facility] Comment: HIV-1 antigen and HIV-1/HIV-2 antibodies were not detected. There is no laboratory evidence of HIV infection. PLEASE NOTE: This information has been disclosed to you from records whose confidentiality may be protected by state law. If your state requires such protection, then the state law prohibits you from making any further disclosure of the information without the specific written consent of the person to whom it pertains, or as otherwise permitted by law. A general authorization for the release of medical or other information is NOT sufficient for this purpose. For additional information please refer to http://education.Science.GenieBelt/faq/TZE595 (This link is being provided for informational/ educational purposes only.) The performance of this assay has not been clinically validated in patients less than 2 years old. 06/02/2022 10:2 0 AM EDT Natalie Posadas MD LAB BLOOD ORDERABLES Final Resul t [facility] * Colonoscopy (06/03/2015) Colonoscopy Normal Normal 06/03/2015 See Chong MD HEALTH MAINTENANCE Edited Re sult - Final from Last 3 Months or Most Recently Relevant to Health Maintenance Insurance [employer] Care Teams International Freight Forwarder Relationship Specialty Start Date End Date Natalie Posadas MD [address] [place] [address] PCP - General Family Medicine 08/14/18 Madhuri Barakat, CUAUHT[place]OC [address] [place] [address] Registered Nurse Family Medicine 02/04/25 Deann Villalobos 02/04/25 Ari Parish Stereo CompilerPrincipal Account Clerk 02/12/25
--- OUTSIDE RECORDS SUMMARY | 2025-04-22 15:45 | XMS_ITS | Encounter Summary ---
Author Organization [employer] Address [address] [place] [address] Care Team Providers Care Last Ironer Name Role Phone Natalie Posadas MD Primary Care Provider [phone] Madhuri Barakat RN Unavailable [phone] Deann Villalobos Unavailable Reason for Visit * Reason Comments Med Refill Encounter Details Date Type Department Care Team (Late st Contact Info) Description 01/24/2023 Refill [facility] MED & PEDS [address] [place], [place] [phone] Kelly Diego, ANP [address] [place] [address] Pain Social History Tobacco Use Types Packs/Day [...] Description 07/01/2025 2:30 PM EST Clinical Support [facility] MED & PEDS [address] [place] [address] Jing Washington RN [address] [place] [address] 07/28/2025 10:30 AM EST Office Visit [facility] OPTOMETRY [address] [place], [place] [phone] Seamus, Megan, OD [address] [place] [address] documented as of this encounter Visit Diagnoses Diagnosis Pain Generalized pain documented in this encounter Additional Health Concerns Assessment Noted Time PHQ-9 Depression Total Score: 0 09/15/19 23 11:23 AM EST documented as of this encounter Care Teams Last Ironer Relationship Specialty Start Date End Date Natalie Posadas MD [address] [place] [address] PCP - General Family Medicine 08/14/18 Madhuri Barakat RN [address] [place] [address] Registered Nurse Family Medicine 02/04/25 Deann Villalobos 02/04/25 Ari Parish Outside Residential Sales ProfessionalConveyor Operator 02/12/25 documented as of this encounter
--- OUTSIDE RECORDS SUMMARY | 2025-04-22 15:45 | XMS_ITS | Encounter Summary ---
Author Organization [employer] Address [address] [place] [address] Care Team Providers Care Shrimp Boat Captain Name Role Phone Natalie Posadas MD Primary Care Provider [phone] Madhuri Barakat RN Unavailable [phone] Deann Villalobos Unavailable Encounter Details Date Type Department Care Team (Late Contact Info) Description 10/14/2022 Orders Only [facility] [address] [place] [address] Natalie Posadas MD [address] [place] [address] Right internal carotid artery aneurysm (Primary Dx); [...] Description 07/01/2025 2:30 PM EST Clinical Support [facility]EDS [address] [place] [address] Jing Washington, CUAUHTEMOC [address] [place] [address] 07/28/2025 10:30 AM EST Office Visit [facility] [address] [place] [address] SeamusCarolyn rodriguez, OD [address] [place] [address] documented as of this encounter Visit Diagnoses Diagnosis Right internal carotid artery aneurysm- Primary Chronic right-sided headache Occipital headache Headache documented in this encounter Additional Health Concerns Assessment Noted Time PHQ-9 Depression Total Score: 0 09/15/19 23 11:23 AM EST documented as of this encounter Care Teams Shrimp Boat Captain Relationship Specialty Start Date End Date Natalie Posadas MD [address] [place] [address] PCP - General Family Medicine 08/14/18 Madhuri Barakat RN [address] [place] [address] Registered Nurse Family Medicine 02/04/25 Deann Villalobos 02/04/25 Ari Parish Mold PullerCarbide Tool Maker 02/12/25 documented as of this encounter
--- OUTSIDE RECORDS SUMMARY | 2025-04-22 15:45 | XMS_ITS | Encounter Summary ---
Author Organization [employer] Address [address] [place] [address] [address] [place] [address] Care Team Providers Care Claims Investigator Name Role Phone Natalie Posadas MD Primary Care Provider [phone] Madhuri Barakat RN Unavailable [phone] Deann Villalobos Unavailable Reason for Visit * Reason Comments Med Refill Encounter Details Date Type Department Care Team (Late st Contact Info) Description 11/18/[address] [facility] MEDICINE [address] [place] [address] Natalie Posadas MD [address] [place], [place] [phone] Pain Social History Tobacco Use Types Packs/Day [...] 11/18/2022 9:25 AM EDT Already sent to [facility] nurse * Telephone Encounter - Charity Ibrahim - 11/18/2022 9:18 AM EDT Patient walked in requesting medication refill of Tramadol 50MG. He doesn't have any left and it was supposed to be refilled on the 3rd of the month. documented in this encounter Plan of Treatment Upcoming Encounters Date Type Department Care Team (Late st Contact Info) Description 07/01/2025 2:30 PM EST Clinical Support [facility] MED & PEDS [address] [place] [address] Jing Washington, CUAUHTEMOC [address] [place], [place] [phone] 07/28/2025 10:30 AM EST Office Visit [facility] OPTOMETRY [address] [place] [address] Seamus, Carolyn, OD [address] [place] [address] documented as of this encounter Visit Diagnoses Diagnosis Pain Generalized pain documented in this encounter Additional Health Concerns Assessment Noted Time PHQ-9 Depression Total Score: 0 09/15/19 23 11:23 AM EST documented as of this encounter Care Teams Claims Investigator Relationship Specialty Start Date End Date Natalie Posadas MD [address] [place] [address] PCP - General Family Medicine 08/14/18 Madhuri Barakat, CUAUHTEMOC [address] [place] [address] Registered Nurse Family Medicine 02/04/25 Daenn Villalobos 02/04/25 Ari Parish Marker DeliveryAccredited Pharmacy Technician 02/12/25 documented as of this encounter
--- OUTSIDE RECORDS SUMMARY | 2025-04-22 15:45 | XMS_ITS | Encounter Summary ---
Author Organization [employer] Address [address] [place] [address] Care Team Providers Care Mixing And Molding Machine Operator Name Role Phone Natalie Posadas MD Primary Care Provider [phone] Madhuri Barakat RN Unavailable [phone] Deann Villalobos Unavailable Encounter Details Date Type Department Care Team (Late st Contact Info) Description 08/16/2024 Orders Only [facility] MEDICINE [address] [place], [place] [phone] Natalie Posadas MD [address] [place], [place] [phone] Elevated BP without diagnosis of hypertension (Primary [...] Description 07/01/2025 2:30 PM EST Clinical Support [facility] MED & PEDS [address] [place] [address] Jing Washington RN [address] [place] [address] 07/28/2025 10:30 AM EST Office Visit [facility] OPTOMETRY [address] [place] [address], OD [address] [place] [address] documented as of this encounter Visit Diagnoses Diagnosis Elevated BP without diagnosis of hypertension- Primary documented in this encounter Additional Health Concerns Assessment Noted Time PHQ-9 Depression Total Score: 3 08/06/20 24 8:58 AM EST documented as of this encounter Care Teams Mixing And Molding Machine Operator Relationship Specialty Start Date End Date Natalie Posadas MD [address] [place] [address] PCP - General Family Medicine 08/14/18 Madhuri Barakat, CUAUHTEMOC [address] [place] [address] Registered Nurse Family Medicine 02/04/25 Deann Villalobos 02/04/25 Ari Parish Risk Control RepresentativeSection Crews Activities Clerk 02/12/25 documented as of this encounter
--- OUTSIDE RECORDS SUMMARY | 2025-04-22 15:45 | XMS_ITS | Encounter Summary ---
Author Organization [employer] Address [address] [place] [address] Care Team Providers Care Secretary To Board Of Commissioners Name Role Phone Natalie Posadas MD Primary Care Provider [phone] Madhuri Barakat RN Unavailable Deann Villalobos Unavailable Reason for Visit * Reason Comments Med Refill Encounter Details Date Type Department Care Team (Late st Contact Info) Description 07/03/2024 Refill [facility] MEDICINE [address] [place], [place] [phone] Natalie Posadas MD [address] [place], [place] [phone] Pain Social History Tobacco Use Types Packs/Day [...] Description 07/01/2025 2:30 PM EST Clinical Support [facility] MED & PEDS [address] [place] [address] Jing Washington RN [address] [place] [address] 07/28/2025 10:30 AM EST Office Visit [facility] OPTOMETRY [address] [place] [address], OD [address] [place] [address] documented as of this encounter Visit Diagnoses Diagnosis Pain Generalized pain documented in this encounter Additional Health Concerns Assessment Noted Time PHQ-9 Depression Total Score: 7 09/28/19 24 11:21 AM EST documented as of this encounter Care Teams Secretary To Board Of Commissioners Relationship Specialty Start Date End Date Natalie Posadas MD [address] [place] [address] PCP - General Family Medicine 08/14/18 Madhuri Barakat, CUAUHTEMOC [address] [place] [address] Registered Nurse Family Medicine 02/04/25 Deann Villalobos 02/04/25 Ari Parish Dental ProsthetistSubmarine Element Coordinator 02/12/25 documented as of this encounter
--- OUTSIDE RECORDS SUMMARY | 2025-04-22 15:45 | XMS_ITS | Encounter Summary ---
Author Organization [email or web address] Address [address] [place] [address] Care Team Providers Care Hook Puller Name Role Phone Natalie Posadas MD Primary Care Provider [phone] Madhuri Barakat RN Unavailable [phone] Deann Villalobos Unavailable Reason for Visit * Reason Comments Med Refill Encounter Details Date Type Department Care Team (Late Contact Info) Description 12/26/2022 Refill [facility] MEDICINE [address] [place] [address] Natalie Posadas MD [address] [place], [place] [phone] Pain Social History Tobacco Use Types Packs/Day [...] Support [facility] [address] [place] [address] Jing Washington, CUAUHTEMOC [address] [place] [address] 07/28/2025 10:30 AM EST Office Visit [facility] OPTOMETRY [address] [place] [address] Seamus, Carolyn, OD [address] [place] [address] documented as of this encounter Visit Diagnoses Diagnosis Pain Generalized pain documented in this encounter Additional Health Concerns Assessment Noted Time PHQ-9 Depression Total Score: 0 09/15/19 23 11:23 AM EST documented as of this encounter Care Teams Hook Puller Relationship Specialty Start Date End Date Natalie Posadas MD [address] [place] [address] PCP - General Family Medicine 08/14/18 Madhuri Barakat, CUAUHTEMOC [address] [place] [address] Registered Nurse Family Medicine 02/04/25 Deann Villalobos 02/04/25 Ari Parish Lumber DriverDental Surgeon 02/12/25 documented as of this encounter
== END 2025-04-22 14:34 | disposition home or self-care (01) ==
LOC: HO.HCS 13:19
PROVIDERS: PCP Family Medicine
DX: R06.02 Shortness of breath (principal); G47.33 Obstructive sleep apnea (adult) (pediatric)
CPT/HCPCS: 93010; 99214

== ENCOUNTER → 2025-04-22 13:19 | Outpatient (BNVA) | payer MEDICAID, SELFPAY | PROVIDERS: PCP Family Medicine | DX: R06.02 Shortness of breath (principal); G47.33 Obstructive sleep apnea (adult) (pediatric); E66.09 Other obesity due to excess calories; Z68.32 Body mass index [BMI] 32.0-32.9, adult; E78.5 Hyperlipidemia, unspecified | CPT/HCPCS: 93005; 99212 ==

== ENCOUNTER 2025-06-23 12:56 | Outpatient (AMB) | payer MEDICAID, SELFPAY ==
[2025-06-23 13:26] VITALS: BP 94/58; PULSE 91; O2SAT 95; BMI 33.1
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
--- OUTSIDE RECORDS SUMMARY | 2025-06-23 15:00 | XMS_ITS | Encounter Summary ---
Author Organization [employer] Address [address] [place] [address] Care Team Providers Care Testing Shaking Shipping Name Role Phone Natalie Posadas MD Primary Care Provider [phone] Madhuri Barakat RN Unavailable [phone] Deann Villalobos Unavailable Reason for Visit * Reason Comments Med Refill Encounter Details Date Type Department Care Team (Late st Contact Info) Description 07/03/2024 Refill [facility] [address] [place], [place] [phone] Natalie Posadas MD [address] [place], [place] [phone] Pain Social History Tobacco Use Types Packs/Day [...] Description 07/01/2025 2:30 PM EST Clinical Support [facility] [address] [place] [address] Jing Washington RN [address] [place] [address] 07/28/2025 10:30 AM EST Office Visit [facility] [address] [place] [address], OD [address] [place] [address] documented as of this encounter Visit Diagnoses Diagnosis Pain Generalized pain documented in this encounter Additional Health Concerns Assessment Noted Time PHQ-9 Depression Total Score: 7 09/28/19 24 11:21 AM EST documented as of this encounter Care Teams Testing Shaking Shipping Relationship Specialty Start Date End Date Natalie Posadas MD [address] [place] [address] PCP - General Family Medicine 08/14/18 Madhuri Barakat, CUAUHTEMOC [address] [place] [address] Registered Nurse Family Medicine 02/04/25 05/26/25 Deann Villalobos 02/04/25 06/02/25 Ari Parish Branch LeadFood Concession Manager 02/12/25 documented as of this encounter
--- OUTSIDE RECORDS SUMMARY | 2025-06-23 15:00 | XMS_ITS | Encounter Summary ---
Author Organization [employer] Address [address] [place] [address] Care Team Providers Care Cut Off Sawyer [place] Name Role Phone Natalie Posadas MD Primary Care Provider [phone] Madhuri Barakat RN Unavailable [phone] Deann Villalobos Unavailable Reason for Visit * Reason Comments Med Refill Encounter Details Date Type Department Care Team ([facility] st Contact Info) Description 03/12/2024 Refill [facility] [address] [place] [address] Kelly Diego ANP [address] [place], [place] [phone] Pain Social History Tobacco Use Types Packs/Day [...] Description 07/01/2025 2:30 PM EST Clinical Support [facility] [address] [place] [address] Jing Washington RN [address] [place] [address] 07/28/2025 10:30 AM EST Office Visit [facility] [address] [place] [address], OD [address] [place] [address] documented as of this encounter Visit Diagnoses Diagnosis Pain Generalized pain documented in this encounter Additional Health Concerns Assessment Noted Time PHQ-9 Depression Total Score: 7 09/28/19 24 11:21 AM EST documented as of this encounter Care Teams Cut [employer] [place] Relationship Specialty Start Date End Date Natalie Posadas MD [address] [place] [address] PCP - General Family Medicine 08/14/18 Madhuri Barakat, CUAUHTEMOC [address] [place] [address] Registered Nurse Family Medicine 02/04/25 05/26/25 Deann Villalobos 02/04/25 06/02/25 Ari Parish It Corporate RecruiterEquipment Validation Engineer 02/12/25 documented as of this encounter
--- OUTSIDE RECORDS SUMMARY | 2025-06-23 15:00 | XMS_ITS | Encounter Summary ---
Author Organization [employer] Address [address] [facility] [address] [place] [address] Care Team Providers Care Medical Instructor Name Role Phone Natalie Posadas MD Primary Care Provider [phone] Madhuri Barakat RN Unavailable [phone] Deann Villalobos Unavailable Reason for Visit * Reason Comments Med Refill Encounter Details Date Type Department Care Team (Late st Contact Info) Description 11/21/2022 Refill [facility]ICINE [address] [place] [address] Natalie Posadas MD [address] [place] [address] Pain Social History Tobacco Use Types Packs/Day [...] Support [facility] [address] [place] [address] Jing Washington, CUAUHTEMOC [address] [place] [address] 07/28/2025 10:30 AM EST Office Visit [facility] OPT[facility]RY [address] [place] [address] Seamus, Carolyn, OD [address] [place] [address] documented as of this encounter Visit Diagnoses Diagnosis Pain Generalized pain documented in this encounter Additional Health Concerns Assessment Noted Time PHQ-9 Depression Total Score: 0 09/15/19 23 11:23 AM EST documented as of this encounter Care Teams Medical Instructor Relationship Specialty Start Date End Date Natalie Posadas MD [address] [place] [address] PCP - General Family Medicine 08/14/18 Madhuri Barakat RN [address] [place] [address] Registered Nurse Family Medicine 02/04/25 05/26/25 Deann Villalobos 02/04/25 06/02/25 Ari Parish Life Enrichment SpecialistTransport Technician 02/12/25 documented as of this encounter
--- OUTSIDE RECORDS SUMMARY | 2025-06-23 15:00 | XMS_ITS | Encounter Summary ---
Author Organization [employer] Address [address] [place] [address] 7t [place] [address] Care Team Providers Care Repair Order Clerk Name Role Phone Natalie Posadas MD Primary Care Provider [phone] Madhuri Barakat RN Unavailable [phone] Deann Villalobos Unavailable Reason for Visit * Reason Comments Med Refill Encounter Details Date Type Department Care Team (Late st Contact Info) Description 04/24/2023 Refill [facility] [address] [place] [address] Natalie Posadas MD [address] [place] [address] Pain Social History Tobacco Use Types Packs/Day [...] Description 07/01/2025 2:30 PM EST Clinical Support [facility] MED [facility] PEDS [address] [place] [address] Jing Washington, RN [address] [place] [address] 07/28/2025 10:30 AM EST Office Visit [facility] [address] [place] [address], OD [address] [place] [address] documented as of this encounter Visit Diagnoses Diagnosis Pain Generalized pain documented in this encounter Additional Health Concerns Assessment Noted Time PHQ-9 Depression Total Score: 0 09/15/19 23 11:23 AM EST documented as of this encounter Care Teams Repair Order Clerk Relationship Specialty Start Date End Date Natalie Posadas MD [address] [place], [place] [phone] PCP - General Family Medicine 08/14/18 Madhuri Barakat, CUAUHTEMOC [address] [place] [address] Registered Nurse Family Medicine 02/04/25 05/26/25 Deann Villalobos 02/04/25 06/02/25 Ari Parish Machine Straw Hat PresserPlacing Judge 02/12/25 documented as of this encounter
--- OUTSIDE RECORDS SUMMARY | 2025-06-23 15:00 | XMS_ITS | Encounter Summary ---
Author Organization [employer] Address [address] [place] [address] [address]t [place] [address] Care Team Providers Care Pier Worker Name Role Phone Natalie Posadas MD Primary Care Provider [phone] Madhuri Barakat RN Unavailable [phone] Deann Villalobos Unavailable Reason for Visit * Reason Comments Med Refill Encounter Details Date Type Department Care Team (Late st Contact Info) Description 11/18/[address] [facility] [address] [place] [address] Natalie Posadas MD [address] [place], [place] [phone] Pain Social History Tobacco Use Types Packs/Day [...] 11/18/2022 9:25 AM EDT Already sent to [facility] nurse * Telephone Encounter - Charity Ibrahim [...] Description 07/01/2025 2:30 PM EST Clinical Support [facility] MED & PEDS [address] [place] [address] iJng Washington, CUAUHTEMOC [address] [place], [place] [phone] 07/28/2025 10:30 AM EST Office Visit [facility] OPT[facility] [address] [place] [address] Seamus, Carolyn, OD [address] [place] [address] documented as of this encounter Visit Diagnoses Diagnosis Pain Generalized pain documented in this encounter Additional Health Concerns Assessment Noted Time PHQ-9 Depression Total Score: 0 09/15/19 23 11:23 AM EST documented as of this encounter Care Teams Pier Worker Relationship Specialty Start Date End Date Natalie Posadas MD [address] [place] [address] PCP - General Family Medicine 08/14/18 Madhuri Barakat, CUAUHTEMOC [address] [place] [address] Registered Nurse Family Medicine 02/04/25 05/26/25 Deann Villalobos 02/04/25 06/02/25 Ari Parish Lumber Sorter MachineVolleyball Coach 02/12/25 documented as of this encounter
--- OUTSIDE RECORDS SUMMARY | 2025-06-23 15:00 | XMS_ITS | Encounter Summary ---
Author Organization [employer] Address [address] [facility] [address]t [place] [address] Care Team Providers Care Rack Worker Name Role Phone Natalie Posadas MD Primary Care Provider [phone] Madhuri Barakat RN Unavailable [phone] Deann Villalobos Unavailable Reason for Referral * Consultation (Routine) - Closed Specialty Diagnoses / Procedures Referred By Contac t Referred To Contact Pharmacy Diagnoses Chronic right-sided headache Occipital headache Natalie Posadas MD [address] [place] [address] Phone: tel: fax: Referral ID Status Reason Start Date Expiration Date V isits Requested Visits Authorized [id number] Closed Continuity of Care 02/13/2025 02/13/2026 6 6 Scheduling Instructions Medbox Encounter Details Date Type Department Care Team (Late st Contact Info) Description 02/13/2025 Orders Only [facility] MEDICINE [address] [place] [address] Natalie Posadas MD [address] [place], [place] [phone] Dyslipidemia (Primary Dx); Vitamin D deficiency; Prediabetes; [...] Description 07/01/2025 2:30 PM EST Clinical Support [facility] MED [facility] PEDS [address] [place] [address] Jing Washington, CUAUHTEMOC [address] [place] [address] 07/28/2025 10:30 AM EST Office Visit [facility] OPTOMETRY [address] [place], [place] [phone] Carolyn [address], OD [address] [place] [address] Scheduled Referrals Name Type Priority Associated Diagnoses [...] EDT) 03/14/2025 10:0 6 AM EDT Narrative [facility] - 03/21/2025 12:45 PM EDT [facility] [address] [place] [address] Nuclear Medicine Report Signed Patient: Mandeep Martinez MR#: [id number] : 1960 Acct:[id number] Age/Sex: 64 / M ADM Date: 03/14/25 Loc: HO.CARD Attending Dr: Zain Albarran MD Ordering Physician: Zain Albarran MD Date of Service: 03/14/25 Procedure(s): NM cardiolite stress test Accession Number(s): [id number] cc: Natalie Posadas MD; Zain Albarran MD [...] 03/21/25 1242 DD/ 1006 TD/TT: 03/19/25 0820 Switchboard And Control Room Operator: Procedure Note Donotuseinterpreter, Image - 03/21/2025 [place] [address] Nuclear Medicine Report Signed Patient: Kaleb Martinez#: [id number] : 1960cct:[id number] Age/Sex: 64 / MADM Date: 03/14/25 [facility] Dr: Zain Albarran MD Ordering Physician: Zain Albarran MD Date of Service: 03/14/25 Procedure(s): NM cardiolite stress test Accession Number(s): [id number] cc: Natalie Posadas MD; Zain Albarran MD [...] 03/21/25 1242 DD/ 1006 TD/TT: 03/19/25 0820 Switchboard And Control Room Operator: us [facility] External Provider CV STRE SS PROCEDURES Final Result [facility] [address] [place] [address] documented in this encounter Visit Diagnoses Diagnosis Dyslipidemia- Primary Other and unspecified hyperlipidemia Vitamin D deficiency Prediabetes Other abnormal glucose Chronic right-sided headache Occipital headache Headache documented in this encounter Additional Health Concerns Assessment Noted Time PHQ-9 Depression Total Score: 8 02/11/20 12:57 PM EDT documented as of this encounter Care Teams Rack Worker Relationship Specialty Start Date End Date Natalie Posadas MD [address] [place] [address] PCP - General Family Medicine 08/14/18 Madhuri Barakat RN [address] [place] [address] Registered Nurse Family Medicine 02/04/25 05/26/25 Deann Villalobos 02/04/25 06/02/25 Ari Parish Heel Coverer Machine OperatorComputer Consultant 02/12/25 documented as of this encounter
--- OUTSIDE RECORDS SUMMARY | 2025-06-23 15:00 | XMS_ITS | Encounter Summary ---
Author Organization [employer] Address [address] [facility] [address] 7t [place] [address] Care Team Providers Care Configuration Specialist Name Role Phone Natalie Posadas MD Primary Care Provider Madhuri Barakat RN Unavailable [phone] Deann Villalobos Unavailable Reason for Visit * Reason Comments Med Refill Encounter Details Date Type Department Care Team (Late st Contact Info) Description 03/11/2025 Refill [facility] MEDICINE 230 [place], [place] [phone] Natalie Posadas MD 230 [place], [place] [phone] Pain Social History Tobacco Use Types Packs/Day [...] Description 07/01/2025 2:30 PM EST Clinical Support [facility] CH[facility] MED & PEDS 505 [place] [address] Jing Washington RN 505 [place] [address] 07/28/2025 10:30 AM EST Office Visit [facility] OPTOMETRY [address] [place] [address] Seamus, Carolyn, OD 230 [place] [address] documented as of this encounter Visit Diagnoses Diagnosis Pain Generalized pain documented in this encounter Additional Health Concerns Assessment Noted Time PHQ-9 Depression Total Score: 8 02/11/20 25 12:57 PM EDT documented as of this encounter Care Teams Configuration Specialist Relationship Specialty Start Date End Date Natalie Posadas MD 230 [place] [address] PCP - General Family Medicine 08/14/18 Madhuri Barakat RN 505 [facility] [place] [address] Registered Nurse Family Medicine 02/04/25 05/26/25 Deann Villalobos 02/04/25 06/02/25 Ari Parish School Resource OfficerHeavy Truck Technician 02/12/25 documented as of this encounter
--- OUTSIDE RECORDS SUMMARY | 2025-06-23 15:00 | XMS_ITS | Encounter Summary ---
Author Organization [employer] Address [address] [facility] 7t [place] [address] Care Team Providers Care Knit Goods Press Hand Name Role Phone Natalie Posadas MD Primary Care Provider [phone] Madhuri Barakat RN Unavailable [phone] Deann Villalobos Unavailable Reason for Referral * Consultation (Routine) - Closed Specialty Diagnoses / Procedures Referred By Contac t Referred To Contact Pharmacy Diagnoses Dyslipidemia Elevated BP without diagnosis of hypertension H. pylori infection Prediabetes Natalie Posadas MD 230 [place] [address] Phone: tel: fax: Referral ID Status Reason Start Date Expiration Date V isits Requested Visits Authorized [id number] Closed Continuity of Care 10/18/2024 10/18/2025 6 [...] st Contact Info) Description 10/18/[address] [facility] MEDICINE 230 [place], [place] [phone] Natalie Posadas MD 230 [place], [place] [phone] Dyslipidemia (Primary Dx); Elevated BP without diagnosis [...] Upcoming Encounters Date Type Department Care Team ([facility] st Contact Info) Description 07/01/2025 2:30 PM EST Clinical Support [facility] MED & PEDS 505 [place] [address] Jing Washington, RN 505 [place] [address] 07/28/2025 10:30 AM EST Office Visit [facility] OPTOMETRY [address] [place] [address], OD 230 [place] [address] Scheduled Referrals Name Type Priority Associated Diagnoses [...] documented as of this encounter Care Teams Knit Goods Press Hand Relationship Specialty Start Date End Date Natalie Posadas MD 230 [place] [address] PCP - General Family Medicine 08/14/18 Madhuri Barakat RN [address] [place] [address] Registered Nurse Family Medicine 02/04/25 05/26/25 Deann Villalobos 02/04/25 06/02/25 Ari Parish Freezer PersonBingo Checker 02/12/25 documented as of this encounter
--- OUTSIDE RECORDS SUMMARY | 2025-06-23 15:00 | XMS_ITS | Encounter Summary ---
Author Organization [employer] Address [address] [facility] [address] 7[address] [place] [address] Care Team Providers Care Crew Director Name Role Phone Natalie Posadas MD Primary Care Provider [phone] Madhuri Barakat RN Unavailable [phone] Deann Villalobos Unavailable Encounter Details Date Type Department Care Team (Late st Contact Info) Description 08/16/[address] [facility] MEDICINE 230 [place], [place] [phone] Natalie Posadas MD 230 [place], [place] [phone] Elevated BP without diagnosis of hypertension (Primary [...] 07/01/2025 2:30 PM EST Clinical Support [facility] CHC MED & PEDS 505 [place] [address] Jing Washington RN 505 [place] [address] 07/28/2025 10:30 AM EST Office Visit [facility] OPTOMETRY [address] [place] [address], OD 230 [place] [address] documented as of this encounter Visit Diagnoses Diagnosis Elevated BP without diagnosis of hypertension- Primary documented in this encounter Additional Health Concerns Assessment Noted Time PHQ-9 Depression Total Score: 3 08/06/20 24 8:58 AM EST documented as of this encounter Care Teams Crew Director Relationship Specialty Start Date End Date Natalie Posadas MD 230 [place] [address] PCP - General Family Medicine 08/14/18 Madhuri Barakat RN 505 [place] [address] Registered Nurse Family Medicine 02/04/25 05/26/25 Deann Villalobos 02/04/25 06/02/25 Ari Parish Occupational Therapist'S AssistantDirector Center 02/12/25 documented as of this encounter
--- OUTSIDE RECORDS SUMMARY | 2025-06-23 15:00 | XMS_ITS | Encounter Summary ---
Author Organization [employer] Address [address] [facility] [address] 7[address] [place] [address] Care Team Providers Care Wedding Decorator Name Role Phone Natalie Posadas MD Primary Care Provider [phone] Madhuri Barakat RN Unavailable [phone] Deann Villalobos Unavailable Reason for Visit * Reason Comments Med Refill Encounter Details Date Type Department Care Team (Late st Contact Info) Description 09/17/2023 Refill [facility] MEDICINE 230 [place], [place] [phone] Natalie Posadas MD 230 [place], [place] [phone] Pain Social History Tobacco Use Types Packs/Day [...] Description 07/01/2025 2:30 PM EST Clinical Support [facility] CHC MED & PEDS 505 [place] [address] Jing Washington, CUAUHTEMOC 505 [place] [address] 07/28/2025 10:30 AM EST Office Visit [facility] OPTOMETRY 267 [place] [address] Seamus, Carolyn, OD 230 [place] [address] documented as of this encounter Visit Diagnoses Diagnosis Pain Generalized pain documented in this encounter Additional Health Concerns Assessment Noted Time PHQ-9 Depression Total Score: 0 09/15/19 23 11:23 AM EST documented as of this encounter Care Teams Wedding Decorator Relationship Specialty Start Date End Date Natalie Posadas MD 230 [place] [address] PCP - General Family Medicine 08/14/18 Madhuri Barakat, CUAUHTEMOC 505 [place] [address] Registered Nurse Family Medicine 02/04/25 05/26/25 Deann Villalobos 02/04/25 06/02/25 Ari Parish Apparatus CleanerTransfusion Nurse 02/12/25 documented as of this encounter
--- OUTSIDE RECORDS SUMMARY | 2025-06-23 15:00 | XMS_ITS | Encounter Summary ---
Author Organization [employer] Address [address] 7[address] [place] [address] Care Team Providers Care Channel Sales Director Name Role Phone Natalie Posadas MD Primary Care Provider [phone] Madhuri Barakat RN Unavailable [phone] Deann Villalobos Unavailable Encounter Details Date Type Department Care Team (Late st Contact Info) Description 12/01/2023 Telephone C OPTOMETRY [address] [place] [address], OD [address] [place] [address] Social History Tobacco Use Types Packs/Day Years [...] Called Patient inform him about appt. At [address] Padilla Appt. 12/05/2023 @ 10:5am documented in this encounter Plan of Treatment Upcoming Encounters Date Type Department Care Team (Late st Contact Info) Description 07/01/2025 2:30 PM EST Clinical Support [facility] CHC MED & PEDS 505 [place] [address] Jing Washington, RN 505 [place] [address] 07/28/2025 10:30 AM EST Office Visit [facility] OPTOMETRY [address] [place] [address], OD [address] [place] [address] documented as of this encounter Visit Diagnoses Not on filedocumented in this encounter Additional Health Concerns Assessment Noted Time PHQ-9 Depression Total Score: 7 09/28/19 24 11:21 AM EST documented as of this encounter Care Teams Channel Sales Director Relationship Specialty Start Date End Date Natalie Posadas MD 230 [place] [address] PCP - General Family Medicine 08/14/18 Madhuri Barakat, CUAUHTEMOC 505 [place] [address] Registered Nurse Family Medicine 02/04/25 05/26/25 Deann Villalobos 02/04/25 06/02/25 Ari Parish Tar Heat Exchanger CleanerHand Hardener 02/12/25 documented as of this encounter
--- OUTSIDE RECORDS SUMMARY | 2025-06-23 15:00 | XMS_ITS | Encounter Summary ---
Author Organization [employer] Address [address] [facility] [address] 7t [place] [address] Care Team Providers Care Production Manufacturing Worker Name Role Phone Natalie Posadas MD Primary Care Provider [phone] Madhuri Barakat RN Unavailable [phone] Deann Villalobos Unavailable Encounter Details Date Type Department Care Team (Late st Contact Info) Description 11/13/2024 Orders Only [facility] MEDICINE 230 [place], [place] [phone] Natalie Posadas MD 230 [place], [place] [phone] Social History Tobacco Use Types Packs/Day Years [...] Description 07/01/2025 2:30 PM EST Clinical Support [facility] CHC MED & PEDS 505 [place] [address] Jing Washington RN 505 [place] [address] 07/28/2025 10:30 AM EST Office Visit [facility] OPTOMETRY [address] [place] [address] Seamus, Carolyn, OD 230 [place] [address] documented as of this encounter Visit Diagnoses Not on filedocumented in this encounter Additional Health Concerns Assessment Noted Time PHQ-9 Depression Total Score: 3 08/06/20 24 8:58 AM EST documented as of this encounter Care Teams Production Manufacturing Worker Relationship Specialty Start Date End Date Natalie Posadas MD 230 [place] [address] PCP - General Family Medicine 08/14/18 Madhuri Barakat, CUAUHTEMOC 505 [place] [address] Registered Nurse Family Medicine 02/04/25 05/26/25 Deann Villalobos 02/04/25 06/02/25 Ari Parish Plumber'S HelperGraduate Rn 02/12/25 documented as of this encounter
--- OUTSIDE RECORDS SUMMARY | 2025-06-23 15:00 | XMS_ITS | Encounter Summary ---
Author Organization [employer] Address [address] [facility] [address] 7[address] [place] [address] Care Team Providers Care Vinyl Flooring Installer Name Role Phone Natalie Posadas MD Primary Care Provider [phone] Madhuri Barakat RN Unavailable [phone] Deann Villalobos Unavailable Reason for Visit * Reason Comments Med Refill Encounter Details Date Type Department Care Team (Late st Contact Info) Description 01/25/2024 Refill [facility] MEDICINE 230 [place], [place] [phone] Natalie Posadas MD 230 [place], [place] [phone] Pain Social History Tobacco Use Types Packs/Day [...] 2:30 PM EST Clinical Support [facility] CHC MED & PEDS 505 [place] [address] Jing Washington RN 505 [place] [address] 07/28/2025 10:30 AM EST Office Visit [facility] OPTOMETRY [address] [place] [address], OD 230 [place] [address] documented as of this encounter Visit Diagnoses Diagnosis Pain Generalized pain documented in this encounter Additional Health Concerns Assessment Noted Time PHQ-9 Depression Total Score: 7 09/28/19 24 11:21 AM EST documented as of this encounter Care Teams Vinyl Flooring Installer Relationship Specialty Start Date End Date Natalie Posadas MD 230 [place] [address] PCP - General Family Medicine 08/14/18 Madhuri Barakat, CUAUHTEMOC 505 [place] [address] Registered Nurse Family Medicine 02/04/25 05/26/25 Deann Villalobos 02/04/25 06/02/25 Ari Parish Farmworker DairyRelationship Banker 02/12/25 documented as of this encounter
--- OUTSIDE RECORDS SUMMARY | 2025-06-23 15:00 | XMS_ITS | Encounter Summary ---
Author Organization [employer] Address [address] [facility] [address] 7t [place] [address] Care Team Providers Care Advertising Sales Agent Name Role Phone Natalie Posadas MD Primary Care Provider [phone] Madhuri Barakat RN Unavailable [phone] Deann Villalobos Unavailable Reason for Visit * Reason Comments Med Refill Encounter Details Date Type Department Care Team (Late st Contact Info) Description 09/12/2023 Refill [facility] MED & PEDS [address] [place], [place] [phone] Natalie Posadas MD 230 [place] [address] Pain Social History Tobacco Use Types Packs/Day [...] 2:30 PM EST Clinical Support [facility] CHC MED & PEDS 505 [place] [address] Jing Washington RN 505 [place] [address] 07/28/2025 10:30 AM EST Office Visit [facility] OPTOMETRY [address] [place] [address] Seamus, Carolyn, OD 230 [place] [address] documented as of this encounter Visit Diagnoses Diagnosis Pain Generalized pain documented in this encounter Additional Health Concerns Assessment Noted Time PHQ-9 Depression Total Score: 0 09/15/19 23 11:23 AM EST documented as of this encounter Care Teams Advertising Sales Agent Relationship Specialty Start Date End Date Natalie Posadas MD 230 [place] [address] PCP - General Family Medicine 08/14/18 Madhuri Barakat, CUAUHTEMOC 505 [place] [address] Registered Nurse Family Medicine 02/04/25 05/26/25 Deann Villalobos 02/04/25 06/02/25 Ari Parish Raw Stock Dyeing Machine TenderRn Home Care 02/12/25 documented as of this encounter
--- OUTSIDE RECORDS SUMMARY | 2025-06-23 15:00 | XMS_ITS | Encounter Summary ---
Author Organization [employer] Address [address] [facility] [address] 7[address] [place] [address] Care Team Providers Care Needle Polisher Name Role Phone Natalie Posadas MD Primary Care Provider [phone] Madhuri Barakat RN Unavailable [phone] Deann Villalobos Unavailable Encounter Details Date Type Department Care Team (Late st Contact Info) Description 10/11/2024 Orders Only [facility] MEDICINE 230 [place] [address] Natalie Posadas MD 230 [place], [place] [phone] Prolonged QT interval (Primary Dx); 1st degree [...] Upcoming Encounters Date Type Department Care Team ([facility] st Contact Info) Description 07/01/2025 2:30 PM EST Clinical Support [facility] CHC MED & PEDS 505 [place] [address] Jing Washington, RN 505 [place] [address] 07/28/2025 10:30 AM EST Office Visit [facility] OPTOMETRY [address] [place] [address] Seamus, Carolyn, OD [address] [place] [address] documented as of this encounter Procedures Procedure Name Priority Date/Time Associated Diagnosis Comments MAGNESIUM Routine 10/14/2024 10:03 AM EST Prolonged QT interval BASIC METABOLIC PANEL Routine 10/14/2024 10:03 AM EST Prolonged QT interval documented in this encounter Results * (ABNORMAL) Basic Metabolic Panel (10/14/2024 10:03 AM EST) Sodium 142 135 - 145 mmol/L [facility] Potassium 4.1 3.3 - 5.1 mmol/L [facility] Chloride 108 96 - 108 mmol/L [facility] Carbon Dioxide 27 22 - 29 mmol/L [facility] Anion Gap 11(L) 12 - 20 [facility] Urea Nitrogen (BUN) 15 9 - 16 mg/dL [facility] Creatinine, Serum 0.80 0.5 - 1.4 mg/dL [facility] Estimated Glomerular Filt Rate >60 [facility] Comment:Chronic Kidney Disea se: Estimated GFR < 60 mL/min/[id number] Kidney Disease: Estimated GFR < 15 mL/min/1.73m2 Glucose 94 60 - 115 mg/dL [facility] Calcium 9.3 8.4 - 10.2 mg/dL [facility] Blood Venous blood specimen / Unknown 10/14/2024 10:03 AM EST 10/14/2024 11:36 AM EST Natalie Posadas MD LAB BLOOD ORDERABLES Final Resul t Performing Organization Address City/[facility]/ZIP Co de Phone Number [facility] [address] [place] [phone] * Magnesium (10/14/2024 10:03 AM EST) Magnesium 2.1 1.6 - 2.6 mg/dL [facility] Blood Venous blood specimen / Unknown 10/14/2024 10:03 AM EST 10/14/2024 11:36 AM EST Natalie Posadas MD LAB BLOOD ORDERABLES Final Resul t Performing Organization Address City/[facility]/ZIP Co de Phone Number [facility] [address] [place] [phone] documented in this encounter Visit Diagnoses Diagnosis Prolonged QT interval- Primary Nonspecific abnormal electrocardiogram (ECG) (EKG) 1st degree AV block documented in this encounter Additional Health Concerns Assessment Noted Time PHQ-9 Depression Total Score: 3 08/06/20 24 8:58 AM EST documented as of this encounter Care Teams Needle Polisher Relationship Specialty Start Date End Date Natalie Posadas MD 230 [place] [address] PCP - General Family Medicine 08/14/18 Madhuri Barakat, CUAUHTEMOC 505 [place] [address] Registered Nurse Family Medicine 02/04/25 05/26/25 Deann Villalobos 02/04/25 06/02/25 Ari Parish Supervisor Riprap PlacingHeel Former 02/12/25 documented as of this encounter
--- OUTSIDE RECORDS SUMMARY | 2025-06-23 15:00 | XMS_ITS | Encounter Summary ---
Author Organization [employer] Address [address] [facility] 7t [place] [address] Care Team Providers Care Supervisor Blast Furnace Auxiliaries Name Role Phone Natalie Posadas MD Primary Care Provider [phone] Madhuri Barakat RN Unavailable [phone] Deann Villalobos Unavailable Reason for Visit * Reason Comments Med Refill Encounter Details Date Type Department Care Team (Late Contact Info) Description 12/26/2022 Refill [facility] MEDICINE 230 [place] [address] Natalie Posadas MD 230 [place] [address] Pain Social History Tobacco Use Types Packs/Day [...] Support [facility] MED [facility]EDS 505 [place] [address] Jing Washington, CUAUHTEMOC 505 [place] [address] 07/28/2025 10:30 AM EST Office Visit [facility] OPTOMETRY [address] [place] [address] Seamus, Carolyn, OD 230 [place] [address] documented as of this encounter Visit Diagnoses Diagnosis Pain Generalized pain documented in this encounter Additional Health Concerns Assessment Noted Time PHQ-9 Depression Total Score: 0 09/15/19 23 11:23 AM EST documented as of this encounter Care Teams Supervisor Blast Furnace Auxiliaries Relationship Specialty Start Date End Date Natalie Posadas MD 230 [place] [address] PCP - General Family Medicine 08/14/18 Madhuri Barakat RN 505 [place] [address] Registered Nurse Family Medicine 02/04/25 05/26/25 Deann Villalobos 02/04/25 06/02/25 Ari Parish Talent EngineerEngineering Analyst 02/12/25 documented as of this encounter
--- OUTSIDE RECORDS SUMMARY | 2025-06-23 15:00 | XMS_ITS | Encounter Summary ---
Author Organization [employer] Address [address] [facility] [address] 7t [place] [address] Care Team Providers Care Revenue Director Name Role Phone Natalie Posadas MD Primary Care Provider [phone] Madhuri Barakat RN Unavailable [phone] Deann Villalobos Unavailable Reason for Visit * Reason Comments Med Refill Encounter Details Date Type Department Care Team (Late st Contact Info) Description 11/24/2023 Refill [facility] MEDICINE 230 [place], [place] [phone] Natalie Posadas MD 230 [place], [place] [phone] Pain Social History Tobacco Use Types Packs/Day [...] Description 07/01/2025 2:30 PM EST Clinical Support [facility] CHC MED & PEDS 505 [place] [address] Jing Washington RN 505 [place] [address] 07/28/2025 10:30 AM EST Office Visit [facility] OPTOMETRY [address] [place] [address], OD 230 [place] [address] documented as of this encounter Visit Diagnoses Diagnosis Pain Generalized pain documented in this encounter Additional Health Concerns Assessment Noted Time PHQ-9 Depression Total Score: 7 09/28/19 24 11:21 AM EST documented as of this encounter Care Teams Revenue Director Relationship Specialty Start Date End Date Natalie Posadas MD 230 [place] [address] PCP - General Family Medicine 08/14/18 Madhuri Barakat, CUAUHTEMOC 505 [place] [address] Registered Nurse Family Medicine 02/04/25 05/26/25 Deann Villalobos 02/04/25 06/02/25 Ari Parish Capture ManagerBeeswax Bleacher 02/12/25 documented as of this encounter
--- OUTSIDE RECORDS SUMMARY | 2025-06-23 15:00 | XMS_ITS | Clinical Summary ---
Author Organization [employer] Address [address] [place] [address] Care Team Providers Care Hot Wound Spring Production Supervisor Name Role Phone Natalie Posadas MD Primary Care Provider [phone] Allergies No known active allergies Medications atorvastatin (Lipitor) 10 MG tabletIndicatio ns:Dyslipidemia TAKE 1 TABLET BY MOUTH AT BEDTIME 90 tablet 3 10/07/19 25 Active lidocaine (Lidoderm) 5 % patch Apply 1 patch topically Once per day. Remove & discard patch within 12 hours or as directed by MD. 30 patch 11 10/07/19 25 Active Vitamins-Lipotr opics (B Complex Formula 1, Lipotrop,) tablet Take 1 tablet by mouth Once per day. 09/03/19 25 Active omeprazole (PriLOSEC) [address] capsule Take 1 capsule (20 mg) by mouth if needed each day (heartburn / reflux). 90 capsule 3 11/14/19 25 Active timolol (Timoptic) 0.5 % ophthalmic solutionIndicat ions:Low-tensio n glaucoma of both eyes, unspecified glaucoma stage [...] reversal. 2 each 1 04/03/20 25 Active latanoprost (Xalatan) 0.005 % ophthalmic solution PLACE 1 DROP IN EACH EYE EVERY DAY AT BEDTIME 2.5 mL 04/21/20 Active acetaminophen (Tylenol Extra Strength) 500 MG [...] 25 Active ergocalciferol (Vitamin D2) 1.25 MG (47915 UT) capsule TAKE 1 CAPSULE BY MOUTH ONCE WEEKLY ON Monday03/10/20 Active magnesium oxide (Mag-Ox) 400 (240 Mg) MG tablet TAKE 1 TABLET BY MOUTH AT BEDTIME FOR RESTLESS LEGS 03/10/20 25 Active traMADol (Ultram) 50 MG tabletIndicatio ns:Pain TAKE 1 TABLET BY MOUTH EVERY TWELVE HOURS NEEDED FOR SEVERE PAIN 56 tablet 06/12/20 25 Active amoxicillin-cla vulanate (Augmentin) 875-125 MG tablet Take 1 tablet by mouth 2 times daily for 7 days. 14 tablet 06/16/20 25 Active fluticasone (Flonase) 50 MCG/ACT nasal spray Administer 1 spray into each nostril Once per day. 16 g 06/16/20 25 Active traMADol (Ultram) 50 MG tabletIndicatio ns:Pain TAKE 1 TABLET BY MOUTH EVERY TWELVE HOURS NEEDED FOR SEVERE PAIN 56 tablet 05/15/20 25 Discontinued Active Problems Problem Noted Date Diagnosed Date Subacute frontal sinusitis 06/16/2025 Assessment & Plan (06/16/2025 10:49 AM EST): Rapid viral test are negative today, I will Rx Augmentin x 7 days. Rest (sleep at least 8 hours a night). Hydrate with plenty of water (avoid caffeine and alcohol). Use saline nose drops to loosen mucus + Flonase Take Acetaminophen (Tylenol ) as needed to reduce fever, headache, body aches or discomfort Gargle with salt water and use throat sprays/lozenges for throat pain. Use heated, humidified air. If you do not have a humidifier, take hot showers. Cover coughs and sneezes using the crook of your elbow. If you have a fever, stay home and away from others (self isolation) until fever-free for 72 hours (temperature should be less than 100 F without medication). 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 - optimize sleep apnea treatment - evaluated by Dr. Ybarra, [facility]. 03/14/25 Stress test and MPI: Probably normal. LVEF 68%. 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 - optimize sleep apnea treatment - waiting for cardiology evaluation Prolonged QT interval 10/23/2024 Assessment & Plan (04/23/2025 3:27 PM EDT): - EKG on 10/13/24 showed 477 ms - Seen by Dr. Albarran and evaluated with stress test, which was reassuring result Assessment & Plan (10/23/2024 5:25 AM EDT): - EKG on 10/13/24 showed 477 ms - referred to cardiology for assistance in pre-op evaluation / risk stratification H. pylori infection 10/16/2024 Assessment & Plan (04/23/2025 3:17 PM EDT): - He had positive H. 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 Therefore, we agreed to treat with quadruple therapy Elevated BP without diagnosis of hypertension Assessment & Plan (04/23/2025 3:11 PM EDT): -Goal BP < 130/80 per ACC/AHA guideline (Treatment threshold >=140/90) -Normal today -Continue working on lifestyle modifications -Recommended self-monitoring BP. Assessment & Plan (01/15/2025 8:55 AM EDT): [...] anatomical narrow angle Seen by Dr. Padilla, [facility], on 12/21/22 Prescribed latanoprost gtt Chronic right-sided headache 10/12/2022 Assessment & Plan (04/23/2025 3:21 PM EDT): - currently following with neurologist - continue using CPAP - aneurysm is small and stable, and is followed by neurosurgeon and periodic imaging - continue judicious use of NSAIDs - continue sertraline Assessment & Plan (01/15/2025 8:56 AM EDT): [...] neurosurgeon Occipital headache 10/12/2022 Assessment & Plan (04/23/2025 3:20 PM EDT): - Evaluated by Neurosurgeon for Intracranial Aneurysm, initial visit in 2022, following annually. ; was recommended to follow-up in 1 year for evaluation - 03/04/24 MRA/MRV at [facility] 1. 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 2. 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 - 06/19/24 CTA at [facility] Stable, 6 mm, fusiform aneurysm, supraclinoid [...] -Pt has been declining a referral to patient transition specialist or physical therapy. -Continue judicious use of tramadol and NSAIDs. -Seen by neurologist on 08/29/24; prescribed vitamin B6, gabapentin, and Magnesium oxide; Pt did not take these medications -Seen by neurologist, Dr. Varghese, on 02/20/25. Rx sertraline 25 mg daily - improve adherence to CPAP for central sleep apnea Assessment & Plan (01/15/2025 9:54 AM EDT): - Evaluated by Neurosurgeon for Intracranial Aneurysm, initial visit in 2022, following annually. ; was recommended to follow-up in 1 year for evaluation - 03/04/24 MRA/MRV at [facility] 1. 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 2. 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 - 06/19/24 CTA at [facility] Stable, 6 mm, fusiform aneurysm, supraclinoid [...] -Pt has been declining a referral to patient transition specialist or physical therapy. -Continue judicious use [...] year for evaluation - 03/04/24 MRA/MRV at [facility] 1. 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 2. 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 - 06/19/24 CTA at [facility] Stable, 6 mm, fusiform aneurysm, supraclinoid [...] -Pt has been declining a referral to patient transition specialist or physical therapy. -Continue judicious use [...] year for evaluation - 03/04/24 MRA/MRV at [facility] 1. 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 2. 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 - 06/19/24 CTA at [facility] Stable, 6 mm, fusiform aneurysm, supraclinoid [...] -Pt has been declining a referral to patient transition specialist or physical therapy. -Continue judicious use [...] year for evaluation - 03/04/24 MRA/MRV at [facility] 1. 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 2. 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 - 06/19/24 CTA at [facility] Stable, 6 mm, fusiform aneurysm, supraclinoid [...] -Pt has been declining a referral to patient transition specialist or physical therapy. -Continue judicious use [...] disc disease. Pt declined a referral to patient transition specialist or physical therapy. Continue judicious use of tramadol and NSAIDs. Assessment & Plan (09/30/2023 7:20 AM EST): 10/27/22, Seen by Neurosurgeon for Intracranial Aneurysm; was recommended to follow-up in 1 year for evaluation Evaluation with MRI in 3-5 years His posterior headache is likely due to cervical degenerative disc disease. Pt declined a referral to patient transition specialist or physical therapy. Continue judicious use of tramadol and NSAIDs. Assessment & Plan (05/26/2023 9:45 AM EDT): 10/27/22, Seen by Neurosurgeon for Intracranial Aneurysm; was recommended to follow-up in 1 year for evaluation Evaluation with MRI in 3-5 years His posterior headache is likely due to cervical degenerative disc disease. Pt declined a referral to patient transition specialist or physical therapy. Continue judicious use of tramadol and NSAIDs. Assessment & Plan (01/24/2023 2:40 PM EDT): 10/27/22, Seen by Neurosurgeon for Intracranial Aneurysm; was recommended to follow-up in 1 year for evaluation Evaluation with MRI in 3-5 years Right internal carotid artery aneurysm Assessment & Plan (04/23/2025 3:13 PM EDT): -small aneurysm seen on MRI/MRA in Sep 2022 -stable appearance on MRA/MRV in February 2024 -Pt does not have HTN, does not smoke cigarette, or drink alcohol -Pt states his sister has aneurysm -Seen by neurosurgeon in Mar 2024. Recommended follow-up in 1 year and MRA in 3- 5 years -He states he may be having a follow up appointment, but uncertain Assessment & Plan (10/07/2024 10:40 AM EST): [...] central sleep apnea 09/15/2022 Assessment & Plan (04/23/2025 3:22 PM EDT): - Sleep Titration Study on [...] CPAP -Seen by sleep medicine specialist on 02/28/25 repeating home sleep study. Rx sumatriptan for migraine. gabapentin for RLS. Referred to ENT. -Pt was advised to try CPAP Assessment & Plan (01/15/2025 9:55 AM EDT): [...] Aug 2023), improve adherence -Recommended seeing sleep data review specialist so he can get a more [...] (10/23/2024 5:39 AM EDT): - seen by retail sales consultant on 11/19/21, their impression was subclinical hypothyroidism, no graves disease - repeat TSH was 4.69 by retail sales consultant and pt has not been on levothyroxine - recommended to consider treatment if TSH >10 Assessment & Plan (09/30/2023 7:22 AM EST): - seen by retail sales consultant on 11/19/21, their impression was subclinical hypothyroidism, no graves disease - repeat TSH was 4.69 by retail sales consultant and pt has not been on levothyroxine - recommended to consider treatment if TSH >10 Assessment & Plan (05/26/2023 9:49 AM EDT): - seen by retail sales consultant on 11/19/21, their impression was subclinical hypothyroidism, no graves disease - repeat TSH was 4.69 by retail sales consultant and pt has not been on levothyroxine - recommended to consider treatment if TSH >10 Assessment & Plan (10/12/2022 3:35 PM EST): - seen by retail sales consultant on 11/19/21, their impression was subclinical hypothyroidism, [...] (09/15/2022 1:10 PM EST): - seen by retail sales consultant on 11/19/21, their impression was subclinical hypothyroidism, [...] lifestyle modificaitons Prediabetes 02/24/2014 Assessment & Plan (04/23/2025 3:15 PM EDT): -Discussed about lifestyle modifications Assessment & Plan (01/15/2025 8:56 AM EDT): [...] (10/12/2022 3:35 PM EST): - seen by retail sales consultant on 11/19/21, their impression was subclinical hypothyroidism, [...] physically active Dyslipidemia 05/16/2012 Assessment & Plan (04/23/2025 3:14 PM EDT): Current medication: atorvastatin 10 mg qhs since Apr 2019 Last lipid profile: 08/31/24, reminded about lab before next appt Treatment Hx: He reported that he gets itching when he takes simvasatin at night, but no symptom when he takes in the morning. Switched from simvastatin to atorvastatin in Apr 2019 Continue working on lifestyle modifications Assessment & Plan (01/15/2025 10:47 PM EDT): [...] I presented case to emergency room of [facility] and refer patient to the emergency room, I offer to call ambulance patient declines, he reports he will go wit his brother in law Encounters Date Type Department Care Team Description 06/16/2025 10:20 AM EST Office Visit [facility] [address] [place] [address] Torie Norwood MD Subacute frontal sinusitis (Primary Dx); Cough, unspecified type; Chest congestion 06/16/2025 Travel 06/10/2025 Refill [facility] [address] [place] [address] Natalie Posadas MD Pain 06/02/2025 Patient Outreach [address] [address] Natalie Posadas MD Care Coordination (SDOH/PT1) 05/30/2025 Patient Outreach [address] [address] Natalie Posadas MD Care Coordination (PT1) 05/26/2025 Patient Outreach [address] [address] Natalie Posadas MD Care Management (C3CM- f/u call) 05/16/2025 Patient Outreach [address] [address] Natalie Posadas MD Care Coordination (SDOH f/u) 05/16/2025 Patient Outreach [address] [address] Natalie Posadas MD Care Management (C3CM- f/u call) 05/14/2025 Refill [facility] [address] [place] [address] Natalie Posadas MD Pain 05/09/2025 Patient Outreach [address] [address] Natalie Posadas MD Care Management (C3CM- f/u call) 04/25/2025 Patient Outreach [address] [address] Natalie Posadas MD Care Coordination (SDOH f/u) 04/25/2025 Patient Outreach [address] [address] Natalie Posadas MD Care Management (C3CM- f/u call) 04/24/[address] [address] Natalie Posadas MD 04/16/2025 9:15 AM EDT Office Visit [address] [address] Natalie Posadas MD Tubular adenoma of colon (Primary Dx); Elevated BP without diagnosis of hypertension; Right internal carotid artery aneurysm; Dyslipidemia; Prediabetes; H. pylori infection; Gastroesophageal reflux disease, unspecified whether esophagitis present; Occipital headache; Chronic right-sided headache; Primary central sleep apnea; Vitamin D deficiency; AV block, 1st degree; Prolonged QT interval 04/16/2025 Travel 04/16/2025 Refill [facility] [address] [place] [address], OD 04/15/[address] [address] Natalie Posadas MD CHART PREP 04/11/2025 Patient Outreach [address] [address] Natalie Posadas MD Care Management (C3CM-f/u call) 04/11/2025 Travel 04/10/2025 Refill [facility] [address] [place] [address] Natalie Posadas MD Pain 04/03/2025 2:00 PM EDT Clinical Support [facility] [address] [place] [address] Jing Washington RN Chronic right-sided headache 04/03/2025 Refill [facility] [address] [place] [address] Jing Washington, RN 04/03/2025 Travel 04/02/2025 Patient Outreach [address] [address] Natalie Posadas MD Care Coordination (Appt reminder) 04/01/2025 Patient Outreach [address] [address] Natalie Posadas MD Care Management (C3CM- f/u call) 03/31/[address] [address] Natalie Posadas MD Medication Question 03/24/2025 1:00 PM EDT Office Visit [facility] [address] [place] [address], OD Anatomical narrow angle (Primary Dx); Low-tension glaucoma of both eyes, unspecified glaucoma stage 03/24/2025 Travel 03/24/2025 Patient Outreach [facility] [address] [place] [address] Natalie Posadas MD Care Coordination (Appt reminder/pt1) from Last 3 Months Immunizations Immunization Administration [...] Sign Reading Time Taken Comments Blood Pressure 125/85 06/16/2025 10:32 AM EST Pulse 88 06/16/2025 10:32 AM EST Temperature 36.6 C (97.9 F) 06/16/2025 10:32 AM EST Respiratory Rate 16 06/16/2025 10:32 AM EST Oxygen Saturation 97% 06/16/2025 10:32 AM EST Inhaled Oxygen Concentration - - Weight 93.2 kg (205 lb 6.4 oz) 06/16/2025 10:32 AM EST Height 167.6 cm (5' 6 ) 06/16/2025 10:32 AM EST Body Mass Index 33.15 06/16/2025 10:32 AM EST Plan of Treatment Upcoming Encounters Date Type Department Care Team (Late st Contact Info) Description 07/01/2025 2:30 PM EST Clinical Support [facility] [address] [place] [address] Jing Washington, CUAUHTEMOC [address] [place] [address] 07/28/2025 10:30 AM EST Office Visit [facility] [address] [place] [address], OD [address] [place] [address] Health Maintenance Due Date Last Done Comments [...] 01/15/2026 01/15/2025 Depression Screening 02/10/2026 02/10/2025, 02/11/20 25 SDOH Screening 02/17/2026 02/17/2025 Alcohol/Substance Use Screening 04/16/2026 04/16/2025 Tobacco Screening 04/20/2026 04/20/2025 Lipid Panel 08/31/2029 08/31/2024, 0208/2023, 06/02/2022, Additional history exists DTaP/Tdap/Td Vaccines (3 [...] Name Priority Date/Time Associated Diagnosis Comments POCT RAPID COVID ANTIGEN Routine 06/16/2025 12:19 PM EST Cough, unspecified type Chest congestion POCT STEPHEN-14 URINE DRUG SCREEN Routine 04/03/2025 2:08 PM EDT Chronic right-sided headache HEMOGLOBIN A1C Routine 09/25/2024 10:49 AM EST [...] Relevant to Health Maintenance Results * POCT Rapid Covid-19 BinaxNOW (06/16/2025 12:19 PM EST) Rapid COVID Ag Negative Swab 06/16/2025 12:1 9 PM EST Torie Norwood MD POINT OF CARE TEST ENTER /EDIT ORDERABLES Final Result * POCT STEPHEN-14 Urine Drug Screen (04/03/2025 [...] procedure / Unknown 04/03/2025 2:08 PM EDT Narrative Jing Washington RN - 04/03/2025 2:08 PM EDT Internal Pass Control Lot# [id number] Exp: 06-13-26 Natalie Posadas MD POINT OF CARE TEST ENTER/EDIT OR DERABLES Final Result * Hemoglobin A1c (09/25/2024 10:49 AM EST) Hemoglobin A1c 5.7 <6.0 % [facility] Comment:Hemoglobin A1C Refer ence Range Adults: 4.8 - 6.0 % Non diabetic: < 6.0 % Goal: < 7.0 %Additional Action Suggested: > 8.0 %Note: Hemoglobin A1c results are invalid for patients with abnormal amounts of HbF. Blood transfusions may impact the HbA1c concentration in the patient sample. Estimated Average Glucose 117 mg/dL [facility] Comment:eAG = Estimated ave rage glucose which is %A1C expressed asaverage glucose, using the formula of the [id number]-SvtkabdCmpobce Glucose study (ADAG), Diabetes Care, Vol.31,#8,Mar. 2007 Blood Venous blood specimen / Unknown 09/25/2024 10:49 AM EST 09/25/2024 1:42 PM EST Natalie Posadas MD LAB BLOOD ORDERABLES Final Resul t [facility] [address] [place] [phone] * (ABNORMAL) Lipid Panel with Reflex to Direct LDL (08/31/2024 9:42 AM EST) Triglycerides 88 <150 mg/dL [facility] Comment:Desirable Triglyceri de: less than 150 mg/dLBorderline High Triglyceride 150-199 mg/dLHigh Triglyceride: 200-499 mg/dLVery High Triglyceride: greater than or equal to 5OO mg/dL Cholesterol 175 <200 mg/dL [facility] Comment:Desirable Cholestero l: less than 200 mg/dLBorderline High Cholesterol: 200-239 mg/dLHigh Cholesterol: greater than 239 mg/dL LDL Cholesterol Calculated 116(H) <100 mg/dL [facility] Comment:Desirable LDL: less than 100 mg/dLNear Optimal/Above Optimal LDL: 110- 129 mg/dLBorderline High LDL: 130-159 mg/dLHigh LDL: 160-189 mg/dLVery High LDL: greater than or equal to 190 mg/dL HDL Cholesterol 42 >40 mg/dL [facility] Comment:Desirable HDL: great er than 40 mg/dL Note: This HDL assay may give artificially low results in patients with liver disease. Blood 08/31/2024 9:42 AM EST 08/31/2024 9:42 AM EST us Natalie Posadas MD LAB BLOOD ORDERABLES Final Resul t [facility] [address] [place] [address] [phone] * HEPATITIS C AB W/REFL TO [...] a test for HCV RNA (test code 99136) is suggested. For additional information please refer to http://education.questdiagnostics.Vacation View/faq/POT60d2 (This link is being provided for informational/ [...] purpose. For additional information please refer to http://Apartment List.Solarmass/faq/RZA942 (This link is being provided for informational/ [...] Most Recently Relevant to Health Maintenance Insurance [facility] C3 Care Teams Hot Wound Spring Production Supervisor Relationship Specialty Start Date End Date Natalie Posadas MD [address] [place] [address] PCP - General Family Medicine 08/14/18 Ari Parish Sap Fico ArchitectNewcomer Hostess 02/12/25
--- OUTSIDE RECORDS SUMMARY | 2025-06-23 15:00 | XMS_ITS | Encounter Summary ---
Author Organization [employer] Address [address] [place] [address] Care Team Providers Care Laboratory Miller Name Role Phone Natalie Posadas MD Primary Care Provider [phone] Madhuri Barakat RN Unavailable [phone] Deann Villalobos Unavailable Reason for Visit * Reason Comments Med Refill Encounter Details Date Type Department Care Team (Late st Contact Info) Description 01/24/2023 Refill [facility] [address] [place], [place] [id number] Kelly Diego, ANP [address] [place] [address] Pain Social History Tobacco Use Types Packs/Day [...] Description 07/01/2025 2:30 PM EST Clinical Support [facility] [address] [place] [address] Jing Washingotn RN [address] [place] [address] 07/28/2025 10:30 AM EST Office Visit [facility] [address] [place], [place] [phone] Seamus, Megan, OD [address] [place] [address] documented as of this encounter Visit Diagnoses Diagnosis Pain Generalized pain documented in this encounter Additional Health Concerns Assessment Noted Time PHQ-9 Depression Total Score: 0 09/15/19 23 11:23 AM EST documented as of this encounter Care Teams Laboratory Miller Relationship Specialty Start Date End Date Natalie Posadas MD [address] [place] [address] PCP - General Family Medicine 08/14/18 Madhuri Barakat RN [address] [place] [address] Registered Nurse Family Medicine 02/04/25 05/26/25 Deann Villalobos 02/04/25 06/02/25 Ari Parish Sole Stapler WeltGrain Operator 02/12/25 documented as of this encounter
--- OUTSIDE RECORDS SUMMARY | 2025-06-23 15:00 | XMS_ITS | Encounter Summary ---
Author Organization [employer] Address [address] [place] [address] Care Team Providers Care Culinary Director Name Role Phone Natalie Posadas MD Primary Care Provider [phone] Madhuri Barakat RN Unavailable [phone] Deann Villalobos Unavailable Reason for Visit * Reason Comments Med Refill Encounter Details Date Type Department Care Team (Late st Contact Info) Description 05/29/2024 Refill [facility] [address] [place] [address] Seamus, Carolyn, OD [address] [place] [address] Social History Tobacco Use Types Packs/Day Years [...] 2:30 PM EST Clinical Support [facility] [address] [place] [address] Jing Washington RN [address] [place] [address] 07/28/2025 10:30 AM EST Office Visit [facility] [address] [place] [address], OD [address] [place] [address] documented as of this encounter Visit Diagnoses Not on filedocumented in this encounter Additional Health Concerns Assessment Noted Time PHQ-9 Depression Total Score: 7 09/28/19 24 11:21 AM EST documented as of this encounter Care Teams Culinary Director Relationship Specialty Start Date End Date Natalie Posadas MD [address] [place] [address] PCP - General Family Medicine 08/14/18 Madhuri Barakat, CUAUHTEMOC [address] [place] [address] Registered Nurse Family Medicine 02/04/25 05/26/25 Deann Villalobos 02/04/25 06/02/25 Ari Parish Retail Merchandising SpecialistScreenplay Writer 02/12/25 documented as of this encounter
--- OUTSIDE RECORDS SUMMARY | 2025-06-23 15:00 | XMS_ITS | Encounter Summary ---
Author Organization [employer] Address [address] [facility] [address] [place] [address] Care Team Providers Care Structural Fitter Name Role Phone Natalie Posadas MD Primary Care Provider [phone] Madhuri Barakat RN Unavailable [phone] Deann Villalobos Unavailable Encounter Details Date Type Department Care Team (Late st Contact Info) Description 09/16/2024 Orders Only [facility] MEDICINE 230 [place], [place] [phone] Natalie Posadas MD 230 [place], [place] [phone] Preop examination (Primary Dx); AV block, 1st [...] Description 07/01/2025 2:30 PM EST Clinical Support [facility] CHC MED & PEDS 505 [place] [address] Jing Washington RN 505 [place] [address] 07/28/2025 10:30 AM EST Office Visit [facility] OPTOMETRY [address] [place] [address], OD 230 [place] [address] Scheduled Orders Name Type Priority Associated Diagnoses [...] documented as of this encounter Care Teams Structural Fitter Relationship Specialty Start Date End Date Natalie Posadas MD 230 [place] [address] PCP - General Family Medicine 08/14/18 Madhuri Barakat RN [address] [place] [address] Registered Nurse Family Medicine 02/04/25 05/26/25 Deann Villalobos 02/04/25 06/02/25 Ari Parish Document Management TechnicianCutter Grinder Operator 02/12/25 documented as of this encounter
--- OUTSIDE RECORDS SUMMARY | 2025-06-23 15:00 | XMS_ITS | Encounter Summary ---
Author Organization [employer] Address [address] [facility] [address] 7[address] [place] [address] Care Team Providers Care Staying Machine Operator Name Role Phone Natalie Posadas MD Primary Care Provider [phone] Madhuri Barakat RN Unavailable [phone] Deann Villalobos Unavailable Encounter Details Date Type Department Care Team (Late Contact Info) Description 10/14/2022 Orders Only [facility] MEDICINE 230 [place] [address] aNtalie Posadas MD 230 [place] [address] Right internal carotid artery aneurysm (Primary Dx); [...] [facility] CHC MED & PEDS 505 [place] [address] Jing Washington, CUAUHTEMOC 505 [place] [address] 07/28/2025 10:30 AM EST Office Visit [facility] OPTOMETRY [address] [place] [address] SeamusCarolyn rodriguez, OD 230 [place] [address] documented as of this encounter Visit Diagnoses Diagnosis Right internal carotid artery aneurysm- Primary Chronic right-sided headache Occipital headache Headache documented in this encounter Additional Health Concerns Assessment Noted Time PHQ-9 Depression Total Score: 0 09/15/19 23 11:23 AM EST documented as of this encounter Care Teams Staying Machine Operator Relationship Specialty Start Date End Date Natalie Posadas MD 230 [place] [address] PCP - General Family Medicine 08/14/18 Madhuri Barakat RN 505 [place] [address] Registered Nurse Family Medicine 02/04/25 05/26/25 Deann Villalobos 02/04/25 06/02/25 Ari Parish Non Categorical Preschool TeacherCirculation Supervisor 02/12/25 documented as of this encounter
== END 2025-06-23 14:00 | disposition home or self-care (01) ==
LOC: HO.HPS 12:57
PROVIDERS: PCP Family Medicine; Visit Provider Nurse Practitioner Family
DX: R06.09 Other forms of dyspnea (principal); G47.33 Obstructive sleep apnea (adult) (pediatric); Z87.891 Personal history of nicotine dependence; R91.1 Solitary pulmonary nodule
CPT/HCPCS: 99204

== ENCOUNTER → 2025-06-23 12:56 | Outpatient (BNVA) | payer MEDICAID, SELFPAY | PROVIDERS: PCP Family Medicine; Visit Provider Nurse Practitioner Family | DX: G47.33 Obstructive sleep apnea (adult) (pediatric) (principal); R06.09 Other forms of dyspnea; R91.1 Solitary pulmonary nodule; Z87.891 Personal history of nicotine dependence | CPT/HCPCS: 99212 ==

== ENCOUNTER 2025-07-31 10:01 | Outpatient (REF) | payer MEDICAID, SELFPAY ==
--- NOTE | ~2025-07-31 | CT_ITS ---
EXAMINATION: CT CHEST WITHOUT CONTRAST CLINICAL INFORMATION: R 91.1. Solitary pulmonary nodule. COMPARISON: December 06, 2021 TECHNIQUE: Multidetector volumetric CT imaging of the chest was done. Axial MIP volume rendering provided. Sagittal and coronal reformatted images were obtained. This CT examination was performed using dose optimization techniques as appropriate, variously including the following: *Automated exposure control *Adjustment of mA and/or kV according to patient size (this includes techniques or standardized protocols for targeted exams where dose is matched to indication/reason for exam; i.e. 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 Pulmonary reticular pattern. Bilateral apical lung scarring. . S-shaped curvature of the thoracic spine. Heart silhouette size is normal. LUNGS: Low lung volume. Paraseptal honeycombing, upper lung lobes. Nonspecific linear attenuation abnormalities in the lungs. Saccular bronchiectasis, right upper lung lobe. 4 mm noncalcified nodule at the left major fissure. No acute airspace disease. MEDIASTINUM: Nonspecific prominent lymph nodes. No aneurysm, aorta. There is a 38 mm diameter of the proximal left main pulmonary artery/distal main pulmonary artery. The heart is not enlarged. No pericardial effusion. Calcified plaques in the coronary arteries. No pneumomediastinum. No hemopericardium. Thyroid gland is small. CORONARY ARTERY CALCIFICATION: Calcified plaques. PLEURA: No pleural effusion. No pneumothorax. No calcified pleural plaques. No hemothorax. AXILLA: No lymphadenopathy. UPPER ABDOMEN: Abundant stool, large intestine. Exophytic cystic lesion, upper pole right kidney. Liposubstitution, pancreas. OSSEOUS STRUCTURES: Multilevel spondylosis and mild dextroconvex curvature, thoracic spine. No acute fracture or listhesis. No lytic or blastic lesions. No acute rib fractures. CT/CT chest wo IV con IMPRESSION: Stable lungs without acute airspace disease. 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 Fleischner guidelines were followed. Electronically signed by: Cornell Hope MD 07/31/2025 10:46 AM [facility]
--- OUTSIDE RECORDS SUMMARY | 2025-07-31 12:19 | XMS_ITS | Encounter Summary ---
Author Organization [employer] Address [address] [facility] [address] 7[address] [place] [address] Care Team Providers Care Fur Blowing Machine Operator Name Role Phone Natalie Posadas MD Primary Care Provider [phone] Madhuri Barakat RN Unavailable [phone] Deann Villalobos Unavailable Reason for Visit * Reason Comments Med Refill Encounter Details Date Type Department Care Team (Late st Contact Info) Description 05/29/2024 Refill [facility] OPTOMETRY [address] [place] [address] Seamus, Carolyn, OD [address] [place] [address] Social History Tobacco Use Types Packs/Day Years [...] Care Team (Late st Contact Info) Description 08/21/2025 3:00 PM EST Clinical Support [facility] CHC MED & PEDS 505 [place] [address] Jing Washington RN 505 [place] [address] 12/05/2025 10:30 AM EDT Office Visit [facility] OPTOMETRY [address] [place] [address], OD 230 [place] [address] documented as of this encounter Visit Diagnoses Not on filedocumented in this encounter Additional Health Concerns Assessment Noted Time PHQ-9 Depression Total Score: 7 09/28/19 24 11:21 AM EST documented as of this encounter Care Teams Fur Blowing Machine Operator Relationship Specialty Start Date End Date Natalie Posadas MD 230 [place] [address] PCP - General Family Medicine 08/14/18 Madhuri Barakat, CUAUHTEMOC 505 [place] [address] Registered Nurse Family Medicine 02/04/25 05/26/25 Deann Villalobos 02/04/25 06/02/25 Ari Parish Career Services CoordinatorSubstation Operator Automatic 02/12/25 documented as of this encounter
--- OUTSIDE RECORDS SUMMARY | 2025-07-31 12:20 | XMS_ITS | Encounter Summary ---
Author Organization [employer] Address [address] [facility] [address] 7t [place] [address] Care Team Providers Care Marketing [employer] Sports [employer] Entertainment Name Role Phone Natalie Posadas MD Primary Care Provider [phone] Madhuri Barakat RN Unavailable [phone] Deann Villalobos Unavailable Encounter Details Date Type Department Care Team (Late st Contact Info) Description 08/16/2024 Orders Only [facility] MEDICINE 230 [place], [place] [phone] Natalie Posadas MD 230 [place], [place] [phone] Elevated BP without diagnosis of hypertension (Primary [...] Description 08/21/2025 3:00 PM EST Clinical Support [facility] CHC MED & PEDS 505 [place] [address] Jing Washington RN 505 [place] [address] 12/05/2025 10:30 AM EDT Office Visit [facility] OPTOMETRY [address] [place] [address], OD 230 [place] [address] documented as of this encounter Visit Diagnoses Diagnosis Elevated BP without diagnosis of hypertension- Primary documented in this encounter Additional Health Concerns Assessment Noted Time PHQ-9 Depression Total Score: 3 08/06/20 24 8:58 AM EST documented as of this encounter Care Teams Marketing R[employer] Sports [employer] Entertainment Relationship Specialty Start Date End Date Natalie Posadas MD 230 [place] [address] PCP - General Family Medicine 08/14/18 Madhuri Barakat, CUAUHTEMOC 505 [place] [address] Registered Nurse Family Medicine 02/04/25 05/26/25 Deann Villalobos 02/04/25 06/02/25 Ari Parish Software Configuration EngineerTorch Operator 02/12/25 documented as of this encounter
--- OUTSIDE RECORDS SUMMARY | 2025-07-31 12:20 | XMS_ITS | Encounter Summary ---
Author Organization [employer] Address [address] [facility] 7t [place] [address] Care Team Providers Care Ion Exchange Operator Name Role Phone Natalie Posadas MD Primary Care Provider [phone] Madhuri Barakat RN Unavailable [phone] Deann Villalobos Unavailable Reason for Visit * Reason Comments Med Refill Encounter Details Date Type Department Care Team (Late Contact Info) Description 11/21/2022 Refill [facility] MEDICINE 230 [place] [address] Natalie Posadas MD 230 [place], [place] [phone] Pain Social History Tobacco Use Types Packs/Day [...] Department Care Team (Late Contact Info) Description 08/21/2025 3:00 PM EST Clinical Support [facility] CHC MED & PEDS 505 [place] [address] Jing Washington, CUAUHTEMOC 505 [place], [place] [phone] 12/05/2025 10:30 AM EDT Office Visit [facility] OPTOMETRY [address] [place] [address] SeamusCarolyn rodriguez, OD 230 [place] [address] documented as of this encounter Visit Diagnoses Diagnosis Pain Generalized pain documented in this encounter Additional Health Concerns Assessment Noted Time PHQ-9 Depression Total Score: 0 09/15/19 23 11:23 AM EST documented as of this encounter Care Teams Ion Exchange Operator Relationship Specialty Start Date End Date Natalie Posadas MD 230 [place], [place] [phone] PCP - General Family Medicine 08/14/18 Madhuri Barakat RN 505 [place] [address] Registered Nurse Family Medicine 02/04/25 05/26/25 Deann Villalobos 02/04/25 06/02/25 Ari Parish Binder Cutter HandEnergy Assistant 02/12/25 documented as of this encounter
--- OUTSIDE RECORDS SUMMARY | 2025-07-31 12:20 | XMS_ITS | Encounter Summary ---
Author Organization [employer] Address [address] [facility] [address] [place] [address] Care Team Providers Care Warehouse Distribution Manager Name Role Phone Natalie Posadas MD Primary Care Provider [phone] Madhuri Barakat RN Unavailable [phone] Deann Villalobos Unavailable Reason for Visit * Reason Comments Med Refill Encounter Details Date Type Department Care Team (Late st Contact Info) Description 07/03/2024 Refill [facility] MEDICINE 230 [place], [place] [phone] Natalie Posadas MD 230 [place], [place] [phone] Pain Social History Tobacco Use Types Packs/Day [...] Description 08/21/2025 3:00 PM EST Clinical Support [facility] CHC MED & PEDS 505 [place] [address] Jing Washington RN 505 [place] [address] 12/05/2025 10:30 AM EDT Office Visit [facility] OPTOMETRY [address] [place] [address], OD 230 [place] [address] documented as of this encounter Visit Diagnoses Diagnosis Pain Generalized pain documented in this encounter Additional Health Concerns Assessment Noted Time PHQ-9 Depression Total Score: 7 09/28/19 24 11:21 AM EST documented as of this encounter Care Teams Warehouse Distribution Manager Relationship Specialty Start Date End Date Natalie Posadas MD 230 [place] [address] PCP - General Family Medicine 08/14/18 Madhuri Barakat, CUAUHTEMOC 505 [place] [address] Registered Nurse Family Medicine 02/04/25 05/26/25 Deann Villalobos 02/04/25 06/02/25 Ari Parish Fluorescent Lighting Model MakerShower Screen Installer 02/12/25 documented as of this encounter
--- OUTSIDE RECORDS SUMMARY | 2025-07-31 12:20 | XMS_ITS | Encounter Summary ---
Author Organization [employer] Address [address] [facility] [facility] [facility] [address] [place] [address] Care Team Providers Care Environmental Engineering Technician Name Role Phone Natalie Posadas MD Primary Care Provider [phone] Madhuri Barakat RN Unavailable [phone] Deann Villalobos Unavailable Reason for Visit * Reason Comments Med Refill Encounter Details Date Type Department Care Team (Late st Contact Info) Description 01/25/2024 Refill [facility] MEDICINE 230 [place], [place] [phone] Natalie Posadas MD 230 [place], [place] [phone] Pain Social History Tobacco Use Types Packs/Day [...] Description 08/21/2025 3:00 PM EST Clinical Support [facility] CHC MED & PEDS 505 [place] [address] Jing Washington RN 505 [place] [address] 12/05/2025 10:30 AM EDT Office Visit [facility] OPTOMETRY [address] [place] [address], OD 230 [place] [address] documented as of this encounter Visit Diagnoses Diagnosis Pain Generalized pain documented in this encounter Additional Health Concerns Assessment Noted Time PHQ-9 Depression Total Score: 7 09/28/19 24 11:21 AM EST documented as of this encounter Care Teams Environmental Engineering Technician Relationship Specialty Start Date End Date Natalie Posadas MD 230 [place] [address] PCP - General Family Medicine 08/14/18 Madhuri Barakat, CUAUHTEMOC 505 [place] [address] Registered Nurse Family Medicine 02/04/25 05/26/25 Deann Villalobos 02/04/25 06/02/25 Ari Parish Manager ReimbursementCdl Team Truck Driver 02/12/25 documented as of this encounter
--- OUTSIDE RECORDS SUMMARY | 2025-07-31 12:20 | XMS_ITS | Encounter Summary ---
Author Organization [employer] Address [address] [facility] [address] [place] [address] Care Team Providers Care Credit Risk Specialist Name Role Phone Natalie Posadas MD Primary Care Provider [phone] Madhuri Barakat RN Unavailable [phone] Deann Villalobos Unavailable Reason for Visit * Reason Comments Med Refill Encounter Details Date Type Department Care Team (Late st Contact Info) Description 09/17/2023 Refill [facility] MEDICINE 230 [place], [place] [phone] Natalie Posadas MD 230 [place], [place] [phone] Pain Social History Tobacco Use Types Packs/Day [...] Description 08/21/2025 3:00 PM EST Clinical Support [facility] CHC MED & PEDS 505 [place] [address] Jing Washington, CUAUHTEMOC 505 [place] [address] 12/05/2025 10:30 AM EDT Office Visit [facility] OPTOMETRY [address] [place] [address] Seamus, Carolyn, OD 230 [place] [address] documented as of this encounter Visit Diagnoses Diagnosis Pain Generalized pain documented in this encounter Additional Health Concerns Assessment Noted Time PHQ-9 Depression Total Score: 0 09/15/19 23 11:23 AM EST documented as of this encounter Care Teams Credit Risk Specialist Relationship Specialty Start Date End Date Natalie Posadas MD 230 [place] [address] PCP - General Family Medicine 08/14/18 Madhuri Barakat, CUAUHTEMOC 505 [place] [address] Registered Nurse Family Medicine 02/04/25 05/26/25 Deann Villalobos 02/04/25 06/02/25 Ari Parish Refinery Operator AlkylationHand Bootmaker 02/12/25 documented as of this encounter
--- OUTSIDE RECORDS SUMMARY | 2025-07-31 12:20 | XMS_ITS | Encounter Summary ---
Author Organization [employer] Address [address] [facility] [address] [facility] [address] [place] [address] Care Team Providers Care Cancer Genetic Counselor Name Role Phone Natalie Posadas MD Primary Care Provider [phone] Madhuri Barakat RN Unavailable [phone] Denan Villalobos Unavailable Reason for Visit * Reason Comments Med Refill Encounter Details Date Type Department Care Team (Late st Contact Info) Description 01/24/2023 Refill [facility] CHC MED & PEDS [address] [place], [place] [phone] Kelly Diego, ANP 230 [place] [address] Pain Social History Tobacco Use Types Packs/Day [...] Description 08/21/2025 3:00 PM EST Clinical Support [facility] CHC MED & PEDS 505 [place] [address] Jing Washington, CUAUHTEMOC 505 [place] [address] 12/05/2025 10:30 AM EDT Office Visit [facility] OPTOMETRY [address] [place], [place] [phone] Seamus, Megan, OD 230 [place] [address] documented as of this encounter Visit Diagnoses Diagnosis Pain Generalized pain documented in this encounter Additional Health Concerns Assessment Noted Time PHQ-9 Depression Total Score: 0 09/15/19 23 11:23 AM EST documented as of this encounter Care Teams Cancer Genetic Counselor Relationship Specialty Start Date End Date Natalie Posdaas MD 230 [place] [address] PCP - General Family Medicine 08/14/18 Madhuri Barakat RN 505 [place] [address] Registered Nurse Family Medicine 02/04/25 05/26/25 Deann Villalobos 02/04/25 06/02/25 Ari Parish Supervisor LaundryDistrict Engineer 02/12/25 documented as of this encounter
--- OUTSIDE RECORDS SUMMARY | 2025-07-31 12:20 | XMS_ITS | Encounter Summary ---
Author Organization [employer] Address [address] [facility] [address] [place] [address] Care Team Providers Care Lead Network Architect Name Role Phone Natalie Posadas MD Primary Care Provider [phone] Madhuri Barakat RN Unavailable [phone] Deann Villalobos Unavailable Encounter Details Date Type Department Care Team (Late st Contact Info) Description 12/01/2023 Telephone C OPTOMETRY [address] [place] [address], OD [address] [place] [address] Social History Tobacco Use Types Packs/Day Years [...] Called Patient inform him about appt. At [address] Padilla Appt. 12/05/2023 @ 10:5am documented in this encounter Plan of Treatment Upcoming Encounters Date Type Department Care Team (Late st Contact Info) Description 08/21/2025 3:00 PM EST Clinical Support [facility] CHC MED & PEDS 505 [place] [address] Jing Washington, RN 505 [place] [address] 12/05/2025 10:30 AM EDT Office Visit [facility] OPTOMETRY [address] [place] [address], OD 230 [facility] [place] [address] documented as of this encounter Visit Diagnoses Not on filedocumented in this encounter Additional Health Concerns Assessment Noted Time PHQ-9 Depression Total Score: 7 09/28/19 24 11:21 AM EST documented as of this encounter Care Teams Lead Network Architect Relationship Specialty Start Date End Date Natalie Posadas MD 230 [place] [address] PCP - General Family Medicine 08/14/18 Madhuri Barakat, CUAUHTEMOC 505 [place] [address] Registered Nurse Family Medicine 02/04/25 05/26/25 Deann Villalobos 02/04/25 06/02/25 Ari Parish Emergency Department CoordinatorPhysician Neonatology 02/12/25 documented as of this encounter
--- OUTSIDE RECORDS SUMMARY | 2025-07-31 12:20 | XMS_ITS | Encounter Summary ---
Author Organization [employer] Address [address] [facility] [address] 7t [place] [address] Care Team Providers Care Lead Network Engineer Name Role Phone Natalie Posadas MD Primary Care Provider [phone] Encounter Details Date Type Department Care Team ([facility] st Contact Info) Description 07/31/2025 Orders Only [facility] External Provider, [facility] Social History Tobacco Use Types Packs/Day Years [...] Description 08/21/2025 3:00 PM EST Clinical Support [facility] CHC MED & PEDS [address] [place] [address] Jing Washington, RN 505 [place] [address] 12/05/2025 10:30 AM EDT Office Visit [facility] OPTOMETRY [address] [place] [address] SeamusCarolyn, OD [address] [place] [address] documented as of this encounter Procedures Procedure Name Priority Date/Time Associated Diagnosis Comments CT CHEST WO CONTRAST Routine 07/31/2025 10:17 AM EST documented in this encounter Results * CT Chest w/o Contrast (07/31/2025 10:17 AM EST) Anatomical Region Laterality Modality Body, Chest Computed Tomogra phy 07/31/2025 10:1 7 AM EST Narrative 07/31/2025 10:49 AM EST [facility] [address] [place] [address] CT Scan Report Signed Patient: Mandeep Martinez MR#: [id number] : 1960 Acct:[id number] Age/Sex: 65 / M ADM Date: 07/31/25 Loc: HO.CT Attending Dr: Cesilia Rubio NP Ordering Physician: Cesilia Rubio NP Date of Service: 07/31/25 Procedure(s): CT chest wo IV con Accession Number(s): [id number] cc: Natalie Posadas MD; Cesilia Rubio MECHANICAL OXIDIZER Report Number: [id number]: Total DLP = 205.00 mGy-cm Reason for Exam: R91.1 - Solitary pulmonary nodule EXAMINATION: CT CHEST WITHOUT CONTRAST CLINICAL INFORMATION: R 91.1. Solitary pulmonary nodule. COMPARISON: December 06, 2021 TECHNIQUE: Multidetector volumetric CT imaging of the chest was done. Axial MIP volume rendering provided. Sagittal and coronal reformatted images were obtained. This CT examination was performed using dose optimization techniques as appropriate, variously including the following: *Automated exposure control *Adjustment of mA and/or kV according to patient size (this includes techniques or standardized protocols for targeted exams where dose is matched to indication/reason for exam; i.e. extremities or head) *Use of iterative reconstruction technique DLP: 205 mGy-cm FINDINGS: RN SOCIAL WORK: Low lung volume. Pulmonary reticular pattern. Bilateral apical lung scarring. . S-shaped curvature of the thoracic spine. Heart silhouette size is normal. LUNGS: Low lung volume. Paraseptal honeycombing, upper lung lobes. Nonspecific linear attenuation abnormalities in the lungs. Saccular bronchiectasis, right upper lung lobe. 4 mm noncalcified nodule at the left major fissure. No acute airspace disease. MEDIASTINUM: Nonspecific prominent lymph nodes. No aneurysm, aorta. There is a 38 mm diameter of the proximal left main pulmonary artery/distal main pulmonary artery. The heart is not enlarged. No pericardial effusion. Calcified plaques in the coronary arteries. No pneumomediastinum. No hemopericardium. Thyroid gland is small. CORONARY ARTERY CALCIFICATION: Calcified plaques. PLEURA: No pleural effusion. No pneumothorax. No calcified pleural plaques. No hemothorax. AXILLA: No lymphadenopathy. UPPER ABDOMEN: Abundant stool, large intestine. Exophytic cystic lesion, upper pole right kidney. Liposubstitution, pancreas. OSSEOUS STRUCTURES: Multilevel spondylosis and mild dextroconvex curvature, thoracic spine. No acute fracture or listhesis. No lytic or blastic lesions. No acute rib fractures. CT/CT chest wo IV con IMPRESSION: Stable lungs without acute airspace disease. 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 Fleischner guidelines were followed. Electronically signed by: Cornell [place] MD 07/31/2025 10:46 AM EST Dictated By: Cornell Dang MD Signed By: <Electronically signed by Conrell Martinez MD in OV> 07/31/25 1046 DD/ 1017 TD/TT: 07/31/25 1030 Venetian Blind Worker: Procedure Note Donotuseinterpreter, Image - 07/31/[address] [address] [address] Scan Report Signed Patient: Kaleb Martinez#: [id number] : 1960cct:[id number] Age/Sex: 65 / MADM Date: 07/31/25 Loc: HO.CT Attending Dr: Cesilia Rubio NP Ordering Physician: Cesilia Rubio NP Date of Service: 07/31/25 Procedure(s): CT chest wo IV con Accession Number(s): [id number] cc: Natalie Posadas MD; Cesilia Rubio NP Report Number: [id number]: Total DLP = 205.00 mGy-cm Reason for Exam: R91.1 - Solitary pulmonary nodule EXAMINATION: CT CHEST WITHOUT CONTRAST CLINICAL INFORMATION: R 91.1. Solitary pulmonary nodule. COMPARISON: December 06, 2021 TECHNIQUE: Multidetector volumetric CT imaging of the chest was done. Axial MIP volume rendering provided. Sagittal and coronal reformatted images were obtained. This CT examination was performed using dose optimization techniques as appropriate, variously including the following: *Automated exposure control *Adjustment of mA and/or kV according to patient size (this includes techniques or standardized protocols for targeted exams where dose is matched to indication/reason for exam; i.e. extremities or head) *Use of iterative reconstruction technique DLP: 205 mGy-cm FINDINGS: RN SOCIAL WORK: Low lung volume. Pulmonary reticular pattern. Bilateral apical lung scarring. . S-shaped curvature of the thoracic spine. Heart silhouette size is normal. LUNGS: Low lung volume. Paraseptal honeycombing, upper lung lobes. Nonspecific linear attenuation abnormalities in the lungs. Saccular bronchiectasis, right upper lung lobe. 4 mm noncalcified nodule at the left major fissure. No acute airspace disease. MEDIASTINUM: Nonspecific prominent lymph nodes. No aneurysm, aorta. There is a 38 mm diameter of the proximal left main pulmonary artery/distal main pulmonary artery. The heart is not enlarged. No pericardial effusion. Calcified plaques in the coronary arteries. No pneumomediastinum. No hemopericardium. Thyroid gland is small. CORONARY ARTERY CALCIFICATION: Calcified plaques. PLEURA: No pleural effusion. No pneumothorax. No calcified pleural plaques. No hemothorax. AXILLA: No lymphadenopathy. UPPER ABDOMEN: Abundant stool, large intestine. Exophytic cystic lesion, upper pole right kidney. Liposubstitution, pancreas. OSSEOUS STRUCTURES: Multilevel spondylosis and mild dextroconvex curvature, thoracic spine. No acute fracture or listhesis. No lytic or blastic lesions. No acute rib fractures. CT/CT chest wo IV con IMPRESSION: Stable lungs without acute airspace disease. 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 Fleischner guidelines were followed. Electronically signed by: Cornell [place] MD 07/31/2025 10:46 AM [facility] Dictated By: Cornell Dang MD Signed By: <Electronically signed by Cornell Martinez MDin OV> 07/31/25 1046 DD/ 1017 TD/TT: 07/31/25 1030 Venetian Blind Worker: [facility] External Provider IMG CT PROCEDURES Edited Result - Final documented in this encounter Visit Diagnoses Not on filedocumented in this encounter Additional Health Concerns Assessment Noted Time PHQ-9 Depression Total Score: 8 02/11/20 25 12:57 PM EDT documented as of this encounter Care Teams Lead Network Engineer Relationship Specialty Start Date End Date Natalie Posadas MD [address] [place] [address] PCP - General Family Medicine 08/14/18 Ari Parish Stone TrimmerWood Bucker 02/12/25 documented as of this encounter
--- OUTSIDE RECORDS SUMMARY | 2025-07-31 12:20 | XMS_ITS | Encounter Summary ---
Author Organization [employer] Address [address] [place] [address] 7t [place] [address] Care Team Providers Care Floor Representative Name Role Phone Natalie Posadas MD Primary Care Provider [phone] Madhuri Barakat RN Unavailable [phone] Deann Villalobos Unavailable Reason for Visit * Reason Comments Med Refill Encounter Details Date Type Department Care Team (Late st Contact Info) Description 11/18/2022 Refill [facility] MEDICINE [address] [place], [place] [phone] Natalie Posadas MD 230 [place], [place] [phone] Pain Social History Tobacco Use Types Packs/Day [...] 11/18/2022 9:25 AM EDT Already sent to [facility] nurse * Telephone Encounter - [...] Description 08/21/2025 3:00 PM EST Clinical Support [facility] CHC MED & PEDS [address] [place] [address] Jing Washington, CUAUHTEMOC [address] [place], [place] [phone] 12/05/2025 10:30 AM EDT Office Visit [facility] OPTOMETRY [address] [place] [address] Seamus, Carolyn, OD [address] [place] [address] documented as of this encounter Visit Diagnoses Diagnosis Pain Generalized pain documented in this encounter Additional Health Concerns Assessment Noted Time PHQ-9 Depression Total Score: 0 09/15/19 23 11:23 AM EST documented as of this encounter Care Teams Floor Representative Relationship Specialty Start Date End Date Natalie Posadas MD [address] [place] [address] PCP - General Family Medicine 08/14/18 Madhuri Barakat, CUAUHTEMOC [address] [place] [address] Registered Nurse Family Medicine 02/04/25 05/26/25 Deann Villalobos 02/04/25 06/02/25 Ari Parish Restaurant Crew MemberQuick Print Operator 02/12/25 documented as of this encounter
--- OUTSIDE RECORDS SUMMARY | 2025-07-31 12:20 | XMS_ITS | Encounter Summary ---
Author Organization [employer] Address [address] 7[address] [place] [address] Care Team Providers Care Meal Grinder Tender Name Role Phone Natalie Posadas MD Primary Care Provider [phone] Madhuri Barakat RN Unavailable [phone] Deann Villalobos Unavailable Encounter Details Date Type Department Care Team (Late st Contact Info) Description 09/16/2024 Orders Only [facility] MEDICINE [address] [place], [place] [phone] Natalie Posadas MD [address] [place], [place] [phone] Preop examination (Primary Dx); AV block, 1st [...] Description 08/21/2025 3:00 PM EST Clinical Support [facility] CHC MED & PEDS [address] [place] [address] Jing Washington RN 505 [place] [address] 12/05/2025 10:30 AM EDT Office Visit [facility] OPTOMETRY [address] [place] [address], OD [address] [place] [address] Scheduled Orders Name Type Priority Associated Diagnoses [...] documented as of this encounter Care Teams Meal Grinder Tender Relationship Specialty Start Date End Date Natalie Posadas MD [address] [place] [address] PCP - General Family Medicine 08/14/18 Madhuri Barakat, RN [address] [place] [address] Registered Nurse Family Medicine 02/04/25 05/26/25 Deann Villalobos 02/04/25 06/02/25 Ari Parish Director Construction ServicesVice President Business Development 02/12/25 documented as of this encounter
--- OUTSIDE RECORDS SUMMARY | 2025-07-31 12:20 | XMS_ITS | Encounter Summary ---
Author Organization [employer] Address [address] [facility] [address] 7t [place] [address] Care Team Providers Care Resistance Welding Machine Operator Name Role Phone Natalie Posadas MD Primary Care Provider [phone] Madhuri Barakat RN Unavailable [phone] Deann Villalobos Unavailable Encounter Details Date Type Department Care Team (Late st Contact Info) Description 10/11/2024 Orders Only [facility] MEDICINE [address] [place] [address] Natalie Posadas MD 230 [place], [place] [phone] Prolonged QT interval (Primary Dx); 1st degree [...] Upcoming Encounters Date Type Department Care Team ([facility] st Contact Info) Description 08/21/2025 3:00 PM EST Clinical Support [facility] CHC MED & PEDS [address] [place] [address] Jing Washington, RN [address] [place] [address] 12/05/2025 10:30 AM EDT Office Visit [facility] OPTOMETRY [address] [place] [address] Seamus, Carolyn, OD [address] [place] [address] documented as of this encounter Procedures Procedure Name Priority Date/Time Associated Diagnosis Comments MAGNESIUM Routine 10/14/2024 10:03 AM EST Prolonged QT interval BASIC METABOLIC PANEL Routine 10/14/2024 10:03 AM EST Prolonged QT interval documented in this encounter Results * (ABNORMAL) Basic Metabolic Panel (10/14/2024 10:03 AM EST) Sodium 142 135 - 145 mmol/L [facility] Potassium 4.1 3.3 - 5.1 mmol/L [facility] Chloride 108 96 - 108 mmol/L [facility] Carbon Dioxide 27 22 - 29 mmol/L [facility] Anion Gap 11(L) 12 - 20 [facility] Urea Nitrogen (BUN) 15 9 - 16 mg/dL [facility] Creatinine, Serum 0.80 0.5 - 1.4 mg/dL [facility] Estimated Glomerular Filt Rate >60 [facility] Comment:Chronic Kidney Disea se: Estimated GFR < 60 mL/min/1.51s1Qjrsdx Kidney Disease: Estimated GFR < 15 mL/min/1.73m2 Glucose 94 60 - 115 mg/dL [facility] Calcium 9.3 8.4 - 10.2 mg/dL [facility] Blood Venous blood specimen / Unknown 10/14/2024 10:03 AM EST 10/14/2024 11:36 AM EST Natalie Posadas MD LAB BLOOD ORDERABLES Final Resul t Performing Organization Address City/[facility]/ZIP Co de Phone Number [facility] [address] [place] [phone] * Magnesium (10/14/2024 10:03 AM EST) Magnesium 2.1 1.6 - 2.6 mg/dL [facility] Blood Venous blood specimen / Unknown 10/14/2024 10:03 AM EST 10/14/2024 11:36 AM EST Natalie Posadas MD LAB BLOOD ORDERABLES Final Resul t Performing Organization Address City/[facility]/ZIP Co de Phone Number [facility] [address] [place] [phone] documented in this encounter Visit Diagnoses Diagnosis Prolonged QT interval- Primary Nonspecific abnormal electrocardiogram (ECG) (EKG) 1st degree AV block documented in this encounter Additional Health Concerns Assessment Noted Time PHQ-9 Depression Total Score: 3 08/06/20 24 8:58 AM EST documented as of this encounter Care Teams Resistance Welding Machine Operator Relationship Specialty Start Date End Date Natalie Posadas MD [address] [place] [address] PCP - General Family Medicine 08/14/18 Madhuri Barakat, CUAUHTEMOC [address] [place] [address] Registered Nurse Family Medicine 02/04/25 05/26/25 Deann Villalobos 02/04/25 06/02/25 Ari Parish Food And Nutrition Services SupervisorSenior Ui Ux Developer 02/12/25 documented as of this encounter
--- OUTSIDE RECORDS SUMMARY | 2025-07-31 12:20 | XMS_ITS | Encounter Summary ---
Author Organization [employer] Address [address] 7[address] [place] [address] Care Team Providers Care Gis Analyst Developer Name Role Phone Natalie Posadas MD Primary Care Provider [phone] Madhuri Barakat RN Unavailable [phone] Deann Villalobos Unavailable Reason for Visit * Reason Comments Med Refill Encounter Details Date Type Department Care Team (Late st Contact Info) Description 03/11/2025 Refill [facility] [address] [place], [place] [phone] Natalie Posadas MD [address] [place], [place] [phone] Pain Social History Tobacco Use Types Packs/Day [...] Description 08/21/2025 3:00 PM EST Clinical Support [facility] CHC MED & PEDS [address] [place] [address] Jing Washington RN 505 [place] [address] 12/05/2025 10:30 AM EDT Office Visit [facility] OPTOMETRY [address] [place] [address] Seamus, Carolyn, OD [address] [place] [address] documented as of this encounter Visit Diagnoses Diagnosis Pain Generalized pain documented in this encounter Additional Health Concerns Assessment Noted Time PHQ-9 Depression Total Score: 8 02/11/20 25 12:57 PM EDT documented as of this encounter Care Teams Gis Analyst Developer Relationship Specialty Start Date End Date Natalie Posadas MD 230 [place] [address] PCP - General Family Medicine 08/14/18 Madhuri Barakat, CUAUHTEMOC [address] [place] [phone] Registered Nurse Family Medicine 02/04/25 05/26/25 Deann Villalobos 02/04/25 06/02/25 Ari Parish Principal Web DeveloperPromotions Intern 02/12/25 documented as of this encounter
--- OUTSIDE RECORDS SUMMARY | 2025-07-31 12:20 | XMS_ITS | Encounter Summary ---
Author Organization [employer] Address [address] [place] [address] Care Team Providers Care First Line Supervisor Name Role Phone Natalie Posadas MD Primary Care Provider Madhuri Barakat RN Unavailable [phone] Deann Villalobos Unavailable Reason for Visit * Reason Comments Med Refill Encounter Details Date Type Department Care Team ([facility] st Contact Info) Description 03/12/2024 Refill [facility] MEDICINE [address] [place] [address] Kelly Diego ANP [address] [place], [place] [phone] Pain Social History Tobacco Use Types Packs/Day [...] 3:00 PM EST Clinical Support [facility] CHC MED & PEDS [address] [place] [address] Jing Washington RN 505 [place] [address] 12/05/2025 10:30 AM EDT Office Visit [facility] OPTOMETRY [address] [place] [address], OD [address] [place] [address] documented as of this encounter Visit Diagnoses Diagnosis Pain Generalized pain documented in this encounter Additional Health Concerns Assessment Noted Time PHQ-9 Depression Total Score: 7 09/28/19 24 11:21 AM EST documented as of this encounter Care Teams First Line Supervisor Relationship Specialty Start Date End Date Natalie Posadas MD [address] [place] [address] PCP - General Family Medicine 08/14/18 Madhuri Barakat, CUAUHTEMOC [address] [place] [address] Registered Nurse Family Medicine 02/04/25 05/26/25 Deann Villalobos 02/04/25 06/02/25 Ari Parish Functional TesterCable Cutter And Swager 02/12/25 documented as of this encounter
--- OUTSIDE RECORDS SUMMARY | 2025-07-31 12:20 | XMS_ITS | Encounter Summary ---
Author Organization [employer] Address [address] [place] [address] Care Team Providers Care Director Food And Beverage Name Role Phone Natalie Posadas MD Primary Care Provider Madhuri Barakat RN Unavailable [phone] Deann Villalobos Unavailable Reason for Visit * Reason Comments Med Refill Encounter Details Date Type Department Care Team (Late st Contact Info) Description 11/24/2023 Refill [facility] MEDICINE [address] [place], [place] [phone] Natalie Posadas MD 230 [place], [place] [phone] Pain Social History Tobacco Use Types Packs/Day [...] Description 08/21/2025 3:00 PM EST Clinical Support [facility] CHC MED & PEDS [address] [place] [address] Jing Washington RN [address] [place] [address] 12/05/2025 10:30 AM EDT Office Visit [facility] OPTOMETRY [address] [place] [address], OD [address] [place] [address] documented as of this encounter Visit Diagnoses Diagnosis Pain Generalized pain documented in this encounter Additional Health Concerns Assessment Noted Time PHQ-9 Depression Total Score: 7 09/28/19 24 11:21 AM EST documented as of this encounter Care Teams Director Food And Beverage Relationship Specialty Start Date End Date Natalie Posadas MD [address] [place] [address] PCP - General Family Medicine 08/14/18 Madhuri Barakat, CUAUHTEMOC [address] [place] [address] Registered Nurse Family Medicine 02/04/25 05/26/25 Deann Villalobos 02/04/25 06/02/25 Ari Parish Adhesive SprayerGamma Operator 02/12/25 documented as of this encounter
--- OUTSIDE RECORDS SUMMARY | 2025-07-31 12:20 | XMS_ITS | Encounter Summary ---
Author Organization [employer] Address [address] [facility] 7t [place] [address] Care Team Providers Care Superintendent Construction Name Role Phone Natalie Posadas MD Primary Care Provider [phone] Madhuri Barakat RN Unavailable [phone] Deann Villalobos Unavailable Reason for Referral * Consultation (Routine) - Closed Specialty Diagnoses / Procedures Referred By Contac t Referred To Contact Pharmacy Diagnoses Dyslipidemia Elevated BP without diagnosis of hypertension H. pylori infection Prediabetes Natalie Posadas MD 230 [place] [address] Phone: tel: fax: Referral ID Status Reason Start Date Expiration Date V isits Requested Visits Authorized [id number] Closed Continuity of Care 10/18/2024 10/18/2025 6 [...] st Contact Info) Description 10/18/2024 Orders Only [facility] MEDICINE 230 [place], [place] [phone] Natalie Posadas MD [address] [place], [place] [phone] Dyslipidemia (Primary Dx); Elevated BP without diagnosis [...] Upcoming Encounters Date Type Department Care Team ([facility] st Contact Info) Description 08/21/2025 3:00 PM EST Clinical Support [facility] MED & PEDS [address] [place] [address] Jing [place], RN 505 [place] [address] 12/05/2025 10:30 AM EDT Office Visit [facility] OPTOMETRY [address] [place] [address], OD [address] [place], [place] [phone] Scheduled Referrals Name Type Priority Associated Diagnoses [...] documented as of this encounter Care Teams Superintendent Construction Relationship Specialty Start Date End Date Natalie Posadas MD [address] [place] [address] PCP - General Family Medicine 08/14/18 Madhuri Barakat RN [address] [place] [address] Registered Nurse Family Medicine 02/04/25 05/26/25 Deann Villalobos 02/04/25 06/02/25 Ari Parish Microsoft Net DeveloperNaumkeag Operator 02/12/25 documented as of this encounter
--- OUTSIDE RECORDS SUMMARY | 2025-07-31 12:20 | XMS_ITS | Encounter Summary ---
Author Organization [employer] Address [address] [facility] [address]t [place] [address] Care Team Providers Care Concrete Mixer Name Role Phone Natalie Posadas MD Primary Care Provider [phone] Madhuri Barakat RN Unavailable [phone] Deann Villalobos Unavailable Reason for Referral * Consultation (Routine) - Closed Specialty Diagnoses / Procedures Referred By Contac t Referred To Contact Pharmacy Diagnoses Chronic right-sided headache Occipital headache Natalie Posadas MD [address] [place] [address] Phone: tel: fax: Referral ID Status Reason Start Date Expiration Date V isits Requested Visits Authorized [id number] Closed Continuity of Care 02/13/2025 02/13/2026 6 6 Scheduling Instructions Medbox Encounter Details Date Type Department Care Team (Late st Contact Info) Description 02/13/2025 Orders Only [facility] MEDICINE [address] [place] [phone] Natalie Posadas MD [address] [place] [address] [phone] Dyslipidemia (Primary Dx); Vitamin D deficiency; Prediabetes; [...] Description 08/21/2025 3:00 PM EST Clinical Support [facility] CHC MED & PEDS [address] [place] [address] Jing Washington, CUAUHTEMOC [address] [place] [address] 12/05/2025 10:30 AM EDT Office Visit [facility] OPTOMETRY [address] [place] [address], OD [address] [place] [address] Scheduled Referrals Name Type Priority Associated Diagnoses [...] EDT) 03/14/2025 10:0 6 AM EDT Narrative [facility] - 03/21/2025 12:45 PM EDT [facility] [address] [place] [address] Nuclear Medicine Report Signed Patient: Mandeep Martinez MR#: [id number] : 1960 Acct:[id number] Age/Sex: 64 / M ADM Date: 03/14/25 Loc: HO.CARD Attending Dr: Zain Albarran MD Ordering Physician: Zain Albarran MD Date of Service: 03/14/25 Procedure(s): NM cardiolite stress test Accession Number(s): [id number] cc: Natalie Posadas MD; Zain Albarran MD [...] 03/21/25 1242 DD/ 1006 TD/TT: 03/19/25 0820 Grain Drier: Procedure Note Donotuseinterpreter, Image - 03/21/2025 [place] [address] Nuclear Medicine Report Signed Patient: Kaleb Martinez#: [id number] : 2Acct:[id number] Age/Sex: 64 / MADM Date: 03/14/25 Loc: [facility] Attending Dr: Zain Albarran MD Ordering Physician: Zain Albarran MD Date of Service: 03/14/25 Procedure(s): NM cardiolite stress test Accession Number(s): [id number] cc: Natalie Posadas MD; Zain Albarran MD [...] 03/21/25 1242 DD/ 1006 TD/TT: 03/19/25 0820 Grain Drier: us [facility] External Provider CV STRE SS PROCEDURES Final Result [facility] [address] [place] [address] documented in this encounter Visit Diagnoses Diagnosis Dyslipidemia- Primary Other and unspecified hyperlipidemia Vitamin D deficiency Prediabetes Other abnormal glucose Chronic right-sided headache Occipital headache Headache documented in this encounter Additional Health Concerns Assessment Noted Time PHQ-9 Depression Total Score: 8 02/11/20 25 12:57 PM EDT documented as of this encounter Care Teams Concrete Mixer Relationship Specialty Start Date End Date Natalie Posadas MD [address] [place] [address] PCP - General Family Medicine 08/14/18 Madhuri Barakat RN [address] [place] [address] Registered Nurse Family Medicine 02/04/25 05/26/25 Deann Villalobos 02/04/25 06/02/25 Ari Parish Storage Wharfage ClerkCommunity Outreach Specialist 02/12/25 documented as of this encounter
--- OUTSIDE RECORDS SUMMARY | 2025-07-31 12:20 | XMS_ITS | Encounter Summary ---
Author Organization [employer] Address [address] [place] [address] 7t [place] [address] Care Team Providers Care Shading Painter Name Role Phone Natalie Posadas MD Primary Care Provider [phone] Madhuri Barakat RN Unavailable [phone] Deann Villalobos Unavailable Reason for Visit * Reason Comments Med Refill Encounter Details Date Type Department Care Team (Late st Contact Info) Description 04/24/[address] [facility] MEDICINE [address] [place] [address] Natalie Posadas MD [address] [place] [address] Pain Social History Tobacco Use Types Packs/Day [...] 3:00 PM EST Clinical Support [facility] CHC MED & PEDS 505 [place] [address] Jing Washington, RN [address] [place] [address] 12/05/2025 10:30 AM EDT Office Visit [facility] OPTOMETRY [address] [place], [place] [phone] Carolyn [address], OD [address] [place] [address] documented as of this encounter Visit Diagnoses Diagnosis Pain Generalized pain documented in this encounter Additional Health Concerns Assessment Noted Time PHQ-9 Depression Total Score: 0 09/15/19 23 11:23 AM EST documented as of this encounter Care Teams Shading Painter Relationship Specialty Start Date End Date Natalie Posadas MD [address] [place], [place] [phone] PCP - General Family Medicine 08/14/18 Madhuri Baraakt, CUAUHTEMOC [address] [place] [address] Registered Nurse Family Medicine 02/04/25 05/26/25 Deann Villalobos 02/04/25 06/02/25 Ari Parish Merry Go Round AttendantMedical Claims Specialist 02/12/25 documented as of this encounter
--- OUTSIDE RECORDS SUMMARY | 2025-07-31 12:20 | XMS_ITS | Clinical Summary ---
Author Organization [employer] Address [address] [facility] 7t [place] [address] Care Team Providers Care Motor Patrol Operator Name Role Phone Natalie Posadas MD Primary Care Provider [phone] Allergies No known active allergies Medications atorvastatin [...] day (heartburn / reflux). 90 capsule 3 5 12:36 PM EST 11/14/19 25 Active timolol (Timoptic) 0.5 % [...] EVERY DAY AT BEDTIME 2.5 mL 04/21/20 25 Active acetaminophen (Tylenol Extra Strength) [...] 25 Active ergocalciferol (Vitamin D2) 1.25 MG (45635 UT) capsule TAKE 1 CAPSULE BY MOUTH ONCE WEEKLY ON Monday03/10/20 25 Active magnesium oxide (Mag-Ox) 400 (240 Mg) MG tablet TAKE 1 TABLET BY MOUTH AT BEDTIME FOR RESTLESS LEGS 03/10/20 25 Active fluticasone (Flonase) 50 MCG/ACT nasal spray Administer 1 spray into each nostril Once per day. 16 g 06/16/20 25 Active traMADol (Ultram) 50 MG tabletIndicatio ns:Pain TAKE 1 TABLET BY MOUTH EVERY TWELVE HOURS NEEDED FOR SEVERE PAIN 56 tablet 2:53 PM EST 07/15/20 25 Active traMADol (Ultram) 50 MG tabletIndicatio ns:Pain TAKE 1 TABLET BY MOUTH EVERY TWELVE HOURS NEEDED FOR SEVERE PAIN 56 tablet 06/12/20 25 025 Discontinued Active Problems Problem Noted [...] apnea treatment - evaluated by Dr. Ybarra, [facility] Cardiology. 03/14/25 Stress test and MPI: Probably [...] According to the pharmacy, he had not bean picker the medication - He has not been [...] anatomical narrow angle Seen by Dr. Padilla, [facility], on 12/21/22 Prescribed latanoprost gtt Chronic [...] year for evaluation - 03/04/24 MRA/MRV at [facility] 1. 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 2. 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 - 06/19/24 CTA at [facility] ED Stable, 6 mm, fusiform aneurysm, supraclinoid [...] -Pt has been declining a referral to utilization review specialist or physical therapy. -Continue judicious use [...] year for evaluation - 03/04/24 MRA/MRV at [facility] 1. 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 2. 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 - 06/19/24 CTA at [facility] ED Stable, 6 mm, fusiform aneurysm, supraclinoid [...] -Pt has been declining a referral to utilization review specialist or physical therapy. -Continue judicious use [...] year for evaluation - 03/04/24 MRA/MRV at [facility] 1. 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 2. 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 - 06/19/24 CTA at [facility] ED Stable, 6 mm, fusiform aneurysm, supraclinoid [...] -Pt has been declining a referral to utilization review specialist or physical therapy. -Continue judicious use [...] year for evaluation - 03/04/24 MRA/MRV at [facility] 1. 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 2. 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 - 06/19/24 CTA at [facility] ED Stable, 6 mm, fusiform aneurysm, supraclinoid [...] -Pt has been declining a referral to utilization review specialist or physical therapy. -Continue judicious use [...] year for evaluation - 03/04/24 MRA/MRV at [facility] 1. 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 2. 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 - 06/19/24 CTA at [facility] ED Stable, 6 mm, fusiform aneurysm, supraclinoid [...] -Pt has been declining a referral to utilization review specialist or physical therapy. -Continue judicious use [...] disc disease. Pt declined a referral to utilization review specialist or physical therapy. Continue judicious use of tramadol and NSAIDs. Assessment & Plan (09/30/2023 7:20 AM EST): 10/27/22, Seen by Neurosurgeon for Intracranial Aneurysm; was recommended to follow-up in 1 year for evaluation Evaluation with MRI in 3-5 years His posterior headache is likely due to cervical degenerative disc disease. Pt declined a referral to utilization review specialist or physical therapy. Continue judicious use of tramadol and NSAIDs. Assessment & Plan (05/26/2023 9:45 AM EDT): 10/27/22, Seen by Neurosurgeon for Intracranial Aneurysm; was recommended to follow-up in 1 year for evaluation Evaluation with MRI in 3-5 years His posterior headache is likely due to cervical degenerative disc disease. Pt declined a referral to utilization review specialist or physical therapy. Continue judicious use [...] Aug 2023), improve adherence -Recommended seeing sleep foreclosure specialist so he can get a more [...] (10/23/2024 5:39 AM EDT): - seen by prototype special build on 11/19/21, their impression was subclinical hypothyroidism, no graves disease - repeat TSH was 4.69 by prototype special build and pt has not been on levothyroxine - recommended to consider treatment if TSH >10 Assessment & Plan (09/30/2023 7:22 AM EST): - seen by prototype special build on 11/19/21, their impression was subclinical hypothyroidism, no graves disease - repeat TSH was 4.69 by prototype special build and pt has not been on levothyroxine - recommended to consider treatment if TSH >10 Assessment & Plan (05/26/2023 9:49 AM EDT): - seen by prototype special build on 11/19/21, their impression was subclinical hypothyroidism, no graves disease - repeat TSH was 4.69 by prototype special build and pt has not been on levothyroxine - recommended to consider treatment if TSH >10 Assessment & Plan (10/12/2022 3:35 PM EST): - seen by prototype special build on 11/19/21, their impression was subclinical hypothyroidism, [...] (09/15/2022 1:10 PM EST): - seen by prototype special build on 11/19/21, their impression was subclinical hypothyroidism, [...] (10/12/2022 3:35 PM EST): - seen by prototype special build on 11/19/21, their impression was subclinical hypothyroidism, [...] I presented case to emergency room of [facility] and refer patient to the emergency room, I offer to call ambulance patient declines, he reports he will go wit his brother in law Encounters Date Type Department Care Team Description 07/31/2025 Orders Only [facility] External Provider, [facility] 07/29/2025 Telephone [facility] CHC MED & PEDS [address] [place] [address] Jing Washington RN 07/29/2025 Telephone [facility] MEDICINE [address] [place] [address] Natalie Posadas MD Telephone call 07/14/2025 Refill [facility] CHC MED & PEDS [address] [place] [address] Natalie Posadas MD Pain 07/02/2025 Telephone [facility] MED [facility] PEDS [address] [place] [address] Jing Washington RN 06/16/2025 10:20 AM EST Office Visit [facility] [address] [place] [address] Torie Norwood MD Subacute frontal sinusitis (Primary Dx); Cough, unspecified type; Chest congestion 06/16/2025 Travel 06/10/2025 Refill [facility] MED & PEDS [address] [place] [address] Natalie Posadas MD Pain 06/02/2025 Patient Outreach [address] [address] Natalie Posadas MD Care Coordination (SDOH/PT1) 05/30/2025 Patient Outreach [address] [address] Natalie Posadas MD Care Coordination (PT1) 05/26/2025 Patient Outreach [address] [address] Natalie Posadas MD Care Management (C3CM- f/u call) 05/16/2025 Patient Outreach [address] [address] Natalie Posadas MD Care Coordination (SDOH f/u) 05/16/2025 Patient Outreach [address] [address] Natalie Posadas MD Care Management (C3CM- f/u call) 05/14/2025 Refill [facility] MED & PEDS [address] [place] [address] Natalie Posadas MD Pain 05/09/2025 Patient Outreach [address] [address] Natalie Posadas MD Care Management (C3CM- f/u call) from Last 3 Months Immunizations Immunization Administration [...] Description 08/21/2025 3:00 PM EST Clinical Support [facility] CHC MED & PEDS [address] [place] [address] Jing Washington, RN [address] [place] [address] 12/05/2025 10:30 AM EDT Office Visit [facility] OPTOMETRY [address] [place] [address], OD [address] [place] [address] Health Maintenance Due Date Last Done Comments [...] WO CONTRAST Routine 07/31/2025 10:17 AM EST POCT RAPID COVID ANTIGEN Routine 06/16/2025 12:19 PM EST Cough, unspecified type Chest congestion HEMOGLOBIN A1C Routine 09/25/2024 10:49 AM EST [...] Recently Relevant to Health Maintenance Results * CT Chest w/o Contrast (07/31/2025 10:17 AM EST) Anatomical Region Laterality Modality Body, Chest Computed Tomogra phy 07/31/2025 10:1 7 AM EST Narrative 07/31/2025 10:49 AM EST [place] [address] CT Scan Report Signed Patient: Mandeep Martinez MR#: [id number] : 1960 Acct:[id number] Age/Sex: 65 / M ADM Date: 07/31/25 Loc: HO.CT Attending Dr: Cesilia Rubio BIOPHYSICS SCIENTIST Ordering Physician: Cesilia Rubio NP Date of Service: 07/31/25 Procedure(s): CT chest wo IV con Accession Number(s): [id number] cc: Natalie Posadas MD; Cesilia Rubio NP Report Number: [id number]: Total DLP = 205.00 mGy-cm Reason for [...] iterative reconstruction technique DLP: 205 mGy-cm FINDINGS: BLOCK MASON: Low lung volume. Pulmonary reticular pattern. Bilateral [...] by: Cornell Hope MD 07/31/2025 10:46 AM [facility] Dictated By: Cornell Dang MD Signed By: <Electronically signed by Cornell Martinez MD in OV> 07/31/25 1046 DD/ 1017 TD/TT: 07/31/25 1030 Operations Administrative Assistant: Procedure Note Naldoter, Image - 07/31/[address] [place] [address] [address] Scan Report Signed Patient: Kaleb Martinez#: [id number] : 1960cct:[id number] Age/Sex: 65 / MADM Date: 07/31/25 Loc: HO.CT Attending Dr: Cesilia uRbio NP Ordering Physician: Cesilia Rubio NP Date of Service: 07/31/25 Procedure(s): CT chest wo IV con Accession Number(s): [id number] cc: Natalie Posadas MD; Cesilia Rubio NP Report Number: [id number]: Total DLP = 205.00 mGy-cm Reason for [...] iterative reconstruction technique DLP: 205 mGy-cm FINDINGS: BLOCK MASON: Low lung volume. Pulmonary reticular pattern. Bilateral [...] 07/31/25 1046 DD/ 1017 TD/TT: 07/31/25 1030 Operations Administrative Assistant: [facility] External Provider IMG CT PROCEDURES Edited Result - Final * POCT Rapid Covid-19 BinaxNOW (06/16/2025 12:19 PM EST) [facility] Rapid COVID Ag Negative Swab 06/16/2025 12:1 9 PM EST Torie Norwood MD POINT OF CARE TEST ENTER /EDIT ORDERABLES Final Result * Hemoglobin A1c (09/25/2024 10:49 AM EST) [facility] Hemoglobin A1c 5.7 <6.0 % [facility] Comment:Hemoglobin A1C Refer ence Range Adults: 4.8 - 6.0 % Non diabetic: < 6.0 % Goal: < 7.0 %Additional Action Suggested: > 8.0 %Note: Hemoglobin A1c results are invalid for patients with abnormal amounts of HbF. Blood transfusions may impact the HbA1c concentration in the patient sample. Estimated Average Glucose 117 mg/dL [facility] Comment:eAG = Estimated ave rage glucose which is %A1C expressed asaverage glucose, using the formula of the V2V-OvbwhccPwackdl Glucose study (ADAG), Diabetes Care, Vol.31,#8,Mar. 2007 Blood Venous blood specimen / Unknown 09/25/2024 10:49 AM EST 09/25/2024 1:42 PM EST us Natalie Posadas MD LAB BLOOD ORDERABLES Final Resul t [facility] [address] [place] [phone] * (ABNORMAL) Lipid Panel with Reflex to Direct LDL (08/31/2024 9:42 AM EST) Triglycerides 88 <150 mg/dL [facility] Comment:Desirable Triglyceri de: less than 150 mg/dLBorderline High Triglyceride 150-199 mg/dLHigh Triglyceride: 200-499 mg/dLVery High Triglyceride: greater than or equal to 5OO mg/dL Cholesterol 175 <200 mg/dL [facility] Comment:Desirable Cholestero l: less than 200 mg/dLBorderline High Cholesterol: 200-239 mg/dLHigh Cholesterol: greater than 239 mg/dL LDL Cholesterol Calculated 116(H) <100 mg/dL [facility] Comment:Desirable LDL: less than 100 mg/dLNear Optimal/Above Optimal LDL: 110- 129 mg/dLBorderline High LDL: 130-159 mg/dLHigh LDL: 160-189 mg/dLVery High LDL: greater than or equal to 190 mg/dL HDL Cholesterol 42 >40 mg/dL [facility] Comment:Desirable HDL: great er than 40 mg/dL Note: This HDL assay may give artificially low results in patients with liver disease. Blood 08/31/2024 9:42 AM EST 08/31/2024 9:42 AM EST Natalie Posadas MD LAB BLOOD ORDERABLES Final Resul t [facility] [address] [place] [address] [phone] * HEPATITIS C AB W/REFL TO [...] a test for HCV RNA (test code 07467) is suggested. For additional information please refer to http://Vuzix/faq/VYI38k4 (This link is being provided for informational/ [...] purpose. For additional information please refer to http://Skadoit.[employer]/faq/NGZ776 (This link is being provided for informational/ [...] Most Recently Relevant to Health Maintenance Insurance [facility] C3 Care Teams Motor Patrol Operator Relationship Specialty Start Date End Date Natalie Posadas MD [address] [place] [address] PCP - General Family Medicine 08/14/18 Ari Parish Merchandising Stock AssociateBioprocessing Manufacturing Technician 02/12/25
--- OUTSIDE RECORDS SUMMARY | 2025-07-31 12:20 | XMS_ITS | Encounter Summary ---
Author Organization [employer] Address [address] [facility] [facility] [facility] [address] 7t [place] [address] Care Team Providers Care Social Sciences Department Chair Name Role Phone Natalie Posadas MD Primary Care Provider [phone] Madhuri Barakat RN Unavailable [phone] Deann Villalobos Unavailable Encounter Details Date Type Department Care Team (Late st Contact Info) Description 11/13/2024 Orders Only [facility] MEDICINE [address] [place], [place] [phone] Natalie Posadas MD [address] [place], [place] [phone] Social History Tobacco Use Types Packs/Day Years [...] Description 08/21/2025 3:00 PM EST Clinical Support [facility] CHC MED & PEDS [address] [place] [address] Jing Washington RN [address] [place] [address] 12/05/2025 10:30 AM EDT Office Visit [facility] OPTOMETRY [address] [place] [address] Seamus, Carolyn, OD [address] [place] [address] documented as of this encounter Visit Diagnoses Not on filedocumented in this encounter Additional Health Concerns Assessment Noted Time PHQ-9 Depression Total Score: 3 08/06/20 24 8:58 AM EST documented as of this encounter Care Teams Social Sciences Department Chair Relationship Specialty Start Date End Date Natalie Posadas MD [address] [place] [address] PCP - General Family Medicine 08/14/18 Madhuri Barakat, CUAUHTEMOC [address] [place] [address] Registered Nurse Family Medicine 02/04/25 05/26/25 Deann Villalobos 02/04/25 06/02/25 Ari Parish Electric Switch RepairerKnitted Garment Finisher 02/12/25 documented as of this encounter
--- OUTSIDE RECORDS SUMMARY | 2025-07-31 12:20 | XMS_ITS | Encounter Summary ---
Author Organization [employer] Address [address] [place] [address] Care Team Providers Care Linux Server Administrator Name Role Phone Natalie Posadas MD Primary Care Provider [phone] Madhuri Barakat RN Unavailable [phone] Deann Villalobos Unavailable Reason for Visit * Reason Comments Med Refill Encounter Details Date Type Department Care Team (Late st Contact Info) Description 09/12/2023 Refill [facility] MED & PEDS [address] [place], [place] [phone] Natalie Posadas MD [address] [place], [place] [phone] Pain Social History Tobacco Use Types Packs/Day [...] Description 08/21/2025 3:00 PM EST Clinical Support [facility] CH[facility] MED & PEDS [address] [place] [address] Jing Washington RN [address] [place] [address] 12/05/2025 10:30 AM EDT Office Visit [facility] OPTOMETRY [address] [place] [address] Seamus, Carolyn, OD [address] [place] [address] documented as of this encounter Visit Diagnoses Diagnosis Pain Generalized pain documented in this encounter Additional Health Concerns Assessment Noted Time PHQ-9 Depression Total Score: 0 09/15/19 23 11:23 AM EST documented as of this encounter Care Teams Linux Server Administrator Relationship Specialty Start Date End Date Natalie Posadas MD [address] [place] [address] PCP - General Family Medicine 08/14/18 Madhuri Barakat, CUAUHTEMOC [address] [place] [address] Registered Nurse Family Medicine 02/04/25 05/26/25 Deann Villalobos 02/04/25 06/02/25 Ari Parish Security Operations ManagerIndustrial Hygiene Engineer 02/12/25 documented as of this encounter
--- OUTSIDE RECORDS SUMMARY | 2025-07-31 12:20 | XMS_ITS | Encounter Summary ---
Author Organization [employer] Address [address] [place] [address] Care Team Providers Care Tire Mold Tester Name Role Phone Natalie Posadas MD Primary Care Provider [phone] Encounter Details Date Type Department Care Team ([facility] Contact Info) Description 07/29/2025 Telephone [facility] MED [facility] PEDS [address] [place], [place] [phone] Jing Washington, RN [address] [place], [place] [phone] Social History Tobacco Use Types Packs/Day Years [...] Telephone Encounter - Jing Washington RN - 07/29/2025 1:16 PM EST TC back to pt, NATUROPATHIC PHYSICIAN appointment r/s to 08/21/25 @ 3pm at [facility]. documented in this encounter Plan of Treatment Upcoming Encounters Date Type Department Care Team (Late st Contact Info) Description 08/21/2025 3:00 PM EST Clinical Support [facility] MED & PEDS [address] [place] [address] Jing Washington, CUAUHETMOC [address] [place] [address] 12/05/2025 10:30 AM EDT Office Visit [facility] [address] [place] [address] Seamus, Carolyn, OD [address] [place] [address] documented as of this encounter Visit Diagnoses Not on filedocumented in this encounter Additional Health Concerns Assessment Noted Time PHQ-9 Depression Total Score: 8 02/11/20 25 12:57 PM EDT documented as of this encounter Care Teams Tire Mold Tester Relationship Specialty Start Date End Date Natalie Posadas MD [address] [place] [address] PCP - General Family Medicine 08/14/18 Ari Parish Storage Garage AttendantPhysician President 02/12/25 documented as of this encounter
--- OUTSIDE RECORDS SUMMARY | 2025-07-31 12:20 | XMS_ITS | Encounter Summary ---
Author Organization [employer] Address [address] [place] [address] Care Team Providers Care Lead Assistant Manager Name Role Phone Natalie Posadas MD Primary Care Provider [phone] Madhuri Barakat RN Unavailable [phone] Deann Villalobos Unavailable Encounter Details Date Type Department Care Team (Late Contact Info) Description 10/14/2022 Orders Only [facility] MEDICINE [address] [place] [address] Natalie Posadas MD [address] [place] [address] Right internal carotid artery aneurysm (Primary Dx); [...] Description 08/21/2025 3:00 PM EST Clinical Support [facility] MED & PEDS [address] [place] [address] Jing Washington, CU[place]OC [address] [place] [address] 12/05/2025 10:30 AM EDT Office Visit [facility] OPTOMETRY [address] [place] [address], OD [address] [place] [address] documented as of this encounter Visit Diagnoses Diagnosis Right internal carotid artery aneurysm- Primary Chronic right-sided headache Occipital headache Headache documented in this encounter Additional Health Concerns Assessment Noted Time PHQ-9 Depression Total Score: 0 09/15/19 23 11:23 AM EST documented as of this encounter Care Teams Lead Assistant Manager Relationship Specialty Start Date End Date Natalie Posadas MD [address] [place] [address] PCP - General Family Medicine 08/14/18 Madhuri Barakat RN [address] [place] [address] Registered Nurse Family Medicine 02/04/25 05/26/25 Deann Villalobos 02/04/25 06/02/25 Ari Parish Iron Miner BlastingBeater Head 02/12/25 documented as of this encounter
--- OUTSIDE RECORDS SUMMARY | 2025-07-31 12:20 | XMS_ITS | Encounter Summary ---
Author Organization [employer] Address [address] [facility] [address] [place] [address] Care Team Providers Care Live Ammunition Inspector Name Role Phone Natalie Posadas MD Primary Care Provider [phone] Madhuri Barakat RN Unavailable Deann Villalobos Unavailable Reason for Visit * Reason Comments Med Refill Encounter Details Date Type Department Care Team (Late Contact Info) Description 12/26/2022 Refill [facility] MEDICINE [address] [place] [address] Natalie Posadas MD [address] [place], [place] [phone] Pain Social History Tobacco Use Types Packs/Day [...] Support [facility] MED [facility]S [address] [place] [address] Jing Washington, [place] [address] [place], [place] [phone] 12/05/2025 10:30 AM EDT Office Visit [facility] OPTOMETRY [address] [place] [address] SeamusCarolyn rodriguez, OD [address] [place] [address] documented as of this encounter Visit Diagnoses Diagnosis Pain Generalized pain documented in this encounter Additional Health Concerns Assessment Noted Time PHQ-9 Depression Total Score: 0 09/15/19 23 11:23 AM EST documented as of this encounter Care Teams Live Ammunition Inspector Relationship Specialty Start Date End Date Natalie Posadas MD [address] [place], [place] [phone] PCP - General Family Medicine 08/14/18 Madhuri Barakat RN [address] [place] [address] Registered Nurse Family Medicine 02/04/25 05/26/25 Deann Villalobos 02/04/25 06/02/25 Ari Parish Liquid LoaderManager 02/12/25 documented as of this encounter
--- OUTSIDE RECORDS SUMMARY | 2025-07-31 12:20 | XMS_ITS | Encounter Summary ---
Author Organization [employer] Address [address] [place] [address] Care Team Providers Care Vector Control Assistant Name Role Phone Natalie Posadas MD Primary Care Provider [phone] Reason for Visit * Reason Onset Date Comments Telephone call 07/29/2025 Encounter Details Date Type Department Care Team ([facility] st Contact Info) Description 07/29/2025 Telephone [facility] MEDICINE [address] [place], [place] [phone] Natalie Posadas MD [address] [place], [place] [phone] Telephone call Social History Tobacco Use Types Packs/Day Years [...] encounter Miscellaneous Notes * Telephone Encounter - Taran Villalobos - 07/29/2025 10:24 AM EST Patient walked in requesting a call back regarding appointment set on 07/31/25, he would like to reschedule due to multiple appointments on the same day. documented in this encounter Plan of Treatment Upcoming Encounters Date Type Department Care Team (Late st Contact Info) Description 08/21/2025 3:00 PM EST Clinical Support [facility] CHC MED & PEDS [address] [place] [address] Jing Washington, RN [address] [place] [address] 12/05/2025 10:30 AM EDT Office Visit [facility] OPTOMETRY [address] [place] [address], OD [address] [place] [address] documented as of this encounter Visit Diagnoses Not on filedocumented in this encounter Additional Health Concerns Assessment Noted Time PHQ-9 Depression Total Score: 8 02/11/20 25 12:57 PM EDT documented as of this encounter Care Teams Vector Control Assistant Relationship Specialty Start Date End Date Natalie Posadas MD [address] [place] [address] PCP - General Family Medicine 08/14/18 Ari Parish Wildlife BiologistBody Engineer 02/12/25 documented as of this encounter
== END 2025-07-31 10:02 | disposition home or self-care (01) ==
LOC: HO.CT 10:01
PROVIDERS: PCP Family Medicine; Visit Provider Nurse Practitioner Family
DX: R91.1 Solitary pulmonary nodule (principal)
CPT/HCPCS: 71250

== ENCOUNTER → 2025-07-31 10:03 | Outpatient (BNV) | payer MEDICAID, SELFPAY | PROVIDERS: PCP Family Medicine; Visit Provider Radiology Diagnostic Radiology | DX: R91.1 Solitary pulmonary nodule (principal) | CPT/HCPCS: 71250 ==